=== PATIENT | female | born 1960 | race Caucasian/White ===

== ENCOUNTER 2021-05-27 12:08 | Inpatient (IN) | payer SELFPAY ==
[~2021-05-27] VITALS: Ht 165.1 cm; Wt 51.6 kg
[~2021-05-27 12:08] MED LIST: HYDR118S10 PO; IBUP800T26 PO
[2021-05-27] MEDS ORDERED: fentaNYL INJ 100 MCG/2 ML AMP IVP ONE (13:00)
[2021-05-27 13:19] LABS: BASOPHILS % (AUTO) 0 % (0-10); EOSINOPHILS % (AUTO) 0 % (0-10); HEMATOCRIT 40 % (35-52); HEMOGLOBIN 13.6 g/dL (11.5-16.0); LYMPHOCYTES # (AUTO) 1.8 10^3/uL (1.0-4.0); LYMPHOCYTES % (AUTO) 23 % (12-44); MEAN CORPUSCULAR HEMOGLOBIN 30 pg (25-34); MEAN CORPUSCULAR HGB CONC 34 g/dL (32-36); MEAN CORPUSCULAR VOLUME 89 fL (80-99); MEAN PLATELET VOLUME 9.6 fL (9.0-12.2); MONOCYTES # (AUTO) 0.4 10^3/uL (0.0-1.0); MONOCYTES % (AUTO) 5 % (0-12); NEUTROPHILS # (AUTO) 5.5 10^3/uL (1.8-7.8); NEUTROPHILS % (AUTO) 71 % (42-75); PLATELET COUNT 247 10^3/uL (130-400); WHITE BLOOD COUNT 7.8 10^3/uL (4.3-11.0)
[2021-05-27 13:27] LABS: ALBUMIN 3.7 GM/DL (3.2-4.5); POTASSIUM 2.9 MMOL/L (3.6-5.0)
[2021-05-27 13:29] LABS: CALCIUM 8.2 MG/DL (8.5-10.1)
[2021-05-27 13:30] LABS: TOTAL PROTEIN 6.5 GM/DL (6.4-8.2)
[2021-05-27 13:32] LABS: BILIRUBIN,TOTAL 0.3 MG/DL (0.1-1.0)
[2021-05-27 13:34] LABS: CREATININE SERUM 0.7 MG/DL (0.60-1.30)
--- NOTE | 2021-05-27 13:38 | ED Abdominal Pain ---
General Chief Complaint: Abdominal/GI Problems Stated Complaint: ABD PAIN Nursing Triage Note: AMB TO ED WITH C/O ABD CRAMPING HAS PAPERS THAT SHOW SHE WAS IP AT [facility] THE 1ST WEEK IN MAY WAS ADMITTED WITH SM BOWEL VS GASTRITIS. CON'T HAVE WAS TOLD BY [facility] TO [facility] TO COME TO ER. Source of Information: Patient Exam Limitations: No Limitations (BARRY HICKS APRN) History of Present Illness Date Seen by Provider: May 27, 2021 Time Seen by Provider: 12:45 Initial Comments To ER with abdominal cramping. She was inpatient at [facility] in [facility] for 3 days at the beginning of this month with a small bowel obstruction. She has recurrent symptoms and presented here today. No vomiting Timing/Duration: 1-2 Days Severity/Quality: Cramping Location: Generalized Abdomen Radiation: No Radiation Activities at Onset: None Associated Symptoms: Denies Symptoms (BARRY HICKS APRN) Allergies and Home Medications Allergies Coded Allergies: No Known Drug Allergies (Unverified , 09/08/14) Home Medications Ibuprofen 800 Mg Tablet, 800 MG PO q8h PRN for PAIN, (Reported) Patient Home Medication List Home Medication List Reviewed: Yes (BARRY HICKS APRN) Review of Systems Review of Systems Constitutional: see HPI EENTM: No Symptoms Reported Respiratory: No Symptoms Reported Cardiovascular: No Symptoms Reported Gastrointestinal: See HPI, Abdominal Pain; Denies Diarrhea, Denies Nausea Genitourinary: No Symptoms Reported Musculoskeletal: no symptoms reported Skin: no symptoms reported Psychiatric/Neurological: No Symptoms Reported Endocrine: No Symptoms Reported Hematologic/Lymphatic: No Symptoms Reported (BARRY HICKS APRN) Past Bvzjdoc-Uasabr-Ehlukt Hx Past Medical History [employer] History: Menopausal Chronic Back Pain (BARRY HICKS APRN) Physical Exam Vital Signs Vital Signs - First Documented 05/27/21 12:37 Temp 36.3 Pulse 80 Resp 18 B/P (MAP) 124/71 (88) Pulse Ox 96 O2 Delivery Room Air (MARLENY ANDREW MD) Vital Signs Capillary Refill : Greater Than 3 Seconds (BARRY HICKS APRN) Height/Weight/BMI Height: 5'6" Weight: 118lbs. oz. 53.000610yp; 17.00 BMI Method: General Appearance: WD/WN, no apparent distress, thin HEENT: PERRL/EOMI, normal ENT inspection Respiratory: no respiratory distress, no accessory muscle use Cardiovascular: regular rate, rhythm, no murmur Gastrointestinal: soft, abnormal bowel sounds (Hypoactive), distended, tenderness Extremities: normal range of motion, non-tender Neurologic/Psychiatric: alert, normal mood/affect, oriented x 3 Skin: normal color, warm/dry (BARRY HICKS APRN) Progress/Results/Core Measures Results/Orders Lab Results Laboratory Tests Test 05/27/21 13:08 05/27/21 13:20 Range/Units White Blood Count 7.8 4.3-11.0 10^3/uL Red Blood Count 4.51 3.80-5.11 10^6/uL Hemoglobin 13.6 11.5-16.0 g/dL Hematocrit 40 35-52 % Mean Corpuscular Volume 89 80-99 fL Mean Corpuscular Hemoglobin 30 25-34 pg Mean Corpuscular Hemoglobin Concent 34 32-36 g/dL Red Cell Distribution Width 14.3 10.0-14.5 % Platelet Count 247 130-400 10^3/uL Mean Platelet Volume 9.6 9.0-12.2 fL Immature Granulocyte % (Auto) 0 % Neutrophils (%) (Auto) 71 42-75 % Lymphocytes (%) (Auto) 23 12-44 % Monocytes (%) (Auto) 5 0-12 % Eosinophils (%) (Auto) 0 0-10 % Basophils (%) (Auto) 0 0-10 % Neutrophils # (Auto) 5.5 1.8-7.8 10^3/uL Lymphocytes # (Auto) 1.8 1.0-4.0 10^3/uL Monocytes # (Auto) 0.4 0.0-1.0 10^3/uL Eosinophils # (Auto) 0.0 0.0-0.3 10^3/uL Basophils # (Auto) 0.0 0.0-0.1 10^3/uL Immature Granulocyte # (Auto) 0.0 0.0-0.1 10^3/uL Sodium Level 145 135-145 MMOL/L Potassium Level 2.9 L 3.6-5.0 MMOL/L Chloride Level 105 98-107 MMOL/L Carbon Dioxide Level 27 21-32 MMOL/L Anion Gap 13 5-14 MMOL/L Blood Urea Nitrogen 10 7-18 MG/DL Creatinine 0.70 0.60-1.30 MG/DL Estimat Glomerular Filtration Rate 85 BUN/Creatinine Ratio 14 Glucose Level 87 70-105 MG/DL Calcium Level 8.2 L 8.5-10.1 MG/DL Corrected Calcium 8.4 L 8.5-10.1 MG/DL Total Bilirubin 0.3 0.1-1.0 MG/DL Aspartate Amino Transf (AST/SGOT) 21 5-34 U/L Alanine Aminotransferase (ALT/SGPT) 11 0-55 U/L Alkaline Phosphatase 83 40-136 U/L Total Protein 6.5 6.4-8.2 GM/DL Albumin 3.7 3.2-4.5 GM/DL Lipase 12 8-78 U/L Urine Color YELLOW Urine Clarity CLEAR Urine pH 6.0 5-9 Urine Specific [place]rop 1.025 H 1.016-1.022 Urine Protein TRACE H NEGATIVE Urine Glucose (UA) NEGATIVE NEGATIVE Urine Ketones NEGATIVE NEGATIVE Urine Nitrite NEGATIVE NEGATIVE Urine Bilirubin NEGATIVE NEGATIVE Urine Urobilinogen 1.0 < = 1.0 MG/DL Urine Leukocyte Esterase TRACE H NEGATIVE Urine RBC (Auto) NEGATIVE NEGATIVE Urine RBC NONE /HPF Urine WBC 5-10 H /HPF Urine Squamous Epithelial Cells 10-25 H /HPF Urine Crystals NONE /LPF Urine Bacteria MODERATE H /HPF Urine Casts NONE /LPF Urine Mucus LARGE H /LPF Urine Culture Indicated YES (MARLENY ANDREW MD) Medications Given in ED Current Medications Medications Dose Ordered Sig/Grady Route Start Time Stop Time Status Last Admin Dose Admin Fentanyl Citrate 50 mcg ONCE ONCE IVP 05/27/21 13:00 05/27/21 13:01 DC 05/27/21 13:15 50 MCG Potassium Chloride 40 meq ONCE ONCE PO 05/27/21 13:45 05/27/21 13:46 DC 05/27/21 14:06 40 MEQ (MARLENY ANDREW MD) Vital Signs/I&O 05/27/21 12:37 Temp 36.3 Pulse 80 Resp 18 B/P (MAP) 124/71 (88) Pulse Ox 96 O2 Delivery Room Air (MARLENY ANDREW MD) Blood Pressure Mean: 88 Departure Communication (Admissions) NAME: SHANTI MUELLER [facility] REC#: [id number] PT STATUS: REG ER : 1960 PHYSICIAN: BARRY HICKS APRN ADMIT DATE: 05/27/21/ER Draft Date of Exam:05/27/21 CT ABDOMEN/PELVIS W EXAMINATION: CT abdomen and pelvis with intravenous contrast. TECHNIQUE: Multiple contiguous axial images were obtained through the abdomen and pelvis after the uneventful administration of intravenous contrast. All CT scans use one or more of the following dose optimizing techniques: Automated exposure control, MA and/or KvP adjustment based on patient size and exam type or iterative reconstruction. HISTORY: Recent small bowel obstruction with abdominal pain and cramping. COMPARISON: None. FINDINGS: Lung bases: Bibasilar dependent atelectasis. Solid organs: The liver is normal without focal lesion. The gallbladder is normal. There is no biliary ductal dilation. Pancreas is normal. Spleen is normal. Adrenal glands are normal. The kidneys are normal without hydronephrosis. Bowel: There are multiple dilated loops of small bowel with transition point in the right lower quadrant. Bowel loops measure up to 4.5 cm. Colon is unremarkable. No findings of acute appendicitis. Peritoneum: There is mild free fluid in the lower abdomen and pelvis. No intra-abdominal free air. No suspicious lymphadenopathy. Vasculature: Normal without aneurysm. Musculoskeletal: Degenerative changes of the spine without suspicious osseous lesion or compression fracture. Pelvis: The uterus and adnexa are normal. The urinary bladder is normal. IMPRESSION: 1. Findings suggestive of small bowel obstruction with the transition point in the right lower quadrant. Dictated on workstation # [id number] Dict: 05/27/21 1423 Trans: 05/27/21 1431 [id number] Interpreted by: BLANCA BANG DO Electronically signed by: (BARRY HICKS APRN) Impression Primary Impression: Small bowel obstruction Disposition: ADMITTED INPATIENT Condition: Stable Admissions Decision to Admit Reason: Admit from ER (General) Decision to Admit/Date: May 27, 2021 Time/Decision to Admit Time: 14:33 (BARRY HICKS APRN) Departure-Patient Inst. Referrals: PIPO QUIGLEY (PCP) Primary Care Physician [facility] (Family) Primary Care Physician ATTENDING PHYSICIAN NOTE: I was physically present as attending physician in the emergency department during the care of this patient, but I was not directly involved in the decision making or delivery of care for this patient. (MARLENY ANDREW MD) BARRY HICKS APRN May 27, 2021 13:37 MARLENY ANDREW MD May 27, 2021 22:41
[2021-05-27 13:39] LABS: BILIRUBIN,URINE NEGATIVE (NEGATIVE); CLARITY,URINE CLEAR; COLOR,URINE YELLOW; GLUCOSE, URINE (UA) NEGATIVE (NEGATIVE); KETONES,URINE NEGATIVE (NEGATIVE); LEUKOCYTE ESTERASE ,URINE TRACE (NEGATIVE); NITRITE,URINE NEGATIVE (NEGATIVE); PROTEIN,URINE TRACE (NEGATIVE)
[2021-05-27] MEDS ORDERED: KCL 10 MEQ TAB (MICRO K) PO ONE ×2 (13:45→14:10)
[2021-05-27] MEDS ORDERED: DIATRIZOATE MEGLUM/SODIUM 37% 120 ML (GASTROGRAFIN) PO ONE (14:00)
[2021-05-27] MEDS ORDERED: IOHEXOL 350 MG/ML 100 ML (OMNIPAQUE 350) VIAL IV ONE (14:00)
[2021-05-27] MEDS ORDERED: NS 100 ML (IVPB) BAG IV ONE (14:00)
[2021-05-27] MEDS ORDERED: HOLD METFORMIN - RECEIVED CONTRAST 20 ML VIAL IV SCH (14:00)
[2021-05-27 14:31] LABS: BACTERIA,URINE MODERATE /HPF
--- NOTE | 2021-05-27 14:31 | Diagnostic Imaging Report ---
EXAMINATION: CT abdomen and pelvis with intravenous contrast. TECHNIQUE: Multiple contiguous axial images were obtained through the abdomen and pelvis after the uneventful administration of intravenous contrast. All CT scans use one or more of the following dose optimizing techniques: Automated exposure control, MA and/or KvP adjustment based on patient size and exam type or iterative reconstruction. HISTORY: Recent small bowel obstruction with abdominal pain and cramping. COMPARISON: None. FINDINGS: Lung bases: Bibasilar dependent atelectasis. Solid organs: The liver is normal without focal lesion. The gallbladder is normal. There is no biliary ductal dilation. Pancreas is normal. Spleen is normal. Adrenal glands are normal. The kidneys are normal without hydronephrosis. Bowel: There are multiple dilated loops of small bowel with transition point in the right lower quadrant. Bowel loops measure up to 4.5 cm. Colon is unremarkable. No findings of acute appendicitis. Peritoneum: There is mild free fluid in the lower abdomen and pelvis. No intra-abdominal free air. No suspicious lymphadenopathy. Vasculature: Normal without aneurysm. Musculoskeletal: Degenerative changes of the spine without suspicious osseous lesion or compression fracture. Pelvis: The uterus and adnexa are normal. The urinary bladder is normal. IMPRESSION: 1. Findings suggestive of small bowel obstruction with the transition point in the right lower quadrant. Dictated by: Dictated on workstation # [id number]
[2021-05-27] MEDS ORDERED: HURRICAINE EXT TUBE (BENZOCAINE) XX ONE (15:00)
--- NOTE | 2021-05-27 16:21 | CONSULTATION REPORT ---
DATE OF SERVICE: ATTENDING EDI MANAGER: Arianna Jackson APRN HISTORY OF PRESENT ILLNESS: The patient is a 60-year-old female, who presented to the Emergency Department with crampy abdominal pain and distention. She was an inpatient at [place], [place] for 3 days at the beginning of May for small-bowel obstruction. She has had recurrence of symptoms and presented to [facility] Emergency Department today. She reports abdominal distention, crampy pain; however, no vomiting. She states that she had also another episode before in the past as well. She is unsure when she had her last bowel movement. A CT scan of the abdomen and pelvis was performed, which did show transition point in the right lower abdominal quadrant with proximal small bowel dilatation. No lymphadenopathy. No suspicious masses. PAST MEDICAL HISTORY: None. PAST SURGICAL HISTORY: None. ALLERGIES: No known drug allergies. MEDICATIONS: Hydrocodone p.r.n., ibuprofen 800 mg q.8 hours p.r.n. SOCIAL HISTORY: Negative smoke, negative alcohol. FAMILY HISTORY: Noncontributory. VITAL SIGNS: Temperature 36.3, blood pressure 124/71, pulse 80, respirations 18, pulse ox 96% on room air. REVIEW OF SYSTEMS: Well-nourished female currently in no acute distress. She is not experiencing any shortness of breath or difficulty breathing. No chest pain, palpitations, diaphoresis. Abdominal distention as well as crampy abdominal pain with mild nausea, no vomiting. She is unsure when her last bowel movement was. She does not report any red blood per rectum nor any dark tarry stools. No fever, chills, no recent inadvertent weight loss. All other review of systems negative. PHYSICAL EXAMINATION: CHEST: Clear. Good breath sounds bilaterally. HEART: Regular, no murmurs. EXTREMITIES: No lower extremity edema, negative Homans sign. HEENT: No scleral icterus. NECK: No cervical lymphadenopathy. ABDOMEN: Soft with some mild to moderate distention. There was some mild diffuse tenderness. No peritoneal signs. No palpable masses, no hernias. SKIN: Warm, dry. LABORATORY DATA: WBC 7.8, hemoglobin is 13.6, hematocrit 40, platelets 247. Potassium 2.9. BUN 10, creatinine 0.70. Liver function enzymes normal. ASSESSMENT AND PLAN: A 60-year-old female with a partial small-bowel obstruction versus a small-bowel obstruction of unknown etiology. She does have a urinary tract infection as well. We will continue with conservative management for now with bowel rest and IV fluid hydration and see if this resolves on its own. This is her third episode of similar symptoms related to at least a partial small-bowel obstruction and this may warrant a diagnostic laparoscopy at some point. Job ID: [id number] DocumentID: [id number] Dictated Date: 05/27/2021 15:58:58 Parts Salesperson Date: 05/27/2021 16:19:52 Dictated By: SOFY OSWALD MD
--- NOTE | 2021-05-27 16:46 | Diagnostic Imaging Report ---
INDICATION: NG tube placement. EXAMINATION: KUB at 4:39 PM. 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 The heart size and pulmonary vascularity are normal. The lungs are clear. There are no effusions or pneumothoraces. IMPRESSION: COPD. No acute abnormality is seen. The NG tube appears to enter the stomach. Dictated by: Dictated on workstation # [id number]
[2021-05-27 17:00] VITALS: BP 129/73
[2021-05-27] MEDS ORDERED: CATHETER FLUSH 10 ML SYR IV PRN (17:00)
--- NOTE | 2021-05-27 17:21 | History & Physical-Hospitalist ---
KAMERON RAI MED STUDENT 05/27/21 1721: History of Present Illness HPI/Chief Complaint This is Elzbieta a 60 yo female that presented to the ER this afternoon with the chief complaint of abdominal pain secondary to small bowel obstruction as shown on CT. Upon entering the room she was laying in bed in obvious discomfort having nasal drainage after N/G tube placement. She had similar symptoms a little more than 2 weeks ago and had a 3 day hospital stay at [place] and one more time even before that, She has not had abdominal surgery of any kind and has been treated conservatively. The abdominal pain subsided for only 1 day after the [place] stay and then began again. She described the pain as constantly dull in nature but that it builds up and has an extremely sharp pain at no specific area on the abdomen, as it waxes and wanes. Today she put the pain at a 10/10 on the pain scale. Pt called her PCP, Dr. Tyler, who told her to go the ER this afternoon. Pt describes only having a couple bowel movements since these symptoms began and the rest has been very water diarrhea. The pain improves with sitting and resting and gets worst with movement of any kind. Pt denies any change in appetite. She was calm, cooperative, and engaged duirng questioning until the end when she got quite emotional stating that she has had a lot of in her family with the most recent being her that was killed a few months ago. Source: patient Date Seen 05/27/21 Time Seen by a Provider: 03:30 Attending Physician Sandee Naik DO PCP Arianna Jackson Referring Physician Date of Admission May 27, 2021 at 14:43 Home Medications & Allergies Home Medications Reviewed patient Home Medication Reconciliation performed by pharmacy medication reconciliations septic technician and/or nursing. Patients Allergies have been reviewed. Allergies Allergies Coded Allergies No Known Drug Allergies (Vssnyrokna61/23/14) Past Hlyafqt-Fuuxrp-Woyhxi Hx Patient Social History Marrital Status: Tobacco Use?: Yes Tobacco type used: Cigarettes Smoking Status: Current Everyday Smoker (1 pack a day for 42 years) Substance use?: Yes Substance type: Marijuana Substance frequency: Couple times a week (3-4) Alcohol Use?: No Pt feels they are or have been: No Current Status Advance Directives: No Sensory deficits: Vision impairment Past Medical History Surgeries: Orthopedic (screw in left arm) COPD [employer] History: Menopausal Chronic Back Pain Family Medical History Cancer (father had pacreatic and liver cancer), Diabetes (mother) Review of Systems Constitutional: No chills, No fever, No weakness; weight loss (lost 10 pounds in last 2 months) EENTM: No ear pain, No blurred vision, No throat pain Respiratory: cough; No hemoptysis; short of breath Cardiovascular: No chest pain, No edema, No palpitations Gastrointestinal: abdominal pain (describes as all over abdominal pain but she constanly grabbed at LLQ and RLQ), diarrhea; No hematemesis, No loss of appetite, No melena, No nausea, No vomiting Genitourinary: decreased output (stated that she was dehydrated); No dysuria, No frequency Musculoskeletal: back pain; No joint pain; muscle pain (sciatica); No muscle stiffness Skin: No change in color, No dryness, No lesions, No rash Psychiatric/Neurological: Denies Anxiety; Depressed, Emotional Problems; Denies Headache, Denies Numbness, Denies Tingling, Denies Weakness Physical Exam Physical Exam Vital Signs Vital Signs - First Documented 05/27/21 12:37 Temp 36.3 Pulse 80 Resp 18 B/P (MAP) 124/71 (88) Pulse Ox 96 O2 Delivery Room Air Capillary Refill : Greater Than 3 Seconds Height, Weight, BMI Height: 5'6" Weight: 118lbs. oz. 53.338966tb; 17.00 BMI Method: General Appearance: Chronically ill, Moderate Distress, Thin HEENT: PERRL/EOMI, Pharynx Normal Neck: Normal Inspection, Non Tender, Supple Respiratory: Chest Non Tender, Normal Breath Sounds, No Accessory Muscle Use, No Respiratory Distress, Crackles (in bilateral lower lobes) Cardiovascular: Regular Rate, Rhythm, No Edema, No Gallop, No Murmur, Normal Peripheral Pulses Gastrointestinal: Abnormal Bowel Sounds, Distended, Guarding, Hernia (umb ilical) Rectal: Deferred Extremity: Normal Inspection, Normal Range of Motion, Non Tender, No Calf Tenderness, No Pedal Edema Neurologic/Psychiatric: Alert, Oriented x3, No Motor/Sensory Deficits, Normal Mood/Affect Skin: Normal Color, Warm/Dry Results Results/Procedures Labs Laboratory Tests 05/27/21 13:08 Patient resulted labs reviewed. Assessment/Plan Assessment and Plan small bowel obstruction consult surgery continue pain medication monitor labs/vitals/pain level COPD continue home medications chronic back pain umbilical hernia hypokalemia of 2,9 40 IV potassium monitor labs and EKG SANDEE NAIK DO 05/28/21 1239: History of Present Illness HPI/Chief Complaint CC: Abdominal pain HPI: This is a [facility] patient who has a past medical history of a small bowel obstruction hospitalized in [place] just recently who presented to [facility] ER with the same complaints. She was found to have small bowel obstruction, NG tube will be placed and Dr. Garcia will be consulted. At this current time Pt denies any other new issues. Source: patient Past Tnusgur-Yvdxsk-Nivpcm Hx Patient Social History Marrital Status: Tobacco Use?: Yes Tobacco type used: Cigarettes Smoking Status: Current Everyday Smoker (1 pack a day for 42 years) Past Medical History Obstructive Bowel Review of Systems Constitutional: see HPI Physical Exam Physical Exam General Appearance: No Apparent Distress, Chronically ill, Thin Respiratory: Lungs Clear, Normal Breath Sounds Cardiovascular: Regular Rate, Rhythm Gastrointestinal: Abnormal Bowel Sounds, Distended, Guarding Assessment/Plan Admission Diagnosis Assessment: Small bowel obstruction Weight loss Plan: Supportive care Appreciate general surgery Admission Status: Inpatient Order (span 2 midnights) Reason for Inpatient Admission: SBO Diagnosis/Problems Diagnosis/Problems (1) Small bowel obstruction Status: Acute Supervisory-Addendum Brief Verification & Attestation Participated in pt care: history, MDM, physical Personally performed: exam, history, MDM, supervision of care Care discussed with: Medical Student Procedures: n/a Results interpretation: Verified all documentation Verification and Attestation of Medical Student E/M Service A medical student performed and documented this service in my presence. I reviewed and verified all information documented by the medical student and made modifications to such information, when appropriate. I personally performed the physical exam and medical decision making. Sandee Naik, May 29, 2021,04:49 KAMERON RAI MED STUDENT May 27, 2021 17:21 SANDEE NAIK DO May 28, 2021 12:39
[2021-05-27] MEDS: NS IV 1000 ML 1,000 ML IV SCH (17:25)
[2021-05-27] MEDS: fentaNYL INJ 100 MCG/2 ML AMP IV PRN (17:29)
[2021-05-27] MEDS: POTASSIUM CL 10 MEQ/50 ML IVPB (PRE-MIX) IV SCH ×4 (17:30→21:43)
[2021-05-27 20:36] VITALS: BP 130/75
[2021-05-27 23:25] VITALS: BP 121/63
[2021-05-28] MEDS: NS IV 1000 ML 1,000 ML IV SCH ×3 (00:43→16:54)
[2021-05-28 03:55] VITALS: BP 135/61
[2021-05-28] MEDS: fentaNYL INJ 100 MCG/2 ML AMP IV PRN ×2 (05:42→11:55)
[2021-05-28 06:45] LABS: BASOPHILS % (AUTO) 0 % (0-10); EOSINOPHILS # (AUTO) 0.1 10^3/uL (0.0-0.3); EOSINOPHILS % (AUTO) 1 % (0-10); HEMATOCRIT 40 % (35-52); HEMOGLOBIN 13.2 g/dL (11.5-16.0); LYMPHOCYTES # (AUTO) 1.8 10^3/uL (1.0-4.0); LYMPHOCYTES % (AUTO) 25 % (12-44); MEAN CORPUSCULAR HEMOGLOBIN 30 pg (25-34); MEAN CORPUSCULAR HGB CONC 33 g/dL (32-36); MEAN CORPUSCULAR VOLUME 91 fL (80-99); MONOCYTES # (AUTO) 0.4 10^3/uL (0.0-1.0); MONOCYTES % (AUTO) 6 % (0-12); NEUTROPHILS # (AUTO) 4.8 10^3/uL (1.8-7.8); NEUTROPHILS % (AUTO) 68 % (42-75); PLATELET COUNT 220 10^3/uL (130-400); WHITE BLOOD COUNT 7.1 10^3/uL (4.3-11.0)
[2021-05-28 06:54] LABS: POTASSIUM 3.4 MMOL/L (3.6-5.0)
[2021-05-28 06:55] LABS: CALCIUM 7.6 MG/DL (8.5-10.1)
[2021-05-28 07:00] LABS: CREATININE SERUM 0.64 MG/DL (0.60-1.30)
[2021-05-28 08:08] VITALS: BP 139/87
[2021-05-28] MEDS ORDERED: DIATRIZOATE MEGLUM/SODIUM 37% 120 ML (GASTROGRAFIN) PO ONE (08:45)
[2021-05-28] MEDS: ONDANSETRON 4 MG/2 ML (SDV) Z0FRAN IV PRN (12:00)
[2021-05-28 12:06] VITALS: BP 150/67
--- NOTE | 2021-05-28 12:49 | Diagnostic Imaging Report ---
INDICATION: Small bowel obstruction. Patient ingested 240 mL of Gastrografin contrast and water mixture and serial radiographs of the abdomen were obtained. Preliminary radiograph does show a moderate gaseous distention of small bowel loops in the central abdomen. There is a small amount of residual contrast within the colon from the patient's CT study one day earlier. Initial radiograph demonstrates contrast throughout the stomach. There appears to be fairly prompt emptying into the small bowel loops. There does appear to be normal progression of contrast through the small bowel loops to the colon. Contrast is seen within the colon at the 3 hour alexander. Mucosal fold pattern is unremarkable. No definite intrinsic or extrinsic mass is seen. IMPRESSION: Dilated small bowel however, contrast does progress through the small bowel to the colon in 3 hours. No complete obstruction is identified. Dictated by: Dictated on workstation # [id number]
--- NOTE | 2021-05-28 13:17 | Progress Note - Hospitalist ---
KAMERON RAI MED STUDENT 05/28/21 1317: Subjective HPI/CC On Admission Date Seen by Provider: May 28, 2021 Time Seen by Provider: 12:00 SBO. Subjective/Events-last exam This is Elzbieta a 60 yo female on day 2 of her hospital stay with the chief complaint of SBO. Upon entering the room she was laying in bed with obvious abdominal pain after returning from a small bowel x-ray with contrast. Pt stated that her stomach has hurt ever since drinking the contrast. Pt was calm, cooperative, and engaged during questioning. Currently NPO she complained of being very hungry and requested ice chips. She requested and received pain medication and zofran while I was in the room. She has had several BMs this AM. Small bowel x-ray with contrast was completed and showed dilated small bowel but no complete obstruction. Review of Systems General: Fatigue, Appetite (hungry) Gastrointestinal: Abdominal Pain Focused Exam Time of Focused Exam: 12:00 Respiratory: Chest Non Tender, Lungs Clear, Normal Breath Sounds, No Accessory Muscle Use, No Respiratory Distress Cardiovascular: Regular Rate, Rhythm, No Edema, No Gallop, No Murmur, Normal Peripheral Pulses Skin: normal color, warm/dry Objective Exam Vital Signs Vital Signs Date Time Temp Pulse Resp B/P (MAP) Pulse Ox O2 Delivery O2 Flow Rate FiO2 05/28/21 12:06 36.1 56 20 150/67 (94) 96 Room Air Capillary Refill : Greater Than 3 Seconds General Appearance: Chronically ill, Mild Distress, Thin HEENT: PERRL/EOMI, Pharynx Normal Neck: Normal Inspection, Non Tender, Supple Respiratory: Chest Non Tender, Lungs Clear, Normal Breath Sounds, No Accessory Muscle Use, No Respiratory Distress Cardiovascular: Regular Rate, Rhythm, No Edema, No Gallop, No Murmur, Normal Peripheral Pulses Gastrointestinal: Normal Bowel Sounds, Non Tender, Soft Rectal: Deferred Extremity: Normal Inspection, Normal Range of Motion, Non Tender, No Calf Tenderness, No Pedal Edema Neurologic/Psychiatric: Alert, Oriented x3, No Motor/Sensory Deficits, Normal Mood/Affect Skin: Normal Color, Warm/Dry Results/Procedures Lab Laboratory Tests 05/28/21 06:22 Patient resulted labs reviewed. Assessment/Plan Assessment and Plan Assess & Plan/Chief Complaint small bowel obstruction surgery consulted continue pain medication and zofran monitor labs/vitals/pain level COPD continue home medications chronic back pain umbilical hernia hypokalemia- improved to 3.4 on 05/28 40 IV potassium monitor labs hypocalcemia 8.2 on 05/28 SANDEE NAIK DO 05/29/21 0536: Subjective Subjective/Events-last exam Pt doing okay today Still having pain Small bowel series was completed so will wait on those results Appreciate Dr. Garcia Review of Systems General: Fatigue Gastrointestinal: Abdominal Pain Objective Exam General Appearance: No Apparent Distress, WD/WN, Chronically ill Respiratory: No Accessory Muscle Use, No Respiratory Distress, Decreased Breath Sounds Cardiovascular: Regular Rate, Rhythm Assessment/Plan Assessment and Plan Assess & Plan/Chief Complaint Appreciate Dr. GARCIA Supportive care N.p.o. Supervisory-Addendum Brief Verification & Attestation Participated in pt care: history, MDM, physical Personally performed: exam, history, MDM, supervision of care Care discussed with: Medical Student Procedures: n/a Results interpretation: Verified all documentation Verification and Attestation of Medical Student E/M Service A medical student performed and documented this service in my presence. I reviewed and verified all information documented by the medical student and made modifications to such information, when appropriate. I personally performed the physical exam and medical decision making. Sandee Naik, May 29, 2021,05:36 KAMERON RAI MED STUDENT May 28, 2021 13:17 SANDEE NAIK DO May 29, 2021 05:36
[2021-05-28] MEDS ORDERED: FLUT1DIS26 IH (13:27)
[2021-05-28] MEDS ORDERED: OMEP40CA6 PO (13:27)
[2021-05-28] MEDS ORDERED: TIOT18CA2 IH (13:27)
[2021-05-28] MEDS ORDERED: SUCR1TAB PO (13:27)
[2021-05-28 16:36] VITALS: BP 121/72
--- NOTE | 2021-05-28 16:43 | Progress Note ---
Subjective Date Seen by a Provider: May 28, 2021 Time Seen by a Provider: 16:30 Subjective/Events-last exam Patient lying in bed resting. Reports started prep for EGD/Colonoscopy tomorrow. Reports having BMs that are liquid. Tolerating clear liquid diet. Does reports some left lower quadrant tenderness. Denies any blood in her stool. Focused Exam Time of Focused Exam: 12:00 Objective Exam Vital Signs Date Time Temp Pulse Resp B/P (MAP) Pulse Ox O2 Delivery O2 Flow Rate FiO2 05/28/21 16:36 36.5 57 18 121/72 (88) 95 Room Air 05/28/21 12:06 36.1 56 20 150/67 (94) 96 Room Air 05/28/21 08:32 Room Air 05/28/21 08:08 36.5 60 20 139/87 (104) 95 Room Air 05/28/21 03:55 37.0 65 22 135/61 (85) 97 Room Air 05/27/21 23:25 37.0 70 18 121/63 (82) 96 Room Air 05/27/21 20:36 36.8 76 20 130/75 (93) 95 Room Air 05/27/21 17:30 Room Air 05/27/21 17:00 36.7 73 20 129/73 (91) 96 Room Air I & O 05/28/21 07:00 Intake Total 1200 ml Output Total 100 ml Balance 1100 ml Capillary Refill : Greater Than 3 Seconds General Appearance: No Apparent Distress, WD/WN Respiratory: Normal Breath Sounds, No Accessory Muscle Use, No Respiratory Distress Cardiovascular: Regular Rate, Rhythm, No Edema Gastrointestinal: normal bowel sounds, soft, tenderness (LLQ) Extremity: Normal Inspection, Normal Range of Motion Neurologic/Psychiatric: Alert, Oriented x3 Skin: Normal Color, Warm/Dry Results Lab Laboratory Tests 05/28/21 06:22: White Blood Count 7.1, Red Blood Count 4.41, Hemoglobin 13.2, Hematocrit 40, Mean Corpuscular Volume 91, Mean Corpuscular Hemoglobin 30, Mean Corpuscular Hemoglobin Concent 33, Red Cell Distribution Width 14.3, Platelet Count 220, Mean Platelet Volume 10.0, Immature Granulocyte % (Auto) 0, Neutrophils (%) (Au to) 68, Lymphocytes (%) (Auto) 25, Monocytes (%) (Auto) 6, Eosinophils (%) (Auto) 1, Basophils (%) (Auto) 0, Neutrophils # (Auto) 4.8, Lymphocytes # (Auto) 1.8, Monocytes # (Auto) 0.4, Eosinophils # (Auto) 0.1, Basophils # (Auto) 0.0, Immature Granulocyte # (Auto) 0.0, Sodium Level 144, Potassium Level 3.4L, Chloride Level 110H, Carbon Dioxide Level 21, Anion Gap 13, Blood Urea Nitrogen 7, Creatinine 0.64, Estimat Glomerular Filtration Rate 94, BUN/Creatinine Ratio 11, Glucose Level 76, Calcium Level 7.6L 05/28/21 13:38: SARS-CoV-2 RNA (RT-PCR) Not Detected Microbiology 05/27/21 Urine Culture - Preliminary, Resulted Slight Growth Present Assessment/Plan Assessment/Plan Assess & Plan/Chief Complaint A 60 year old female with Partial small bowel obstruction, UTI VSS Small bowel follow through shows most likely partial small bowel obstruction with contrast going through Tolerating clear liquid diet Having liquid BMs Scheduled for EGD and Colonoscopy tomorrow. PEGGY UMANA MANAGER OPERATIONAL May 28, 2021 16:43
[2021-05-28 20:17] VITALS: BP 129/68
[2021-05-28 23:30] VITALS: BP 116/55
[2021-05-29] VITALS (8 sets, daily range): BP systolic 84–139; BP diastolic 46–77
[2021-05-29] MEDS: NS IV 1000 ML 1,000 ML IV SCH ×3 (00:53→20:55)
[2021-05-29 04:50] LABS: BASOPHILS % (AUTO) 1 % (0-10); EOSINOPHILS # (AUTO) 0.1 10^3/uL (0.0-0.3); EOSINOPHILS % (AUTO) 2 % (0-10); HEMATOCRIT 39 % (35-52); LYMPHOCYTES # (AUTO) 1.7 10^3/uL (1.0-4.0); LYMPHOCYTES % (AUTO) 26 % (12-44); MEAN CORPUSCULAR HEMOGLOBIN 30 pg (25-34); MEAN CORPUSCULAR HGB CONC 33 g/dL (32-36); MEAN CORPUSCULAR VOLUME 92 fL (80-99); MEAN PLATELET VOLUME 9.7 fL (9.0-12.2); MONOCYTES # (AUTO) 0.4 10^3/uL (0.0-1.0); MONOCYTES % (AUTO) 6 % (0-12); NEUTROPHILS # (AUTO) 4.2 10^3/uL (1.8-7.8); NEUTROPHILS % (AUTO) 66 % (42-75); PLATELET COUNT 218 10^3/uL (130-400); WHITE BLOOD COUNT 6.4 10^3/uL (4.3-11.0)
[2021-05-29 05:11] LABS: ALBUMIN 3.1 GM/DL (3.2-4.5)
[2021-05-29 05:13] LABS: CALCIUM 7.4 MG/DL (8.5-10.1)
[2021-05-29 05:14] LABS: TOTAL PROTEIN 5.6 GM/DL (6.4-8.2)
[2021-05-29 05:16] LABS: BILIRUBIN,TOTAL 0.5 MG/DL (0.1-1.0)
[2021-05-29 05:17] LABS: CREATININE SERUM 0.62 MG/DL (0.60-1.30)
[2021-05-29] MEDS: ENOXAPARIN 40 MG/0.4 ML (LOVENOX) SYR SC SCH (06:04)
--- NOTE | 2021-05-29 10:37 | Conscious Sedation/ASA ---
Conscious Sedation Pre-Proced Time 10:00 ASA Score 2 For ASA 3 and 4: Consider anesthesia and medical clearance. Also, for patients with a history of failed moderate sedation consider anesthesia. Airway Lungs Heart ASA score ASA 1: a normal healthy patient ASA 2: a patient with a mild systemic disease (mid diabetes, controlled hypertension, obesity ASA 3: a patient with a severe systemic disease that limits activity (angina, COPD, prior Myocardial infarction) ASA 4: a patient with an incapacitating disease that is a constant threat to life (CHF, renal failure) ASA 5: a moribund patient not expected to survive 24 hrs. (ruptured aneurysm) ASA 6: a declared brain- patient whose organs are being harvested. For emergent operations, add the letter E after the classification Mallampati Classification Grade 2 Sedation Plan Analgesia, Amnesia, Plan communicated to team members, Discussed options with patient/fam, Discussed risks with patient/fam The patient is an appropriate candidate to undergo the planned procedure, sedation, and anesthesia. The patient immediately re-assessed prior to indication. SOFY OSWALD MD May 29, 2021 10:37
--- NOTE | 2021-05-29 10:38 | Progress Note-Pre Operative ---
Pre-Operative Progress Note H&P Reviewed The H&P was reviewed, patient examined and no changes noted. Date Seen by Provider: May 29, 2021 Time Seen by Provider: 10:00 Date H&P Reviewed: May 29, 2021 Time H&P Reviewed: 10:00 Pre-Operative Diagnosis: GERD, abd pain, abd distention SOFY OSWALD MD May 29, 2021 10:38
[2021-05-29] MEDS ORDERED: PROPOFOL INJECTION 50 ML IV ONE ×2 (11:55→12:23)
[2021-05-29] MEDS ORDERED: MIDAZOLAM 2 MG/2 ML (VERSED) VIAL ONE (11:55)
[2021-05-29] MEDS ORDERED: LACTATED RINGERS 1,000 ML IV ONE (12:01)
[2021-05-29] MEDS ORDERED: HURRICAINE EXT TUBE (BENZOCAINE) ONE (12:06)
[2021-05-29] MEDS ORDERED: LIDOCAINE JELLY 2% 6 ML SYRINGE ONE (12:06)
--- NOTE | 2021-05-29 12:24 | Progress Note - Hospitalist ---
KAMERON RAI MED STUDENT 05/29/21 1224: Subjective HPI/CC On Admission Date Seen by Provider: May 29, 2021 Time Seen by Provider: 09:00 CC: Abdominal pain HPI: This is a [facility] patient who has a past medical history of a small bowel obstruction hospitalized in [place] just recently who presented to [facility] ER with the same complaints. She was found to have small bowel obstruction, NG tube will be placed and Dr. Garcia will be consulted. At this current time Pt denies any other new issues. Subjective/Events-last exam This is Elzbieta a 60 yo female on day 3 of her hospital stay with the chief com plaint of SBO. Upon entering the room she was laying in bed sleeping. Pt was calm, cooperative, and engaged during questioning. Currently on a clear liquid diet she complained of being very hungry and was hoping that she would be able to eat this afternoon. She is scheduled to get a colonoscopy and EGD in the early afternoon. Pt stated that she is in no pain, 0/10, and stated that she has felt much better after having multiple bowel movements yesterday and this morning in preparation for the diagnostic colonoscopy. Pt complained of frequent urination. Focused Exam Time of Focused Exam: 09:00 Respiratory: Chest Non Tender, Lungs Clear, Normal Breath Sounds, No Accessory Muscle Use, No Respiratory Distress Cardiovascular: Regular Rate, Rhythm, No Edema, No Gallop, No Murmur, Normal Peripheral Pulses Skin: normal color, warm/dry Objective Exam Vital Signs Vital Signs Date Time Temp Pulse Resp B/P (MAP) Pulse Ox O2 Delivery O2 Flow Rate FiO2 05/29/21 08:00 Room Air 05/29/21 08:00 36.0 72 20 132/73 (92) 97 Capillary Refill : Greater Than 3 Seconds General Appearance: No Apparent Distress, WD/WN, Thin HEENT: PERRL/EOMI Neck: Normal Inspection, Non Tender, Supple Respiratory: Chest Non Tender, Lungs Clear, Normal Breath Sounds, No Accessory Muscle Use, No Respiratory Distress Cardiovascular: Regular Rate, Rhythm, No Edema, No Gallop, No Murmur, Normal Peripheral Pulses Gastrointestinal: Normal Bowel Sounds, No Organomegaly, No Pulsatile Mass, Non Tender, Soft Rectal: Deferred Back: Vertebral Tenderness Extremity: Normal Inspection, Non Tender, No Calf Tenderness Neurologic/Psychiatric: Alert, Oriented x3, No Motor/Sensory Deficits, Normal Mood/Affect Skin: Normal Color, Warm/Dry Results/Procedures Lab Laboratory Tests 05/29/21 04:34 Patient resulted labs reviewed. Assessment/Plan Assessment and Plan Assess & Plan/Chief Complaint small bowel obstruction surgery consulted EGD/colonoscopy today continue pain medication and zofran monitor labs/vitals/pain level COPD continue home medications chronic back pain umbilical hernia hypokalemia- 3.0 on 05/29 40 IV potassium monitor labs hypocalcemia 7.4 on 05/29 SANDEE NAIK DO 05/30/21 0609: Subjective Subjective/Events-last exam Pt doing a lot better Less abdominal pain Colonoscopy and EGD today, never had a colonoscopy Potassium 3.0 will be supplemented Review of Systems General: Fatigue, Malaise Gastrointestinal: Abdominal Pain Objective Exam General Appearance: No Apparent Distress, WD/WN, Chronically ill, Thin Respiratory: Lungs Clear Cardiovascular: Regular Rate, Rhythm Neurologic/Psychiatric: Alert, Oriented x3 Assessment/Plan Assessment and Plan Assess & Plan/Chief Complaint Scopes today Supportive care Supervisory-Addendum Brief Verification & Attestation Participated in pt care: history, MDM, physical Personally performed: exam, history, MDM, supervision of care Care discussed with: Medical Student Procedures: n/a Results interpretation: Verified all documentation Verification and Attestation of Medical Student E/M Service A medical student performed and documented this service in my presence. I reviewed and verified all information documented by the medical student and made modifications to such information, when appropriate. I personally performed the physical exam and medical decision making. Sandee Naik, May 30, 2021,06:08 KAMERON RAI MED STUDENT May 29, 2021 12:24 SANDEE NAIK DO May 30, 2021 06:09
[2021-05-29] MEDS ORDERED: LACTATED RINGERS 1,000 ML IV STA (12:28)
[2021-05-29] MEDS ORDERED: LIDOCAINE JELLY 2% 6 ML SYRINGE MM PRN (12:30)
[2021-05-29] MEDS ORDERED: HURRICAINE EXT TUBE (BENZOCAINE) XX PRN (12:30)
--- NOTE | 2021-05-29 13:03 | Progress Note-Post Operative ---
Post-Operative Progess Note Surgeon (s)/Mens Locker Room Attendant (s) Surgeon SOFY OSWALD MD Mens Locker Room Attendant: none Pre-Operative Diagnosis GERD, abd pain, abd distention Post-Operative Diagnosis reflux esophagitis(stage 2-3), small HH(2cm), moderate-severe gastritis. mild chronic stage 2 ext and int hemorrhoids, small rectal HP polyp. Procedure & Operative Findings Date of Procedure 05/29/21 Procedure Performed/Findings EGD with bx. Colonoscopy with bx. Anesthesia Type get Estimated Blood Loss Estimated blood loss (mL): minimal Specimens/Packing Specimens Removed ge jxn, antrum, rectal polyp SOFY OSWALD MD May 29, 2021 13:03
[2021-05-29] MEDS ORDERED: PANT40TA2 PO (13:05)
--- NOTE | 2021-05-29 13:05 | Discharge Inst-Surgical ---
D/C Lap Instructions-KIDO New, Converted, or Re-Newed RX: RX on Chart Follow Up PRN Activity as tolerated High Fiber Diet 25g or more per day Avoid Alcohol, Caffeine, Spicy [place] and Acid foods. Drink 64 fluid oz or more of fluids per day. Symptoms to Report: Fever over 101 degree F, Nausea/Vomiting If any problems/questions: Contact your physician or go to Emergency Room SOFY OSWALD MD May 29, 2021 13:05
--- NOTE | 2021-05-29 13:06 | Anesthesia-General Post-Op ---
MAC Patient Condition Mental Status/LOC: Same as Preop Cardiovascular: Satisfactory Nausea/Vomiting: Absent Respiratory: Satisfactory Pain: Controlled Complications: Absent Post Op Complications Complications None Follow Up Care/Instructions Patient Instructions None needed. Anesthesiology Discharge Order Discharge Order Patient is doing well, no complaints, stable vital signs, no apparent adverse anesthesia problems. No complications reported per nursing. TIARA MUNOZ CRNA May 29, 2021 13:06
[2021-05-29] MEDS ORDERED: ATROPINE INJ 0.4 MG/ML SDV IV ONE (13:51)
[2021-05-29] MEDS ORDERED: GLYCOPYRROLATE 0.2 MG/ML (ROBINUL) 2 ML VIAL IJ ONE (13:51)
[2021-05-29] MEDS: POTASSIUM CL 10MEQ/50ML IVPB 50 ML IV SCH ×4 (14:44→16:04)
--- NOTE | 2021-05-29 23:08 | OPERATIVE REPORT ---
DATE OF SERVICE: 05/29/2021 ATTENDING PHYSICIAN: Dr. Chamberlain. PREOPERATIVE DIAGNOSES: Abdominal distention, abdominal pain, gastroesophageal reflux disease. POSTOPERATIVE DIAGNOSES: Reflux esophagitis between stage II and III, small hiatal hernia 2 cm in size, moderate to severe gastritis. No distal obstructions. Chronic stage II external and internal hemorrhoids, small hyperplastic polyp of the rectum. PROCEDURE: EGD with biopsy, colonoscopy with biopsy. SURGEON: Sofy Garcia MD. ANESTHESIA: Monitored anesthesia care. ESTIMATED BLOOD LOSS: Minimal. FINDINGS: Reflux esophagitis between stage II and III, small hiatal hernia 2 cm in size, moderate to severe gastritis. No distal obstructions. Chronic stage II external and internal hemorrhoids, small hyperplastic polyp of the rectum. DISPOSITION: The patient tolerated the procedure well. INDICATIONS: The patient is a 60-year-old female who has had three episodes of significant abdominal distention, crampy pain, which resolved on its own. Upon further questioning, she does report that she has had a history of gastroesophageal reflux disease. She does not report having a colonoscopy in the past. She does not report any red blood per rectum nor any dark tarry stools as well. She did have a contrast study, which did go through immediately and she has had liquid stool since that time. DESCRIPTION OF PROCEDURE: The patient was brought to the endoscopy suite, laid in the left lateral decubitus position. After adequate IV pain and sedative medications and monitored anesthesia care, the mouthpiece was applied. The endoscope was placed in the mouth, visualizing the pharynx and hypopharyngeal region. Vocal cords, epiglottis and vallecula identified and appeared to be normal. The endoscope was then gently intubated into the esophageal opening and the esophagus insufflated. The endoscope was then advanced to the first, second and third portion of esophagus at the level of the GE junction, reflux esophagitis between stage II and III identified. No ulcerations or strictures. A biopsy was taken with forceps with visualization of good hemostasis. The endoscope was then advanced into the stomach and endoscope retroflexed, visualizing a small hiatal hernia approximately 2 cm in size. There was a moderate to severe gastritis. No formal ulcerations, polyps, or any neoplasms. A biopsy was taken of the antrum to rule out H. pylori with visualization of good hemostasis. The endoscope was then advanced to the pylorus into the first and second portion of the duodenum, which appeared normal with no distal obstructions. The endoscope was then slowly withdrawn while taking a second look and suctioning of residual air with no additional findings. A digital rectal examination was performed, which revealed chronic stage II external and internal hemorrhoids, not actively edematous nor inflamed and no bleeding. Normal sphincter tone was felt and there were no palpable masses. The endoscope was then intubated to the anus and rectum gently insufflated. The endoscope was then advanced through the valves of [place] of the rectum with a small hyperplastic polyp identified, which was small, approximately 2 mm in size. This was biopsied with forceps with visualization of good hemostasis. The endoscope was then advanced through the sigmoid colon where no diverticulosis identified. The endoscope was then advanced to remainder of the descending, transverse and ascending colon to the cecum, which appeared normal with no obstructive neoplastic processes involved. The endoscope was then slowly withdrawn while taking a second look and suctioning of residual air with no additional findings. The patient tolerated the procedure well. We will continue to recommend conservative management for now. If she continues to have symptoms of bowel obstruction, this may warrant further investigation to delineate her gastrointestinal anatomy, which may encompass further imaging with an MRI; however, if this continues to happen and this does not yield any results, the next step would be a diagnostic laparoscopy. Job ID: [id number] DocumentID: [id number] Dictated Date: 05/29/2021 12:59:14 Legal Records Manager Date: 05/29/2021 23:07:28 Dictated By: SOFY GARCIA MD
[2021-05-30 03:27] VITALS: BP 148/74
[2021-05-30 06:23] LABS: BASOPHILS % (AUTO) 0 % (0-10); EOSINOPHILS # (AUTO) 0.1 10^3/uL (0.0-0.3); EOSINOPHILS % (AUTO) 1 % (0-10); HEMATOCRIT 44 % (35-52); HEMOGLOBIN 14.5 g/dL (11.5-16.0); LYMPHOCYTES # (AUTO) 1.3 10^3/uL (1.0-4.0); LYMPHOCYTES % (AUTO) 13 % (12-44); MEAN CORPUSCULAR HEMOGLOBIN 30 pg (25-34); MEAN CORPUSCULAR HGB CONC 33 g/dL (32-36); MEAN CORPUSCULAR VOLUME 89 fL (80-99); MEAN PLATELET VOLUME 9.9 fL (9.0-12.2); MONOCYTES # (AUTO) 0.5 10^3/uL (0.0-1.0); MONOCYTES % (AUTO) 5 % (0-12); NEUTROPHILS # (AUTO) 8.5 10^3/uL (1.8-7.8); NEUTROPHILS % (AUTO) 81 % (42-75); PLATELET COUNT 267 10^3/uL (130-400); WHITE BLOOD COUNT 10.4 10^3/uL (4.3-11.0)
[2021-05-30 06:38] LABS: ALBUMIN 3.4 GM/DL (3.2-4.5); BILIRUBIN,TOTAL 0.4 MG/DL (0.1-1.0); CALCIUM 8.7 MG/DL (8.5-10.1); CREATININE SERUM 0.62 MG/DL (0.60-1.30); MAGNESIUM 1.5 MG/DL (1.6-2.4); POTASSIUM 3.1 MMOL/L (3.6-5.0); TOTAL PROTEIN 6.3 GM/DL (6.4-8.2)
[2021-05-30] MEDS: ENOXAPARIN 40 MG/0.4 ML (LOVENOX) SYR SC SCH (06:51)
[2021-05-30 08:30] VITALS: BP 150/77
[2021-05-30 12:00] VITALS: BP 132/74
--- NOTE | 2021-05-30 14:41 | Progress Note - Hospitalist ---
Subjective HPI/CC On Admission Date Seen by Provider: May 30, 2021 Time Seen by Provider: 13:00 CC: Abdominal pain HPI: This is a [facility] patient who has a past medical history of a small bowel obstruction hospitalized in [place] just recently who presented to [facility] ER with the same complaints. She was found to have small bowel obstruction, NG tube will be placed and Dr. Oswald will be consulted. At this current time Pt denies any other new issues. Subjective/Events-last exam Patient was having more abdominal pain after she ate last night and it still continues Scopes were all negative I feel she needs an exploratory laparoscopy Updated Dr. OSWALD No nausea Review of Systems Gastrointestinal: Nausea, Abdominal Pain Focused Exam Time of Focused Exam: 09:00 Objective Exam Vital Signs Vital Signs Date Time Temp Pulse Resp B/P (MAP) Pulse Ox O2 Delivery O2 Flow Rate FiO2 05/30/21 12:00 37.0 70 20 132/74 (93) 94 Room Air 05/29/21 13:00 10 Capillary Refill : Greater Than 3 Seconds General Appearance: No Apparent Distress, WD/WN, Anxious, Chronically ill, Thin Respiratory: Lungs Clear, Normal Breath Sounds Cardiovascular: Regular Rate, Rhythm Gastrointestinal: Abnormal Bowel Sounds, Tenderness Neurologic/Psychiatric: Alert, Oriented x3 Results/Procedures Lab Laboratory Tests 05/30/21 05:55 Patient resulted labs reviewed. Assessment/Plan Assessment and Plan Assess & Plan/Chief Complaint Assessment: Small bowel obstruction recurrent in type Weight loss Plan: Needs exploratory laparoscopy in my opinion Updated Dr. OSWALD [place] normal Protonix Diagnosis/Problems Diagnosis/Problems (1) Small bowel obstruction Status: Acute ELIZABETH NAIK DO May 30, 2021 14:41
[2021-05-30] MEDS: NS IV 1000 ML 1,000 ML IV SCH (15:09)
[2021-05-30 15:36] VITALS: BP 151/77
--- NOTE | 2021-05-30 15:46 | Progress Note ---
Subjective Date Seen by a Provider: May 30, 2021 Time Seen by a Provider: 15:45 Subjective/Events-last exam continues to have crampy abd pain after starting regular diet. Focused Exam Time of Focused Exam: 09:00 Objective Exam Vital Signs Date Time Temp Pulse Resp B/P (MAP) Pulse Ox O2 Delivery O2 Flow Rate FiO2 05/30/21 15:36 36.2 71 18 151/77 (101) 94 Room Air 05/30/21 12:00 37.0 70 20 132/74 (93) 94 Room Air 05/30/21 09:18 Room Air 05/30/21 08:30 36.8 69 20 150/77 (101) 95 Room Air 05/30/21 07:00 Room Air 05/30/21 03:27 36.2 67 22 148/74 (98) 94 Room Air 05/29/21 23:30 36.5 64 20 137/71 (93) 97 Room Air 05/29/21 20:00 Room Air 05/29/21 19:35 36.5 76 18 139/77 (97) 94 Room Air I & O 05/30/21 07:00 Intake Total 1490 ml Output Total 1900 ml Balance -410 ml Capillary Refill : Greater Than 3 Seconds General Appearance: No Apparent Distress HEENT: PERRL/EOMI Neck: Full Range of Motion Respiratory: Chest Non Tender Cardiovascular: Regular Rate, Rhythm Gastrointestinal: normal bowel sounds, distended, tenderness Extremity: Normal Capillary Refill Neurologic/Psychiatric: Alert, Oriented x3 Skin: Normal Color Lymphatic: No Adenopathy Results Lab Laboratory Tests 05/30/21 05:55: White Blood Count 10.4, Red Blood Count 4.91, Hemoglobin 14.5, Hematocrit 44, Mean Corpuscular Volume 89, Mean Corpuscular Hemoglobin 30, Mean Corpuscular Hemoglobin Concent 33, Red Cell Distribution Width 13.8, Platelet Count 267, Mean Platelet Volume 9.9, Immature Granulocyte % (Auto) 1, Neutrophils (%) (Auto) 81H, Lymphocytes (%) (Auto) 13, Monocytes (%) (Auto) 5, Eosinophils (%) (Auto) 1, Basophils (%) (Auto) 0, Neutrophils # (Auto) 8.5H, Lymphocytes # (Auto) 1.3, Monocytes # (Auto) 0.5, Eosinophils # (Auto) 0.1, Basophils # (Auto) 0.0, Immature Granulocyte # (Auto) 0.1, Sodium Level 139, Potassium Level 3.1L, Chloride Level 107, Carbon Dioxide Level 23, Anion Gap 9, Blood Urea Nitrogen 8, Creatinine 0.62, Estimat Glomerular Filtration Rate 98, BUN/Creatinine Ratio 13, Glucose Level 95, Calcium Level 8.7, Corrected Calcium 9.2, Magnesium Level 1.5L , Total Bilirubin 0.4, Aspartate Amino Transf (AST/SGOT) 27, Alanine Aminotransferase (ALT/SGPT) 17, Alkaline Phosphatase 94, Total Protein 6.3L, Albumin 3.4 Microbiology 05/28/21 MRSA Screen - Final, Complete MRSA not isolated 05/27/21 Urine Culture - Final, Complete Gardnerella vaginalis Gram Pos Mixed Bacterial Estrella Assessment/Plan Assessment/Plan Assess & Plan/Chief Complaint intermittent recurrent SBO. upper and lower endo normal. will proceed with dx laparoscopy and possible SB resection. SOFY OSWALD MD May 30, 2021 15:46
--- NOTE | 2021-05-30 15:47 | Progress Note-Pre Operative ---
Pre-Operative Progress Note H&P Reviewed The H&P was reviewed, patient examined and no changes noted. Date Seen by Provider: May 30, 2021 Time Seen by Provider: 15:45 Date H&P Reviewed: May 30, 2021 Time H&P Reviewed: 15:45 Pre-Operative Diagnosis: intermittent persistent SBO SOFY OSWALD MD May 30, 2021 15:47
[2021-05-30 19:42] VITALS: BP 126/67
[2021-05-30 23:48] VITALS: BP 123/82
[2021-05-31] VITALS (13 sets, daily range): BP systolic 122–165; BP diastolic 65–79
[2021-05-31] MEDS: fentaNYL INJ 100 MCG/2 ML AMP IV PRN ×2 (03:52→18:07)
[2021-05-31 05:54] LABS: BASOPHILS % (AUTO) 0 % (0-10); EOSINOPHILS # (AUTO) 0.1 10^3/uL (0.0-0.3); EOSINOPHILS % (AUTO) 1 % (0-10); HEMATOCRIT 49 % (35-52); HEMOGLOBIN 16.5 g/dL (11.5-16.0); LYMPHOCYTES # (AUTO) 2.2 10^3/uL (1.0-4.0); LYMPHOCYTES % (AUTO) 21 % (12-44); MEAN CORPUSCULAR HEMOGLOBIN 30 pg (25-34); MEAN CORPUSCULAR HGB CONC 34 g/dL (32-36); MEAN CORPUSCULAR VOLUME 88 fL (80-99); MEAN PLATELET VOLUME 10.1 fL (9.0-12.2); MONOCYTES # (AUTO) 0.5 10^3/uL (0.0-1.0); MONOCYTES % (AUTO) 5 % (0-12); NEUTROPHILS # (AUTO) 7.9 10^3/uL (1.8-7.8); NEUTROPHILS % (AUTO) 74 % (42-75); PLATELET COUNT 305 10^3/uL (130-400); WHITE BLOOD COUNT 10.7 10^3/uL (4.3-11.0)
[2021-05-31 06:09] LABS: ALBUMIN 3.7 GM/DL (3.2-4.5); POTASSIUM 3.3 MMOL/L (3.6-5.0)
[2021-05-31 06:10] LABS: CALCIUM 8.7 MG/DL (8.5-10.1)
[2021-05-31 06:12] LABS: TOTAL PROTEIN 6.8 GM/DL (6.4-8.2)
[2021-05-31 06:14] LABS: BILIRUBIN,TOTAL 0.6 MG/DL (0.1-1.0)
[2021-05-31 06:15] LABS: CREATININE SERUM 0.68 MG/DL (0.60-1.30)
--- NOTE | 2021-05-31 06:31 | Progress Note - Hospitalist ---
Subjective HPI/CC On Admission Date Seen by Provider: May 31, 2021 Time Seen by Provider: 12:00 CC: Abdominal pain HPI: This is a [facility] patient who has a past medical history of a small bowel obstruction hospitalized in [place] just recently who presented to [facility] ER with the same complaints. She was found to have small bowel obstruction, NG tube will be placed and Dr. Oswald will be consulted. At this current time Pt denies any other new issues. Subjective/Events-last exam Patient about the same Pending to surgery when I saw her Reviewed labs Spoke with Dr. 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 Review of Systems General: Fatigue Gastrointestinal: Nausea, Vomiting, Abdominal Pain Focused Exam Time of Focused Exam: 09:00 Objective Exam Vital Signs Vital Signs Date Time Temp Pulse Resp B/P (MAP) Pulse Ox O2 Delivery O2 Flow Rate FiO2 05/31/21 19:27 Room Air 05/31/21 15:23 36.4 77 18 165/75 (105) 97 05/31/21 14:50 3 Capillary Refill : Greater Than 3 Seconds General Appearance: No Apparent Distress, WD/WN, Chronically ill, Thin Respiratory: Lungs Clear Cardiovascular: Regular Rate, Rhythm Neurologic/Psychiatric: Alert, Oriented x3 Results/Procedures Lab Laboratory Tests 05/31/21 05:20 Patient resulted labs reviewed. Assessment/Plan Assessment and Plan Assess & Plan/Chief Complaint Assessment: Small bowel obstruction recurrent in type-status post exploratory laparoscopy status post mass resection Weight loss Plan: Needs exploratory laparoscopy in my opinion Updated Dr. OSWALD Scopes normal Protonix 05/31/2021: Mass resection by Dr. OSWALD Diagnosis/Problems Diagnosis/Problems (1) Small bowel obstruction Status: Acute ELIZABETH NAIK DO May 31, 2021 06:31
[2021-05-31] MEDS ORDERED: NS W/KCL 20 MEQ/L 1,000 ML IV ONE (06:49)
[2021-05-31] MEDS: POTASSIUM CHLORIDE INJ 20 MEQ in NS IV 1000 ML 1,000 ML IV SCH ×3 (06:57→23:00)
[2021-05-31] MEDS: ENOXAPARIN 40 MG/0.4 ML (LOVENOX) SYR SC SCH (06:58)
[2021-05-31] MEDS ORDERED: LIDOCAINE/EPI 1%-1:200,000 (XYLOCAINE) 30 ML VIAL ONE (09:27)
--- NOTE | 2021-05-31 10:54 | Progress Note ---
Subjective Date Seen by a Provider: May 31, 2021 Time Seen by a Provider: 09:50 Subjective/Events-last exam Patient seen with Dr. Garcia. Patient reports intermittent episodes of abdominal pain that is diffuse. Passing flatus, but no BM for the past couple days. Reports that her pain returned after starting back on regular food, did fine with liquids. No fever/chills. Denied any N/V. Focused Exam Time of Focused Exam: 09:00 Objective Exam Vital Signs Date Time Temp Pulse Resp B/P (MAP) Pulse Ox O2 Delivery O2 Flow Rate FiO2 05/31/21 08:33 36.0 80 20 126/72 (90) 96 Room Air 05/31/21 08:00 Room Air 05/31/21 03:43 36.4 79 20 122/71 (88) 96 Room Air 05/30/21 23:48 35.9 80 20 123/82 (96) 96 Room Air 05/30/21 20:00 Room Air 05/30/21 19:42 36.4 70 20 126/67 (86) 96 Room Air 05/30/21 15:36 36.2 71 18 151/77 (101) 94 Room Air 05/30/21 12:00 37.0 70 20 132/74 (93) 94 Room Air I & O 05/31/21 07:00 Intake Total 1930 ml Output Total 1200 ml Balance 730 ml Capillary Refill : Greater Than 3 Seconds General Appearance: No Apparent Distress, WD/WN Neck: Normal Inspection, Supple Respiratory: Normal Breath Sounds, No Accessory Muscle Use, No Respiratory Distress Cardiovascular: Regular Rate, Rhythm, No Edema Gastrointestinal: normal bowel sounds, soft, tenderness (Lower abdomen) Extremity: Normal Inspection, Normal Range of Motion Neurologic/Psychiatric: Alert, Oriented x3 Skin: Normal Color, Warm/Dry Results Lab Laboratory Tests 05/31/21 05:20: White Blood Count 10.7, Red Blood Count 5.57H, Hemoglobin 16.5H, Hematocrit 49, Mean Corpuscular Volume 88, Mean Corpuscular Hemoglobin 30, Mean Corpuscular Hemoglobin Concent 34, Red Cell Distribution Width 14.1, Platelet Count 305, Mean Platelet Volume 10.1, Immature Granulocyte % (Auto) 0, Neutrophils (%) (Auto) 74, Lymphocytes (%) (Auto) 21, Monocytes (%) (Auto) 5, Eosinophils (%) (Auto) 1, Basophils (%) (Auto) 0, Neutrophils # (Auto) 7.9H, Lymphocytes # (Auto) 2.2, Monocytes # (Auto) 0.5, Eosinophils # (Auto) 0.1, Basophils # (Auto) 0.0, Immature Granulocyte # (Auto) 0.0, Sodium Level 142, Potassium Level 3.3L, Chloride Level 106, Carbon Dioxide Level 19L, Anion Gap 17H, Blood Urea Nitrogen 5L, Creatinine 0.68, Estimat Glomerular Filtration Rate 88, BUN/Creatinine Ratio 7, Glucose Level 96, Calcium Level 8.7, Corrected Calcium 8.9, Total Bilirubin 0.6, Aspartate Amino Transf (AST/SGOT) 27, Alanine Aminotransferase (ALT/SGPT) 16, Alkaline Phosphatase 98, Total Protein 6.8, Albumin 3.7 Microbiology 05/28/21 MRSA Screen - Final, Complete MRSA not isolated 05/27/21 Urine Culture - Final, Complete Gardnerella vaginalis Gram Pos Mixed Bacterial Estrella Assessment/Plan Assessment/Plan Assess & Plan/Chief Complaint A 60 year old female with Partial small bowel obstruction, UTI VSS Small bowel follow through shows most likely partial small bowel obstruction with contrast going through Tolerated clear liquid diet, but did not tolerate regular diet Passing flatus No significant findings on EGD/Colonoscopy. Will proceed with Diagnostic laparoscopy PEGGY UMANA REPAIR CLERK May 31, 2021 10:54
[2021-05-31] MEDS ORDERED: fentaNYL INJ 100 MCG/2 ML AMP ONE ×2 (11:06→12:35)
[2021-05-31] MEDS ORDERED: morphine INJ 10 MG/ML 1ML (SYR OR VIAL) ONE (11:06)
[2021-05-31] MEDS ORDERED: HYDROmorphone 2 MG/ML VIAL (DILAUDID) ONE (11:07)
[2021-05-31] MEDS ORDERED: ONDANSETRON 4 MG/2 ML (SDV) Z0FRAN ONE ×2 (11:07→12:35)
[2021-05-31] MEDS ORDERED: MIDAZOLAM 2 MG/2 ML (VERSED) VIAL ONE (12:35)
[2021-05-31] MEDS ORDERED: proPOfol 200 MG/20 ML (DIPRIVAN) VIAL IV ONE (12:35)
[2021-05-31] MEDS ORDERED: ROCURONIUM 10 MG/ML 5 ML SYRINGE IV ONE (12:35)
[2021-05-31] MEDS ORDERED: LIDOCAINE PF 2% 5 ML (XYLOCAINE) VIAL ONE (12:35)
[2021-05-31] MEDS: LACTATED RINGERS 1,000 ML IV PRN ×2 (12:44→13:31)
[2021-05-31] MEDS ORDERED: ceFAZolin INJECTION 1,000 MG ONE (12:58)
[2021-05-31] MEDS ORDERED: BUPIVACAINE 0.25% 30 ML (SENSORCAINE) VIAL ONE (13:40)
[2021-05-31] MEDS ORDERED: GLYCOPYRROLATE 0.2 MG/ML (ROBINUL) 2 ML VIAL ONE (13:44)
[2021-05-31] MEDS ORDERED: NEOSTIGMINE 3 MG/3 ML VIAL ONE (13:44)
--- NOTE | 2021-05-31 13:46 | Progress Note-Post Operative ---
Post-Operative Progess Note Surgeon (s)/Online Health And Fitness Coach (s) Surgeon SOFY OSWALD MD Online Health And Fitness Coach: none Pre-Operative Diagnosis intermittent persistent SBO Post-Operative Diagnosis near obstructing distal ileal mass Procedure & Operative Findings Date of Procedure 05/31/21 Procedure Performed/Findings diagnostic laparoscopy and small bowel resection. Anesthesia Type get Estimated Blood Loss Estimated blood loss (mL): minimal Specimens/Packing Specimens Removed distal ileum SOFY OSWALD MD May 31, 2021 13:46
[2021-05-31] MEDS ORDERED: SEVOFLURANE (ULTANE) 15 ML INHAL SOLN ONE (14:00)
[2021-05-31] MEDS ORDERED: ONDANSETRON 4 MG/2 ML (SDV) Z0FRAN IVP PRN (14:30)
[2021-05-31] MEDS ORDERED: morphine INJ 10 MG/ML 1ML (SYR OR VIAL) IVP ONE (14:30)
[2021-05-31] MEDS ORDERED: fentaNYL INJ 100 MCG/2 ML AMP IVP ONE (14:30)
[2021-05-31] MEDS ORDERED: HYDROmorphone 2 MG/ML VIAL (DILAUDID) IV ONE (14:30)
--- NOTE | 2021-05-31 17:49 | OPERATIVE REPORT ---
DATE OF SERVICE: 05/31/2021 ATTENDING PRIMARY CARE PHYSICIAN: Arianna Jackson APRN PREOPERATIVE DIAGNOSIS: Persistent recurrent small-bowel obstruction. POSTOPERATIVE DIAGNOSIS: Distal ileal obstructing mass. PROCEDURE: Diagnostic laparoscopy and resection of distal ileum with anastomosis. SURGEON: Sofy Oswald MD. BEAM BUILDER HELPER: Keith Trammell APRN. ANESTHESIA: General endotracheal. ESTIMATED BLOOD LOSS: Minimal. FINDINGS: Distal ileal obstructing mass. DISPOSITION: The patient tolerated the procedure well. INDICATIONS: The patient is a 60-year-old female who presented to the Emergency Department with crampy abdominal pain and distention. She was an inpatient at [facility] in [place], [place], for 3 days at the beginning of May for small-bowel obstruction type of symptoms. She had recurrence of symptoms, then presented to [facility]. She reports abdominal distention as well as crampy pain on an intermittent basis besides these last two times she has had previous episodes as well. A CT scan of the abdomen and pelvis was performed, which did show a transition point in the right lower abdominal quadrant as well as proximal small bowel dilatation. There was no lymphadenopathy as well as no suspicious masses. A small bowel follow through was also performed, which did show transit of the contrast within 3 hours. She also underwent an EGD and colonoscopy, which did not show any obstructing type of lesions. She was started on a regular diet and again developed abdominal distention and crampy pain. DESCRIPTION OF PROCEDURE: The patient was brought to the operating room, laid supine on the table. After adequate IV pain and sedative medications and general endotracheal intubation, the abdomen was prepped and draped in standard surgical fashion. A 0.5% Marcaine with epinephrine was used to anesthetize overlying skin in the left upper abdominal quadrant and transverse skin incision made using a 15 blade. An 0 silk suture was applied to the medial aspect incision for retraction and a Veress needle inserted with a low opening pressure of 0 mmHg. The abdomen was insufflated to 15 mmHg pressure. The Veress needle removed and a 5 mm XL trocar placed followed by a 5 mm 45-degree angle laparoscope visualizing the peritoneal cavity. A 4-quadrant abdominal exploration was performed. The patient was then placed in a Trendelenburg position. Upon further inspection, there was a mass identified at the terminal ileum with a dilated proximal bowel and distended distal small bowel, which was the likely offending lesion. Under direct visualization, we then proceeded to place a supraumbilical 10 mm port after the skin and peritoneal lining were anesthetized. In a similar manner, a right mid abdominal 5 mm port was placed. The lesion was then mobilized and brought out the 10 mm port site and the obstructive ileal mass was then resected using COLE 55 mm staplers with 3.5 mm thickness loads. The wedge of mesentery was then excised as if doing a cancer operation using a Sonicision. The mesentery was then reapproximated using 3-0 silk suture. We then proceeded with a [id number] anastomosis of the small bowel loops using the COLE 55 mm stapler and the open end was reapproximated using 3-0 silk sutures and stapled with the same stapler with visualization of good hemostasis. The small bowel was then reduced back into the abdomen and then the fascia was then closed using a #1 PDS suture. All skin incisions were closed using 4-0 Monocryl running subcuticular sutures. Wounds were then cleaned and covered with Dermabond. The patient tolerated the procedure well. We will start clear liquid diet as well as IV and oral pain medication. When she is tolerating a diet, has adequate pain control with oral pain medications, and ambulating well, we will discharge her home and we will await the biopsy results. Job ID: [id number] DocumentID: [id number] Dictated Date: 05/31/2021 13:55:38 Clinical Operations Specialist Date: 05/31/2021 17:48:39 Dictated By: SOFY OSWALD MD [facility]
[2021-06-01] MEDS: fentaNYL INJ 100 MCG/2 ML AMP IV PRN ×5 (00:10→16:08)
[2021-06-01] MEDS: POTASSIUM CHLORIDE INJ 20 MEQ in NS IV 1000 ML 1,000 ML IV SCH (00:10)
[2021-06-01 03:27] VITALS: BP 164/77
[2021-06-01] MEDS: ONDANSETRON 4 MG/2 ML (SDV) Z0FRAN IV PRN (03:44)
[2021-06-01] MEDS: HYDROcodone/APAP 7.5 MG/325 MG (LORTAB, LORCET PLUS) TABLET PO PRN ×3 (03:45→20:13)
[2021-06-01 05:45] LABS: BASOPHILS % (AUTO) 0 % (0-10); EOSINOPHILS % (AUTO) 0 % (0-10); HEMATOCRIT 40 % (35-52); HEMOGLOBIN 13.3 g/dL (11.5-16.0); LYMPHOCYTES # (AUTO) 0.7 10^3/uL (1.0-4.0); LYMPHOCYTES % (AUTO) 5 % (12-44); MEAN CORPUSCULAR HEMOGLOBIN 30 pg (25-34); MEAN CORPUSCULAR HGB CONC 33 g/dL (32-36); MEAN CORPUSCULAR VOLUME 90 fL (80-99); MEAN PLATELET VOLUME 9.5 fL (9.0-12.2); MONOCYTES # (AUTO) 0.9 10^3/uL (0.0-1.0); MONOCYTES % (AUTO) 6 % (0-12); NEUTROPHILS # (AUTO) 12.5 10^3/uL (1.8-7.8); NEUTROPHILS % (AUTO) 88 % (42-75); PLATELET COUNT 241 10^3/uL (130-400); WHITE BLOOD COUNT 14.1 10^3/uL (4.3-11.0)
[2021-06-01] MEDS: ENOXAPARIN 40 MG/0.4 ML (LOVENOX) SYR SC SCH (05:46)
[2021-06-01 05:59] LABS: ALBUMIN 3.2 GM/DL (3.2-4.5); POTASSIUM 3.9 MMOL/L (3.6-5.0)
[2021-06-01 06:01] LABS: CALCIUM 7.8 MG/DL (8.5-10.1)
[2021-06-01 06:02] LABS: TOTAL PROTEIN 5.8 GM/DL (6.4-8.2)
[2021-06-01 06:04] LABS: BILIRUBIN,TOTAL 0.4 MG/DL (0.1-1.0)
[2021-06-01 06:05] LABS: CREATININE SERUM 0.57 MG/DL (0.60-1.30)
[2021-06-01 06:42] LABS: BAND NEUTROPHILS 3 %; LYMPHOCYTES % (MANUAL) 8 %; MONOCYTES % (MANUAL) 3 %; NEUTROPHILS % (MANUAL) 86 %
[2021-06-01 08:10] VITALS: BP 158/75
[2021-06-01] MEDS: NS W/KCL 20 MEQ/L 1,000 ML IV SCH ×2 (09:10→17:17)
[2021-06-01 12:17] VITALS: BP 138/63
--- NOTE | 2021-06-01 12:21 | Progress Note ---
Focused Exam Time of Focused Exam: 09:00 Objective Exam Last Set of Vital Signs Vital Signs Date Time Temp Pulse Resp B/P (MAP) Pulse Ox O2 Delivery O2 Flow Rate FiO2 06/01/21 12:17 37.1 101 22 138/63 (88) 92 Room Air 05/31/21 14:50 3 Capillary Refill : Less Than 3 SecondsGreater Than 3 Seconds I&O Intake and Output 06/01/21 00:00 Intake Total 2600 ml Output Total 150 ml Balance 2450 ml Intake Oral 590 ml IV Total 2010 ml Output Urine Total 150 ml # Voids 5 Results/Procedures Lab Laboratory Tests 06/01/21 05:35: White Blood Count 14.1H, Red Blood Count 4.45, Hemoglobin 13.3, Hematocrit 40, Mean Corpuscular Volume 90, Mean Corpuscular Hemoglobin 30, Mean Corpuscular Hemoglobin Concent 33, Red Cell Distribution Width 14.1, Platelet Count 241, Mean Platelet Volume 9.5, Immature Granulocyte % (Auto) 0, Neutrophils (%) (Auto) 88H, Lymphocytes (%) (Auto) 5L, Monocytes (%) (Auto) 6, Eosinophils (%) (Auto) 0, Basophils (%) (Auto) 0, Neutrophils # (Auto) 12.5H, Lymphocytes # (Auto) 0.7L, Monocytes # (Auto) 0.9, Eosinophils # (Auto) 0.0, Basophils # (Auto) 0.0, Immature Granulocyte # (Auto) 0.1, Neutrophils % (Manual) 86, Lymphocytes % (Manual) 8, Monocytes % (Manual) 3, Band Neutrophils 3, Sodium Level 138, Potassium Level 3.9, Chloride Level 108H, Carbon Dioxide Level 18L, Anion Gap 12, Blood Urea Nitrogen 6L, Creatinine 0.57L, Estimat Glomerular Filtration Rate 107, BUN/Creatinine Ratio 11, Glucose Level 99, Calcium Level 7.8L, Corrected Calcium 8.4L, Total Bilirubin 0.4, Aspartate Amino Transf (AST/SGOT) 25, Alanine Aminotransferase (ALT/SGPT) 15, Alkaline Phosphatase 79, Total Protein 5.8L, Albumin 3.2 Microbiology 05/28/21 MRSA Screen - Final, Complete MRSA not isolated 05/27/21 Urine Culture - Final, Complete Gardnerella vaginalis Gram Pos Mixed Bacterial Estrella SUSAN DANIEL MD Jun 01, 2021 12:21
--- NOTE | 2021-06-01 14:34 | Anesthesia-General Post-Op ---
General Patient Condition Mental Status/LOC: Same as Preop Cardiovascular: Satisfactory Nausea/Vomiting: Absent Respiratory: Satisfactory Pain: Controlled Complications: Absent Post Op Complications Complications None Follow Up Care/Instructions Patient Instructions None needed. Anesthesia/Patient Condition Patient Condition Patient is doing well, C/O some pain but much better than last night, stable vital signs, no apparent adverse anesthesia problems. DEACON WORKMAN DO Jun 01, 2021 14:34
[2021-06-01 16:00] VITALS: BP 136/69
--- NOTE | 2021-06-01 19:11 | Progress Note ---
Subjective Date Seen by a Provider: Jun 01, 2021 Time Seen by a Provider: 19:00 Subjective/Events-last exam Patient seen with Dr. Garcia. Patient reports doing ok. Tolerating clear liquid diet and passing flatus. Does report abdominal pain mainly lower abdomen and tolerable with pain meds. Denies any N/V, fever/chills. Ambulating to bathroom without difficulty. Focused Exam Time of Focused Exam: 09:00 Objective Exam Vital Signs Date Time Temp Pulse Resp B/P (MAP) Pulse Ox O2 Delivery O2 Flow Rate FiO2 06/01/21 16:00 37.7 98 18 136/69 (91) 93 Room Air 06/01/21 12:17 37.1 101 22 138/63 (88) 92 Room Air 06/01/21 08:10 37.3 96 24 158/75 (102) 91 Room Air 06/01/21 08:00 92 Room Air 06/01/21 03:27 36.2 79 22 164/77 (106) 92 Room Air 05/31/21 23:30 36.4 67 20 163/73 (103) 94 Room Air 05/31/21 20:00 Room Air 05/31/21 20:00 36.4 78 18 138/65 (89) 95 Room Air 05/31/21 19:27 Room Air I & O 06/01/21 07:00 Intake Total 2400 ml Output Total 150 ml Balance 2250 ml Capillary Refill : Less Than 3 SecondsGreater Than 3 Seconds General Appearance: No Apparent Distress, WD/WN Neck: Normal Inspection, Supple Respiratory: Normal Breath Sounds, No Accessory Muscle Use, No Respiratory Distress Cardiovascular: Regular Rate, Rhythm, No Edema Gastrointestinal: normal bowel sounds, soft, tenderness Extremity: Normal Inspection, Normal Range of Motion (diffuse) Neurologic/Psychiatric: Alert, Oriented x3 Skin: Normal Color, Warm/Dry, Other (Abdominal incisions C/D/I) Results Lab Laboratory Tests 06/01/21 05:35: White Blood Count 14.1H, Red Blood Count 4.45, Hemoglobin 13.3, Hematocrit 40, Mean Corpuscular Volume 90, Mean Corpuscular Hemoglobin 30, Mean Corpuscular Hemoglobin Concent 33, Red Cell Distribution Width 14.1, Platelet Count 241, Mean Platelet Volume 9.5, Immature Granulocyte % (Auto) 0, Neutrophils (%) (Auto) 88H, Lymphocytes (%) (Auto) 5L, Monocytes (%) (Auto) 6, Eosinophils (%) (Auto) 0, Basophils (%) (Auto) 0, Neutrophils # (Auto) 12.5H, Lymphocytes # (Auto) 0.7L, Monocytes # (Auto) 0.9, Eosinophils # (Auto) 0.0, Basophils # (Auto) 0.0, Immature Granulocyte # (Auto) 0.1, Neutrophils % (Manual) 86, Lymp hocytes % (Manual) 8, Monocytes % (Manual) 3, Band Neutrophils 3, Sodium Level 138, Potassium Level 3.9, Chloride Level 108H, Carbon Dioxide Level 18L, Anion Gap 12, Blood Urea Nitrogen 6L, Creatinine 0.57L, Estimat Glomerular Filtration Rate 107, BUN/Creatinine Ratio 11, Glucose Level 99, Calcium Level 7.8L, Corrected Calcium 8.4L, Total Bilirubin 0.4, Aspartate Amino Transf (AST/SGOT) 25, Alanine Aminotransferase (ALT/SGPT) 15, Alkaline Phosphatase 79, Total Protein 5.8L, Albumin 3.2 Microbiology 05/28/21 MRSA Screen - Final, Complete MRSA not isolated 05/27/21 Urine Culture - Final, Complete Gardnerella vaginalis Gram Pos Mixed Bacterial Estrella Assessment/Plan Assessment/Plan Assess & Plan/Chief Complaint A 60 year old female with Partial small bowel obstruction, UTI, S/P diagnostic laparoscopy and small bowel resection with reanastomosis VSS WBC 14.1 Tolerated clear liquid diet Passing flatus Will advance to DYS3 IV fluids, pain and nausea meds Encourage IS and ambulation Will await more bowel function PEGGY UMANA ELECTRONIC SECURITY SPECIALIST Jun 01, 2021 19:10
[2021-06-01 20:00] VITALS: BP 132/65
--- NOTE | 2021-06-01 21:00 | Progress Note ---
Subjective Subjective/Events-last exam Having a lot of pain after surgery, denies other concerns. Focused Exam Time of Focused Exam: 09:00 Objective Exam Last Set of Vital Signs Vital Signs Date Time Temp Pulse Resp B/P (MAP) Pulse Ox O2 Delivery O2 Flow Rate FiO2 06/01/21 20:00 37.1 95 20 132/65 (87) 93 Room Air 05/31/21 14:50 3 Capillary Refill : Less Than 3 SecondsGreater Than 3 Seconds I&O Intake and Output 06/01/21 00:00 Intake Total 2600 ml Output Total 150 ml Balance 2450 ml Intake Oral 590 ml IV Total 2010 ml Output Urine Total 150 ml # Voids 5 General: Alert Lungs: Clear to Auscultation Heart: Regular Rate Abdomen: Other (incisions clean/dry/intact) Psych/Mental Status: Mood NL Results/Procedures Lab Laboratory Tests 06/01/21 05:35: White Blood Count 14.1H, Red Blood Count 4.45, Hemoglobin 13.3, Hematocrit 40, Mean Corpuscular Volume 90, Mean Corpuscular Hemoglobin 30, Mean Corpuscular Hemoglobin Concent 33, Red Cell Distribution Width 14.1, Platelet Count 241, Mean Platelet Volume 9.5, Immature Granulocyte % (Auto) 0, Neutrophils (%) (Auto) 88H, Lymphocytes (%) (Auto) 5L, Monocytes (%) (Auto) 6, Eosinophils (%) (Auto) 0, Basophils (%) (Auto) 0, Neutrophils # (Auto) 12.5H, Lymphocytes # (Auto) 0.7L, Monocytes # (Auto) 0.9, Eosinophils # (Auto) 0.0, Basophils # (Auto) 0.0, Immature Granulocyte # (Auto) 0.1, Neutrophils % (Manual) 86, Lymphocytes % (Manual) 8, Monocytes % (Manual) 3, Band Neutrophils 3, Sodium Level 138, Potassium Level 3.9, Chloride Level 108H, Carbon Dioxide Level 18L, Anion Gap 12, Blood Urea Nitrogen 6L, Creatinine 0.57L, Estimat Glomerular Filtration Rate 107, BUN/Creatinine Ratio 11, Glucose Level 99, Calcium Level 7.8L, Corrected Calcium 8.4L, Total Bilirubin 0.4, Aspartate Amino Transf (AST/SGOT) 25, Alanine Aminotransferase (ALT/SGPT) 15, Alkaline Phosphatase 79, Total Protein 5.8L, Albumin 3.2 Microbiology 05/28/21 MRSA Screen - Final, Complete MRSA not isolated 05/27/21 Urine Culture - Final, Complete Gardnerella vaginalis Gram Pos Mixed Bacterial Estrella Assessment/Plan Assessment/Plan (1) Small bowel obstruction Status: Acute Assessment & Plan: s/p small bowel resection 05/31 with ileal mass removed (2) COPD (chronic obstructive pulmonary disease) Status: Chronic (3) GERD (gastroesophageal reflux disease) Status: Chronic (4) DVT prophylaxis Status: Acute Assessment & Plan: Enoxaparin SUSAN ADNIEL MD Jun 01, 2021 21:00
[2021-06-02] MEDS: HYDROcodone/APAP 7.5 MG/325 MG (LORTAB, LORCET PLUS) TABLET PO PRN ×6 (00:30→21:54)
[2021-06-02] MEDS: NS W/KCL 20 MEQ/L 1,000 ML IV SCH ×3 (00:31→17:49)
[2021-06-02 00:42] VITALS: BP 146/82
[2021-06-02 03:57] VITALS: BP 123/71
[2021-06-02] MEDS: ENOXAPARIN 40 MG/0.4 ML (LOVENOX) SYR SC SCH (05:48)
[2021-06-02 06:39] LABS: BASOPHILS % (AUTO) 0 % (0-10); EOSINOPHILS % (AUTO) 0 % (0-10); HEMATOCRIT 39 % (35-52); HEMOGLOBIN 13.2 g/dL (11.5-16.0); LYMPHOCYTES # (AUTO) 1.4 10^3/uL (1.0-4.0); LYMPHOCYTES % (AUTO) 8 % (12-44); MEAN CORPUSCULAR HEMOGLOBIN 30 pg (25-34); MEAN CORPUSCULAR HGB CONC 34 g/dL (32-36); MEAN CORPUSCULAR VOLUME 89 fL (80-99); MEAN PLATELET VOLUME 10.5 fL (9.0-12.2); MONOCYTES % (AUTO) 5 % (0-12); NEUTROPHILS # (AUTO) 15.5 10^3/uL (1.8-7.8); NEUTROPHILS % (AUTO) 86 % (42-75); PLATELET COUNT 254 10^3/uL (130-400)
[2021-06-02 06:48] LABS: ALBUMIN 2.9 GM/DL (3.2-4.5)
[2021-06-02 06:49] LABS: CALCIUM 7.9 MG/DL (8.5-10.1)
[2021-06-02 06:51] LABS: TOTAL PROTEIN 5.4 GM/DL (6.4-8.2)
[2021-06-02 06:52] LABS: BILIRUBIN,TOTAL 0.6 MG/DL (0.1-1.0)
[2021-06-02 06:54] LABS: CREATININE SERUM 0.59 MG/DL (0.60-1.30)
[2021-06-02 08:00] VITALS: BP 129/73
[2021-06-02] MEDS ORDERED: RT--FLUTICASONE/SALMETEROL 113-14 (AIRDUO RespiCLICK) IH SCH (08:00)
--- NOTE | 2021-06-02 10:47 | Progress Note ---
Subjective Subjective/Events-last exam Pain slightly better today, no BM yet. Focused Exam Time of Focused Exam: 09:00 Objective Exam Last Set of Vital Signs Vital Signs Date Time Temp Pulse Resp B/P (MAP) Pulse Ox O2 Delivery O2 Flow Rate FiO2 06/02/21 08:00 37.1 98 20 129/73 (91) 90 Room Air 05/31/21 14:50 3 Capillary Refill : Less Than 3 SecondsGreater Than 3 Seconds I&O Intake and Output 06/02/21 00:00 Intake Total 3120 ml Output Total 1540 ml Balance 1580 ml Intake Oral 1910 ml IV Total 1210 ml Output Urine Total 1540 ml # Voids 2 # Bowel Movements 2 General: Alert, No Acute Distress Lungs: Clear to Auscultation, Normal Air Movement Heart: Regular Rate, No Murmurs Abdomen: Normal Bowel Sounds, Soft, Other (marked tenderness to light touch) Results/Procedures Lab Laboratory Tests 06/02/21 05:32: White Blood Count 18.0H, Red Blood Count 4.40, Hemoglobin 13.2, Hematocrit 39, Mean Corpuscular Volume 89, Mean Corpuscular Hemoglobin 30, Mean Corpuscular Hemoglobin Concent 34, Red Cell Distribution Width 14.5, Platelet Count 254, Mean Platelet Volume 10.5, Immature Granulocyte % (Auto) 1, Neutrophils (%) (Auto) 86H, Lymphocytes (%) (Auto) 8L, Monocytes (%) (Auto) 5, Eosinophils (%) (Auto) 0, Basophils (%) (Auto) 0, Neutrophils # (Auto) 15.5H, Lymphocytes # (Auto) 1.4, Monocytes # (Auto) 1.0, Eosinophils # (Auto) 0.0, Basophils # (Auto) 0.0, Immature Granulocyte # (Auto) 0.1, Sodium Level 135, Potassium Level 4.0, Chloride Level 106, Carbon Dioxide Level 17L, Anion Gap 12, Blood Urea Nitrogen 8, Creatinine 0.59L, Estimat Glomerular Filtration Rate 103, BUN/Creatinine Ratio 14, Glucose Level 83, Calcium Level 7.9L, Corrected Calcium 8.8, Total Bilirubin 0.6, Aspartate Amino Transf (AST/SGOT) 19, Alanine Aminotransferase (ALT/SGPT) 12, Alkaline Phosphatase 70, Total Protein 5.4L, Albumin 2.9L Microbiology 05/28/21 MRSA Screen - Final, Complete MRSA not isolated 05/27/21 Urine Culture - Final, Complete Gardnerella vaginalis Gram Pos Mixed Bacterial Estrella Assessment/Plan Assessment/Plan (1) Small bowel obstruction Status: Acute Assessment & Plan: s/p small bowel resection 05/31 with ileal mass removed (2) COPD (chronic obstructive pulmonary disease) Status: Chronic (3) GERD (gastroesophageal reflux disease) Status: Chronic (4) DVT prophylaxis Status: Acute Assessment & Plan: Enoxaparin SUSAN DANIEL MD Jun 02, 2021 10:47
[2021-06-02 11:52] VITALS: BP 133/60
--- NOTE | 2021-06-02 13:08 | Progress Note ---
Subjective Date Seen by a Provider: Jun 02, 2021 Time Seen by a Provider: 12:55 Subjective/Events-last exam Patient seen with Dr. Garcia. Patient reports abdominal pain. Has been ambulating to bathroom. Tolerating liquids. Reports not having much of an appetite. Denies any flatus or BM today, but does report belching. Denies any fever or chills, N/V. Focused Exam Time of Focused Exam: 09:00 Objective Exam Vital Signs Date Time Temp Pulse Resp B/P (MAP) Pulse Ox O2 Delivery O2 Flow Rate FiO2 06/02/21 11:52 36.6 102 22 133/60 (84) 90 Room Air 06/02/21 08:00 Room Air 06/02/21 08:00 37.1 98 20 129/73 (91) 90 Room Air 06/02/21 03:57 36.6 86 20 123/71 (88) 95 Room Air 06/02/21 00:42 36.4 102 20 146/82 (103) 90 Room Air 06/01/21 20:15 Room Air 06/01/21 20:00 37.1 95 20 132/65 (87) 93 Room Air 06/01/21 16:00 37.7 98 18 136/69 (91) 93 Room Air I & O 06/02/21 07:00 Intake Total 2420 ml Output Total 2840 ml Balance -420 ml Capillary Refill : Less Than 3 SecondsGreater Than 3 Seconds General Appearance: No Apparent Distress, WD/WN Neck: Normal Inspection, Supple Respiratory: Normal Breath Sounds, No Accessory Muscle Use, No Respiratory Distress Cardiovascular: Regular Rate, Rhythm, No Edema Gastrointestinal: soft, distended Extremity: Normal Inspection, Normal Range of Motion Neurologic/Psychiatric: Alert, Oriented x3 Skin: Normal Color, Warm/Dry, Other (Incisions C/D/I) Results Lab Laboratory Tests 06/02/21 05:32: White Blood Count 18.0H, Red Blood Count 4.40, Hemoglobin 13.2, Hematocrit 39, Mean Corpuscular Volume 89, Mean Corpuscular Hemoglobin 30, Mean Corpuscular Hemoglobin Concent 34, Red Cell Distribution Width 14.5, Platelet Count 254, Mean Platelet Volume 10.5, Immature Granulocyte % (Auto) 1, Neutrophils (%) (Auto) 86H, Lymphocytes (%) (Auto) 8L, Monocytes (%) (Auto) 5, Eosinophils (%) (Auto) 0, Basophils (%) (Auto) 0, Neutrophils # (Auto) 15.5H, Lymphocytes # (Au to) 1.4, Monocytes # (Auto) 1.0, Eosinophils # (Auto) 0.0, Basophils # (Auto) 0.0, Immature Granulocyte # (Auto) 0.1, Sodium Level 135, Potassium Level 4.0, Chloride Level 106, Carbon Dioxide Level 17L, Anion Gap 12, Blood Urea Nitrogen 8, Creatinine 0.59L, Estimat Glomerular Filtration Rate 103, BUN/Creatinine Ratio 14, Glucose Level 83, Calcium Level 7.9L, Corrected Calcium 8.8, Total Bilirubin 0.6, Aspartate Amino Transf (AST/SGOT) 19, Alanine Aminotransferase (ALT/SGPT) 12, Alkaline Phosphatase 70, Total Protein 5.4L, Albumin 2.9L Microbiology 05/28/21 MRSA Screen - Final, Complete MRSA not isolated 05/27/21 Urine Culture - Final, Complete Gardnerella vaginalis Gram Pos Mixed Bacterial Estrella Assessment/Plan Assessment/Plan Assess & Plan/Chief Complaint A 60 year old female with Partial small bowel obstruction, UTI, S/P diagnostic laparoscopy and small bowel resection with reanastomosis VSS WBC up to 18.0 - will start zosyn Tolerated clear liquid diet Abdominal distension - may have post-op ileus Patient instructed to proceed with clear liquids for the time being IV fluids, pain and nausea meds Encourage IS and ambulation Will await more bowel function PEGGY UMANA APRN Jun 02, 2021 13:08
[2021-06-02] MEDS: PIPERACILLIN/TAZOBACTAM (BULK) 4.5 GM in NS (IVPB) 100 ML IV SCH ×2 (13:36→21:54)
[2021-06-02] MEDS: UMECLIDINIUM BROMIDE (INCRUSE ELLIPTA) 7'S IH SCH (14:55)
[2021-06-02 16:00] VITALS: BP 136/65
[2021-06-02] MEDS: fentaNYL INJ 100 MCG/2 ML AMP IV PRN ×2 (19:05→20:11)
[2021-06-02 20:00] VITALS: BP 134/68
[2021-06-02] MEDS ORDERED: fentaNYL INJ 100 MCG/2 ML AMP ONE (20:09)
[2021-06-02] MEDS: RT--FLUTICASONE/SALMETEROL 113-14 (AIRDUO RespiCLICK) IH SCH (22:32)
[2021-06-03 00:13] VITALS: BP 112/71
[2021-06-03] MEDS: HYDROcodone/APAP 7.5 MG/325 MG (LORTAB, LORCET PLUS) TABLET PO PRN ×5 (02:37→21:41)
[2021-06-03 03:38] VITALS: BP 139/82
[2021-06-03] MEDS: NS W/KCL 20 MEQ/L 1,000 ML IV SCH ×4 (04:53→22:01)
[2021-06-03] MEDS: PIPERACILLIN/TAZOBACTAM (BULK) 4.5 GM in NS (IVPB) 100 ML IV SCH ×3 (04:53→20:39)
[2021-06-03 05:45] LABS: BASOPHILS % (AUTO) 0 % (0-10); EOSINOPHILS % (AUTO) 0 % (0-10); HEMATOCRIT 39 % (35-52); HEMOGLOBIN 12.7 g/dL (11.5-16.0); LYMPHOCYTES # (AUTO) 0.6 10^3/uL (1.0-4.0); LYMPHOCYTES % (AUTO) 6 % (12-44); MEAN CORPUSCULAR HEMOGLOBIN 30 pg (25-34); MEAN CORPUSCULAR HGB CONC 33 g/dL (32-36); MEAN CORPUSCULAR VOLUME 90 fL (80-99); MEAN PLATELET VOLUME 10.1 fL (9.0-12.2); MONOCYTES # (AUTO) 0.7 10^3/uL (0.0-1.0); MONOCYTES % (AUTO) 6 % (0-12); NEUTROPHILS # (AUTO) 9.2 10^3/uL (1.8-7.8); NEUTROPHILS % (AUTO) 87 % (42-75); PLATELET COUNT 246 10^3/uL (130-400); WHITE BLOOD COUNT 10.6 10^3/uL (4.3-11.0)
[2021-06-03 06:01] LABS: ALBUMIN 2.7 GM/DL (3.2-4.5)
[2021-06-03 06:02] LABS: POTASSIUM 3.7 MMOL/L (3.6-5.0)
[2021-06-03 06:04] LABS: TOTAL PROTEIN 5.2 GM/DL (6.4-8.2)
[2021-06-03 06:06] LABS: BILIRUBIN,TOTAL 0.6 MG/DL (0.1-1.0)
[2021-06-03 06:08] LABS: CREATININE SERUM 0.52 MG/DL (0.60-1.30)
[2021-06-03] MEDS: ENOXAPARIN 40 MG/0.4 ML (LOVENOX) SYR SC SCH (06:45)
[2021-06-03] MEDS: RT--FLUTICASONE/SALMETEROL 113-14 (AIRDUO RespiCLICK) IH SCH ×2 (07:29→21:16)
[2021-06-03] MEDS: UMECLIDINIUM BROMIDE (INCRUSE ELLIPTA) 7'S IH SCH (07:29)
[2021-06-03 07:58] VITALS: BP 129/67
[2021-06-03] MEDS: fentaNYL INJ 100 MCG/2 ML AMP IV PRN ×2 (10:49→19:58)
[2021-06-03 11:57] VITALS: BP 112/66
--- NOTE | 2021-06-03 14:57 | Progress Note ---
Subjective Date Seen by a Provider: Jun 03, 2021 Time Seen by a Provider: 14:30 Subjective/Events-last exam doing ok. was able to have a bowel movement. tolerating diet. pain better controlled and ambulating well. Focused Exam Time of Focused Exam: 09:00 Objective Exam Vital Signs Date Time Temp Pulse Resp B/P (MAP) Pulse Ox O2 Delivery O2 Flow Rate FiO2 06/03/21 11:57 36.8 92 20 112/66 (81) 96 Nasal Cannula 2.00 06/03/21 08:00 Room Air 06/03/21 07:58 36.8 89 22 129/67 (87) 94 Nasal Cannula 2.00 06/03/21 07:30 93 Nasal Cannula 2.00 06/03/21 03:38 36.6 94 18 139/82 (101) 96 Room Air 06/03/21 00:13 36.8 90 16 112/71 (85) 93 Room Air 06/02/21 20:00 36.8 96 20 134/68 (90) 96 Nasal Cannula 2.00 06/02/21 19:50 Room Air 06/02/21 16:00 36.4 92 18 136/65 (88) 94 Nasal Cannula 2.00 06/02/21 15:02 92 Nasal Cannula 2.00 06/02/21 14:56 86 Room Air I & O 06/03/21 07:00 Intake Total 2300 ml Output Total 1500 ml Balance 800 ml Capillary Refill : Less Than 3 SecondsGreater Than 3 Seconds General Appearance: No Apparent Distress HEENT: PERRL/EOMI Neck: Full Range of Motion Respiratory: Chest Non Tender, Lungs Clear, Normal Breath Sounds Cardiovascular: Regular Rate, Rhythm Gastrointestinal: normal bowel sounds, soft, tenderness Extremity: Normal Capillary Refill Neurologic/Psychiatric: Alert, Oriented x3 Skin: Normal Color Lymphatic: No Adenopathy Results Lab Laboratory Tests 06/03/21 05:20: White Blood Count 10.6, Red Blood Count 4.26, Hemoglobin 12.7, Hematocrit 39, Mean Corpuscular Volume 90, Mean Corpuscular Hemoglobin 30, Mean Corpuscular Hemoglobin Concent 33, Red Cell Distribution Width 14.8H, Platelet Count 246, Mean Platelet Volume 10.1, Immature Granulocyte % (Auto) 0, Neutrophils (%) (Auto) 87H, Lymphocytes (%) (Auto) 6L, Monocytes (%) (Auto) 6, Eosinophils (%) (Auto) 0, Basophils (%) (Auto) 0, Neutrophils # (Auto) 9.2H, Lymphocytes # (Auto) 0.6L, Monocytes # (Auto) 0.7, Eosinophils # (Auto) 0.0, Basophils # (Auto) 0.0, Immature Granulocyte # (Auto) 0.0, Sodium Level 135, Potassium Level 3.7, Chloride Level 105, Carbon Dioxide Level 19L, Anion Gap 11, Blood Urea Nitrogen 8, Creatinine 0.52L, Estimat Glomerular Filtration Rate 119, BUN/Creatinine Ratio 15, Glucose Level 83, Calcium Level 8.0L, Corrected Calcium 9.0, Total Bilirubin 0.6, Aspartate Amino Transf (AST/SGOT) 20, Alanine Aminotransferase (ALT/SGPT) 11, Alkaline Phosphatase 62, Total Protein 5.2L, Albumin 2.7L Microbiology 05/28/21 MRSA Screen - Final, Complete MRSA not isolated 05/27/21 Urine Culture - Final, Complete Gardnerella vaginalis Gram Pos Mixed Bacterial Estrella Assessment/Plan Assessment/Plan Assess & Plan/Chief Complaint intermittent recurrent SBO s/p dx laparoscopy and SBR for ileal mass. advance diet. increase ambulation. SOFY OSWALD MD Jun 03, 2021 14:57
[2021-06-03 15:55] VITALS: BP 135/69
--- NOTE | 2021-06-03 16:36 | Progress Note ---
Subjective Subjective/Events-last exam Seen at 11:35 am. Denies bowel movement yet. Still having a lot of pain. Focused Exam Time of Focused Exam: 09:00 Objective Exam Last Set of Vital Signs Vital Signs Date Time Temp Pulse Resp B/P (MAP) Pulse Ox O2 Delivery O2 Flow Rate FiO2 06/03/21 15:55 36.0 89 22 135/69 (91) 95 Nasal Cannula 2.00 Capillary Refill : Less Than 3 SecondsGreater Than 3 Seconds I&O Intake and Output 06/03/21 00:00 Intake Total 1020 ml Output Total 2400 ml Balance -1380 ml Intake Oral 900 ml IV Total 120 ml Output Urine Total 2400 ml General: Alert Lungs: Other (rales at bases) Heart: Regular Rate Abdomen: Normal Bowel Sounds, Other (mild distention, marked diffuse ttp) Extremities: No Edema Psych/Mental Status: Mood NL Results/Procedures Lab Laboratory Tests 06/03/21 05:20: White Blood Count 10.6, Red Blood Count 4.26, Hemoglobin 12.7, Hematocrit 39, Mean Corpuscular Volume 90, Mean Corpuscular Hemoglobin 30, Mean Corpuscular Hemoglobin Concent 33, Red Cell Distribution Width 14.8H, Platelet Count 246, Mean Platelet Volume 10.1, Immature Granulocyte % (Auto) 0, Neutrophils (%) (Auto) 87H, Lymphocytes (%) (Auto) 6L, Monocytes (%) (Auto) 6, Eosinophils (%) (Auto) 0, Basophils (%) (Auto) 0, Neutrophils # (Auto) 9.2H, Lymphocytes # (Auto) 0.6L, Monocytes # (Auto) 0.7, Eosinophils # (Auto) 0.0, Basophils # (Auto) 0.0, Immature Granulocyte # (Auto) 0.0, Sodium Level 135, Potassium Level 3.7, Chloride Level 105, Carbon Dioxide Level 19L, Anion Gap 11, Blood Urea Nitrogen 8, Creatinine 0.52L, Estimat Glomerular Filtration Rate 119, BUN/Creatinine Ratio 15, Glucose Level 83, Calcium Level 8.0L, Corrected Calcium 9.0, Total Bilirubin 0.6, Aspartate Amino Transf (AST/SGOT) 20, Alanine Aminotransferase (ALT/SGPT) 11, Alkaline Phosphatase 62, Total Protein 5.2L, Albumin 2.7L Microbiology 05/28/21 MRSA Screen - Final, Complete MRSA not isolated 05/27/21 Urine Culture - Final, Complete Gardnerella vaginalis Gram Pos Mixed Bacterial Estrella Assessment/Plan Assessment/Plan (1) Small bowel obstruction Status: Acute Assessment & Plan: s/p small bowel resection 05/31 with ileal mass removed (2) COPD (chronic obstructive pulmonary disease) Status: Chronic Assessment & Plan: 06/03 on 2 lpm supplemental oxygen, encouraged ambulation and IS (3) GERD (gastroesophageal reflux disease) Status: Chronic (4) DVT prophylaxis Status: Acute Assessment & Plan: Enoxaparin SUSAN DANIEL MD Jun 03, 2021 16:36
[2021-06-03] MEDS: METOCLOPRAMIDE INJ 10 MG/2 ML (REGLAN) IVP SCH (16:54)
[2021-06-03 19:49] VITALS: BP 130/73
[2021-06-04] VITALS: BP 125/71
[2021-06-04] MEDS: METOCLOPRAMIDE INJ 10 MG/2 ML (REGLAN) IVP SCH ×5 (00:44→23:39)
[2021-06-04] MEDS: HYDROcodone/APAP 7.5 MG/325 MG (LORTAB, LORCET PLUS) TABLET PO PRN ×2 (02:35→06:47)
[2021-06-04 04:16] VITALS: BP 125/74
[2021-06-04] MEDS: PIPERACILLIN/TAZOBACTAM (BULK) 4.5 GM in NS (IVPB) 100 ML IV SCH ×3 (06:04→21:21)
[2021-06-04] MEDS: ENOXAPARIN 40 MG/0.4 ML (LOVENOX) SYR SC SCH (06:05)
[2021-06-04 07:33] VITALS: BP 131/75
[2021-06-04] MEDS: NS W/KCL 20 MEQ/L 1,000 ML IV SCH ×2 (08:30→13:13)
[2021-06-04] MEDS: UMECLIDINIUM BROMIDE (INCRUSE ELLIPTA) 7'S IH SCH (08:44)
[2021-06-04] MEDS: RT--FLUTICASONE/SALMETEROL 113-14 (AIRDUO RespiCLICK) IH SCH ×2 (08:44→20:58)
--- NOTE | 2021-06-04 11:29 | Progress Note ---
Subjective Subjective/Events-last exam States she is feeling a little better today, but still having severe pain at times. Thought she was going to vomit after oatmeal and Ensure this am, but did not. Focused Exam Time of Focused Exam: 09:00 Objective Exam Last Set of Vital Signs Vital Signs Date Time Temp Pulse Resp B/P (MAP) Pulse Ox O2 Delivery O2 Flow Rate FiO2 06/04/21 09:00 Room Air 06/04/21 08:45 94 2.00 06/04/21 07:33 36.0 87 18 131/75 (93) Capillary Refill : Less Than 3 SecondsGreater Than 3 Seconds I&O Intake and Output 06/04/21 00:00 Intake Total 2095 ml Output Total 1400 ml Balance 695 ml Intake Oral 915 ml IV Total 1180 ml Output Urine Total 1400 ml General: Alert, Mild Distress Lungs: Clear to Auscultation Heart: Regular Rate, No Murmurs Abdomen: Other (high pitched bowel sounds, distended, marked ttp) Neuro: Normal Speech Psych/Mental Status: Mood NL Results/Procedures Lab Microbiology 05/28/21 MRSA Screen - Final, Complete MRSA not isolated 05/27/21 Urine Culture - Final, Complete Gardnerella vaginalis Gram Pos Mixed Bacterial Estrella Assessment/Plan Assessment/Plan (1) Small bowel obstruction Status: Acute Assessment & Plan: s/p small bowel resection 05/31 with ileal mass removed, management per surgery Started on zosyn 06/02 06/04 still having a lot of pain and minimal bowel function, is going to try to ambulate every couple of hours today (2) COPD (chronic obstructive pulmonary disease) Status: Chronic Assessment & Plan: 06/03 on 2 lpm supplemental oxygen, encouraged ambulation and IS 06/04 stable on 2 lpm, encouraged continue deep inspirations which is difficult due to pain (3) GERD (gastroesophageal reflux disease) Status: Chronic (4) DVT prophylaxis Status: Acute Assessment & Plan: Enoxaparin SUSAN DANIEL MD Jun 04, 2021 11:29
[2021-06-04] MEDS ORDERED: ACETAMINOPHEN 325 MG TABLET PO PRN (11:30)
[2021-06-04 11:57] VITALS: BP 112/65
--- NOTE | 2021-06-04 16:11 | Progress Note ---
Subjective Date Seen by a Provider: Jun 04, 2021 Time Seen by a Provider: 16:00 Subjective/Events-last exam Patient seen with Dr. Garcia. Patient reports having abdominal pain and more distention. No flatus or BM. No fever/chills. Does report episodes of nausea but no vomiting. Focused Exam Time of Focused Exam: 09:00 Objective Exam Vital Signs Date Time Temp Pulse Resp B/P (MAP) Pulse Ox O2 Delivery O2 Flow Rate FiO2 06/04/21 11:57 36.9 77 20 112/65 (81) 92 Nasal Cannula 1.00 06/04/21 09:00 Room Air 06/04/21 08:45 94 Nasal Cannula 2.00 06/04/21 07:33 36.0 87 18 131/75 (93) 96 Nasal Cannula 2.00 06/04/21 04:16 36.4 92 18 125/74 (91) 94 Room Air 06/04/21 00:00 36.6 92 18 125/71 (89) 94 Room Air 06/03/21 21:17 90 Nasal Cannula 2.00 06/03/21 20:05 Room Air 06/03/21 19:49 36.8 101 22 130/73 (92) 91 Room Air I & O 06/04/21 07:00 Intake Total 815 ml Output Total 1400 ml Balance -585 ml Capillary Refill : Less Than 3 SecondsGreater Than 3 Seconds General Appearance: No Apparent Distress, WD/WN Neck: Normal Inspection, Supple Respiratory: Normal Breath Sounds, No Accessory Muscle Use, No Respiratory Distress Gastrointestinal: abnormal bowel sounds, distended, tenderness Extremity: Normal Inspection, Normal Range of Motion Neurologic/Psychiatric: Alert, Oriented x3 Skin: Normal Color, Warm/Dry, Other (Abdominal incisions C/D/I) Results Lab Microbiology 05/28/21 MRSA Screen - Final, Complete MRSA not isolated 05/27/21 Urine Culture - Final, Complete Gardnerella vaginalis Gram Pos Mixed Bacterial Estrella Assessment/Plan Assessment/Plan Assess & Plan/Chief Complaint A 60 year old female with Partial small bowel obstruction, UTI, S/P diagnostic laparoscopy and small bowel resection with reanastomosis VSS WBC WNL Abdominal distension - may have post-op ileus - will check abdominal x-ray Patient instructed to proceed with ice chips sparingly IV fluids, pain and nausea meds Encourage IS and ambulation Will have NGT placed for decompression - Will await more bowel function Labs in AM PEGGY UMANA [employer] Jun 04, 2021 16:11
[2021-06-04] MEDS: ONDANSETRON 4 MG/2 ML (SDV) Z0FRAN IV PRN (16:55)
[2021-06-04] MEDS: fentaNYL INJ 100 MCG/2 ML AMP IV PRN (16:56)
--- NOTE | 2021-06-04 17:16 | Diagnostic Imaging Report ---
INDICATION: Abdominal pain. COMPARISON: 05/28/2021 FINDINGS: There is moderate small bowel distention. There are no abnormal abdominal calcifications. Osseous structures are unremarkable. IMPRESSION: Multiple moderately distended loops of small bowel suspect for at least an ileus if not partial small bowel obstruction. Recommend clinical correlation and, if warranted, follow up with small bowel series. Dictated by: Dictated on workstation # [id number]
[2021-06-04 17:30] VITALS: BP 129/70
--- NOTE | 2021-06-04 17:41 | Diagnostic Imaging Report ---
INDICATION: NG tube placement. COMPARISON: Imaging from the same date. TECHNIQUE: Single radiograph of the abdomen dated 06/04/2021 at 1722 hours. FINDINGS: Enteric catheter is present with the distal tip and sidehole overlying the left upper abdomen, felt to be within the body of the stomach. The visualized lung bases are clear. Diffusely gas dilated loops of large and small bowel are again noted, appearing relatively similar to the prior examination. No free air. No acute osseous abnormality. IMPRESSION: Placement of an enteric catheter with the distal tip and sidehole extending into the stomach. Persistent gaseous distention of the bowel concerning for ileus versus bowel obstruction. Dictated by: Dictated on workstation # [id number]
[2021-06-04 20:00] VITALS: BP 146/75
[2021-06-05] VITALS (7 sets, daily range): BP systolic 138–156; BP diastolic 68–76
[2021-06-05] MEDS: fentaNYL INJ 100 MCG/2 ML AMP IV PRN ×4 (03:58→15:49)
[2021-06-05] MEDS: NS W/KCL 20 MEQ/L 1,000 ML IV SCH ×2 (05:38→09:11)
[2021-06-05] MEDS: ENOXAPARIN 40 MG/0.4 ML (LOVENOX) SYR SC SCH (05:39)
[2021-06-05] MEDS: PIPERACILLIN/TAZOBACTAM (BULK) 4.5 GM in NS (IVPB) 100 ML IV SCH ×3 (05:39→20:43)
[2021-06-05] MEDS: METOCLOPRAMIDE INJ 10 MG/2 ML (REGLAN) IVP SCH ×4 (05:41→23:14)
[2021-06-05 05:45] LABS: HEMATOCRIT 37 % (35-52); HEMOGLOBIN 12.3 g/dL (11.5-16.0); MEAN CORPUSCULAR HEMOGLOBIN 30 pg (25-34); MEAN CORPUSCULAR HGB CONC 33 g/dL (32-36); MEAN CORPUSCULAR VOLUME 88 fL (80-99); MEAN PLATELET VOLUME 9.6 fL (9.0-12.2); PLATELET COUNT 353 10^3/uL (130-400)
[2021-06-05 05:58] LABS: POTASSIUM 3.3 MMOL/L (3.6-5.0)
[2021-06-05 05:59] LABS: CALCIUM 8.5 MG/DL (8.5-10.1)
[2021-06-05 06:03] LABS: CREATININE SERUM 0.54 MG/DL (0.60-1.30)
[2021-06-05] MEDS: UMECLIDINIUM BROMIDE (INCRUSE ELLIPTA) 7'S IH SCH (07:06)
[2021-06-05] MEDS: RT--FLUTICASONE/SALMETEROL 113-14 (AIRDUO RespiCLICK) IH SCH ×2 (07:06→19:58)
[2021-06-05] MEDS: POTASSIUM CL 10MEQ/50ML IVPB 50 ML IV SCH ×3 (09:00→09:49)
--- NOTE | 2021-06-05 10:27 | Progress Note ---
Subjective Subjective/Events-last exam Feeling a little better with the NG in, but was in terrible pain prior and is feeling frustrated about the steps back. She is having pain with potassium infusion and can't tolerate it. Focused Exam Time of Focused Exam: 09:00 Objective Exam Last Set of Vital Signs Vital Signs Date Time Temp Pulse Resp B/P (MAP) Pulse Ox O2 Delivery O2 Flow Rate FiO2 06/05/21 08:00 Room Air 06/05/21 07:36 36.4 96 18 148/76 (100) 95 2.00 Capillary Refill : Less Than 3 SecondsGreater Than 3 Seconds I&O Intake and Output 06/05/21 00:00 Intake Total 350 ml Output Total 2950 ml Balance -2600 ml Intake Oral 350 ml Output Urine Total 800 ml Gastric Drainage Total 2150 ml # Voids 2 General: Alert Lungs: Clear to Auscultation, Normal Air Movement Heart: Regular Rate, No Murmurs Abdomen: Normal Bowel Sounds, Other (distended, markedly ttp) Extremities: No Edema Neuro: Normal Speech Results/Procedures Lab Laboratory Tests 06/05/21 05:35: White Blood Count 11.0, Red Blood Count 4.17, Hemoglobin 12.3, Hematocrit 37, Mean Corpuscular Volume 88, Mean Corpuscular Hemoglobin 30, Mean Corpuscular Hemoglobin Concent 33, Red Cell Distribution Width 14.9H, Platelet Count 353, Mean Platelet Volume 9.6, Sodium Level 141, Potassium Level 3.3L, Chloride Level 101, Carbon Dioxide Level 25, Anion Gap 15H, Blood Urea Nitrogen 7, Creatinine 0.54L, Estimat Glomerular Filtration Rate 114, BUN/Creatinine Ratio 13, Glucose Level 86, Calcium Level 8.5 Microbiology 05/28/21 MRSA Screen - Final, Complete MRSA not isolated 05/27/21 Urine Culture - Final, Complete Gardnerella vaginalis Gram Pos Mixed Bacterial Estrella Assessment/Plan Assessment/Plan (1) Small bowel obstruction Status: Acute Assessment & Plan: s/p small bowel resection 05/31 with ileal mass removed, management per surgery Started on zosyn 06/02 06/04 still having a lot of pain and minimal bowel function, is going to try to ambulate every couple of hours today 06/05 NG placed due to persistent distension and dilated small bowel, management per Surgery (2) COPD (chronic obstructive pulmonary disease) Status: Chronic Assessment & Plan: 06/03 on 2 lpm supplemental oxygen, encouraged ambulation and IS 06/04 stable on 2 lpm, encouraged continue deep inspirations which is difficult due to pain (3) GERD (gastroesophageal reflux disease) Status: Chronic (4) Hypokalemia Status: Acute Assessment & Plan: Not tolerating IV replacement, cannot take oral, discussed importance of adequate potassium level. (5) DVT prophylaxis Status: Acute Assessment & Plan: Enoxaparin SUSAN DANIEL MD Jun 05, 2021 10:27
--- NOTE | 2021-06-05 10:58 | Progress Note ---
Subjective Date Seen by a Provider: Jun 05, 2021 Time Seen by a Provider: 10:30 Subjective/Events-last exam doing better today. had significant flatus since NGT placed. axr likely ileus. Focused Exam Time of Focused Exam: 09:00 Objective Exam Vital Signs Date Time Temp Pulse Resp B/P (MAP) Pulse Ox O2 Delivery O2 Flow Rate FiO2 06/05/21 08:00 Room Air 06/05/21 07:36 36.4 96 18 148/76 (100) 95 Nasal Cannula 2.00 06/05/21 07:07 96 Nasal Cannula 2.00 06/05/21 04:12 37.4 86 16 152/70 (97) 93 Nasal Cannula 2.00 06/05/21 00:10 36.6 91 18 138/70 (92) 94 Nasal Cannula 2.00 06/04/21 21:15 Room Air 06/04/21 20:58 95 2.00 06/04/21 20:00 36.2 76 16 146/75 (98) 97 Nasal Cannula 1.00 06/04/21 17:30 36.3 95 16 129/70 (89) 92 Nasal Cannula 1.00 06/04/21 11:57 36.9 77 20 112/65 (81) 92 Nasal Cannula 1.00 I & O 06/05/21 06:59 Intake Total 250 ml Output Total 4250 ml Balance -4000 ml Capillary Refill : Less Than 3 SecondsGreater Than 3 Seconds General Appearance: No Apparent Distress HEENT: PERRL/EOMI Neck: Full Range of Motion Respiratory: Chest Non Tender, Decreased Breath Sounds Cardiovascular: Regular Rate, Rhythm Gastrointestinal: soft, distended, tenderness Extremity: Normal Capillary Refill Neurologic/Psychiatric: Alert, Oriented x3 Skin: Normal Color Lymphatic: No Adenopathy Results Lab Laboratory Tests 06/05/21 05:35: White Blood Count 11.0, Red Blood Count 4.17, Hemoglobin 12.3, Hematocrit 37, Mean Corpuscular Volume 88, Mean Corpuscular Hemoglobin 30, Mean Corpuscular Hemoglobin Concent 33, Red Cell Distribution Width 14.9H, Platelet Count 353, Mean Platelet Volume 9.6, Sodium Level 141, Potassium Level 3.3L, Chloride Level 101, Carbon Dioxide Level 25, Anion Gap 15H, Blood Urea Nitrogen 7, Creatinine 0.54L, Estimat Glomerular Filtration Rate 114, BUN/Creatinine Ratio 13, Glucose Level 86, Calcium Level 8.5 Microbiology 05/28/21 MRSA Screen - Final, Complete MRSA not isolated 05/27/21 Urine Culture - Final, Complete Gardnerella vaginalis Gram Pos Mixed Bacterial Estrella Assessment/Plan Assessment/Plan Assess & Plan/Chief Complaint intermittent recurrent SBO s/p dx laparoscopy and SBR for ileal mass. ileus s/p NGT placement. increase ambulation. having flatus and will await more bowel fxn and abd decompression then remove NGT. SOFY OSWALD MD Jun 05, 2021 10:58
[2021-06-05] MEDS: NS W/KCL 40 MEQ/L 1,000 ML IV SCH ×2 (12:24→23:05)
[2021-06-05] MEDS: HYDROcodone/APAP 7.5 MG/325 MG (LORTAB, LORCET PLUS) TABLET PO PRN (23:14)
[2021-06-06] MEDS: NS W/KCL 40 MEQ/L 1,000 ML IV SCH ×4 (02:37→19:25)
[2021-06-06] MEDS: PIPERACILLIN/TAZOBACTAM (BULK) 4.5 GM in NS (IVPB) 100 ML IV SCH ×3 (04:49→20:22)
[2021-06-06 04:50] VITALS: BP 156/77
[2021-06-06 05:33] LABS: HEMATOCRIT 34 % (35-52); HEMOGLOBIN 11.3 g/dL (11.5-16.0); MEAN CORPUSCULAR HEMOGLOBIN 30 pg (25-34); MEAN CORPUSCULAR HGB CONC 33 g/dL (32-36); MEAN CORPUSCULAR VOLUME 92 fL (80-99); MEAN PLATELET VOLUME 9.1 fL (9.0-12.2); PLATELET COUNT 339 10^3/uL (130-400); WHITE BLOOD COUNT 8.8 10^3/uL (4.3-11.0)
[2021-06-06 05:46] LABS: POTASSIUM 3.5 MMOL/L (3.6-5.0)
[2021-06-06 05:48] LABS: CALCIUM 7.9 MG/DL (8.5-10.1)
[2021-06-06 05:52] LABS: CREATININE SERUM 0.48 MG/DL (0.60-1.30)
[2021-06-06] MEDS: METOCLOPRAMIDE INJ 10 MG/2 ML (REGLAN) IVP SCH ×4 (06:04→23:19)
[2021-06-06] MEDS: ENOXAPARIN 40 MG/0.4 ML (LOVENOX) SYR SC SCH (06:04)
[2021-06-06 07:15] VITALS: BP 135/70
[2021-06-06] MEDS: RT--FLUTICASONE/SALMETEROL 113-14 (AIRDUO RespiCLICK) IH SCH ×2 (08:02→21:09)
[2021-06-06] MEDS: UMECLIDINIUM BROMIDE (INCRUSE ELLIPTA) 7'S IH SCH (08:03)
--- NOTE | 2021-06-06 10:31 | Progress Note - Hospitalist ---
Subjective HPI/CC On Admission Date Seen by Provider: Jun 06, 2021 Time Seen by Provider: 09:30 CC: Abdominal pain HPI: This is a PSYCHIATRIC patient who has a past medical history of a small bowel obstruction hospitalized in [place] just recently who presented to [facility] ER with the same complaints. She was found to have small bowel obstruction, NG tube will be placed and Dr. Garcia will be consulted. At this current time Pt denies any other new issues. Subjective/Events-last exam Patient reports she is feeling a little better each day NG tube was removed yesterday bowel sounds were noted by staff has not had a bowel movement or passed gas denying nausea or vomiting. Focused Exam Time of Focused Exam: 09:00 Objective Exam Vital Signs Vital Signs Date Time Temp Pulse Resp B/P (MAP) Pulse Ox O2 Delivery O2 Flow Rate FiO2 06/06/21 08:05 96 Nasal Cannula 2.00 06/06/21 07:15 36.0 87 18 135/70 (91) Capillary Refill : Less Than 3 SecondsGreater Than 3 Seconds General Appearance: No Apparent Distress, Chronically ill Respiratory: Chest Non Tender, Lungs Clear, No Accessory Muscle Use, No Respiratory Distress Cardiovascular: Regular Rate, Rhythm, No Edema, No Gallop, No JVD, No Murmur, Normal Peripheral Pulses Gastrointestinal: Other (Soft but somewhat distended bowel sounds present but hypoactive mild generalized discomfort without rebound or guarding.) Results/Procedures Lab Laboratory Tests 06/06/21 05:25 Patient resulted labs reviewed. Assessment/Plan Assessment and Plan Assess & Plan/Chief Complaint (1) Small bowel obstruction Status: Acute Assessment & Plan: s/p small bowel resection 05/31 with ileal mass removed, management per surgery Started on zosyn 06/02 06/04 still having a lot of pain and minimal bowel function, is going to try to ambulate every couple of hours today 06/05 NG placed due to persistent distension and dilated small bowel, management per Surgery 06/06 NG out patient tolerating this with some return of bowel sounds no stool as of yet. (2) COPD (chronic obstructive pulmonary disease) Status: Chronic Assessment & Plan: 06/03 on 2 lpm supplemental oxygen, encouraged ambulation and IS 06/04 stable on 2 lpm, encouraged continue deep inspirations which is difficult due to pain (3) GERD (gastroesophageal reflux disease) Status: Chronic (4) Hypokalemia Status: Acute Assessment & Plan: Not tolerating IV replacement, cannot take oral, discussed importance of adequate potassium level. (5) DVT prophylaxis Status: Acute Assessment & Plan: Enoxaparin BRITTNEY MATSON MD Jun 06, 2021 10:31
[2021-06-06] MEDS ORDERED: HYDR-3817 PO (10:36)
--- NOTE | 2021-06-06 10:37 | Discharge Inst-Surgical ---
D/C Lap Instructions-MARGRET New, Converted, or Re-Newed RX: RX on Chart Follow Up Appt in 2 weeks Activity as tolerated No driving for 24 hours No driving while on pain medications Incentive Spirometry use every 2 hours while awake Regular Diet Symptoms to Report: Fever over 101 degree F, Nausea/Vomiting Infection Signs and Symptoms to report: Increased redness, Foul odor of wound, Increased drainage Bathing instructions: May shower Operative Area Clean/Dry; Keep incision clean/dry If any problems/questions: Contact your physician or go to Emergency Room SOFY OSWALD MD Jun 06, 2021 10:37
--- NOTE | 2021-06-06 10:39 | Progress Note ---
Subjective Date Seen by a Provider: Jun 06, 2021 Time Seen by a Provider: 10:40 Subjective/Events-last exam doing ok. passing flatus but no BM. abd distention improved. no fever/chills. Focused Exam Time of Focused Exam: 09:00 Objective Exam Vital Signs Date Time Temp Pulse Resp B/P (MAP) Pulse Ox O2 Delivery O2 Flow Rate FiO2 06/06/21 08:05 96 Nasal Cannula 2.00 06/06/21 08:00 Room Air 06/06/21 07:15 36.0 87 18 135/70 (91) 95 Nasal Cannula 2.00 06/06/21 04:50 36.4 89 16 156/77 (103) 92 Nasal Cannula 2.00 06/05/21 23:49 36.4 86 16 148/70 (96) 96 Nasal Cannula 2.00 06/05/21 20:45 Nasal Cannula 2.00 06/05/21 20:06 92 Nasal Cannula 2.00 06/05/21 20:00 37.5 98 18 147/72 (97) 98 Nasal Cannula 2.00 06/05/21 15:40 37.2 84 16 153/68 (96) 99 Nasal Cannula 2.00 06/05/21 12:01 36.2 92 20 156/72 (100) 97 Nasal Cannula 2.00 I & O 06/06/21 07:00 Intake Total 2110 ml Output Total 2450 ml Balance -340 ml Capillary Refill : Less Than 3 SecondsGreater Than 3 Seconds General Appearance: No Apparent Distress HEENT: PERRL/EOMI Neck: Full Range of Motion Respiratory: Chest Non Tender, Lungs Clear Cardiovascular: Regular Rate, Rhythm Gastrointestinal: soft, tenderness Extremity: Normal Capillary Refill Neurologic/Psychiatric: Alert, Oriented x3 Skin: Normal Color Lymphatic: No Adenopathy Results Lab Laboratory Tests 06/06/21 05:25: White Blood Count 8.8, Red Blood Count 3.74L, Hemoglobin 11.3L, Hematocrit 34L, Mean Corpuscular Volume 92, Mean Corpuscular Hemoglobin 30, Mean Corpuscular Hemoglobin Concent 33, Red Cell Distribution Width 15.3H, Platelet Count 339, Mean Platelet Volume 9.1, Sodium Level 140, Potassium Level 3.5L, Chloride Level 103, Carbon Dioxide Level 26, Anion Gap 11, Blood Urea Nitrogen 6L, Creatinine 0.48L, Estimat Glomerular Filtration Rate 131, BUN/Creatinine Ratio 13, Glucose Level 90, Calcium Level 7.9L Microbiology 05/28/21 MRSA Screen - Final, Complete MRSA not isolated 05/27/21 Urine Culture - Final, Complete Gardnerella vaginalis Gram Pos Mixed Bacterial Estrella Assessment/Plan Assessment/Plan Assess & Plan/Chief Complaint intermittent recurrent SBO s/p dx laparoscopy and SBR for ileal mass. ileus. increase ambulation. having flatus and will await more bowel fxn then advance diet. SOFY OSWALD MD Jun 06, 2021 10:39
[2021-06-06 12:09] VITALS: BP 149/70
[2021-06-06] MEDS: ONDANSETRON 4 MG/2 ML (SDV) Z0FRAN IV PRN (14:53)
[2021-06-06] MEDS: fentaNYL INJ 100 MCG/2 ML AMP IV PRN ×2 (14:54→19:39)
[2021-06-06 15:15] VITALS: BP 156/75
[2021-06-06 19:12] VITALS: BP 163/79
[2021-06-06] MEDS: HYDROcodone/APAP 7.5 MG/325 MG (LORTAB, LORCET PLUS) TABLET PO PRN (23:20)
[2021-06-07] VITALS (7 sets, daily range): BP systolic 142–156; BP diastolic 69–79
[2021-06-07] MEDS: NS W/KCL 40 MEQ/L 1,000 ML IV SCH ×2 (04:17→11:07)
[2021-06-07] MEDS: PIPERACILLIN/TAZOBACTAM (BULK) 4.5 GM in NS (IVPB) 100 ML IV SCH (04:58)
[2021-06-07] MEDS: ENOXAPARIN 40 MG/0.4 ML (LOVENOX) SYR SC SCH (06:13)
[2021-06-07] MEDS: METOCLOPRAMIDE INJ 10 MG/2 ML (REGLAN) IVP SCH ×3 (06:14→17:23)
[2021-06-07] MEDS: HYDROcodone/APAP 7.5 MG/325 MG (LORTAB, LORCET PLUS) TABLET PO PRN ×2 (06:21→17:24)
[2021-06-07] MEDS: UMECLIDINIUM BROMIDE (INCRUSE ELLIPTA) 7'S IH SCH (07:30)
[2021-06-07] MEDS: RT--FLUTICASONE/SALMETEROL 113-14 (AIRDUO RespiCLICK) IH SCH ×2 (07:30→21:48)
--- NOTE | 2021-06-07 10:15 | Progress Note - Hospitalist ---
Subjective HPI/CC On Admission Date Seen by Provider: Jun 07, 2021 Time Seen by Provider: 08:45 CC: Abdominal pain HPI: This is a [facility] patient who has a past medical history of a small bowel obstruction hospitalized in [place] just recently who presented to [facility] ER with the same complaints. She was found to have small bowel obstruction, NG tube will be placed and Dr. Garcia will be consulted. At this current time Pt denies any other new issues. Subjective/Events-last exam Patient had a large bowel movement yesterday without evidence for blood reports crampy abdominal pain is decreasing in frequency and severity still reports early satiety denies chills fever reports she does not feel the need to sleep as much with improvement in energy level. Focused Exam Time of Focused Exam: 09:00 Objective Exam Vital Signs Vital Signs Date Time Temp Pulse Resp B/P (MAP) Pulse Ox O2 Delivery O2 Flow Rate FiO2 06/07/21 08:00 Room Air 06/07/21 07:43 36.4 89 20 151/74 (99) 93 2.00 Capillary Refill : Less Than 3 SecondsGreater Than 3 Seconds General Appearance: No Apparent Distress Respiratory: Chest Non Tender, Lungs Clear, Normal Breath Sounds, No Accessory Muscle Use, No Respiratory Distress Cardiovascular: Regular Rate, Rhythm, No Edema, No Gallop, No JVD, No Murmur, Normal Peripheral Pulses Gastrointestinal: Other (Abdomen still distended but soft bowel sounds present today decreased tenderness no rebound or guarding.) Results/Procedures Lab Patient resulted labs reviewed. Assessment/Plan Assessment and Plan Assess & Plan/Chief Complaint (1) Small bowel obstruction Status: Acute Assessment & Plan: s/p small bowel resection 05/31 with ileal mass removed, mary gement per surgery Started on zosyn 06/02 06/04 still having a lot of pain and minimal bowel function, is going to try to ambulate every couple of hours today 06/05 NG placed due to persistent distension and dilated small bowel, management per Surgery 06/06 NG out patient tolerating this with some return of bowel sounds no stool as of yet. 06/07 ileus resolving postop small bowel obstruction patient tolerating soft solids. (2) COPD (chronic obstructive pulmonary disease) Status: Chronic Assessment & Plan: 06/03 on 2 lpm supplemental oxygen, encouraged ambulation and IS 06/04 stable on 2 lpm, encouraged continue deep inspirations which is difficult due to pain (3) GERD (gastroesophageal reflux disease) Status: Chronic (4) Hypokalemia Status: Acute Assessment & Plan: Not tolerating IV replacement, cannot take oral, discussed importance of adequate potassium level. (5) DVT prophylaxis Status: Acute Assessment & Plan: Enoxaparin BRITTNEY MATSON MD Jun 07, 2021 10:15
--- NOTE | 2021-06-07 10:19 | Progress Note ---
Subjective Date Seen by a Provider: Jun 07, 2021 Time Seen by a Provider: 10:00 Subjective/Events-last exam doing well. tolerating dys3 diet. had large BM yesterday. pain controlled. Focused Exam Time of Focused Exam: 09:00 Objective Exam Vital Signs Date Time Temp Pulse Resp B/P (MAP) Pulse Ox O2 Delivery O2 Flow Rate FiO2 06/07/21 08:00 Room Air 06/07/21 07:43 36.4 89 20 151/74 (99) 93 Nasal Cannula 2.00 06/07/21 07:30 95 Nasal Cannula 2.00 06/07/21 07:30 95 Nasal Cannula 2.00 06/07/21 04:19 36.3 85 18 142/71 (94) 95 Nasal Cannula 2.00 06/07/21 00:00 36.2 84 18 156/72 (100) 95 Nasal Cannula 2.00 06/06/21 21:09 95 Nasal Cannula 2.00 06/06/21 19:45 Nasal Cannula 2.00 06/06/21 19:12 37.5 91 24 163/79 (107) 94 Nasal Cannula 2.00 06/06/21 15:15 37.5 81 20 156/75 (102) 90 Nasal Cannula 2.00 06/06/21 12:09 36.6 89 20 149/70 (96) 90 Nasal Cannula 2.00 I & O 06/07/21 07:00 Intake Total 2090 ml Output Total 2300 ml Balance -210 ml Capillary Refill : Less Than 3 SecondsGreater Than 3 Seconds General Appearance: No Apparent Distress HEENT: PERRL/EOMI Neck: Full Range of Motion Respiratory: Chest Non Tender Cardiovascular: Regular Rate, Rhythm Gastrointestinal: normal bowel sounds, soft, tenderness Extremity: Normal Capillary Refill Neurologic/Psychiatric: Alert, Oriented x3 Skin: Normal Color Lymphatic: No Adenopathy Results Lab Microbiology 05/28/21 MRSA Screen - Final, Complete MRSA not isolated 05/27/21 Urine Culture - Final, Complete Gardnerella vaginalis Gram Pos Mixed Bacterial Estrella Assessment/Plan Assessment/Plan Assess & Plan/Chief Complaint intermittent recurrent SBO s/p dx laparoscopy and SBR for ileal mass. ileus. resolving. regular diet. continue ambulation. SOFY OSWALD MD Jun 07, 2021 10:19
[2021-06-08] MEDS: METOCLOPRAMIDE INJ 10 MG/2 ML (REGLAN) IVP SCH ×3 (00:20→13:41)
[2021-06-08] MEDS: HYDROcodone/APAP 7.5 MG/325 MG (LORTAB, LORCET PLUS) TABLET PO PRN ×2 (00:31→13:21)
[2021-06-08] MEDS: ONDANSETRON 4 MG/2 ML (SDV) Z0FRAN IV PRN (00:31)
[2021-06-08] MEDS: ENOXAPARIN 40 MG/0.4 ML (LOVENOX) SYR SC SCH (06:11)
[2021-06-08] MEDS: UMECLIDINIUM BROMIDE (INCRUSE ELLIPTA) 7'S IH SCH (07:58)
[2021-06-08] MEDS: RT--FLUTICASONE/SALMETEROL 113-14 (AIRDUO RespiCLICK) IH SCH (07:58)
[2021-06-08 08:47] VITALS: BP 143/74
--- NOTE | 2021-06-08 11:54 | Discharge Summary ---
Discharge Summary Hospital Course Was the Problem List Reviewed?: Yes Problems/Dx: (1) Small bowel obstruction Status: Acute Hospital Course Date of Admission: May 27, 2021 at 14:43 Admission Diagnosis : Family Physician/Provider: [facility] Date of Discharge: 06/08/21 Discharge Diagnosis: Small bowel obstruction due to intestinal mass status post resection, postop ileus, home O2 dependent new, COPD, smoker Hospital Course: Hospital Course: Pt had a lengthy hospital course for 13 days after small bowl obstruction found to have intestinal mass s/p resection by Dr. Oswald. Home O2 evaluation showed need for O2 at [facility]. She ultimately was able to tolerate diet and was discharged home in improved condition. Labs and Pending Lab Test: Microbiology 05/28/21 MRSA Screen - Final, Complete MRSA not isolated 05/27/21 Urine Culture - Final, Complete Gardnerella vaginalis Gram Pos Mixed Bacterial Estrella Home Meds Active Hydrocodone-Acetamin 7.5-325 (Hydrocodone/Acetaminophen) 1 Each Tablet 1 Each PO Q4H Protonix (Pantoprazole Sodium) 40 Mg Tablet.dr 40 Mg PO DAILY Reported Advair 250-50 Diskus (Fluticasone/Salmeterol) 1 Each Blst.w.dev 1 Each IH BID Spiriva (Tiotropium [place]) 1 Inh Aerp 1 Inh IH DAILY Omeprazole 40 Mg Capsule.dr 40 Mg PO DAILY Sucralfate 1 Gm Tablet 1 Gm PO ACHS Assessment/Pt Instructions PCP in [address] OSWALD is scheduled Discharge Planning: <30 minutes discharge planning Discharge Instructions Discharge Diet: No Restrictions Activity as Tolerated: Yes Discharge Physical Examination Vital Signs Vital Signs Date Time Temp Pulse Resp B/P (MAP) Pulse Ox O2 Delivery O2 Flow Rate FiO2 06/08/21 08:47 36.1 99 18 143/74 (97) 93 Nasal Cannula 2.00 General Appearance: No Apparent Distress, WD/WN, Thin Respiratory: Lungs Clear Cardiovascular: Regular Rate, Rhythm Allergies: Coded Allergies: No Known Drug Allergies (Unverified , 09/08/14) Discharge Summary Date of Admission May 27, 2021 at 14:43 Date of Discharge Discharge Date: Jun 08, 2021 Admission Diagnosis Assessment: Small bowel obstruction Weight loss Plan: Supportive care Appreciate general surgery Discharge Diagnosis Assessment: Small bowel obstruction recurrent in type-status post exploratory laparoscopy status post mass resection Weight loss Plan: Needs exploratory laparoscopy in my opinion Updated Dr. OSWALD Scopes normal Protonix 05/31/2021: Mass resection by Dr. OSWALD (1) Small bowel obstruction Status: Acute ELIZABETH NAIK DO Jun 08, 2021 11:53
--- NOTE | 2021-06-08 14:15 | Progress Note ---
KAMERON RAI MED STUDENT 06/08/21 1415: Progress Note This is Elzbieta a 60 yo female on day 13 of her hospital stay being discharged home. She presented to the ER on 05/27 with the chief complaint of abdominal pain secondary to small bowel obstruction as indicated on CT on 05/27 in the transition point in the RLQ and was admitted by Dr. Chamberlain for inpatient care. N/G tube was placed and pt was NPO for multiple days. She had similar symptoms about a month ago with a 3 day hospital stay at [place] and one more time even before that. Surgery was consulted. A small bowel X-ray series was completed on 05/28 and showed dilated small bowel however, contrast does progress through the small bowel to the colon in 3 hours. No complete obstruction was identified. Dr. Kingston performed an EDG/ colonoscopy on 05/29 which revealed reflux esophagitis between stage II and III, small hiatal hernia 2 cm in size, moderate to severe gastritis, no distal obstructions, chronic stage II external and internal he morrhoids, and small hyperplastic polyp of the rectum. She continued to have symptoms throughout her stay and required fentynl for pain management and zofran for nausea. On 05/31 Dr. Kingston performed a diagnostic laparoscopy and small bowel resection where she had an obstructing distal illeus mass. Abdominal x-ray on 06/04 continued to show distended loops. Dr. Kingston released pt on 06/07. Upon entering the room this morning Elzbieta was laying in bed watching TV. She was calm, cooperative, and engaged during questioning. Pt stated that she is feeling much better and ready to go home. She admits to having back and stomach pain at the surgical site. She is using the restroom without difficulties and had a BM yesterday. She continues to have nausea when eating. Upon discharge she was prescribed zofran and hydrocodone for management at home. Pt was given forms that highlight limitations on activity and lifting. SANDEE CHAMBERLAIN DO 06/09/21 0518: Supervisory-Addendum Brief Verification & Attestation Participated in pt care: history, MDM, physical Personally performed: exam, history, MDM, supervision of care Care discussed with: Medical Student Procedures: n/a Results interpretation: Verified all documentation Verification and Attestation of Medical Student E/M Service A medical student performed and documented this service in my presence. I reviewed and verified all information documented by the medical student and made modifications to such information, when appropriate. I personally performed the physical exam and medical decision making. Sandee Chamberlain, Jun 09, 2021,05:18 KAMERON RAI MED STUDENT Jun 08, 2021 14:15 SANDEE CHAMBERLAIN DO Jun 09, 2021 05:18
[2021-06-08 16:00] VITALS: BP 126/68
--- NOTE | 2021-06-11 07:24 | Physician Query Clarification ---
PQ-Link Path Diagnosis Admission/Discharge Admission Date: May 27, 2021 at 14:43 Discharge Date: Jun 08, 2021 at 16:48 Dr. 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 Please document a response in Progress Notes or Discharge Summary. 1. Agree with pathological diagnosis of distal ileal CA with lymph node mets . 2. No - Do not agree with pathology findings of distal ileal CA with lymph node mets. 3. Other, with explanation of the clinical findings. 4. Clinically undetermined, no explanation for the clinical findings. Is is appropriate for a provider to add additional documentation (addenda) to the record to explain the evaluation & care up to 30 days post-discharge. See [facility] and Patient Record Guidelines below. The [facility] Chapter Record of Care, Standard; [id number].01.03.01EP 1: "The hospital has a written policy that required timely entry of information into the medical record." According to [facility] Patient Record Guidelines, ARTICLE XXI. CORRECTIONS AND ADDENDA, Modifications (addenda amendments, corrections and retractions) should be made timely and no later than regulatory requirements for record completion (i.e. 30 days post discharge). Official coding guidelines require coders to query the physician for agreement with pathology findings that occur during the encounter. Coders are not allowed to pull information directly from the path reports. PHYSICIAN RESPONSE Pathology Report Findings: Yes,agree w/path dx as documented Please remember a lack of response to the above will prompt a phone page by CDI/Coding staff. In responding to this query, please exercise your independent professional judgment. The purpose of this communication is to more accurately reflect the complexity of your patients condition. The fact that a question is asked does not imply that any particular answer is desired or expected. Thank you for your timely response to this clarification. Requestors name: Julissa THIS PHYSICIAN QUERY FORM IS A PERMANENT PART OF THE MEDICAL RECORD JULISSA DOVER Jun 11, 2021 07:24 SOFY OSWALD MD Jun 11, 2021 14:20
== END 2021-06-08 16:48 | disposition home or self-care (01) | DRG 348 ==
LOC: EDUNIT# 12:08 → ER 12:09 → 4TH 14:43 → UNDOADMIN 14:47 → ICU 14:47
PROVIDERS: ADMIT Internal Medicine; ATTEND Internal Medicine
PROC: 0DB48ZX Excision of Esophagogastric Junction, Via Natural or Artificial Opening Endoscopic, Diagnostic (ICD-10-PCS; 2021-05-29)
PROC: 0DB78ZX Excision of Stomach, Pylorus, Via Natural or Artificial Opening Endoscopic, Diagnostic (ICD-10-PCS; 2021-05-29)
PROC: 0DBP8ZX Excision of Rectum, Via Natural or Artificial Opening Endoscopic, Diagnostic (ICD-10-PCS; 2021-05-29)
PROC: 0DBV4ZZ Excision of Mesentery, Percutaneous Endoscopic Approach (ICD-10-PCS; 2021-05-31)
PROC: 0DBB4ZZ Excision of Ileum, Percutaneous Endoscopic Approach (ICD-10-PCS; principal; 2021-05-31 12:44)
DX: C17.2 Malignant neoplasm of ileum (principal); K56.690 Other partial intestinal obstruction; C77.2 Secondary and unspecified malignant neoplasm of intra-abdominal lymph nodes; N39.0 Urinary tract infection, site not specified; F17.210 Nicotine dependence, cigarettes, uncomplicated; F12.90 Cannabis use, unspecified, uncomplicated; H54.7 Unspecified visual loss; J44.9 Chronic obstructive pulmonary disease, unspecified; Z20.822 Contact with and (suspected) exposure to COVID-19; K42.9 Umbilical hernia without obstruction or gangrene; E87.6 Hypokalemia; E83.51 Hypocalcemia; K21.00 Gastro-esophageal reflux disease with esophagitis, without bleeding; K44.9 Diaphragmatic hernia without obstruction or gangrene; K29.70 Gastritis, unspecified, without bleeding; K64.1 Second degree hemorrhoids; D12.8 Benign neoplasm of rectum
CPT/HCPCS: 36415; 71045; 74018; 74177; 74250; 80048; 80053; 81000; 83690; 83735; 85007; 85025; 85027; 87077; 87081; 87088; 87636; 88305; 94640; 94664; 94760; 94761; 96374

== ENCOUNTER 2021-06-17 17:10 | Inpatient (IN) | payer OTHER ==
[~2021-06-17] VITALS: Ht 165 cm; Wt 51.4 kg
[~2021-06-17 17:10] MED LIST changes: +FLUT1DIS26 IH; +HYDR-3817 PO; +OMEP40CA6 PO; +PANT40TA2 PO; +SUCR1TAB PO; +TIOT18CA2 IH
[2021-06-17] MEDS ORDERED: fentaNYL INJ 100 MCG/2 ML AMP IVP ONE (18:00)
[2021-06-17 18:05] LABS: BASOPHILS # (AUTO) 0.1 10^3/uL (0.0-0.1); BASOPHILS % (AUTO) 0 % (0-10); EOSINOPHILS % (AUTO) 0 % (0-10); HEMATOCRIT 37 % (35-52); HEMOGLOBIN 11.9 g/dL (11.5-16.0); LYMPHOCYTES # (AUTO) 1.8 10^3/uL (1.0-4.0); LYMPHOCYTES % (AUTO) 16 % (12-44); MEAN CORPUSCULAR HEMOGLOBIN 29 pg (25-34); MEAN CORPUSCULAR HGB CONC 33 g/dL (32-36); MEAN CORPUSCULAR VOLUME 90 fL (80-99); MEAN PLATELET VOLUME 8.9 fL (9.0-12.2); MONOCYTES % (AUTO) 9 % (0-12); NEUTROPHILS # (AUTO) 8.5 10^3/uL (1.8-7.8); NEUTROPHILS % (AUTO) 74 % (42-75); PLATELET COUNT 750 10^3/uL (130-400); WHITE BLOOD COUNT 11.5 10^3/uL (4.3-11.0)
[2021-06-17 18:08] LABS: ALBUMIN 3.2 GM/DL (3.2-4.5)
[2021-06-17 18:09] LABS: POTASSIUM 2.6 MMOL/L (3.6-5.0)
[2021-06-17 18:10] LABS: CALCIUM 7.6 MG/DL (8.5-10.1)
[2021-06-17 18:11] LABS: TOTAL PROTEIN 6.8 GM/DL (6.4-8.2)
[2021-06-17 18:13] LABS: BILIRUBIN,TOTAL 0.5 MG/DL (0.1-1.0)
[2021-06-17 18:15] LABS: CREATININE SERUM 0.56 MG/DL (0.60-1.30)
[2021-06-17] MEDS ORDERED: NS IV 1000 ML 1,000 ML IV ONE (18:15)
--- NOTE | 2021-06-17 18:16 | ED Abdominal Pain ---
General Chief Complaint: Abdominal/GI Problems Stated Complaint: ABD PAIN/POST-OP X 1 WEEK BOWEL OBSTRUCTION Nursing Triage Note: AMB TO ROOM REPORTS HAD SURG [address] GARCIA BOWEL OBSTRUCTION Source of Information: Patient Exam Limitations: No Limitations History of Present Illness Date Seen by Provider: Jun 17, 2021 Time Seen by Provider: 17:48 Initial Comments This is a 60-year-old female who presents to the ER with complaints of abdominal fullness, pain, intermittent nausea that started around 0830 this morning. States that she was recently diagnosed with small bowel obstruction and had laparotomy with partial small bowel resection by Dr. Garcia on May 27. States that she was informed her results indicated cancer and has been referred to the cancer center here at [facility]. States she has been taking her hydrocodone as needed for pain per instructions, last dose a couple hours ago. Denies fever, cough, shortness of breath, chest pain, dysuria, hematuria. Was able to eat a little bit of solid food this morning. However unable to eat since. Reports soft bowel movement today. Denies flatulence. Allergies and Home Medications Allergies Coded Allergies: No Known Drug Allergies (Unverified , 09/08/14) Home Medications Fluticasone/Salmeterol 1 Each Blst.w.dev, 1 EACH IH BID, (Reported) Hydrocodone/Acetaminophen 1 Each Tablet, 1 EACH PO Q4H Prescribed by: SOFY GARCIA on 06/06/21 1036 Omeprazole 40 Mg Capsule., 40 MG PO DAILY, (Reported) Pantoprazole Sodium 40 Mg Tablet., 40 MG PO DAILY Prescribed by: SOFY GARCIA on 05/29/21 1305 Sucralfate 1 Gm Tablet, 1 GM PO ACHS, (Reported) Tiotropium [place] 1 Inh Aerp, 1 INH IH DAILY, (Reported) Patient Home Medication List Home Medication List Reviewed: Yes Review of Systems Review of Systems Constitutional: see HPI EENTM: No Symptoms Reported Respiratory: No Symptoms Reported Cardiovascular: No Symptoms Reported Gastrointestinal: See HPI Genitourinary: No Symptoms Reported Musculoskeletal: no symptoms reported Skin: other (3 laparascopic sites. ) Psychiatric/Neurological: No Symptoms Reported Endocrine: No Symptoms Reported Hematologic/Lymphatic: No Symptoms Reported Past Qykalqm-Mpvlgc-Ebhxye Hx Patient Social History Tobacco Use?: No Substance use?: No Pt feels they are or have been: No Past Medical History Orthopedic COPD Currently Using CPAP: No Currently Using BIPAP: No [employer] History: Menopausal Obstructive Bowel Chronic Back Pain Family Medical History Cancer, Diabetes Physical Exam Vital Signs Vital Signs - First Documented 06/17/21 17:18 Temp 36.0 Pulse 100 Resp 18 B/P (MAP) 120/75 (90) Pulse Ox 96 O2 Delivery Room Air Capillary Refill : Less Than 3 Seconds Height/Weight/BMI Height: 5'6" Weight: 118lbs. oz. 53.128430oi; 28.00 BMI Method: General Appearance: WD/WN, no apparent distress HEENT: PERRL/EOMI, normal ENT inspection, pharynx normal Neck: full range of motion, normal inspection Respiratory: lungs clear, normal breath sounds, no respiratory distress Cardiovascular: regular rate, rhythm, no edema, no gallop Peripheral Pulses: 2+ Radial Pulses (R), 2+ Radial Pulses (L) Gastrointestinal: abnormal bowel sounds (hypoactive ), distended Extremities: normal range of motion, non-tender, normal inspection, no pedal edema Back: normal inspection, no vertebral tenderness Neurologic/Psychiatric: no motor/sensory deficits, alert, normal mood/affect, oriented x 3 Skin: normal color, warm/dry, other (3 laparascopic sites, glue intact. No erythema, swelling, or drainage. ) Progress/Results/Core Measures Results/Orders Lab Results Laboratory Tests Test 06/17/21 17:32 Range/Units White Blood Count 11.5 H 4.3-11.0 10^3/uL Red Blood Count 4.07 3.80-5.11 10^6/uL Hemoglobin 11.9 11.5-16.0 g/dL Hematocrit 37 35-52 % Mean Corpuscular Volume 90 80-99 fL Mean Corpuscular Hemoglobin 29 25-34 pg Mean Corpuscular Hemoglobin Concent 33 32-36 g/dL Red Cell Distribution Width 13.8 10.0-14.5 % Platelet Count 750 H 130-400 10^3/uL Mean Platelet Volume 8.9 L 9.0-12.2 fL Immature Granulocyte % (Auto) 0 % Neutrophils (%) (Auto) 74 42-75 % Lymphocytes (%) (Auto) 16 12-44 % Monocytes (%) (Auto) 9 0-12 % Eosinophils (%) (Auto) 0 0-10 % Basophils (%) (Auto) 0 0-10 % Neutrophils # (Auto) 8.5 H 1.8-7.8 10^3/uL Lymphocytes # (Auto) 1.8 1.0-4.0 10^3/uL Monocytes # (Auto) 1.0 0.0-1.0 10^3/uL Eosinophils # (Auto) 0.0 0.0-0.3 10^3/uL Basophils # (Auto) 0.1 0.0-0.1 10^3/uL Immature Granulocyte # (Auto) 0.1 0.0-0.1 10^3/uL Sodium Level 140 135-145 MMOL/L Potassium Level 2.6 L 3.6-5.0 MMOL/L Chloride Level 100 98-107 MMOL/L Carbon Dioxide Level 25 21-32 MMOL/L Anion Gap 15 H 5-14 MMOL/L Blood Urea Nitrogen 9 7-18 MG/DL Creatinine 0.56 L 0.60-1.30 MG/DL Estimat Glomerular Filtration Rate 110 BUN/Creatinine Ratio 16 Glucose Level 121 H 70-105 MG/DL Calcium Level 7.6 L 8.5-10.1 MG/DL Corrected Calcium 8.2 L 8.5-10.1 MG/DL Total Bilirubin 0.5 0.1-1.0 MG/DL Aspartate Amino Transf (AST/SGOT) 38 H 5-34 U/L Alanine Aminotransferase (ALT/SGPT) 28 0-55 U/L Alkaline Phosphatase 101 40-136 U/L Total Protein 6.8 6.4-8.2 GM/DL Albumin 3.2 3.2-4.5 GM/DL My Orders Orders - GONZALES WHITNEY APRN Cbc With Automated Diff (06/17/21 17:56) Comprehensive Metabolic Panel (06/17/21 17:56) Acute Abd Series (06/17/21 17:56) Fentanyl Inj (Sublimaze Injection) (06/17/21 18:00) Ns Iv 1000 Ml (Sodium Chloride 0.9%) (06/17/21 18:15) Potassium Cl 10meq/50ml Ivpb (Kcl 10 Meq (06/17/21 18:30) Hydromorphone Injection (Dilaudid Inject (06/17/21 19:00) Metoclopramide Injection (Reglan Injecti (06/17/21 19:00) Metoclopramide Injection (Reglan Injecti (06/17/21 19:06) Medications Given in ED Current Medications Medications Dose Ordered Sig/Grady Route Start Time Stop Time Status Last Admin Dose Admin Fentanyl Citrate 50 mcg ONCE ONCE IVP 06/17/21 18:00 06/17/21 18:01 DC 06/17/21 18:07 50 MCG Hydromorphone HCl 0.5 mg ONCE ONCE IV 06/17/21 19:00 06/17/21 19:01 DC 06/17/21 19:13 0.5 MG Metoclopramide HCl 10 mg ONCE ONCE IVP 06/17/21 19:00 06/17/21 19:20 DC 06/17/21 19:13 10 MG Potassium Chloride 50 ml @ 50 mls/hr ONCE ONCE IV 06/17/21 18:30 06/17/21 19:29 DC 06/17/21 18:46 50 MLS/HR Sodium Chloride 1,000 ml @ 999 mls/hr Q1H ONCE IV 06/17/21 18:15 06/17/21 19:15 DC 06/17/21 18:11 999 MLS/HR Vital Signs/I&O 06/17/21 17:18 Temp 36.0 Pulse 100 Resp 18 B/P (MAP) 120/75 (90) Pulse Ox 96 O2 Delivery Room Air Blood Pressure Mean: 90 Progress Progress Note : Progress Note Patient examined and in no acute distress.Given fentanyl 50 mcg IV push for pain, ordered basic labs, acute abdominal series. Exam is concerning for ileus or another obstruction. 1900: Labs reviewed, orders placed for potassium IV as her level is 2.6. Will give IV fluids. Called Dr. Anderson for consult, requested to try Dr. Garcia first as he just performed surgery. Discussed case with Dr. Garcia, requested patient be admitted to hospitalist for hypokalemia, thrombocytosis, and paralytic ileus. Will consult in AM. Discussed case with Dr. Manzanares, accepted admission to medical unit. Consulted Dr. Asher with Cancer Center. Will follow up with patient in AM. Plan of care reviewed with patient and she is agreeable with plan. Initial ECG Impression Date: Jun 17, 2021 Diagnostic Imaging Diagonstic Imaging: Xray Plain Films/CT/US/NM/MRI: abdomen Comments [facility] [place], [place] NAME: SHANTI MUELLER [facility] REC#: [id number] PT STATUS: REG ER : 1960 PHYSICIAN: GONZALES WHITNEY APRN ADMIT DATE: 06/17/21/ER Draft Date of Exam:06/17/21 ACUTE ABD SERIES INDICATION: Bloating, pain, post op day 11 small bowel resect. COMPARISON: 06/04/2021 FINDINGS: Supine and upright radiographic views of the abdomen were obtained and again show moderate amount of gas scattered throughout large and small bowel. Multiple air-fluid levels are noted. Overall, extent does appear slightly improved when compared to the previous exam. No large collection of free intraperitoneal air is seen. No unexpected radiopaque foreign bodies are identified.. Accompanying upright chest shows normal heart size and pulmonary vascularity. The lungs appear slightly hyperinflated consistent with background obstructive pulmonary disease, but are clear. There is no large effusion or pneumothorax. The mediastinum is normal in appearance. IMPRESSION: 1. Findings consistent with probable improving postop ileus. 2. Background obstructive changes to the lungs, but no acute cardiopulmonary process. Dictated on workstation # [id number] Dict: 06/17/21 1832 Trans: 06/17/21 1838 CV [id number] Interpreted by: DARA TO MD Electronically signed by: Reviewed: Reviewed by Me Departure Communication (Admissions) Time/Spoke to Admitting Phy: 19:08 Dr. Manzanares Time/Spoke to Consulting Phy: 19:00 Dr. Garcia 1932: Discussed case with Dr. Asher. Impression Primary Impression: Paralytic ileus Additional Impressions: Metastatic adenocarcinoma Hypokalemia Thrombocytosis Disposition: ADMITTED INPATIENT Condition: Stable Admissions Decision to Admit Reason: Admit from ER (General) Decision to Admit/Date: Jun 17, 2021 Time/Decision to Admit Time: 19:05 Departure-Patient Inst. Referrals: PIPO QUIGLEY (PCP) Primary Care Physician [facility] (Family) Primary Care Physician GONZALES WHITNEY NORMALIZER Jun 17, 2021 18:16
[2021-06-17] MEDS ORDERED: POTASSIUM CL 10MEQ/50ML IVPB 50 ML IV ONE ×2 (18:30→20:45)
--- NOTE | 2021-06-17 18:39 | Diagnostic Imaging Report ---
INDICATION: Bloating, pain, post op day 11 small bowel resect. COMPARISON: 06/04/2021 FINDINGS: Supine and upright radiographic views of the abdomen were obtained and again show moderate amount of gas scattered throughout large and small bowel. Multiple air-fluid levels are noted. Overall, extent does appear slightly improved when compared to the previous exam. No large collection of free intraperitoneal air is seen. No unexpected radiopaque foreign bodies are identified.. Accompanying upright chest shows normal heart size and pulmonary vascularity. The lungs appear slightly hyperinflated consistent with background obstructive pulmonary disease, but are clear. There is no large effusion or pneumothorax. The mediastinum is normal in appearance. IMPRESSION: 1. Findings consistent with probable improving postop ileus. 2. Background obstructive changes to the lungs, but no acute cardiopulmonary process. Dictated by: Dictated on workstation # [id number]
[2021-06-17] MEDS ORDERED: METOCLOPRAMIDE INJ 10 MG/2 ML (REGLAN) IVP ONE (19:00)
[2021-06-17] MEDS ORDERED: HYDROmorphone 2 MG/ML VIAL (DILAUDID) IV ONE (19:00)
[2021-06-17] MEDS ORDERED: METOCLOPRAMIDE INJ 10 MG/2 ML (REGLAN) ONE (19:06)
[2021-06-17] MEDS ORDERED: NS IV 1000 ML 1,000 ML IV SCH (20:45)
[2021-06-17 21:05] VITALS: BP 118/70
[2021-06-17 21:36] VITALS: BP 120/75
[2021-06-17] MEDS ORDERED: PROMETHAZINE INJ 25 MG/ML (PHENERGAN) AMP IV PRN (21:45)
[2021-06-17] MEDS ORDERED: METOCLOPRAMIDE INJ 10 MG/2 ML (REGLAN) IV PRN (21:45)
[2021-06-17] MEDS ORDERED: HYDROmorphone 2 MG/ML VIAL (DILAUDID) IV PRN (21:45)
[2021-06-17] MEDS ORDERED: ONDANSETRON 4 MG/2 ML (SDV) Z0FRAN IV PRN (21:45)
[2021-06-17] MEDS ORDERED: RT-ALBUTEROL SULF 2.5 MG/3 ML PRE-MIX VIAL INH PRN (21:45)
[2021-06-17] MEDS: NS W/KCL 20 MEQ/L 1,000 ML IV SCH (21:53)
[2021-06-18] VITALS (7 sets, daily range): BP systolic 124–154; BP diastolic 62–77
[2021-06-18] MEDS: fentaNYL INJ 100 MCG/2 ML AMP IV PRN ×5 (02:43→18:17)
[2021-06-18 06:31] LABS: BASOPHILS % (AUTO) 0 % (0-10); EOSINOPHILS % (AUTO) 0 % (0-10); HEMATOCRIT 32 % (35-52); HEMOGLOBIN 10.3 g/dL (11.5-16.0); LYMPHOCYTES # (AUTO) 1.4 10^3/uL (1.0-4.0); LYMPHOCYTES % (AUTO) 17 % (12-44); MEAN CORPUSCULAR HEMOGLOBIN 29 pg (25-34); MEAN CORPUSCULAR HGB CONC 32 g/dL (32-36); MEAN CORPUSCULAR VOLUME 90 fL (80-99); MEAN PLATELET VOLUME 8.8 fL (9.0-12.2); MONOCYTES # (AUTO) 0.7 10^3/uL (0.0-1.0); MONOCYTES % (AUTO) 9 % (0-12); NEUTROPHILS # (AUTO) 5.7 10^3/uL (1.8-7.8); NEUTROPHILS % (AUTO) 72 % (42-75); PLATELET COUNT 708 10^3/uL (130-400); WHITE BLOOD COUNT 7.8 10^3/uL (4.3-11.0)
[2021-06-18 06:41] LABS: CALCIUM 6.8 MG/DL (8.5-10.1); CREATININE SERUM 0.5 MG/DL (0.60-1.30); POTASSIUM 2.7 MMOL/L (3.6-5.0)
[2021-06-18] MEDS: NS W/KCL 20 MEQ/L 1,000 ML IV SCH ×3 (08:44→20:09)
[2021-06-18] MEDS: PANTOPRAZOLE 40 MG (PROTONIX) VIAL IV SCH (08:44)
--- NOTE | 2021-06-18 10:17 | History & Physical ---
TRISTEN FERNANDEZ 06/18/21 1017: HPI History of Present Illness: 60y/o F with Hx of COPD, metastatic adenocarcinoma with prior SBO, and GERD admitted due to severe abd pain/cramping. States that she recently had a partial bowel resection done on 05/[address] Garcia due to SBO. States that she was in the hospital for about 12d. She felt better after 4-5d s/p d/c, but then starting yesterday she developed increasing abd pain, feeling bloated, and had trouble passing gas. States that she couldn't eat yesterday because of how full/bloated she felt. However, she was able to have a BM yesterday. Pt has been on hydroxycodone since d/c, but states that she did not have any trouble with constipation while at home. The hydroxycodone only helped a little bit with this current pain. Pain unchanged after fentanyl, but improved with dilaudid. Reports diarrhea x3 since yesterday (pt had been having diarrhea since the surgery, but states that it worsened yesterday). The pain is worst at the RLQ and periumbilical regions where she said she had the bowel resection done. Denies N/V, hematochezia/melena, fever, SOB, CP, or other related Sx's. Source: patient Date seen by provider: Jun 18, 2021 Time Seen by Provider: 08:40 Attending Physician Tanner Null MD PCP Arianna Jackson Consult Date of Admission Jun 17, 2021 at 19:37 Home Medications Home Medications Reviewed patient Home Medication Reconciliation performed by pharmacy medication reconciliations electromyographic technician and/or nursing. Patients Allergies have been reviewed. 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: Menopausal Obstructive Bowel Chronic Back Pain Metastatic adenocarcinoma of distal small bowel Family Medical History Significant Family History: Cancer (father and paternal grandma, pancreatic CA), Diabetes (mom) Review of Systems ([facility]) Constitutional: No chills, No fever EENTM: No blurred vision, No double vision Respiratory: No cough, No short of breath Cardiovascular: No chest pain, No palpitations Gastrointestinal: see HPI Genitourinary: No discharge; dysuria, other (vaginal itching) Musculoskeletal: back pain (chronic), muscle pain (generalized aches) Skin: No change in color, No dryness Psychiatric/Neurological: Denies Headache, Denies Numbness Reviewed Test Results Reviewed Test Results Lab WBC 11.5 -> 7.8 K+ 2.7 Ca 6.8 Radiology X-ray abd: 1. Findings consistent with probable improving postop ileus. 2. Background obstructive changes to the lungs, but no acute cardiopulmonary process. Physical Exam-([facility]) Physical Exam Vital Signs VS - Last 72 Hours, by Label 06/17/21 06/17/21 06/17/21 06/17/21 17:18 20:35 21:00 21:05 Temp 36.0 36.3 37.1 Pulse 100 81 85 Resp 18 17 18 B/P (MAP) 120/75 (90) 139/76 118/70 (86) Pulse Ox 96 97 95 O2 Delivery Room Air Room Air Room Air Room Air 06/17/21 06/18/21 06/18/21 06/18/21 21:36 00:01 04:40 08:00 Temp 36.0 36.6 36.5 Pulse 100 85 86 Resp 18 18 B/P (MAP) 124/68 (86) 135/62 (86) Pulse Ox 96 93 94 93 O2 Delivery Room Air Room Air Room Air FiO2 21 06/18/21 06/18/21 06/18/21 08:00 11:45 15:31 Temp 36.9 37.6 37.0 Pulse 85 87 95 Resp 20 20 20 B/P (MAP) 151/73 (99) 142/77 (98) 140/71 (94) Pulse Ox 93 96 95 O2 Delivery Room Air Room Air Room Air Capillary Refill : Less Than 3 Seconds General Appearance: WD/WN, no apparent distress HEENT: PERRL/EOMI; No scleral icterus (R), No scleral icterus (L) Neck: full range of motion, supple Respiratory: chest non-tender, lungs clear, normal breath sounds, no respiratory distress Cardiovascular: regular rate, rhythm, no edema Gastrointestinal: normal bowel sounds, soft, no organomegaly; No distended; rebound, tenderness (periumbilical, RLQ) Extremities: non-tender, normal inspection, no pedal edema Neurologic/Psychiatric: no motor/sensory deficits, alert, normal mood/affect, oriented x 3 Skin: normal color, warm/dry Assessment/Plan Assessment/Plan (1) Paralytic ileus Status: Acute Assessment & Plan: DDx: ileus, SBO, appendicitis Abd x-ray concerning for ileus, consider followup CT Dr. Garcia consulted (2) Metastatic adenocarcinoma Status: Acute Permanent Comment: distal small bowel Last Edited By: Tristen Fernandez on Jun 18, 2021 16:35 Assessment & Plan: Dr. Asher consulted: recommended F/U outpatient at the cancer center to discuss the chemo treatment and possible octreotide (3) Hypokalemia Status: Acute Assessment & Plan: Will replace K+ (4) Thrombocytosis Status: Acute TANNER NULL MD 06/18/212048: HPI History of Present Illness: Source: patient Exam Limitations: no limitations Home Medications Allergies Coded Allergies: No Known Drug Allergies (Unverified , 09/08/14) IEJ-Xatywh-Lkurto Hx Past Medical History COPD GERD Adenocarcinoma of the Colon Review of Systems ([facility]) Constitutional: no symptoms reported; No chills, No fever EENTM: no symptoms reported; No mouth pain, No nose congestion Respiratory: no symptoms reported; No cough, No dyspnea on exertion, No short of breath Cardiovascular: no symptoms reported; No chest pain, No palpitations Gastrointestinal: abdominal pain, diarrhea, loss of appetite, nausea Genitourinary: dysuria, other (vaginal itching) Musculoskeletal: muscle pain (generalized aches) Skin: no symptoms reported Psychiatric/Neurological: No Symptoms Reported Reviewed Test Results Reviewed Test Results Lab Laboratory Tests Test 06/18/21 05:45 06/18/21 19:30 Range/Units White Blood Count 7.8 4.3-11.0 10^3/uL Red Blood Count 3.53 L 3.80-5.11 10^6/uL Hemoglobin 10.3 L 11.5-16.0 g/dL Hematocrit 32 L 35-52 % Mean Corpuscular Volume 90 80-99 fL Mean Corpuscular Hemoglobin 29 25-34 pg Mean Corpuscular Hemoglobin Concent 32 32-36 g/dL Red Cell Distribution Width 14.0 10.0-14.5 % Platelet Count 708 H 130-400 10^3/uL Mean Platelet Volume 8.8 L 9.0-12.2 fL Immature Granulocyte % (Auto) 0 % Neutrophils (%) (Auto) 72 42-75 % Lymphocytes (%) (Auto) 17 12-44 % Monocytes (%) (Auto) 9 0-12 % Eosinophils (%) (Auto) 0 0-10 % Basophils (%) (Auto) 0 0-10 % Neutrophils # (Auto) 5.7 1.8-7.8 10^3/uL Lymphocytes # (Auto) 1.4 1.0-4.0 10^3/uL Monocytes # (Auto) 0.7 0.0-1.0 10^3/uL Eosinophils # (Auto) 0.0 0.0-0.3 10^3/uL Basophils # (Auto) 0.0 0.0-0.1 10^3/uL Immature Granulocyte # (Auto) 0.0 0.0-0.1 10^3/uL Percent Immature Platelet Fraction 1.1 0.0-7.6 % Sodium Level 143 135-145 MMOL/L Potassium Level 2.7 L 3.0 L 3.6-5.0 MMOL/L Chloride Level 106 98-107 MMOL/L Carbon Dioxide Level 25 21-32 MMOL/L Anion Gap 12 5-14 MMOL/L Blood Urea Nitrogen 9 7-18 MG/DL Creatinine 0.50 L 0.60-1.30 MG/DL Estimat Glomerular Filtration Rate 125 BUN/Creatinine Ratio 18 Glucose Level 97 70-105 MG/DL Calcium Level 6.8 L 8.5-10.1 MG/DL Physical Exam-([facility]) Physical Exam General Appearance: WD/WN, mild distress (due to pain), thin HEENT: PERRL/EOMI Neck: full range of motion, supple Respiratory: chest non-tender, lungs clear, normal breath sounds, no respiratory distress, no accessory muscle use Cardiovascular: normal peripheral pulses, regular rate, rhythm, no edema, no murmur Gastrointestinal: soft, guarding, tenderness (periumbilical, RLQ) Back: no CVA tenderness, no vertebral tenderness Extremities: normal range of motion, non-tender, normal inspection, no pedal edema, no calf tenderness, normal capillary refill Neurologic/Psychiatric: bundle helper II-XII nml as tested, no motor/sensory deficits, alert, normal mood/affect, oriented x 3 Skin: normal color, warm/dry Lymphatic: no adenopathy Assessment/Plan Assessment/Plan Admission Status: Inpatient Order (span 2 midnights) Reason for Inpatient Admission: Will need close monitoring for severe abdominal pain post op (1) Paralytic ileus Status: Acute Assessment & Plan: DDx: ileus, SBO, appendicitis Abd x-ray concerning for ileus, consider followup CT Dr. Garcia consulted 06/18: Bowel Rest, General Surgery Managing (2) Metastatic adenocarcinoma Status: Acute Permanent Comment: distal small bowel Last Edited By: Tristen Fernandez on Jun 18, 2021 16:35 Assessment & Plan: Dr. Asher consulted: recommended F/U outpatient at the cancer center to discuss the chemo treatment and possible octreotide (3) Hypokalemia Status: Acute Assessment & Plan: Will replace K+ 06/18: 40 mEq replaced IV, Repeat BMP this after noon after IV K replaced (4) Thrombocytosis Status: Acute Supervisory-Addendum Brief Verification & Attestation Participated in pt care: history, physical Personally performed: exam, history Care discussed with: Medical Student Procedures: n/a Verification and Attestation of Medical Student E/M Service A medical student performed and documented this service in my presence. I review ed and verified all information documented by the medical student and made modifications to such information, when appropriate. I personally performed the physical exam and medical decision making. Tanner Null, Jun 18, 2021,20:55 See My plan in italics TRISTEN FERNANDEZ Jun 18, 2021 10:17 TANNER NULL MD Jun 18, 2021 20:49
[2021-06-18] MEDS ORDERED: HYDR-3817 PO (11:01)
[2021-06-18] MEDS ORDERED: PANT40TA52 PO (11:01)
[2021-06-18] MEDS ORDERED: POTASSIUM CL 10MEQ/50ML IVPB 200 ML IV ONE (13:08)
[2021-06-18] MEDS: POTASSIUM CL 10MEQ/50ML IVPB 50 ML IV SCH ×4 (13:10→16:17)
--- NOTE | 2021-06-18 13:32 | Oncology Consultation ---
Visit Information Visit Information Date of Admission Jun 17, 2021 at 19:37 Attending Physician Ines Manzanares MD Admitting Physician rAianna Jackson Chief Complaint Abdominal pain, recent small bowel obstruction, newly diagnosed adenocarcinoma of the small bowel. Interval History Ms. Doss is a 60 year old female, readmitted to the hospital from ER for abdominal pain, on and off diarrhea, severe hypokalemia, K+ 2.6, s/p recent surgery of distal small bowel resection and pathology report showed mod differentiated adenocarcinoma of the distal small bowel extending through the muscle wall to the serosal surface, 2/10 lymph nodes containing metastatic carcinoma and 10% of tumor cell showed neuroendocrine features. She was supposed to be seen at the cancer center this Tuesday but showed up to ER yesterday with uncontrollable abdominal pain. Xray showed no bowel obstruction, rather it showed improving postop ileus. CT scan before the surgery showed no liver mets. I consulted the patient on: 06/18/21 13:24 Time Seen by Provider: 13:24 Review of Systems Constitutional: see HPI Health Status Allergies Coded Allergies: No Known Drug Allergies (Unverified , 09/08/14) Home Medications Fluticasone/Salmeterol (Advair 250-50 Diskus) 1 Each Blst.w.dev, 1 EACH IH BID, (Reported) Hydrocodone/Acetaminophen (Hydrocodone-Acetamin 7.5-325) 1 Each Tablet, 1 EACH PO Q4H PRN for PAIN-MODERATE (5-7), (Reported) Pantoprazole Sodium (Pantoprazole Sodium) 40 Mg Tablet.dr, 40 MG PO DAILY, (Reported) Sucralfate (Sucralfate) 1 Gm Tablet, 1 GM PO ACHS PRN for GI UPSET, (Reported) Tiotropium [place] (Spiriva) 1 Inh Aerp, 1 INH IH DAILY, (Reported) OPK-Gdtnln-Cqaaxv Hx Patient Social History Smoking Status: Former Smoker Former smoker/When Quit: May 27, 2021 Alcohol Use?: No Substance type: Other (denies drug use) Have you traveled recently?: No Family Medical History Significant Family History: Cancer (father and paternal grandma, pancreatic CA), Diabetes (mom) Physical Exam Vital Signs Vital Signs - First Documented 06/17/21 06/17/21 17:18 21:36 Temp 36.0 Pulse 100 Resp 18 B/P (MAP) 120/75 (90) Pulse Ox 96 O2 Delivery Room Air FiO2 21 Capillary Refill : Less Than 3 Seconds Height, Weight, BMI Height: 5'6" Weight: 118lbs. oz. 53.782234cn; 18.87 BMI Method: General Appearance: Moderate Distress, Other (pain in the IV site and abdomen) HEENT: PERRL/EOMI Neck: Supple Respiratory: No Accessory Muscle Use, No Respiratory Distress Cardiovascular: Regular Rate, Rhythm Gastrointestinal: Soft, Tenderness Extremity: Non Tender, No Pedal Edema Neurologic/Psychiatric: Alert, Oriented x3 Data Review Labs Laboratory Tests 06/17/21 17:32 06/18/21 05:45 Laboratory Tests 06/17/21 17:32: White Blood Count 11.5H, Platelet Count 750H, Mean Platelet Volume 8.9L, Neutrophils # (Auto) 8.5H, Potassium Level 2.6L, Anion Gap 15H, Creatinine 0.56L , Glucose Level 121H, Calcium Level 7.6L, Corrected Calcium 8.2L, Aspartate Amino Transf (AST/SGOT) 38H 06/18/21 05:45: Platelet Count 708H, Mean Platelet Volume 8.8L, Potassium Level 2.7L, Creatinine 0.50L, Calcium Level 6.8L, Red Blood Count 3.53L, Hemoglobin 10.3L, Hematocrit 32L Impression & Plan Impression & Plan IMP: 1. 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 2. Hypokalemia, K+2.6 3. Abdominal pain, cramps and diarrhea. 4. Low Calcium 6.8 Plan: 1. Correct K+, and Calcium issue with IV K+ and oral calcium. 2. Bowel rest 3. IVF. 4. See me at the cancer center to discuss the chemo treatment and if the diarrhea and pain persistent after all the lytes are normal, I may consider to treat with Octreotide as out-pt. 5. Consult CORBY Roman MD Jun 18, 2021 13:32
[2021-06-18] MEDS ORDERED: CYCLOBENZAPRINE 10 MG (FLEXERIL) TAB PO PRN (13:45)
[2021-06-18] MEDS ORDERED: LORazepam INJ 2 MG/ML (ATIVAN) VIAL IVP PRN (14:15)
[2021-06-18] MEDS ORDERED: CALCIUM CARBONATE 600 MG (CALCARB) TAB PO ONE (15:45)
[2021-06-18] MEDS ORDERED: KCL 20 MEQ TAB (K-DUR) PO ONE (20:30)
--- NOTE | 2021-06-18 20:38 | CONSULTATION REPORT ---
DATE OF SERVICE: 06/18/2021 ATTENDING PHYSICIAN: Dr. Ines Manzanares. HISTORY OF PRESENT ILLNESS: The patient is a 60-year-old female known to us. She has a history of COPD and signs and symptoms of a small-bowel obstruction on an intermittent basis, which worsened. She eventually underwent a diagnostic laparoscopy and was found to have a near obstructing lesion in the terminal ilial region and underwent resection of the small bowel mass as well as a wedge of mesentery. This did come back as an adenocarcinoma. During her postoperative stay, she did continue to complain of crampy abdominal pain; however, was able to have significant bowel movements and was able to eventually eat and drink without any difficulty. She was eventually discharged home and states that she had done better and was eating well and having bowel movements; however, the day of admission she states abdominal distention, bloating as well as crampy abdominal pain. She presented to the Emergency Department where she was found to have a profound hypokalemia. Due to her electrolyte abnormalities she was also having contractures of her upper extremity skeletal muscle. All other previous incisions are clean, dry and intact with no signs of infection. An x-ray was performed, which was consistent with a resolving ileus. No signs of obstruction. PAST MEDICAL HISTORY: Distal small bowel adenocarcinoma with positive lymph nodes. PAST SURGICAL HISTORY: Diagnostic laparoscopy, segmental small bowel resection and adjacent mesenteric resection with [id number] anastomosis. ALLERGIES: No known drug allergies. MEDICATIONS: Hydrocodone p.r.n., ibuprofen p.r.n. SOCIAL HISTORY: Negative smoke, negative alcohol. FAMILY HISTORY: Noncontributory. VITAL SIGNS: Temperature 37.0, blood pressure 140/71, pulse 75, respirations 20, pulse ox 95% on room air. REVIEW OF SYSTEMS: Well-nourished female who currently states that she does have intermittent waves of crampy abdominal pain; however, has had multiple episodes of loose stools since being admitted. No red blood per rectum, no dark tarry stools. No nausea, vomiting. No fever, chills. There was some weight loss since this whole process began approximately 3 weeks ago. PHYSICAL EXAMINATION: CHEST: Clear. Good breath sounds bilaterally. HEART: Regular, no murmurs. EXTREMITIES: No lower extremity edema, negative Homans sign. HEENT: No scleral icterus. NECK: No cervical lymphadenopathy. ABDOMEN: Soft, slightly distended. There is mild discomfort upon palpation. No peritoneal signs. Previous incisions are clean, dry and intact and healing well. No hernias. SKIN: Warm, dry. LABORATORY DATA: WBC 7.8, hemoglobin 10.3, hematocrit 32, platelets 708. Potassium is 2.7. BUN 9, creatinine 0.50. Liver function enzymes are normal. ASSESSMENT AND PLAN: A 60-year-old female with profound hypokalemia of unknown etiology; however, this may be related to volume contraction and dehydration and the kidneys compensatory mechanism and loss of potassium in the urine. For now, we will recommend conservative management with IV hydration and potassium supplementation and adequate pain control. We have started her on a clear liquid diet, which she is tolerating and we will advance this as she tolerates more. The pathology report on the diagnosis of the small bowel adenocarcinoma with positive lymph nodes was relatively new and part of this was explained to the patient and oncology has also been consulted. We do not feel that she does have any small bowel or colonic obstructive process and we will follow oncology's recommendation in terms of potentially proceeding with chemotherapy. In regards to the crampy abdominal pain on an intermittent basis potentially trying a trial of antispasmodics including Levsin or hyoscyamine may be beneficial. Job ID: [id number] DocumentID: [id number] Dictated Date: 06/18/2021 19:37:13 Machine Operator Cane Cutter Date: 06/18/2021 20:37:23 Dictated By: SOFY OSWALD MD
[2021-06-18] MEDS ORDERED: DICYCLOMINE 10 MG/ML (BENTYL) 2 ML AMP IM SCH (21:00)
[2021-06-18] MEDS: DICYCLOMINE 10 MG (BENTYL) CAP PO SCH (21:30)
[2021-06-19] MEDS: fentaNYL INJ 100 MCG/2 ML AMP IV PRN ×3 (03:28→16:49)
[2021-06-19 04:23] VITALS: BP 147/71
[2021-06-19] MEDS: DICYCLOMINE 10 MG (BENTYL) CAP PO SCH ×4 (06:03→20:15)
[2021-06-19] MEDS: CALCIUM CARBONATE 600 MG (CALCARB) TAB PO SCH (06:03)
[2021-06-19 06:56] LABS: BASOPHILS % (AUTO) 0 % (0-10); EOSINOPHILS % (AUTO) 0 % (0-10); HEMATOCRIT 31 % (35-52); LYMPHOCYTES # (AUTO) 1.7 10^3/uL (1.0-4.0); LYMPHOCYTES % (AUTO) 21 % (12-44); MEAN CORPUSCULAR HEMOGLOBIN 29 pg (25-34); MEAN CORPUSCULAR HGB CONC 33 g/dL (32-36); MEAN CORPUSCULAR VOLUME 89 fL (80-99); MEAN PLATELET VOLUME 9.2 fL (9.0-12.2); MONOCYTES # (AUTO) 1.2 10^3/uL (0.0-1.0); MONOCYTES % (AUTO) 15 % (0-12); NEUTROPHILS % (AUTO) 63 % (42-75); PLATELET COUNT 572 10^3/uL (130-400); WHITE BLOOD COUNT 7.9 10^3/uL (4.3-11.0)
[2021-06-19 07:08] LABS: ALBUMIN 2.7 GM/DL (3.2-4.5); POTASSIUM 3.1 MMOL/L (3.6-5.0)
[2021-06-19 07:09] LABS: CALCIUM 6.6 MG/DL (8.5-10.1)
[2021-06-19 07:10] LABS: TOTAL PROTEIN 5.6 GM/DL (6.4-8.2)
[2021-06-19 07:12] LABS: BILIRUBIN,TOTAL 0.7 MG/DL (0.1-1.0)
[2021-06-19 07:14] LABS: CREATININE SERUM 0.48 MG/DL (0.60-1.30)
[2021-06-19 07:44] VITALS: BP 123/70
[2021-06-19] MEDS: PANTOPRAZOLE 40 MG (PROTONIX) VIAL IV SCH (08:17)
--- NOTE | 2021-06-19 09:00 | Progress Note ---
Subjective Subjective/Events-last exam NAEO. Pt states that she is feeling better compared to yesterday. Abd pain rated 2-3/10 when laying still. States she was able to get up and move to go to the bathroom this AM. Still reporting diarrhea when having a BM. No new SOB, N/V, or new complaints at this time. Review of Systems General: No Night Sweats HEENT: No Eye Pain, No Ear Pain Pulmonary: No Cough Cardiovascular: No: Chest Pain, Palpitations Gastrointestinal: Abdominal Pain, Diarrhea; No: Nausea, Vomiting, Constipation Genitourinary: No Dysuria, No Other (no vaginal itching today) Musculoskeletal: No: shoulder pain, arm pain Neurological: No: Numbness, Change in speech Objective Exam Last Set of Vital Signs Vital Signs Date Time Temp Pulse Resp B/P (MAP) Pulse Ox O2 Delivery O2 Flow Rate FiO2 06/19/21 07:44 36.6 95 18 123/70 (87) 93 Room Air 06/18/21 21:30 1.00 06/17/21 21:36 21 Capillary Refill : Less Than 3 Seconds I&O Intake and Output 06/19/21 00:00 Intake Total 1700 ml Output Total 500 ml Balance 1200 ml Intake Oral 500 ml IV Total 1200 ml Output Urine Total 300 ml Urine/Stool Mix 200 ml # Voids 6 # Bowel Movements 2 General: Alert, Oriented X3, Cooperative, Mild Distress (2/2 pain) HEENT: Atraumatic, PERRLA, EOMI Neck: Supple Lungs: Other (rhonchi) Heart: Regular Rate, Normal S1, Normal S2 Abdomen: Soft, Other (tenderness to periumbilical and lower abd) Extremities: No Clubbing, No Cyanosis Skin: No Rashes, No Breakdown Neuro: Normal Speech, Sensation Intact Psych/Mental Status: Mental Status NL, Mood NL Results/Procedures Lab Laboratory Tests 06/18/21 19:30: Potassium Level 3.0L 06/19/21 05:45: Potassium Level 3.1L, White Blood Count 7.9, Red Blood Count 3.42L, Hemoglobin 10.0L, Hematocrit 31L, Mean Corpuscular Volume 89, Mean Corpuscular Hemoglobin 29, Mean Corpuscular Hemoglobin Concent 33, Red Cell Distribution Width 13.7, Platelet Count 572H, Mean Platelet Volume 9.2, Immature Granulocyte % (Auto) 0, Neutrophils (%) (Auto) 63, Lymphocytes (%) (Auto) 21, Monocytes (%) (Auto) 15H, Eosinophils (%) (Auto) 0, Basophils (%) (Auto) 0, Neutrophils # (Auto) 5.0, Lymphocytes # (Auto) 1.7, Monocytes # (Auto) 1.2H, Eosinophils # (Auto) 0.0, Basophils # (Auto) 0.0, Immature Granulocyte # (Auto) 0.0, Sodium Level 140, Chloride Level 105, Carbon Dioxide Level 21, Anion Gap 14, Blood Urea Nitrogen 5L, Creatinine 0.48L, Estimat Glomerular Filtration Rate 131, BUN/Creatinine Ratio 10, Glucose Level 92, Calcium Level 6.6L, Corrected Calcium 7.6L, Total Bilirubin 0.7, Aspartate Amino Transf (AST/SGOT) 27, Alanine Aminotransferase (ALT/SGPT) 20, Alkaline Phosphatase 80, Total Protein 5.6L, Albumin 2.7L Radiology X-ray abd: 1. Findings consistent with probable improving postop ileus. 2. Background obstructive changes to the lungs, but no acute cardiopulmonary process. Assessment/Plan Assessment/Plan (1) Paralytic ileus Status: Acute Assessment & Plan: DDx: ileus, SBO, appendicitis Abd x-ray concerning for ileus, consider followup CT if worsening 06/18: Bowel Rest, General Surgery Managing Dr. Garcia consulted, recommended clear liquid diet and advancing as tolerated, pain control, F/U with oncology (2) Metastatic adenocarcinoma Status: Acute Permanent Comment: distal small bowel Last Edited By: Tristen Odom on Jun 18, 2021 16:35 Assessment & Plan: Dr. Asher consulted: recommended F/U outpatient at the cancer center to discuss the chemo treatment and possible octreotide (3) Hypokalemia Status: Acute Assessment & Plan: Will replace K+, consider checking Mg as well 06/18: 40 mEq replaced IV, Repeat BMP this after noon after IV K replaced (4) Hypocalcemia Assessment & Plan: Oral replacement ordered (5) Thrombocytosis Status: Acute (6) Physical deconditioning Assessment & Plan: Deconditioning since last admission due to increased time in bed, did not have PT during last admission, will consult PT this visit TRISTEN ODOM Jun 19, 2021 09:00
[2021-06-19] MEDS: HYDROcodone/APAP 5 MG/325 MG (LORTAB) TAB PO PRN ×2 (10:54→23:02)
--- NOTE | 2021-06-19 11:38 | Progress Note ---
Progress Note Assessment/Plan Date Seen by Provider: Jun 19, 2021 Time Seen by Provider: 11:33 Events since last exam K+ is up from 2.[address] Garcia determined that pt's symptoms is due to the diarrhea and lytes imbalance. No sign of obstruction. Pt is feeling better but still have diarrhea and abdominal cramp. Will arrange to have Octreotide injection with our pharmacy today to relieve the carcinoid related symptoms. I plan to see her next week at the [facility] to discuss the chemotherapy and long acting octreotide. Assessment/Plan IMP: 1. 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 2. Hypokalemia, K+2.6, improved. 3. Abdominal pain, cramps and diarrhea. Possible related to carcinoid symptoms. 4. Low Calcium 6.8 Plan: 1. Correct K+, and Calcium issue with IV K+ and oral calcium. 2. Bowel rest 3. IVF. 4. See me at the [facility] to discuss the chemo treatment and if the diarrhea and pain persistent after all the lytes are normal, I may consider to t reat with Octreotide as out-pt. 5. Start Octreotide (short acting) today after discussion with our pharmacy. 6. Pt looked and felt a lot better this afternoon. I anticipate the Octreotide would relieved her carcinoid symptoms (cramp and diarrhea) and have a good chance to go home soon. Dr Cordova and Dr Garcia to decide the hospital course and discharge plan and date. I have discussed with social work manager Ms. Madelaine Young to get the short acting Octreotide injection 50mcg once a day if she is going to go home over the weekend. I will see the patient on 06/23/2021, 12:45 Tuesday at the [facility]. I will try to get her approved for long acting Octreotide at that time. This way she will get an injection once a month. Vitals Last set of Vitals Signs Vital Signs Date Time Temp Pulse Resp B/P (MAP) Pulse Ox O2 Delivery O2 Flow Rate FiO2 06/19/21 08:00 Room Air 06/19/21 07:44 36.6 95 18 123/70 (87) 93 9/2/21 21:30 1.00 06/17/21 21:36 21 I&O I&O Intake and Output 06/19/21 00:00 Intake Total 1700 ml Output Total 500 ml Balance 1200 ml Intake Oral 500 ml IV Total 1200 ml Output Urine Total 300 ml Urine/Stool Mix 200 ml # Voids 6 # Bowel Movements 2 Labs Laboratory Tests 06/18/21 19:30: Potassium Level 3.0L 06/19/21 05:45: Potassium Level 3.1L, White Blood Count 7.9, Red Blood Count 3.42L, Hemoglobin 10.0L, Hematocrit 31L, Mean Corpuscular Volume 89, Mean Corpuscular Hemoglobin 29, Mean Corpuscular Hemoglobin Concent 33, Red Cell Distribution Width 13.7, Platelet Count 572H, Mean Platelet Volume 9.2, Immature Granulocyte % (Auto) 0, Neutrophils (%) (Auto) 63, Lymphocytes (%) (Auto) 21, Monocytes (%) (Auto) 15H, Eosinophils (%) (Auto) 0, Basophils (%) (Auto) 0, Neutrophils # (Auto) 5.0, Lymphocytes # (Auto) 1.7, Monocytes # (Auto) 1.2H, Eosinophils # (Auto) 0.0, Basophils # (Auto) 0.0, Immature Granulocyte # (Auto) 0.0, Sodium Level 140, Chloride Level 105, Carbon Dioxide Level 21, Anion Gap 14, Blood Urea Nitrogen 5L, Creatinine 0.48L, Estimat Glomerular Filtration Rate 131, BUN/Creatinine Ratio 10, Glucose Level 92, Calcium Level 6.6L, Corrected Calcium 7.6L, Total Bilirubin 0.7, Aspartate Amino Transf (AST/SGOT) 27, Alanine Aminotransferase (ALT/SGPT) 20, Alkaline Phosphatase 80, Total Protein 5.6L, Albumin 2.7L CORBY NASSAR MD Jun 19, 2021 11:38
[2021-06-19] MEDS ORDERED: KCL 20 MEQ TAB (K-DUR) PO ONE ×2 (11:45→19:00)
[2021-06-19] MEDS: NS W/KCL 20 MEQ/L 1,000 ML IV SCH ×2 (13:33→17:38)
[2021-06-19] MEDS: OCTREOTIDE (FOR BOLUS) 50 MCG/ML SYR (SandoSTATIN) SC SCH ×2 (13:34→23:03)
--- NOTE | 2021-06-19 14:46 | Progress Note ---
Subjective Date Seen by a Provider: Jun 19, 2021 Time Seen by a Provider: 11:00 Subjective/Events-last exam doing better. continues to have loose stools. tolerating clears. Objective Exam Vital Signs Date Time Temp Pulse Resp B/P (MAP) Pulse Ox O2 Delivery O2 Flow Rate FiO2 06/19/21 08:00 Room Air 06/19/21 07:44 36.6 95 18 123/70 (87) 93 Room Air 06/19/21 04:23 36.2 90 18 147/71 (96) 95 Room Air 06/18/21 23:28 36.8 89 16 134/70 (91) 96 Room Air 06/18/21 21:30 Nasal Cannula 1.00 06/18/21 19:48 92 22 154/74 (100) 93 Room Air 06/18/21 15:31 37.0 95 20 140/71 (94) 95 Room Air I & O 06/19/21 07:00 Intake Total 1900 ml Output Total 650 ml Balance 1250 ml Capillary Refill : Less Than 3 Seconds General Appearance: No Apparent Distress HEENT: PERRL/EOMI Neck: Full Range of Motion Respiratory: Chest Non Tender, Normal Breath Sounds Cardiovascular: Regular Rate, Rhythm Gastrointestinal: normal bowel sounds, soft Extremity: Normal Capillary Refill Neurologic/Psychiatric: Alert, Oriented x3 Skin: Normal Color Lymphatic: No Adenopathy Results Lab Laboratory Tests 06/18/21 19:30: Potassium Level 3.0L 06/19/21 05:45: Potassium Level 3.1L, White Blood Count 7.9, Red Blood Count 3.42L, Hemoglobin 10.0L, Hematocrit 31L, Mean Corpuscular Volume 89, Mean Corpuscular Hemoglobin 29, Mean Corpuscular Hemoglobin Concent 33, Red Cell Distribution Width 13.7, Platelet Count 572H, Mean Platelet Volume 9.2, Immature Granulocyte % (Auto) 0, Neutrophils (%) (Auto) 63, Lymphocytes (%) (Auto) 21, Monocytes (%) (Auto) 15H, Eosinophils (%) (Auto) 0, Basophils (%) (Auto) 0, Neutrophils # (Auto) 5.0, Lymphocytes # (Auto) 1.7, Monocytes # (Auto) 1.2H, Eosinophils # (Auto) 0.0, Basophils # (Auto) 0.0, Immature Granulocyte # (Auto) 0.0, Sodium Level 140, Chloride Level 105, Carbon Dioxide Level 21, Anion Gap 14, Blood Urea Nitrogen 5L, Creatinine 0.48L, Estimat Glomerular Filtration Rate 131, BUN/Creatinine Ratio 10, Glucose Level 92, Calcium Level 6.6L, Corrected Calcium 7.6L, Magnesium Level < 0.6*L, Total Bilirubin 0.7, Aspartate Amino Transf (AST/SGOT) 27, Alanine Aminotransferase (ALT/SGPT) 20, Alkaline Phosphatase 80, Total Protein 5.6L, Albumin 2.7L Assessment/Plan Assessment/Plan Assess & Plan/Chief Complaint ileus secondary to dehydration and hypokalemia. doing better. advance diet. oncology consult. SOFY OSWALD MD Jun 19, 2021 14:46
--- NOTE | 2021-06-19 14:56 | Physical Therapy Evaluation ---
PT Evaluation-General Medical Diagnosis Admission Date Jun 17, 2021 at 19:37 Medical Diagnosis: paralytic ileus Onset Date: Jun 17, 2021 Therapy Diagnosis Therapy Diagnosis: debility/weakness Height/Weight Height (Feet): 5 Height (Inches): 6 Weight (Pounds): 118 Precautions Precautions/Isolations: Standard Precautions Referral Physician: Glenna Reason for Referral: Evaluation/Treatment Medical History Additional Medical History cancer Current History ER secondary to abdominal pain/s/p post op x 1 wk bowel obstruction with resection Reviewed History: Yes Social History Home: Single Level Current Living Status: Alone Prior Prior Level of Function SCALE: Activities may be completed with or without assistive devices. 3-Xfhigfbjyq-lwueqoj completes the activity by him/herself with no assistance from a helper. 5-Set-up or Clean-up Assistance-helper sets up or cleans up; patient completes activity. [place] assists only prior to or following the activity. 4-Supervision or Touching Assistance-helper provides verbal cues and/or touching/steadying and/or contact guard assistance as patient completes activity. Assistance may be provided throughout the activity or intermittently. 3-Partial/Moderate Assistance-helper does LESS THAN HALF the effort. [place] lifts, holds or supports trunk or limbs, but provides less than half the effort. 2-Substantial/Maximal Assistance-helper does MORE THAN HALF the effort. [place] lifts or holds trunk or limbs and provides more than half the effort. 7-Aqcucpdsm-wbvfgq does ALL the effort. Patient does none of the effort to comp lete the activity. Or, the assistance of 2 or more helpers is required for the patient to complete the activity. If activity was not attempted, code reason: 7-Patient Refused. 9-Not Applicable-not attempted and the patient did not perform the activity before the current illness, exacerbation or injury. 10-Not Attempted due to Environmental Limitations-(lack of equipment, weather restraints, etc.). 88-Not Attempted due to Medical Conditions or Safety Concerns. Bed Mobility: 6 Transfers (B,C,W/C): 6 Gait: 6 Stairs: 6 Indoor Mobility (Ambulation): Independent Stairs: Independent Prior Devices Use: None PT Evaluation-Current Subjective Patient agrees to PT. Pain Numeric Pain Scale: 5-Moderate Pain Location: Lower Location Body Site: Abdomen Pain Description: Cramping Objective Patient Orientation: Normal For Age Attachments: IV ROM/Strength ROM Lower Extremities bilateral LE WFL Strength Lower Extremities 4-/5 grossly bilateral LE Integumentary/Posture Bowel Incontinence: No Bladder Incontinence: No Posture trunk flexed posture due to abdominal pain (colon cancer) Neuromuscular (Tone, Coordination, Reflexes) grossly intact Sensory Vision: Functional Hearing: Functional Sensation Right Lower Extremit: Intact Sensation Left Lower Extremity: Intact Transfers Roll Left to Right (QC): 6 Lying to Sitting/Side of Bed(Q: 6 Sit to Stand (QC): 6 Chair/Gyi-mz-Ittjh Xfer(QC): 6 Toilet Transfer (QC): 6 Gait Does the Patient Walk?: Yes Mode of Locomotion: Walk Anticipated Mode of Locomotion: Walk Walk 10 feet (QC): 6 Walk 50 ft with 2 Turns(QC): 6 Walk 150 ft (QC): 6 Distance: 500' Gait Assistive Device: None Comments/Gait Description safe and functional Balance Sitting Static: Normal Sitting Dynamic: Normal Standing Static: Normal Standing Dynamic: Normal Assessment/Needs Patient is up independently in room and hallway without difficulty. Patient instructed to continue as tolerated. Rehab Potential: Guarded PT Plan Treatment/Plan Treatment Plan: Discontinue PT Treatment Duration: Jun 19, 2021 Frequency: 1 time per week Estimated Hrs Per Day: .25 hour per day Patient and/or Family Agrees t: Yes Time/GCodes Time In: 1430 Time Out: 1442 Total Billed Treatment Time: 12 Total Billed Treatment 1 visit EVLowC 12 min CONOR SOLORZANO PT Jun 19, 2021 14:56
[2021-06-19 15:16] VITALS: BP 137/66
[2021-06-19] MEDS: MAGNESIUM 1 GM/100 ML IVPB 100 ML IV SCH ×4 (15:35→21:30)
[2021-06-19 19:46] VITALS: BP 130/69
[2021-06-20 00:16] VITALS: BP 122/64
[2021-06-20 04:16] VITALS: BP 131/68
[2021-06-20 05:41] LABS: BASOPHILS % (AUTO) 1 % (0-10); EOSINOPHILS # (AUTO) 0.1 10^3/uL (0.0-0.3); EOSINOPHILS % (AUTO) 1 % (0-10); HEMATOCRIT 31 % (35-52); HEMOGLOBIN 9.9 g/dL (11.5-16.0); LYMPHOCYTES # (AUTO) 1.6 10^3/uL (1.0-4.0); LYMPHOCYTES % (AUTO) 25 % (12-44); MEAN CORPUSCULAR HEMOGLOBIN 29 pg (25-34); MEAN CORPUSCULAR HGB CONC 32 g/dL (32-36); MEAN CORPUSCULAR VOLUME 91 fL (80-99); MONOCYTES # (AUTO) 0.9 10^3/uL (0.0-1.0); MONOCYTES % (AUTO) 14 % (0-12); NEUTROPHILS # (AUTO) 3.6 10^3/uL (1.8-7.8); NEUTROPHILS % (AUTO) 58 % (42-75); PLATELET COUNT 538 10^3/uL (130-400); WHITE BLOOD COUNT 6.1 10^3/uL (4.3-11.0)
[2021-06-20 05:57] LABS: ALBUMIN 2.7 GM/DL (3.2-4.5); POTASSIUM 4.3 MMOL/L (3.6-5.0)
[2021-06-20 05:58] LABS: CALCIUM 6.9 MG/DL (8.5-10.1)
[2021-06-20 05:59] LABS: TOTAL PROTEIN 5.5 GM/DL (6.4-8.2)
[2021-06-20 06:01] LABS: BILIRUBIN,TOTAL 0.5 MG/DL (0.1-1.0)
[2021-06-20 06:03] LABS: CREATININE SERUM 0.48 MG/DL (0.60-1.30); PHOSPHORUS 2.1 MG/DL (2.3-4.7)
[2021-06-20 06:06] LABS: MAGNESIUM 1.7 MG/DL (1.6-2.4)
[2021-06-20] MEDS: CALCIUM CARBONATE 600 MG (CALCARB) TAB PO SCH (06:09)
[2021-06-20] MEDS: DICYCLOMINE 10 MG (BENTYL) CAP PO SCH ×2 (06:09→11:40)
[2021-06-20] MEDS: NS W/KCL 20 MEQ/L 1,000 ML IV SCH (06:11)
[2021-06-20] MEDS: OCTREOTIDE (FOR BOLUS) 50 MCG/ML SYR (SandoSTATIN) SC SCH ×2 (06:11→13:29)
[2021-06-20 07:17] VITALS: BP 140/78
--- NOTE | 2021-06-20 07:40 | Progress Note - Hospitalist ---
Subjective HPI/CC On Admission Date Seen by Provider: Jun 20, 2021 Time Seen by Provider: 10:00 Subjective/Events-last exam Patient ready for discharge Conferred with general surgery Objective Exam Vital Signs Vital Signs Date Time Temp Pulse Resp B/P (MAP) Pulse Ox O2 Delivery O2 Flow Rate FiO2 06/20/21 14:39 36.0 83 18 127/71 96 Room Air 1.00 06/17/21 21:36 21 Capillary Refill : Less Than 3 Seconds General Appearance: No Apparent Distress, WD/WN, Chronically ill, Thin Results/Procedures Lab Laboratory Tests 06/20/21 05:12 Patient resulted labs reviewed. Assessment/Plan Assessment and Plan Assess & Plan/Chief Complaint Discharge planned ELIZABETH NAIK DO Jun 20, 2021 07:40
[2021-06-20] MEDS: HYDROcodone/APAP 5 MG/325 MG (LORTAB) TAB PO PRN (08:30)
[2021-06-20] MEDS: PANTOPRAZOLE 40 MG (PROTONIX) VIAL IV SCH (08:30)
[2021-06-20 11:10] VITALS: BP 127/71
--- NOTE | 2021-06-20 11:13 | Progress Note ---
Subjective Date Seen by a Provider: Jun 20, 2021 Time Seen by a Provider: 10:30 Subjective/Events-last exam Patient seen with Dr. Garcia. Patient reports doing well. Does report intermittent episodes of abdominal pain of the right. Ambulating and tolerating diet. Reports passing lots of flatus but no BM. Objective Exam Vital Signs Date Time Temp Pulse Resp B/P (MAP) Pulse Ox O2 Delivery O2 Flow Rate FiO2 06/20/21 08:00 Room Air 06/20/21 07:30 94 Room Air 06/20/21 07:17 36.5 86 16 140/78 (98) 94 Room Air 06/20/21 04:16 37.4 88 18 131/68 (89) 92 Room Air 06/20/21 00:16 38.2 96 17 122/64 (83) 92 Room Air 06/19/21 23:32 37.3 06/19/21 20:00 Room Air 06/19/21 19:46 37.3 96 18 130/69 (89) 94 Room Air 06/19/21 19:43 96 Room Air 06/19/21 15:16 35.8 88 18 137/66 (89) 96 Room Air I & O 06/20/21 07:00 Intake Total 2670 ml Balance 2670 ml Capillary Refill : Less Than 3 Seconds General Appearance: No Apparent Distress, WD/WN Neck: Normal Inspection, Non Tender Respiratory: No Accessory Muscle Use, No Respiratory Distress Cardiovascular: Regular Rate, Rhythm, No Edema Gastrointestinal: normal bowel sounds, soft, distended, tenderness (Mid to right side abdomen) Extremity: Normal Inspection, Normal Range of Motion Neurologic/Psychiatric: Alert, Oriented x3 Skin: Normal Color, Warm/Dry Results Lab Laboratory Tests 06/19/21 18:32: Magnesium Level 1.0*L 06/20/21 05:12: Magnesium Level 1.7, White Blood Count 6.1, Red Blood Count 3.38L, Hemoglobin 9.9L, Hematocrit 31L, Mean Corpuscular Volume 91, Mean Corpuscular Hemoglobin 29, Mean Corpuscular Hemoglobin Concent 32, Red Cell Distribution Width 13.7, Platelet Count 538H, Mean Platelet Volume 9.0, Immature Granulocyte % (Auto) 1, Neutrophils (%) (Auto) 58, Lymphocytes (%) (Auto) 25, Monocytes (%) (Auto) 14H, Eosinophils (%) (Auto) 1, Basophils (%) (Auto) 1, Neutrophils # (Auto) 3.6, Lymphocytes # (Auto) 1.6, Monocytes # (Auto) 0.9, Eosinophils # (Auto) 0.1, Basophils # (Auto) 0.0, Immature Granulocyte # (Auto) 0.0, Sodium Level 139, Potassium Level 4.3, Chloride Level 109H, Carbon Dioxide Level 20L, Anion Gap 10, Blood Urea Nitrogen 4L, Creatinine 0.48L, Estimat Glomerular Filtration Rate 131, BUN/Creatinine Ratio 8, Glucose Level 98, Calcium Level 6.9L, Corrected Calcium 7.9L, Phosphorus Level 2.1L, Total Bilirubin 0.5, Aspartate Amino Transf (AST/SGOT) 36H, Alanine Aminotransferase (ALT/SGPT) 21, Alkaline Phosphatase 77, Total Protein 5.5L, Albumin 2.7L Assessment/Plan Assessment/Plan Assess & Plan/Chief Complaint A 60 year old female with an ileus secondary to dehydration and hypokalemia. VSS WBC 6.1 Tolerating diet - will advance to DYS3 Ok to go home from surgical standpoint Patient to follow up with oncology next week PEGGY UMANA APRN Jun 20, 2021 11:13
[2021-06-20] MEDS ORDERED: HYDR-3817 PO (11:40)
[2021-06-20] MEDS ORDERED: CYCL10TA9 PO (11:40)
[2021-06-20] MEDS ORDERED: DICY10CA12 PO (11:40)
--- NOTE | 2021-06-20 11:41 | Discharge Summary ---
Discharge Summary Hospital Course Was the Problem List Reviewed?: Yes Problems/Dx: (1) Paralytic ileus Status: Acute (2) Hypokalemia Status: Acute (3) Metastatic adenocarcinoma Status: Acute Hospital Course Date of Admission: Jun 17, 2021 at 19:37 Admission Diagnosis : Family Physician/Provider: [place] Date of Discharge: 06/20/21 Discharge Diagnosis: Ileus, metastatic adenocarcinoma Hospital Course: Short course after admitted for abdominal pain following hospital course s/p resection of SBO revealing metastatic adenocarcinoma. Ileus diagnosed and electrolytes were replaced. Patient felt well and had resumption of normal bowel function and was DC in improved condition Labs and Pending Lab Test: Laboratory Tests 06/19/21 18:32: Magnesium Level 1.0*L 06/20/21 05:12: Magnesium Level 1.7, White Blood Count 6.1, Red Blood Count 3.38L, Hemoglobin 9.9L, Hematocrit 31L, Mean Corpuscular Volume 91, Mean Corpuscular Hemoglobin 29, Mean Corpuscular Hemoglobin Concent 32, Red Cell Distribution Width 13.7, Platelet Count 538H, Mean Platelet Volume 9.0, Immature Granulocyte % (Auto) 1, Neutrophils (%) (Auto) 58, Lymphocytes (%) (Auto) 25, Monocytes (%) (Auto) 14H, Eosinophils (%) (Auto) 1, Basophils (%) (Auto) 1, Neutrophils # (Auto) 3.6, Lymphocytes # (Auto) 1.6, Monocytes # (Auto) 0.9, Eosinophils # (Auto) 0.1, Basophils # (Auto) 0.0, Immature Granulocyte # (Auto) 0.0, Sodium Level 139, Potassium Level 4.3, Chloride Level 109H, Carbon Dioxide Level 20L, Anion Gap 10, Blood Urea Nitrogen 4L, Creatinine 0.48L, Estimat Glomerular Filtration Rate 131, BUN/Creatinine Ratio 8, Glucose Level 98, Calcium Level 6.9L, Corrected Calcium 7.9L, Phosphorus Level 2.1L, Total Bilirubin 0.5, Aspartate Amino Transf (AST/SGOT) 36H, Alanine Aminotransferase (ALT/SGPT) 21, Alkaline Phosphatase 77, Total Protein 5.5L, Albumin 2.7L Home Meds Active Cyclobenzaprine HCl 10 Mg Tablet 10 Mg PO TID PRN Dicyclomine HCl 10 Mg Capsule 10 Mg PO ACHS Reported Pantoprazole Sodium 40 Mg Tablet.dr 40 Mg PO DAILY Advair 250-50 Diskus (Fluticasone/Salmeterol) 1 Each Blst.w.dev 1 Each IH BID Spiriva (Tiotropium [place]) 1 Inh Aerp 1 Inh IH DAILY Sucralfate 1 Gm Tablet 1 Gm PO ACHS PRN Assessment/Pt Instructions [facility] 1 week Discharge Planning: <30 minutes discharge planning Discharge Physical Examination Vital Signs Vital Signs Date Time Temp Pulse Resp B/P (MAP) Pulse Ox O2 Delivery O2 Flow Rate FiO2 06/20/21 11:10 36.0 83 18 127/71 (89) 96 Room Air 06/18/21 21:30 1.00 06/17/21 21:36 21 General Appearance: No Apparent Distress, WD/WN Allergies: Coded Allergies: No Known Drug Allergies (Unverified , 09/08/14) Discharge Summary Date of Admission Jun 17, 2021 at 19:37 Date of Discharge Discharge Date: Jun 20, 2021 ELIZABETH NAIK DO Jun 20, 2021 11:41
[2021-06-20 14:39] VITALS: BP 127/71
== END 2021-06-20 15:00 | disposition home or self-care (01) | DRG 389 ==
LOC: EDUNIT# 17:10 → ER 17:13 → 4TH 19:37
PROVIDERS: ADMIT Family Medicine; ATTEND Internal Medicine
DX: K56.0 Paralytic ileus (principal); C77.2 Secondary and unspecified malignant neoplasm of intra-abdominal lymph nodes; C7B.8 Other secondary neuroendocrine tumors; J44.9 Chronic obstructive pulmonary disease, unspecified; E87.6 Hypokalemia; Z85.068 Personal history of other malignant neoplasm of small intestine; D47.3 Essential (hemorrhagic) thrombocythemia; Z79.899 Other long term (current) drug therapy; G89.29 Other chronic pain; M54.9 Dorsalgia, unspecified; K21.9 Gastro-esophageal reflux disease without esophagitis; Z87.891 Personal history of nicotine dependence; Z90.49 Acquired absence of other specified parts of digestive tract; E86.0 Dehydration; E83.51 Hypocalcemia
CPT/HCPCS: 36415; 74022; 80048; 80053; 83735; 84100; 84132; 85025; 94760

== ENCOUNTER 2021-06-21 17:00 | Outpatient (RCR) | payer OTHER ==
[~2021-06-21] VITALS: Ht 155 cm; Wt 51.4 kg
[~2021-06-21 17:00] MED LIST changes: +CYCL10TA25 PO; +DICY10CA12 PO; +PANT40TA52 PO
[2021-06-21 17:18] VITALS: BP 147/74
[2021-06-21 17:28] VITALS: BP 147/74
[2021-06-21] MEDS ORDERED: OCTREOTIDE (FOR SQ USE) 100 MCG/ML VIAL (SandoSTATIN) SC ONE ×2 (18:00)
[2021-06-21] MEDS: OCTREOTIDE (FOR SQ USE) 100 MCG/ML VIAL (SandoSTATIN) SC SCH (19:36)
[2021-06-21 19:43] VITALS: BP 147/74
[2021-06-22] MEDS: OCTREOTIDE (FOR SQ USE) 100 MCG/ML VIAL (SandoSTATIN) SC SCH ×2 (17:39→17:44)
[2021-06-22 17:40] VITALS: BP 109/69
[2021-07-02] MEDS ORDERED: HYDR-3817 PO (11:34)
[2021-08-24] MEDS ORDERED: HYDR-3817 PO (15:22)
[2021-08-24] MEDS ORDERED: MULT-1021 PO (15:22)
[2021-08-24] MEDS ORDERED: PROM25TA14 PO (15:22)
[2021-08-24] MEDS ORDERED: DICY10CA12 PO (15:22)
[2021-08-31] MEDS ORDERED: OMEP20CA18 PO (08:51)
[2021-09-09] MEDS ORDERED: ACHD5005 PO (08:51)
[2021-09-09] MEDS ORDERED: DOCU-143 PO (08:51)
[2021-09-09] MEDS ORDERED: AMOX-358 PO (08:51)
== END 2021-09-19 | disposition home or self-care (01) ==
LOC: 4THo 17:00 → EDSTATUS 17:56
PROVIDERS: ATTEND Internal Medicine Hematology & Oncology
DX: C80.1 Malignant (primary) neoplasm, unspecified (principal)
CPT/HCPCS: 96372

== ENCOUNTER → 2021-06-29 | Outpatient (CLI) | payer OTHER ==
[~2021-06-29] MED LIST changes: -CYCL10TA25 PO; +CYCL10TA9 PO; +HOLD METFORMIN - RECEIVED CONTRAST 20 ML VIAL IV SCH; +IOHEXOL 350 MG/ML 100 ML (OMNIPAQUE 350) VIAL IV ONE; +NS 100 ML (IVPB) BAG IV ONE
[2021-06-29] MEDS: CATHETER FLUSH 10 ML SYR IV PRN ×2 (09:39→09:42)
--- NOTE | 2021-06-29 10:12 | Diagnostic Imaging Report ---
CT CHEST W TECHNIQUE: Multiple contiguous axial images were obtained through the chest with the use of intravenous contrast. All CT scans use one or more of the following dose optimizing techniques: automated exposure control, MA and/or KvP adjustment based on a patient size and exam type, or iterative reconstruction. INDICATION: Neoplasm of the small bowel COMPARISON: CT abdomen and pelvis of 05/27/2021. FINDINGS: Lungs and airway: There is small amount of retained secretions in the trachea. Severe centrilobular emphysema is present. No pneumonia or edema. No suspicious pulmonary nodules. Pleura: No pleural effusion or pneumothorax. Heart and mediastinum: Thyroid is normal. No supraclavicular or axillary lymphadenopathy. No mediastinal, hilar or juxtaphrenic lymphadenopathy. Heart is normal in size without pericardial effusion. Normal caliber thoracic aorta. Upper abdomen: No concerning abnormality upper abdomen. Musculoskeletal: No concerning focal osseous lesion. IMPRESSION: 1. No features of intrathoracic metastases. 2. Severe emphysema. Dictated by: Dictated on workstation # [id number]
== END ==
LOC: RAD 08:45
PROVIDERS: ATTEND Internal Medicine Hematology & Oncology
DX: D37.2 Neoplasm of uncertain behavior of small intestine (principal); J43.2 Centrilobular emphysema
CPT/HCPCS: 71260

== ENCOUNTER 2021-06-30 05:41 | Outpatient (CLI) | payer OTHER ==
[~2021-06-30] VITALS: Ht 165.1 cm; Wt 46.7 kg
[~2021-06-30 05:41] MED LIST changes: -HOLD METFORMIN - RECEIVED CONTRAST 20 ML VIAL IV SCH; -IOHEXOL 350 MG/ML 100 ML (OMNIPAQUE 350) VIAL IV ONE; -NS 100 ML (IVPB) BAG IV ONE
== END 2021-06-30 10:24 | disposition home or self-care (01) ==
LOC: PREOP 05:41
PROVIDERS: ATTEND Surgery
DX: Z01.818 Encounter for other preprocedural examination (principal)

== ENCOUNTER 2021-07-02 11:20 | Day surgery (SDC) | payer SELFPAY ==
[2021-07-02] VITALS (7 sets, daily range): BP systolic 117–159; BP diastolic 79–93
[~2021-07-02] VITALS: Ht 165.1 cm; Wt 47.3 kg
--- NOTE | 2021-07-02 11:33 | Progress Note-Pre Operative ---
Pre-Operative Progress Note H&P Reviewed The H&P was reviewed, patient examined and no changes noted. Date Seen by Provider: Jul 02, 2021 Time Seen by Provider: 11:30 Date H&P Reviewed: Jul 02, 2021 Time H&P Reviewed: 11:30 Pre-Operative Diagnosis: small bowel adenocarcinoma SOFY OSWALD MD Jul 02, 2021 11:33
[2021-07-02] MEDS ORDERED: HYDR-3817 PO (11:34)
--- NOTE | 2021-07-02 11:36 | Discharge Inst-Surgical ---
D/C Lap Instructions-MARGRET New, Converted, or Re-Newed RX: RX on Chart Follow Up Activity as tolerated Regular Diet Symptoms to Report: Fever over 101 degree F, Nausea/Vomiting Infection Signs and Symptoms to report: Increased redness, Foul odor of wound, Increased drainage Bathing instructions: May shower Operative Area Clean/Dry; Keep incision clean/dry If any problems/questions: Contact your physician or go to Emergency Room SOFY OSWALD MD Jul 02, 2021 11:36
[2021-07-02] MEDS ORDERED: ceFAZolin INJECTION 1,000 MG in WATER (STERILE) FOR INJECTION 10 ML IV ONE (11:45)
[2021-07-02] MEDS ORDERED: LACTATED RINGERS 1,000 ML IV PRN (11:45)
[2021-07-02] MEDS ORDERED: ACETAMINOPHEN 325 MG TABLET PO PRN (11:45)
[2021-07-02] MEDS ORDERED: morphine INJ 10 MG/ML 1ML (SYR OR VIAL) IVP PRN ×2 (11:45)
[2021-07-02] MEDS ORDERED: ONDANSETRON 4 MG/2 ML (SDV) Z0FRAN IVP PRN (11:45)
[2021-07-02] MEDS ORDERED: HYDROcodone/APAP 5 MG/325 MG (LORTAB) TAB PO ONE (11:45)
[2021-07-02] MEDS ORDERED: 0.9% SODIUM CHLORIDE PF INJ 20 ML VIAL ONE (12:08)
[2021-07-02] MEDS ORDERED: HEParin (CENTRAL IV FLUSH) 500 UNIT/5 ML SYR ONE (12:08)
[2021-07-02] MEDS ORDERED: LIDOCAINE/EPI 1%-1:100,000 (XYLOCAINE) 20ML ONE (12:08)
[2021-07-02] MEDS ORDERED: proPOfol 200 MG/20 ML (DIPRIVAN) VIAL IV ONE (13:09)
[2021-07-02] MEDS ORDERED: MIDAZOLAM 2 MG/2 ML (VERSED) VIAL ONE (13:09)
--- NOTE | 2021-07-02 13:47 | Progress Note-Post Operative ---
Post-Operative Progess Note Surgeon (s)/Pressure Testing Technician (s) Surgeon SOFY OSWALD MD Pressure Testing Technician: nadia mckoy MOLD LAMINATOR Pre-Operative Diagnosis small bowel adenocarcinoma Post-Operative Diagnosis same Procedure & Operative Findings Date of Procedure 07/02/21 Procedure Performed/Findings placement left subclavian groshong catheter under flouroscopy. Anesthesia Type mac with local Estimated Blood Loss Estimated blood loss (mL): minimal Specimens/Packing Specimens Removed none SOFY OSWALD MD Jul 02, 2021 13:47
[2021-07-02] MEDS ORDERED: fentaNYL INJ 100 MCG/2 ML AMP ONE (13:50)
--- NOTE | 2021-07-02 14:24 | OPERATIVE REPORT ---
DATE OF SERVICE: 07/02/2021 ATTENDING MILLER KILN DRIED SALT: [facility]. PREOPERATIVE DIAGNOSIS: Small bowel adenocarcinoma. POSTOPERATIVE DIAGNOSES: Small bowel adenocarcinoma. PROCEDURE: Placement of left subclavian Groshong implantable catheter under fluoroscopy. SURGEON: Sofy Oswald MD. EAP CONSULTANT: Keith Trammell APRN. ANESTHESIA: Monitored anesthesia care with local. ESTIMATED BLOOD LOSS: Minimal. FINDINGS: Catheter tip at superior vena cava/right atrial junction. DISPOSITION: The patient tolerated the procedure well. INDICATIONS: The patient is a 60-year-old female, who presented with several-week history of crampy abdominal pain as well as a 6-month history of weight loss. She underwent workup, which did show signs and symptoms of a partial small-bowel obstruction. She then underwent a diagnostic laparoscopy on 05/31/2021 and was found to have a near obstructing mass of the terminal ileum and underwent a resection and primary repair. She was able to eventually tolerate diet and ambulate well; however, has had issue with electrolyte abnormalities. She has been seen by oncology and will be scheduled for chemotherapy and will require Groshong implantable catheter. DESCRIPTION OF PROCEDURE: The patient was brought to the operating room, laid supine on the table. After adequate IV pain and sedative medications and monitored anesthesia care, the chest and neck were prepped and draped in standard surgical fashion. A 1% lidocaine with epinephrine was used to anesthetize the left subclavian region. The left subclavian vein was then cannulated withdrawing of venous blood and the guidewire was then inserted under fluoroscopy. A cannulating needle removed and a skin incision was made using 15 blade. The dilator and sheath were then placed over the guidewire and the dilator and guidewire were then removed and the Groshong implantable catheter was placed through the sheath until the tip of the catheter was at the superior vena caval -- right atrial junction and the sheath removed. The inner wire within the catheter was then removed and catheter cut down to size and the port placed onto the catheter. The chest reservoir was then created by extending the skin incision laterally and a plane created between the subcutaneous fat and anterior pectoralis fascia using blunt dissection as well as electrocautery. The port was then placed into the reservoir and sutured to the anterior pectoralis fascia using 3-0 Vicryl interrupted sutures. The subcutaneous tissue was then reapproximated with the same suture in an interrupted manner and the skin was closed using 4-0 Monocryl running subcuticular suture. Wound was cleaned and then covered with Dermabond. The patient tolerated the procedure well. We will get a post-procedure chest x-ray once confirmation of placement, the port may be accessed and used any time. CC: Dr. Oumar Asher - requested, unable to deliver. Job ID: [id number] DocumentID: [id number] Dictated Date: 07/02/2021 14:07:14 Cider Press Operator Date: 07/02/2021 14:24:26 Dictated By: SOFY OSWALD MD
--- NOTE | 2021-07-02 14:34 | Diagnostic Imaging Report ---
INDICATION: Fluoroscopy during Groshong catheter placement. Fluoroscopy was provided in the OR during Groshong catheter placement. 2 seconds of fluoroscopic time was utilized. A single image was obtained demonstrating diversion catheter with tip overlying SVC. IMPRESSION: Fluoroscopy during Groshong catheter placement. Dictated by: Dictated on workstation # [id number]
--- NOTE | 2021-07-02 15:33 | Diagnostic Imaging Report ---
INDICATION: Port placement. TIME OF EXAM: 3:07 PM. COMPARISON: Correlation is made with prior chest from 05/27/2021. Left side port has tip overlying the SVC. Emphysematous changes are noted throughout both lungs. There does appear to be a tiny left apical pneumothorax, approximately 5%. There is no effusion identified. Heart size is normal. IMPRESSION: Left-sided port placement with tip overlying the SVC. There is a very small left apical pneumothorax. Dictated by: Dictated on workstation # [id number]
--- NOTE | 2021-07-02 15:53 | Anesthesia-General Post-Op ---
MAC Patient Condition Mental Status/LOC: Same as Preop Cardiovascular: Satisfactory Nausea/Vomiting: Absent Respiratory: Satisfactory Pain: Controlled Complications: Absent Post Op Complications Complications None Follow Up Care/Instructions Patient Instructions None needed. Anesthesiology Discharge Order Discharge Order Patient is doing well, no complaints, stable vital signs, no apparent adverse anesthesia problems. No complications reported per nursing. SELENE HERNÁNDEZ CRNA Jul 02, 2021 15:53
[2021-07-02] MEDS ORDERED: fentaNYL INJ 100 MCG/2 ML AMP IVP ONE (16:00)
== END 2021-07-02 15:25 ==
LOC: SDC 11:20
PROVIDERS: ATTEND Surgery
DX: C17.9 Malignant neoplasm of small intestine, unspecified (principal); K21.9 Gastro-esophageal reflux disease without esophagitis; J44.9 Chronic obstructive pulmonary disease, unspecified; Z87.891 Personal history of nicotine dependence; Z79.899 Other long term (current) drug therapy; Z79.891 Long term (current) use of opiate analgesic; Z90.49 Acquired absence of other specified parts of digestive tract; Z80.0 Family history of malignant neoplasm of digestive organs; Z83.3 Family history of diabetes mellitus
CPT/HCPCS: 36561; 71045; 76000; 87081; C1788

== ENCOUNTER 2021-07-02 11:21 | Outpatient (RCR) | payer OTHER ==
[2021-06-24 10:45] VITALS: BP 118/85
[2021-06-24] MEDS: OCTREOTIDE (FOR BOLUS) 50 MCG/ML SYR (SandoSTATIN) SC SCH (10:54)
[2021-06-25 10:55] VITALS: BP 126/77
[2021-06-25] MEDS: OCTREOTIDE (FOR BOLUS) 50 MCG/ML SYR (SandoSTATIN) SC SCH (11:04)
[2021-06-26 11:55] VITALS: BP 123/87
[2021-06-26] MEDS: OCTREOTIDE (FOR BOLUS) 50 MCG/ML SYR (SandoSTATIN) SC SCH (12:07)
[2021-06-27] MEDS: OCTREOTIDE (FOR BOLUS) 50 MCG/ML SYR (SandoSTATIN) SC SCH (09:08)
[2021-06-27 09:13] VITALS: BP 125/76
[2021-06-28] MEDS: OCTREOTIDE (FOR BOLUS) 50 MCG/ML SYR (SandoSTATIN) SC SCH (09:05)
[2021-06-28 09:12] VITALS: BP 126/74
[2021-06-29 10:04] VITALS: BP 136/77
[2021-06-29] MEDS: OCTREOTIDE (FOR BOLUS) 50 MCG/ML SYR (SandoSTATIN) SC SCH (10:06)
[2021-06-30 14:10] VITALS: BP 128/84
[2021-06-30] MEDS: OCTREOTIDE (FOR BOLUS) 50 MCG/ML SYR (SandoSTATIN) SC SCH (14:11)
[2021-07-01 09:30] VITALS: BP 138/84
[2021-07-01] MEDS: OCTREOTIDE (FOR BOLUS) 50 MCG/ML SYR (SandoSTATIN) SC SCH (09:45)
[~2021-07-02] VITALS: Ht 165.1 cm; Wt 47.3 kg
[~2021-07-02 11:21] MED LIST changes: +OCTREOTIDE (FOR BOLUS) 50 MCG/ML SYR (SandoSTATIN) IM SCH; +[UNRECOGNIZED DRUG - REMARK] IM SCH
[2021-07-02] MEDS ORDERED: HYDR-3817 PO (11:34)
[2021-07-02] MEDS ORDERED: OCTREOTIDE (FOR BOLUS) 50 MCG/ML SYR (SandoSTATIN) SC SCH (12:00)
[2021-07-02 14:07] VITALS: BP 1/1
[2021-07-03] MEDS ORDERED: [UNRECOGNIZED DRUG - REMARK] IM SCH (10:00)
== END 2021-07-02 14:11 | disposition home or self-care (01) ==
LOC: SDC 11:21
PROVIDERS: ATTEND Internal Medicine Hematology & Oncology
DX: D37.2 Neoplasm of uncertain behavior of small intestine (principal)
CPT/HCPCS: 96372

== ENCOUNTER → 2021-07-22 | Outpatient (CLI) | payer OTHER ==
[~2021-07-22] MED LIST changes: +GADOBUTROL 7.5 MMOL/7.5 ML (GADAVIST) VIAL IV ONE; -OCTREOTIDE (FOR BOLUS) 50 MCG/ML SYR (SandoSTATIN) IM SCH; -[UNRECOGNIZED DRUG - REMARK] IM SCH
--- NOTE | 2021-07-22 12:54 | Diagnostic Imaging Report ---
PROCEDURE: MR imaging of the brain with and without contrast. TECHNIQUE: Multiplanar, multisequence MR imaging of the brain was performed with and without contrast. INDICATION: Colon carcinoma and dizziness. No prior studies are available for comparison. The ventricles and sulci are within normal limits. There is no diffusion restriction identified. Mild periventricular white matter changes are noted consistent with chronic microvascular ischemia. There is no midline shift. The normal expected flow-voids within the carotid siphons are seen. No acute intra-axial or extra-axial hemorrhage is detected. No abnormal enhancement is identified following contrast administration. The corpus callosum is unremarkable. The sella and parasellar structures are unremarkable. Thin slice imaging through the IACs demonstrates the 7th and 8th nerve complexes be unremarkable. No cerebellopontine angle mass is identified. IMPRESSION: Essentially unremarkable pre and postcontrast MRI of the brain apart from mild white matter changes. There is no evidence of intracranial metastatic disease. Dictated by: Dictated on workstation # [id number]
== END ==
LOC: RAD 08:35
PROVIDERS: ATTEND Nurse Practitioner Adult Health
DX: C17.9 Malignant neoplasm of small intestine, unspecified (principal); R42 Dizziness and giddiness; R29.6 Repeated falls; R90.82 White matter disease, unspecified
CPT/HCPCS: 70553

== ENCOUNTER 2021-08-22 12:47 | Inpatient (IN) | payer OTHER ==
[~2021-08-22] VITALS: Ht 165.1 cm; Wt 48.0 kg
[~2021-08-22 12:47] MED LIST changes: -GADOBUTROL 7.5 MMOL/7.5 ML (GADAVIST) VIAL IV ONE
[2021-08-22] MEDS ORDERED: morphine INJ 10 MG/ML 1ML (SYR OR VIAL) IVP STA (13:04)
[2021-08-22] MEDS ORDERED: HYOSCYAMINE 0.125 MG (LEVSIN) TAB PO ONE (13:15)
[2021-08-22 14:02] LABS: BASOPHILS % (AUTO) 1 % (0-10); EOSINOPHILS % (AUTO) 1 % (0-10); HEMATOCRIT 37 % (35-52); HEMOGLOBIN 12.2 g/dL (11.5-16.0); LYMPHOCYTES # (AUTO) 0.9 10^3/uL (1.0-4.0); LYMPHOCYTES % (AUTO) 42 % (12-44); MEAN CORPUSCULAR HEMOGLOBIN 27 pg (25-34); MEAN CORPUSCULAR HGB CONC 33 g/dL (32-36); MEAN CORPUSCULAR VOLUME 84 fL (80-99); MEAN PLATELET VOLUME 8.7 fL (9.0-12.2); MONOCYTES # (AUTO) 0.2 10^3/uL (0.0-1.0); MONOCYTES % (AUTO) 8 % (0-12); NEUTROPHILS % (AUTO) 48 % (42-75); PLATELET COUNT 211 10^3/uL (130-400); WHITE BLOOD COUNT 2.1 10^3/uL (4.3-11.0)
[2021-08-22 14:21] LABS: ALBUMIN 3.8 GM/DL (3.2-4.5); BILIRUBIN,TOTAL 0.5 MG/DL (0.1-1.0); CALCIUM 8.7 MG/DL (8.5-10.1); CREATININE SERUM 0.65 MG/DL (0.60-1.30); POTASSIUM 3.4 MMOL/L (3.6-5.0); TOTAL PROTEIN 7.4 GM/DL (6.4-8.2)
[2021-08-22 14:35] LABS: BILIRUBIN,URINE NEGATIVE (NEGATIVE); CLARITY,URINE SL CLOUDY; COLOR,URINE YELLOW; GLUCOSE, URINE (UA) NEGATIVE (NEGATIVE); KETONES,URINE TRACE (NEGATIVE); LEUKOCYTE ESTERASE ,URINE TRACE (NEGATIVE); NITRITE,URINE NEGATIVE (NEGATIVE); PROTEIN,URINE 1+ (NEGATIVE)
[2021-08-22 14:44] LABS: BACTERIA,URINE MODERATE /HPF; RBC,URINE 0-2 /HPF
[2021-08-22] MEDS ORDERED: LACTATED RINGERS 1,000 ML IV ONE (15:00)
[2021-08-22] MEDS ORDERED: HOLD METFORMIN - RECEIVED CONTRAST 20 ML VIAL IV SCH (15:30)
[2021-08-22] MEDS ORDERED: NS 100 ML (IVPB) BAG IV ONE (15:30)
[2021-08-22] MEDS ORDERED: IOHEXOL 350 MG/ML 100 ML (OMNIPAQUE 350) VIAL IV ONE (15:30)
--- NOTE | 2021-08-22 15:52 | Diagnostic Imaging Report ---
EXAMINATION: CT abdomen and pelvis with intravenous contrast. TECHNIQUE: Multiple contiguous axial images were obtained through the abdomen and pelvis after the uneventful administration of intravenous contrast. All CT scans use one or more of the following dose optimizing techniques: automated exposure control, MA and/or KvP adjustment based on patient size and exam type or iterative reconstruction. HISTORY: Abdominal pain. History of colon cancer. COMPARISON: 05/27/2021. FINDINGS: The heart is unremarkable. Dependent atelectasis is seen in the right lung base. There is hepatic steatosis. No focal hepatic lesion is seen. The portal vein is patent. The gallbladder is mildly distended. The spleen, pancreas, adrenal glands and kidneys have a normal appearance. There is no pathologically enlarged mesenteric or retroperitoneal adenopathy. Fluid-filled distended loops of small bowel are seen throughout the abdomen and pelvis. A transition point is seen in the lower abdomen just right of midline. A small amount of free fluid is seen in the abdomen and pelvis. No evidence of free air. There is wall thickening of the hepatic flexure of the colon which may be due to inadequate distention. No acute osseous abnormality. There is calcified aortic and iliac atherosclerotic plaque without aneurysm. Ureters and bladder are grossly normal. There is no free air, loculated collection, or adenopathy in the pelvis. IMPRESSION: 1. Findings concerning for early small bowel obstruction with a transition point in the lower abdomen right of midline. A small amount of free fluid is seen in the abdomen and pelvis without evidence of free air. 2. Hepatic steatosis. Dictated by: Dictated on workstation # [id number]
--- NOTE | 2021-08-22 16:37 | ED Abdominal Pain ---
General Chief Complaint: Abdominal/GI Problems Stated Complaint: ABD PAIN Nursing Triage Note: PT AMB TO FT1 WITH COMPLAINT OF ABD PAIN. PT HAS COLON CANCER AND IS CURRENTLY RECIEVING CHEMO. Source of Information: Patient, Old Records Exam Limitations: No Limitations History of Present Illness Date Seen by Provider: Aug 22, 2021 Time Seen by Provider: 12:54 Initial Comments This 60-year-old woman presents to the emergency room with rather severe lower abdominal pain that started this morning. 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 She had 2 out of 10 lymph nodes returned positive. She is now receiving chemotherapy and received her last infusion 2 days ago. She does not typically have symptoms like this associated with her chemotherapy. She denies any fever or vomiting. She has had diarrhea for the past 2 days. She does comment she is out of her dicyclomine. Abdomen is fairly firm and rather tender. She has not yet been Covid vaccinated due to her chemotherapy. Allergies and Home Medications Allergies Coded Allergies: No Known Drug Allergies (Unverified , 09/08/14) Patient Home Medication List Home Medication List Reviewed: Yes Cyclobenzaprine HCl (Cyclobenzaprine HCl) 10 Mg Tablet, 10 MG PO TID PRN for MUSCLE SPASMS Prescribed by: ELIZABETH NAIK on 06/20/21 1140 Dicyclomine HCl (Dicyclomine HCl) 10 Mg Capsule, 10 MG PO ACHS Prescribed by: ELIZABETH NAIK on 06/20/21 1140 Fluticasone/Salmeterol (Advair 250-50 Diskus) 1 Each Blst.w.dev, 1 EACH IH BID, (Reported) Entered as Reported by: JUANPABLO DÍAZ on 05/28/21 1327 Hydrocodone/Acetaminophen (Hydrocodone-Acetamin 7.5-325) 1 Each Tablet, 1 EACH PO Q4H PRN for PAIN-MODERATE (5-7) Prescribed by: ELIZABETH NAIK on 06/20/21 1141 Hydrocodone/Acetaminophen (Hydrocodone-Acetamin 7.5-325) 1 Each Tablet, 1 EACH PO Q4H Prescribed by: SOFY GARCIA on 07/02/21 1134 Pantoprazole Sodium (Pantoprazole Sodium) 40 Mg Tablet.dr, 40 MG PO DAILY, (Reported) Entered as Reported by: JUANPABLO DÍAZ on 06/18/21 1101 Sucralfate (Sucralfate) 1 Gm Tablet, 1 GM PO ACHS PRN for GI UPSET, (Reported) Entered as Reported by: JUANPABLO DÍAZ on 05/28/21 1327 Tiotropium [place] (Spiriva) 1 Inh Aerp, 1 INH IH DAILY, (Reported) Entered as Reported by: JUANPABLO DÍAZ on 05/28/21 1327 Review of Systems Review of Systems Constitutional: no symptoms reported EENTM: No Symptoms Reported Respiratory: No Symptoms Reported Cardiovascular: No Symptoms Reported Gastrointestinal: See HPI Genitourinary: No Symptoms Reported Musculoskeletal: no symptoms reported Skin: no symptoms reported Psychiatric/Neurological: No Symptoms Reported Endocrine: No Symptoms Reported Hematologic/Lymphatic: See HPI Past Tjekvuy-Ruiedy-Aqrllk Hx Patient Social History Tobacco Use?: No Use of E-Cig and/or Vaping dev: No Substance use?: No Alcohol Use?: No Pt feels they are or have been: No Seasonal Allergies Seasonal Allergies: No Past Medical History Surgeries: Yes (SMALL BOWEL RESECTION, LEFT ARM SCREW PLACED) Adenoidectomy, Bowel Surgery, Orthopedic, Tonsillectomy Respiratory: Yes COPD Currently Using CPAP: No Currently Using BIPAP: No Cardiac: No Neurological: 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 Genitourinary: No Gastrointestinal: Yes Gastroesophageal Reflux, Obstructive Bowel Musculoskeletal: Yes Osteoporosis, Arthritis, Chronic Back Pain Endocrine: No HEENT: Yes (WEARS GLASSES, HAS UPPER DENTURES) Loss of Vision: Denies Hearing Impairment: Denies Cancer: Yes (Adenocarcinoma of the small bowel) Did You Recieve Any Treatments: Yes What Type of Treatment Did You: Chemotherapy, Surgical Intervention Psychosocial: No Integumentary: No Blood Disorders: No Adverse Reaction/Blood Tranf: No (N/A) Family Medical History Cancer, Diabetes Physical Exam Vital Signs Vital Signs - First Documented 08/22/21 12:57 Pulse 93 Resp 16 B/P (MAP) 159/88 (111) Pulse Ox 95 O2 Delivery Room Air Capillary Refill : Less Than 3 Seconds Height/Weight/BMI Height: 5'6" Weight: 118lbs. oz. 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 nml as tested, no motor/sensory deficits, alert, normal mood/affect, oriented x 3 Skin: normal color, warm/dry Progress/Results/Core Measures Results/Orders Lab Results Laboratory Tests Test 08/22/21 13:33 08/22/21 14:16 08/22/21 14:31 Range/Units White Blood Count 2.1 L 4.3-11.0 10^3/uL Red Blood Count 4.45 3.80-5.11 10^6/uL Hemoglobin 12.2 11.5-16.0 g/dL Hematocrit 37 35-52 % Mean Corpuscular Volume 84 80-99 fL Mean Corpuscular Hemoglobin 27 25-34 pg Mean Corpuscular Hemoglobin Concent 33 32-36 g/dL Red Cell Distribution Width 15.5 H 10.0-14.5 % Platelet Count 211 130-400 10^3/uL Mean Platelet Volume 8.7 L 9.0-12.2 fL Immature Granulocyte % (Auto) 0 % Neutrophils (%) (Auto) 48 42-75 % Lymphocytes (%) (Auto) 42 12-44 % Monocytes (%) (Auto) 8 0-12 % Eosinophils (%) (Auto) 1 0-10 % Basophils (%) (Auto) 1 0-10 % Neutrophils # (Auto) 1.0 L 1.8-7.8 10^3/uL Lymphocytes # (Auto) 0.9 L 1.0-4.0 10^3/uL Monocytes # (Auto) 0.2 0.0-1.0 10^3/uL Eosinophils # (Auto) 0.0 0.0-0.3 10^3/uL Basophils # (Auto) 0.0 0.0-0.1 10^3/uL Immature Granulocyte # (Auto) 0.0 0.0-0.1 10^3/uL Sodium Level 136 135-145 MMOL/L Potassium Level 3.4 L 3.6-5.0 MMOL/L Chloride Level 99 98-107 MMOL/L Carbon Dioxide Level 22 21-32 MMOL/L Anion Gap 15 H 5-14 MMOL/L Blood Urea Nitrogen 13 7-18 MG/DL Creatinine 0.65 0.60-1.30 MG/DL Estimat Glomerular Filtration Rate 92 BUN/Creatinine Ratio 20 Glucose Level 145 H 70-105 MG/DL Calcium Level 8.7 8.5-10.1 MG/DL Corrected Calcium 8.9 8.5-10.1 MG/DL Total Bilirubin 0.5 0.1-1.0 MG/DL Aspartate Amino Transf (AST/SGOT) 53 H 5-34 U/L Alanine Aminotransferase (ALT/SGPT) 41 0-55 U/L Alkaline Phosphatase 126 40-136 U/L C-Reactive Protein High Sensitivity 1.25 H 0.00-0.50 MG/DL Total Protein 7.4 6.4-8.2 GM/DL Albumin 3.8 3.2-4.5 GM/DL Lipase 13 8-78 U/L Urine Color YELLOW Urine Clarity SL CLOUDY Urine pH 6.0 5-9 Urine Specific [place] >=1.030 1.016-1.022 Urine Protein 1+ H NEGATIVE Urine Glucose (UA) NEGATIVE NEGATIVE Urine Ketones TRACE H NEGATIVE Urine Nitrite NEGATIVE NEGATIVE Urine Bilirubin NEGATIVE NEGATIVE Urine Urobilinogen 0.2 < = 1.0 MG/DL Urine Leukocyte Esterase TRACE H NEGATIVE Urine RBC (Auto) NEGATIVE NEGATIVE Urine RBC 0-2 /HPF Urine WBC 10-25 H /HPF Urine Squamous Epithelial Cells 10-25 H /HPF Urine Crystals NONE /LPF Urine Bacteria MODERATE H /HPF Urine Casts NONE /LPF Urine Mucus NEGATIVE /LPF Urine Culture Indicated YES Influenza Type A (RT-PCR) Not Detected Not Detecte Influenza Type B (RT-PCR) Not Detected Not Detecte SARS-CoV-2 RNA (RT-PCR) Not Detected Not Detecte My Orders Orders - MARLENY ANDREW MD Ua Culture If Indicated (08/22/21 12:54) Cbc With Automated Diff (08/22/21 12:55) Comprehensive Metabolic Panel (08/22/21 12:55) Hs C Reactive Protein (08/22/21 12:55) Lipase (08/22/21 12:55) Ed Iv/Invasive Line Start (08/22/21 12:55) Morphine Injection (Morphine Injection (08/22/21 13:04) Hyoscyamine Sl Tablet (Levsin Sl Tablet) (08/22/21 13:15) Ct Abdomen/Pelvis W (08/22/21 14:25) Influenza A And B By Pcr (08/22/21 14:28) Covid 19 Inhouse Test (08/22/21 14:28) Urine Culture (08/22/21 14:16) Lactated Ringers (Lr 1000 Ml Iv Solution (08/22/21 15:00) Iohexol Injection (Omnipaque 350 Mg/Ml 1 (08/22/21 15:30) Received Contrast (Hold Metformin- Contr (08/22/21 15:30) Ns (Ivpb) (Sodium Chloride 0.9% Ivpb Bag (08/22/21 15:30) Ceftriaxone (Rocephin) (08/22/21 16:45) Code/Resuscitation (08/22/21 16:40) Medications Given in ED Current Medications Medications Dose Ordered Sig/Grady Route Start Time Stop Time Status Last Admin Dose Admin Hyoscyamine Sulfate 0.25 mg ONCE ONCE PO 08/22/21 13:15 08/22/21 13:16 DC 08/22/21 13:36 0.25 MG Iohexol 100 ml ONCE ONCE IV 08/22/21 15:30 08/22/21 15:31 DC 08/22/21 15:34 66 ML Lactated Ringer's 1,000 ml @ 0 mls/hr Q0M ONCE IV 08/22/21 15:00 08/22/21 15:01 DC 08/22/21 15:06 0 MLS/HR Sodium Chloride 100 ml ONCE ONCE IV 08/22/21 15:30 08/22/21 15:31 DC 08/22/21 15:35 80 ML Vital Signs/I&O 08/22/21 12:57 Pulse 93 Resp 16 B/P (MAP) 159/88 (111) Pulse Ox 95 O2 Delivery Room Air Blood Pressure Mean: 111 Progress Progress Note : Progress Note Patient was treated with morphine and Levsin for her abdominal pain and cramping. This pretty well alleviated the discomfort. She was not experiencing any nausea or vomiting. There were no major concerning lab results. However, given her history of small bowel tumor resection, CT of the abdomen and pelvis was deemed necessary. CT showed a probable small bowel obstruction with a transition point in the lower abdomen. Dr. Garcia was consulted. He would like to have a conservative approach with a clear liquid diet and KUB and upright abdominal x-ray in the morning. Patient is relatively comfortable at the time of admission. There was suggestion of urinary tract infection on her urinalysis. Rocephin is being administered in the ER for treatment. I did discuss CODE STATUS with the patient. After discussing risks and benefits of a CODE BLUE scenario, patient elects to have a DO NOT RESUSCITATE status. Order was placed on her chart in the ER. Diagnostic Imaging Diagonstic Imaging: CT Plain Films/CT/US/NM/MRI: abdomen, pelvis Comments CT abdomen and pelvis viewed by me and report reviewed. See report below: NAME: SHANTI [facility] REC#: [id number] PT STATUS: REG ER : 1960 PHYSICIAN: MARLENY ANDREW MD ADMIT DATE: 08/22/21/ER Signed Date of Exam:08/22/21 CT ABDOMEN/PELVIS W EXAMINATION: CT abdomen and pelvis with intravenous contrast. TECHNIQUE: Multiple contiguous axial images were obtained through the abdomen and pelvis after the uneventful administration of intravenous contrast. All CT scans use one or more of the following dose optimizing techniques: automated exposure control, MA and/or KvP adjustment based on patient size and exam type or iterative reconstruction. HISTORY: Abdominal pain. History of colon cancer. COMPARISON: 05/27/2021. FINDINGS: The heart is unremarkable. Dependent atelectasis is seen in the right lung base. There is hepatic steatosis. No focal hepatic lesion is seen. The portal vein is patent. The gallbladder is mildly distended. The spleen, pancreas, adrenal glands and kidneys have a normal appearance. There is no pathologically enlarged mesenteric or retroperitoneal adenopathy. Fluid-filled distended loops of small bowel are seen throughout the abdomen and pelvis. A transition point is seen in the lower abdomen just right of midline. A small amount of free fluid is seen in the abdomen and pelvis. No evidence of free air. There is wall thickening of the hepatic flexure of the colon which may be due to inadequate distention. No acute osseous abnormality. There is calcified aortic and iliac atherosclerotic plaque without aneurysm. Ureters and bladder are grossly normal. There is no free air, loculated collection, or adenopathy in the pelvis. IMPRESSION: 1. Findings concerning for early small bowel obstruction with a transition point in the lower abdomen right of midline. A small amount of free fluid is seen in the abdomen and pelvis without evidence of free air. 2. Hepatic steatosis. Dictated by: Dictated on workstation # [id number] Dict: 08/22/21 1541 Trans: 08/22/21 1553 [facility] [id number] Interpreted by: RUTHIE HOWELL DO Electronically signed by: RUTHIE HOWELL DO 08/22/21 1553 Departure Communication (Admissions) Time/Spoke to Admitting Phy: 16:30 Dr. Naik Time/Spoke to Consulting Phy: 16:00 Dr. Garcia Impression Primary Impression: Small bowel obstruction Additional Impressions: Abdominal pain Qualified Codes: R10.30 - Lower abdominal pain, unspecified Urinary tract infection Qualified Codes: N39.0 - Urinary tract infection, site not specified History of cancer of small intestine Disposition: ADMITTED INPATIENT Condition: Improved Admissions Decision to Admit Reason: Admit from ER (General) Decision to Admit/Date: Aug 22, 2021 Time/Decision to Admit Time: 15:45 Departure-Patient Inst. Referrals: [facility]/JOSE DANIEL (PCP) Primary Care Physician PIPO QUIGLEY (Family) Primary Care Physician MARLENY ANDREW MD Aug 22, 2021 16:37
[2021-08-22] MEDS ORDERED: cefTRIAXone 1,000 MG in WATER (STERILE) FOR INJECTION 10 ML IV ONE (16:45)
[2021-08-22] MEDS ORDERED: ONDANSETRON 4 MG/2 ML (SDV) Z0FRAN IVP PRN ×2 (16:45→18:45)
--- NOTE | 2021-08-22 17:21 | CONSULTATION REPORT ---
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 HISTORY OF PRESENT ILLNESS: The patient presented to the Emergency Department today with crampy abdominal pain as well as mild distention. She also reports some nausea; however, no vomiting. She was treated conservatively initially with bowel rest and IV hydration; however, she continued to have abdominal pain and distention. She was an inpatient at [facility] in [place], [place] for 3 days in the beginning of May and also did have small-bowel obstruction type of symptoms. She had recurrence of symptoms and presented to [facility] [place]. A CT scan of the abdomen was performed, which did show a transition point in the right lower abdominal quadrant as well as proximal small bowel dilatation. There is no lymphadenopathy identified. She also underwent an EGD and colonoscopy on that admission, which did not show any major abnormalities. On 05/31/2021, she underwent a diagnostic laparoscopy and was found to have a mass in the distal ileum and underwent resection of the lesion and anastomosis. Eventually, the pathology came back as adenocarcinoma. Due to her symptoms as well as the CT scan done today, she may have an ileus versus early partial small-bowel obstruction and we will admit her and proceed with conservative management again with IV hydration and bowel rest. PAST MEDICAL HISTORY: Small bowel adenocarcinoma. PAST SURGICAL HISTORY: Diagnostic laparoscopy, terminal ileal resection and anastomosis. ALLERGIES: No known drug allergies. MEDICATIONS: Hydrocodone p.r.n., cyclobenzaprine 10 mg daily, dicyclomine 10 mg q.i.d., fluticasone/salmeterol disk b.i.d., Protonix 40 mg daily, Carafate 1 gram q.i.d., tiotropium bromide daily. SOCIAL HISTORY: Previous smoker, negative alcohol. FAMILY HISTORY: Noncontributory. VITAL SIGNS: Blood pressure 159/88, pulse 93, respirations 16, pulse ox 95% on room air. REVIEW OF SYSTEMS: Slightly thin-appearing female, currently guarded secondary to the crampy abdominal pain. She states mild nausea; however, no vomiting. She states that she is having loose stools. No red blood per rectum, no dark tarry stools. No fever, chills, no recent inadvertent weight loss. All other review of systems negative. PHYSICAL EXAMINATION: CHEST: Clear, few expiratory wheezes bilaterally. HEART: Regular, no murmurs. EXTREMITIES: No lower extremity edema, negative Homans sign. HEENT: No scleral icterus. NECK: No cervical lymphadenopathy. ABDOMEN: Soft, slightly distended. There is mild discomfort globally upon palpation of the abdomen. No peritoneal signs. No hernias. SKIN: Warm, dry. LABORATORY DATA: WBC 2.1, hemoglobin 12.2, hematocrit 37, platelets 211. BUN 13, creatinine 0.65. Urine is positive for leukocyte esterase, moderate amount of bacteria. ASSESSMENT AND PLAN: A 60-year-old female with a partial early small-bowel obstruction. We will treat her conservatively with bowel rest, IV hydration and frequent ambulation. If she does not resolve in the next 48 hours, we will then proceed with a Gastrografin small bowel follow through. Job ID: [id number] DocumentID: [id number] Dictated Date: 08/22/2021 16:32:25 Spray Painter Date: 08/22/2021 17:21:09 Dictated By: SOFY OSWALD MD
[2021-08-22] MEDS ORDERED: ACETAMINOPHEN 500 MG TAB (TYLENOL) PO PRN (18:45)
[2021-08-22] MEDS ORDERED: diphenhydrAMINE 25 MG TAB (BENADRYL) PO PRN (18:45)
[2021-08-22] MEDS ORDERED: DOCUSATE SODIUM 100 MG (COLACE) CAP PO PRN (18:45)
[2021-08-22] MEDS ORDERED: cefTRIAXone 1,000 MG in WATER (STERILE) FOR INJECTION 10 ML IV SCH (18:45)
[2021-08-22] MEDS ORDERED: ALPRAZolam 0.25 MG (XANAX) TAB PO PRN (18:45)
[2021-08-22] MEDS ORDERED: CALCIUM CARBONATE 500 MG (TUMS) TAB.CHEW PO PRN (18:45)
[2021-08-22] MEDS ORDERED: MELATONIN 3 MG TABLET PO PRN (18:45)
[2021-08-22 19:13] VITALS: BP 133/78
[2021-08-22 19:45] VITALS: BP 159/88
[2021-08-22] MEDS ORDERED: NS IV 1000 ML 1,000 ML ONE (19:47)
[2021-08-22] MEDS: NS IV 1000 ML 1,000 ML IV SCH (19:50)
[2021-08-22] MEDS ORDERED: metroNIDAZOLE 500MG/100ML IVPB 100 ML IV SCH (21:00)
[2021-08-22] MEDS: CIPROFLOXACIN IV 400MG/200ML 200 ML IV SCH (21:44)
[2021-08-22] MEDS: metroNIDAZOLE 500 MG (FLAGYL) TAB PO SCH (21:44)
[2021-08-23] MEDS: HYOSCYAMINE 0.125 MG (LEVSIN) TAB PO PRN ×3 (00:10→14:29)
[2021-08-23 00:20] VITALS: BP 109/66
[2021-08-23 03:51] VITALS: BP 112/64
[2021-08-23] MEDS: HYDROcodone/APAP 5 MG/325 MG (LORTAB) TAB PO PRN ×2 (03:51→14:30)
[2021-08-23 05:46] LABS: BASOPHILS % (AUTO) 1 % (0-10); EOSINOPHILS % (AUTO) 2 % (0-10); HEMATOCRIT 31 % (35-52); HEMOGLOBIN 10.3 g/dL (11.5-16.0); LYMPHOCYTES # (AUTO) 1.3 10^3/uL (1.0-4.0); LYMPHOCYTES % (AUTO) 68 % (12-44); MEAN CORPUSCULAR HEMOGLOBIN 28 pg (25-34); MEAN CORPUSCULAR HGB CONC 33 g/dL (32-36); MEAN CORPUSCULAR VOLUME 85 fL (80-99); MEAN PLATELET VOLUME 8.9 fL (9.0-12.2); MONOCYTES # (AUTO) 0.3 10^3/uL (0.0-1.0); MONOCYTES % (AUTO) 13 % (0-12); NEUTROPHILS # (AUTO) 0.3 10^3/uL (1.8-7.8); NEUTROPHILS % (AUTO) 17 % (42-75); PLATELET COUNT 172 10^3/uL (130-400); WHITE BLOOD COUNT 1.9 10^3/uL (4.3-11.0)
[2021-08-23 06:22] LABS: ALBUMIN 3.1 GM/DL (3.2-4.5); BILIRUBIN,TOTAL 0.5 MG/DL (0.1-1.0); CALCIUM 7.9 MG/DL (8.5-10.1); CREATININE SERUM 0.66 MG/DL (0.60-1.30); POTASSIUM 3.1 MMOL/L (3.6-5.0)
[2021-08-23] MEDS: NS IV 1000 ML 1,000 ML IV SCH ×3 (07:36→22:08)
[2021-08-23 08:00] VITALS: BP 107/65
[2021-08-23] MEDS: ENOXAPARIN 30 MG/0.3 ML (LOVENOX) SYR SC SCH (08:11)
[2021-08-23] MEDS: CIPROFLOXACIN IV 400MG/200ML 200 ML IV SCH ×2 (08:11→19:59)
[2021-08-23] MEDS: PANTOPRAZOLE 40 MG (PROTONIX) VIAL IV SCH (08:11)
[2021-08-23] MEDS: metroNIDAZOLE 500 MG (FLAGYL) TAB PO SCH ×2 (08:11→19:59)
[2021-08-23] MEDS ORDERED: PANTOPRAZOLE 40 MG (PROTONIX) VIAL IV SCH (09:00)
--- NOTE | 2021-08-23 10:03 | Progress Note ---
Subjective Date Seen by a Provider: Aug 23, 2021 Time Seen by a Provider: 10:00 Subjective/Events-last exam doing much better. abd pain improved. having loose stools. tolerating clears. Objective Exam Vital Signs Date Time Temp Pulse Resp B/P (MAP) Pulse Ox O2 Delivery O2 Flow Rate FiO2 08/23/21 08:31 Room Air 08/23/21 08:00 35.8 74 20 107/65 (79) 95 Room Air 08/23/21 03:51 37.3 93 17 112/64 (80) 93 Room Air 08/23/21 00:20 36.4 77 18 109/66 (80) 95 Room Air 08/22/21 19:50 Room Air 08/22/21 19:45 93 95 08/22/21 19:13 37.0 90 20 133/78 (96) 98 Room Air 08/22/21 18:20 Room Air 08/22/21 18:00 91 18 128/77 94 Room Air 08/22/21 12:57 93 16 159/88 (111) 95 Room Air I & O 08/23/21 07:00 Intake Total 1850 ml Output Total 600 ml Balance 1250 ml Capillary Refill : Less Than 3 Seconds General Appearance: No Apparent Distress HEENT: PERRL/EOMI Neck: Full Range of Motion Respiratory: Chest Non Tender, Lungs Clear Cardiovascular: Regular Rate, Rhythm Gastrointestinal: soft, tenderness Extremity: Normal Capillary Refill Neurologic/Psychiatric: Alert, Oriented x3 Skin: Normal Color Lymphatic: No Adenopathy Results Lab Laboratory Tests 08/22/21 13:33: White Blood Count 2.1L, Red Blood Count 4.45, Hemoglobin 12.2, Hematocrit 37, Mean Corpuscular Volume 84, Mean Corpuscular Hemoglobin 27, Mean Corpuscular Hemoglobin Concent 33, Red Cell Distribution Width 15.5H, Platelet Count 211, Mean Platelet Volume 8.7L, Immature Granulocyte % (Auto) 0, Neutrophils (%) (Auto) 48, Lymphocytes (%) (Auto) 42, Monocytes (%) (Auto) 8, Eosinophils (%) (Auto) 1, Basophils (%) (Auto) 1, Neutrophils # (Auto) 1.0L, Lymphocytes # (Auto) 0.9L, Monocytes # (Auto) 0.2, Eosinophils # (Auto) 0.0, Basophils # (Auto) 0.0, Immature Granulocyte # (Auto) 0.0, Sodium Level 136, Potassium Level 3.4L, Chloride Level 99, Carbon Dioxide Level 22, Anion Gap 15H, Blood Urea Nitrogen 13, Creatinine 0.65, Estimat Glomerular Filtration Rate 92, BUN/Creatinine Ratio 20, Glucose Level 145H, Calcium Level 8.7, Corrected Calcium 8.9, Total Bilirubin 0.5, Aspartate Amino Transf (AST/SGOT) 53H, Alanine Aminotransferase (ALT/SGPT) 41, Alkaline Phosphatase 126, C-Reactive Protein High Sensitivity 1.25H, Total Protein 7.4, Albumin 3.8, Lipase 13 08/22/21 14:16: Urine Color YELLOW, Urine Clarity SL CLOUDY, Urine pH 6.0, Urine Specific [place] >=1.030, Urine Protein 1+H, Urine Glucose (UA) NEGATIVE, Urine Ketones TRACEH, Urine Nitrite NEGATIVE, Urine Bilirubin NEGATIVE, Urine Urobilinogen 0.2, Urine Leukocyte Esterase TRACEH, Urine RBC (Auto) NEGATIVE, Urine RBC 0-2, Urine WBC 10-25H, Urine Squamous Epithelial Cells 10-25H, Urine Crystals NONE, Urine Bacteria MODERATEH, Urine Casts NONE, Urine Mucus NEGATIVE, Urine Culture Indicated YES 08/22/21 14:31: Influenza Type A (RT-PCR) Not Detected, Influenza Type B (RT-PCR) Not Detected, SARS-CoV-2 RNA (RT-PCR) Not Detected 08/23/21 05:35: White Blood Count 1.9L, Red Blood Count 3.68L, Hemoglobin 10.3L, Hematocrit 31L, Mean Corpuscular Volume 85, Mean Corpuscular Hemoglobin 28, Mean Corpuscular Hemoglobin Concent 33, Red Cell Distribution Width 15.9H, Platelet Count 172, Mean Platelet Volume 8.9L, Immature Granulocyte % (Auto) 0, Neutrophils (%) (Auto) 17L, Lymphocytes (%) (Auto) 68H, Monocytes (%) (Auto) 13H, Eosinophils (%) (Auto) 2, Basophils (%) (Auto) 1, Neutrophils # (Auto) 0.3L, Lymphocytes # (Auto) 1.3, Monocytes # (Auto) 0.3, Eosinophils # (Auto) 0.0, Basophils # (Auto) 0.0, Immature Granulocyte # (Auto) 0.0, Sodium Level 136, Potassium Level 3.1L, Chloride Level 102, Carbon Dioxide Level 22, Anion Gap 12, Blood Urea Nitrogen 7, Creatinine 0.66, Estimat Glomerular Filtration Rate 91, BUN/Creatinine Ratio 11, Glucose Level 106H, Calcium Level 7.9L, Corrected Calcium 8.6, Total Bilirubin 0.5, Aspartate Amino Transf (AST/SGOT) 33, Alanine Aminotransferase (ALT/SGPT) 28, Alkaline Phosphatase 98, Total Protein 6.0L, Albumin 3.1L Assessment/Plan Assessment/Plan Assess & Plan/Chief Complaint ileus with hx small bowel adenoca and on chemotherapy. advance to dys3 diet. SOFY OSWALD MD Aug 23, 2021 10:03
[2021-08-23] MEDS: RT--FLUTICASONE/SALMETEROL 232-14 (AIRDUO RespiCLICK) IH SCH (10:42)
[2021-08-23 11:57] VITALS: BP 127/64
--- NOTE | 2021-08-23 12:06 | History & Physical-Hospitalist ---
History of Present Illness HPI/Chief Complaint Chief complaint: Partial bowel obstruction History present illness: This is 60-year-old white female known to me from prior admission due to bowel obstruction who has been diagnosed with colon cancer undergoing chemotherapy who presented to the ER with abdominal pain. She was found to have a partial bowel obstruction and Dr. OSWALD has been consulted. Patient currently is doing much better but does have a lot of pain at times. She will ambulate. Pain has been well controlled with morphine. Source: patient Exam Limitations: no limitations Date Seen 08/23/21 Time Seen by a Provider: 12:00 Attending Physician Sandee Chamberlain DO [facility] Center/[facility] Referring Physician Date of Admission Aug 22, 2021 at 16:41 Home Medications & Allergies Home Medications Reviewed patient Home Medication Reconciliation performed by pharmacy medication reconciliations water technician and/or nursing. Patients Allergies have been reviewed. Allergies Allergies Coded Allergies No Known Drug Allergies ([id number]/14) Past Esvajpu-Lcfzcg-Kpqyex Hx Patient Social History Marrital Status: single Employed/Student: unemployed Tobacco Use?: No Smoking Status: Former Smoker Smokeless Tobacco Frequency: Never a User Use of E-Cig and/or Vaping dev: No Substance use?: Yes Substance type: Marijuana Alcohol Use?: No Pt feels they are or have been: No Immunizations Up To Date Tetanus Booster (TDap): More Than 5 Years Hepatitis A: No Hepatitis B: No Seasonal Allergies Seasonal Allergies: No Current Status status: No status: No Advance Directives: No Communicates: Verbally Primary Language: Namibian Preferred Spoken Language: Namibian Is interpretation needed?: No Implanted or Applied Medical D: None Past Medical History Surgeries: Adenoidectomy, Bowel Surgery, Orthopedic, Tonsillectomy COPD Currently Using CPAP: No Currently Using 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: Menopausal Gastroesophageal Reflux, Obstructive Bowel Osteoporosis, Arthritis, Chronic Back Pain Loss of Vision: Denies Hearing Impairment: Denies Did You Recieve Any Treatments: Yes What Type of Treatment Did You: Chemotherapy, Surgical Intervention Blood Disorders: No Adverse Reaction/Blood Tranf: No (N/A) COPD GERD Adenocarcinoma of the Colon Family Medical History Cancer, Diabetes Review of Systems Constitutional: see HPI EENTM: no symptoms reported Respiratory: no symptoms reported Cardiovascular: no symptoms reported Gastrointestinal: abdominal pain, nausea, vomiting Genitourinary: no symptoms reported Musculoskeletal: no symptoms reported Skin: no symptoms reported Psychiatric/Neurological: No Symptoms Reported All Other Systems Reviewed Negative Unless Noted: Yes Physical Exam Physical Exam Vital Signs Vital Signs - First Documented 08/22/21 08/22/21 12:57 19:13 Temp 37.0 Pulse 93 Resp 16 B/P (MAP) 159/88 (111) Pulse Ox 95 O2 Delivery Room Air Capillary Refill : Less Than 3 Seconds Height, Weight, BMI Height: 5'6" Weight: 118lbs. oz. [id number]; 17.79 BMI Method: General Appearance: No Apparent Distress, Chronically ill, Thin Eyes: Right Eye Normal Inspection, Right Eye PERRL HEENT: PERRL/EOMI, Normal ENT Inspection, Pharynx Normal, Moist Mucous Membranes Neck: Full Range of Motion, Normal Inspection, Non Tender Respiratory: Chest Non Tender, Lungs Clear, Normal Breath Sounds, No Accessory Muscle Use, No Respiratory Distress Cardiovascular: Regular Rate, Rhythm, No Edema, No Gallop, No JVD, No Murmur, Normal Peripheral Pulses Gastrointestinal: Normal Bowel Sounds, No Organomegaly, No Pulsatile Mass, Soft, Tenderness Back: Normal Inspection, No CVA Tenderness, No Vertebral Tenderness Extremity: Normal Capillary Refill, Normal Inspection, Normal Range of Motion, Non Tender, No Calf Tenderness, No Pedal Edema Neurologic/Psychiatric: Alert, Oriented x3, No Motor/Sensory Deficits, Normal Mood/Affect Skin: Normal Color, Warm/Dry Lymphatic: No Adenopathy Results Results/Procedures Labs Laboratory Tests 08/22/21 13:33 08/23/21 05:35 Patient resulted labs reviewed. Assessment/Plan Admission Diagnosis Assessment: Partial bowel obstruction Colon cancer Chemotherapy Plan: Bowel rest IV hydration IV pain medication Levsin Admission Status: Observation CHAMBERLAIN,SANDEE CARVAJAL Aug 23, 2021 12:06
[2021-08-23] MEDS: POTASSIUM CL 10MEQ/50ML IVPB 50 ML IV SCH ×4 (13:11→16:56)
--- NOTE | 2021-08-23 14:58 | Diagnostic Imaging Report ---
REASON FOR EXAM: Lower abdominal pain. COMPARISON: 08/22/2021. TECHNIQUE: 3 views of the abdomen. FINDINGS: Distended loops of small bowel are again seen throughout the abdomen and pelvis, similar to the prior exam. No large collection of free intraperitoneal air. Stool is seen in the colon. No acute osseous abnormality. IMPRESSION: Persistent distended loops of small bowel in the central abdomen concerning for small bowel obstruction or ileus. Recommend continued follow-up as indicated. Dictated by: Dictated on workstation # [id number]
[2021-08-23 16:00] VITALS: BP 108/70
[2021-08-23 20:00] VITALS: BP 122/72
[2021-08-23] MEDS: morphine INJ 10 MG/ML 1ML (SYR OR VIAL) IVP PRN (20:01)
[2021-08-24] VITALS: BP 115/68
[2021-08-24 04:15] VITALS: BP 127/70
[2021-08-24 05:48] LABS: BASOPHILS % (AUTO) 1 % (0-10); EOSINOPHILS % (AUTO) 2 % (0-10); HEMATOCRIT 32 % (35-52); HEMOGLOBIN 10.4 g/dL (11.5-16.0); LYMPHOCYTES # (AUTO) 1.3 10^3/uL (1.0-4.0); LYMPHOCYTES % (AUTO) 71 % (12-44); MEAN CORPUSCULAR HEMOGLOBIN 28 pg (25-34); MEAN CORPUSCULAR HGB CONC 33 g/dL (32-36); MEAN CORPUSCULAR VOLUME 84 fL (80-99); MEAN PLATELET VOLUME 8.6 fL (9.0-12.2); MONOCYTES # (AUTO) 0.3 10^3/uL (0.0-1.0); MONOCYTES % (AUTO) 16 % (0-12); NEUTROPHILS # (AUTO) 0.2 10^3/uL (1.8-7.8); NEUTROPHILS % (AUTO) 11 % (42-75); PLATELET COUNT 175 10^3/uL (130-400); WHITE BLOOD COUNT 1.8 10^3/uL (4.3-11.0)
[2021-08-24 06:10] LABS: ALBUMIN 3.1 GM/DL (3.2-4.5); POTASSIUM 3.2 MMOL/L (3.6-5.0)
[2021-08-24 06:11] LABS: CALCIUM 7.8 MG/DL (8.5-10.1)
[2021-08-24 06:12] LABS: TOTAL PROTEIN 6.1 GM/DL (6.4-8.2)
[2021-08-24 06:14] LABS: BILIRUBIN,TOTAL 0.5 MG/DL (0.1-1.0)
[2021-08-24 06:16] LABS: CREATININE SERUM 0.64 MG/DL (0.60-1.30)
[2021-08-24 06:32] LABS: BAND NEUTROPHILS 1 %; EOSINOPHILS % (MANUAL) 1 %; LYMPHOCYTES % (MANUAL) 83 %; MICROCYTOSIS SLIGHT; MONOCYTES % (MANUAL) 7 %; NEUTROPHILS % (MANUAL) 8 %
[2021-08-24] MEDS: RT--FLUTICASONE/SALMETEROL 232-14 (AIRDUO RespiCLICK) IH SCH (06:40)
[2021-08-24 08:00] VITALS: BP 128/77
[2021-08-24] MEDS: PANTOPRAZOLE 40 MG (PROTONIX) VIAL IV SCH (09:00)
[2021-08-24] MEDS: ENOXAPARIN 30 MG/0.3 ML (LOVENOX) SYR SC SCH (09:00)
[2021-08-24] MEDS: metroNIDAZOLE 500 MG (FLAGYL) TAB PO SCH ×2 (09:00→20:55)
[2021-08-24] MEDS: NS IV 1000 ML 1,000 ML IV SCH ×2 (09:06→21:02)
[2021-08-24] MEDS: CIPROFLOXACIN IV 400MG/200ML 200 ML IV SCH ×2 (09:12→20:56)
[2021-08-24 11:50] VITALS: BP 116/81
[2021-08-24] MEDS ORDERED: PROM25TA14 PO (15:22)
[2021-08-24] MEDS ORDERED: DICY10CA12 PO (15:22)
[2021-08-24] MEDS ORDERED: HYDR-3817 PO (15:22)
[2021-08-24] MEDS ORDERED: MULT-1021 PO (15:22)
[2021-08-24 16:00] VITALS: BP 155/67
[2021-08-24] MEDS: morphine INJ 10 MG/ML 1ML (SYR OR VIAL) IVP PRN (19:01)
--- NOTE | 2021-08-24 19:09 | Progress Note ---
Subjective Subjective/Events-last exam Patient feeling much better this AM. Diet advanced this AM. Review of Systems General: Malaise Pulmonary: No Dyspnea, No Cough Cardiovascular: No: Chest Pain, Palpitations, Edema Gastrointestinal: Abdominal Pain, Diarrhea; No: Nausea, Vomiting Genitourinary: No Dysuria, No Frequency, No Incontinence Neurological: Weakness Objective Exam Last Set of Vital Signs Vital Signs Date Time Temp Pulse Resp B/P (MAP) Pulse Ox O2 Delivery O2 Flow Rate FiO2 08/24/21 16:00 36.3 81 20 155/67 (96) 96 Room Air Capillary Refill : Less Than 3 Seconds I&O Intake and Output 08/23/21 23:59 Intake Total 1020 ml Output Total 1250 ml Balance -230 ml Intake Oral 1020 ml Output Urine Total 1250 ml # Voids 6 # Bowel Movements 1 General: Alert, Oriented X3, Cooperative, No Acute Distress Lungs: Clear to Auscultation, Normal Air Movement Heart: Regular Rate, No Murmurs Abdomen: Normal Bowel Sounds, Soft, Other (mild LLQ ttp, no rebound, mild guarding with moderate palpation) Extremities: No Edema, No Tenderness/Swelling Skin: No Rashes Neuro: Normal Speech, Strength at 5/5 X4 Ext, Sensation Intact, Cranial Nerves 3-12 NL Results/Procedures Lab Laboratory Tests 08/24/21 05:35: White Blood Count 1.8L, Red Blood Count 3.76L, Hemoglobin 10.4L, Hematocrit 32L, Mean Corpuscular Volume 84, Mean Corpuscular Hemoglobin 28, Mean Corpuscular Hemoglobin Concent 33, Red Cell Distribution Width 15.8H, Platelet Count 175, Mean Platelet Volume 8.6L, Immature Granulocyte % (Auto) 0, Neutrophils (%) (Auto) 11L, Lymphocytes (%) (Auto) 71H, Monocytes (%) (Auto) 16H, Eosinophils (%) (Auto) 2, Basophils (%) (Auto) 1, Neutrophils # (Auto) 0.2L, Lymphocytes # (Auto) 1.3, Monocytes # (Auto) 0.3, Eosinophils # (Auto) 0.0, Basophils # (Auto) 0.0, Immature Granulocyte # (Auto) 0.0, Neutrophils % (Manual) 8, Lymphocytes % (Manual) 83, Monocytes % (Manual) 7, Eosinophils % (Manual) 1, Band Neutrophils 1, Microcytosis SLIGHT, Sodium Level 135, Potassium Level 3.2L, Chloride Level 101, Carbon Dioxide Level 22, Anion Gap 12, Blood Urea Nitrogen 4L, Creatinine 0.64, Estimat Glomerular Filtration Rate 94, BUN/Creatinine Ratio 6, Glucose Level 101, Calcium Level 7.8L, Corrected Calcium 8.5, Total Bilirubin 0.5, Aspartate Amino Transf (AST/SGOT) 31, Alanine Aminotransferase (ALT/SGPT) 21, Alkaline Phosphatase 89, Total Protein 6.1L, Albumin 3.1L Microbiology 08/22/21 Urine Culture - Final, Complete Mixed Bacterial Estrella Gardnerella vaginalis See Comments Assessment/Plan Assessment/Plan (1) Ileus Status: Acute Assessment & Plan: 08/24: diet advanced per Dr Garcia, Dr Garcia consulted and appreciate recommendations (2) History of cancer of small intestine Status: Acute TANNER NULL MD Aug 24, 2021 19:09
[2021-08-24 20:00] VITALS: BP 146/78
[2021-08-25 00:14] VITALS: BP 125/71
[2021-08-25 03:59] LABS: BASOPHILS % (AUTO) 0 % (0-10); EOSINOPHILS # (AUTO) 0.1 10^3/uL (0.0-0.3); EOSINOPHILS % (AUTO) 2 % (0-10); HEMATOCRIT 32 % (35-52); HEMOGLOBIN 10.5 g/dL (11.5-16.0); LYMPHOCYTES # (AUTO) 1.5 10^3/uL (1.0-4.0); LYMPHOCYTES % (AUTO) 62 % (12-44); MEAN CORPUSCULAR HEMOGLOBIN 28 pg (25-34); MEAN CORPUSCULAR HGB CONC 33 g/dL (32-36); MEAN CORPUSCULAR VOLUME 84 fL (80-99); MEAN PLATELET VOLUME 8.9 fL (9.0-12.2); MONOCYTES # (AUTO) 0.5 10^3/uL (0.0-1.0); MONOCYTES % (AUTO) 21 % (0-12); NEUTROPHILS # (AUTO) 0.3 10^3/uL (1.8-7.8); NEUTROPHILS % (AUTO) 14 % (42-75); PLATELET COUNT 183 10^3/uL (130-400); WHITE BLOOD COUNT 2.4 10^3/uL (4.3-11.0)
[2021-08-25 04:16] LABS: POTASSIUM 3.1 MMOL/L (3.6-5.0)
[2021-08-25 04:17] LABS: CALCIUM 7.8 MG/DL (8.5-10.1)
[2021-08-25 04:20] LABS: BILIRUBIN,TOTAL 0.4 MG/DL (0.1-1.0)
[2021-08-25 04:22] LABS: CREATININE SERUM 0.61 MG/DL (0.60-1.30)
[2021-08-25 04:32] VITALS: BP_SYST 105; BP_SYST 64; BP_DIAS 64; BP_DIAS 71
[2021-08-25 08:41] VITALS: BP 115/75
[2021-08-25] MEDS ORDERED: KCL 20 MEQ TAB (K-DUR) PO ONE (09:15)
[2021-08-25] MEDS: NS IV 1000 ML 1,000 ML IV SCH (09:24)
[2021-08-25] MEDS: CIPROFLOXACIN IV 400MG/200ML 200 ML IV SCH (09:24)
[2021-08-25] MEDS: ENOXAPARIN 30 MG/0.3 ML (LOVENOX) SYR SC SCH (09:24)
[2021-08-25] MEDS: PANTOPRAZOLE 40 MG (PROTONIX) VIAL IV SCH (09:24)
[2021-08-25] MEDS: metroNIDAZOLE 500 MG (FLAGYL) TAB PO SCH (09:25)
[2021-08-25] MEDS: HYDROcodone/APAP 5 MG/325 MG (LORTAB) TAB PO PRN (09:25)
[2021-08-25 11:54] VITALS: BP 149/80
--- NOTE | 2021-08-25 12:45 | Discharge Summary ---
Diagnosis/Chief Complaint Date of Admission Aug 22, 2021 at 16:41 Date of Discharge Discharge Diagnosis Problems/Diagnosis: (1) Ileus Assessment & Plan: 08/24: diet advanced per Dr Garcia, Dr Garcia consulted and appreciate recommendations Status: Acute (2) History of cancer of small intestine Status: Acute Discharge Summary-Simple/Stand Consultations Discharge Physical Examination Allergies: Coded Allergies: No Known Drug Allergies (Unverified , 09/08/14) Vitals & I&Os Vital Sign - Last 12Hours Date Time Temp Pulse Resp B/P (MAP) Pulse Ox O2 Delivery O2 Flow Rate FiO2 08/25/21 11:54 36.3 85 18 149/80 (103) 99 Room Air Intake and Output 08/25/21 00:00 Intake Total 2360 ml Balance 2360 ml Hospital Course See final discharge diagnosis. Discharge Instructions to patient/family Please see electronic discharge instructions given to patient. Discharge Medications Reviewed and agree with Discharge Medication list on patient's Discharge Instruction sheet TANNER NULL MD Aug 25, 2021 12:45
--- NOTE | 2021-08-25 12:47 | Discharge Summary ---
Discharge [facility] Reconcile Patient Problems Problems Reviewed?: Yes Discharge Medications New, Converted or Re-Newed RX: Transmitted to Pharmacy Continued Medications: Dicyclomine HCl (Dicyclomine HCl) 10 Mg Capsule 10 MG PO BID, CAP Hydrocodone/Acetaminophen (Hydrocodone-Acetamin 7.5-325) 1 Each Tablet 1 EACH PO Q4H PRN for PAIN-MODERATE (5-7), TAB Multivits-Min/Iron/FA/Lutein (Centrum Silver Women Tablet) 1 Each Tablet 1 EACH PO DAILY, TAB Pantoprazole Sodium (Pantoprazole Sodium) 40 Mg Tablet.dr 40 MG PO DAILY, TAB Promethazine HCl (Promethazine Tablet) 25 Mg Tablet 25 MG PO Q6H PRN for NAUSEA/VOMITING, TAB Patient Instructions Goal/Follow Up Appt: F.u with PCP 1-2 weeks Will need to call and reschedule chemotherapy Activity & Diet Discharge Diet: Eat Small Frequent Meals TANNER NULL MD Aug 25, 2021 12:47
[2021-08-25 14:14] VITALS: BP 149/80
--- NOTE | 2021-08-27 13:11 | Physician Query Clarification ---
PQ-Uncertain Diagnosis Admission/Discharge Admission Date: Aug 22, 2021 at 16:41 Discharge Date: Aug 25, 2021 at 14:14 Dr. 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 UTI was documented in the ER with no further documentation in the medical record. Please document a response in Progress Note or Discharge Summary. 1. Yes, clinically valid, condition resolved. 2. No, condition ruled out. 3. Other, with explanation of clinical findings. 4. Undetermined, no explanation for clinical findings. PHYSICIAN RESPONSE Diagnosis clinically valid: Other, explanation/clinical finding Please remember a lack of response to the above will prompt a phone page by CDI/Coding staff. In responding to this query, please exercise your independent professional judgment. The purpose of this communication is to more accurately reflect the complexity of your patients condition. The fact that a question is asked does not imply that any particular answer is desired or expected. Thank you for your timely response to this clarification. Requestors name: Julissa THIS PHYSICIAN QUERY FORM IS A PERMANENT PART OF THE MEDICAL RECORD JULISSA DOVER Aug 27, 2021 13:11 TANNER MANZANARES MD Sep 09, 2021 20:34
== END 2021-08-25 14:14 | disposition home or self-care (01) | DRG 389 ==
LOC: EDUNIT# 12:47 → ER 12:48 → 4TH 16:41 → UNDOADMOB 16:41 → 4TH 17:43 → UNDODISOB 08-25 14:14
PROVIDERS: ADMIT Internal Medicine; ATTEND Family Medicine
DX: K56.7 Ileus, unspecified (principal); C77.2 Secondary and unspecified malignant neoplasm of intra-abdominal lymph nodes; Z85.068 Personal history of other malignant neoplasm of small intestine; J44.9 Chronic obstructive pulmonary disease, unspecified; K21.9 Gastro-esophageal reflux disease without esophagitis; M81.0 Age-related osteoporosis without current pathological fracture; M19.91 Primary osteoarthritis, unspecified site; M54.9 Dorsalgia, unspecified; Z66 Do not resuscitate; Z87.891 Personal history of nicotine dependence; Z20.822 Contact with and (suspected) exposure to COVID-19
CPT/HCPCS: 36415; 74019; 74177; 80053; 81000; 83690; 85007; 85025; 85027; 86141; 87088; 87636; 94760; 96361; 96374; 96375

== ENCOUNTER 2021-08-28 16:48 | Inpatient (IN) | payer OTHER ==
[~2021-08-28] VITALS: Ht 165 cm; Wt 49.0 kg
[~2021-08-28 16:48] MED LIST changes: +CYCL10TA25 PO; -CYCL10TA9 PO; +MULT-1021 PO; +PROM25TA14 PO
[2021-08-28 17:26] LABS: BASOPHILS % (AUTO) 1 % (0-10); EOSINOPHILS % (AUTO) 0 % (0-10); HEMATOCRIT 39 % (35-52); HEMOGLOBIN 12.9 g/dL (11.5-16.0); LYMPHOCYTES # (AUTO) 2.7 10^3/uL (1.0-4.0); LYMPHOCYTES % (AUTO) 32 % (12-44); MEAN CORPUSCULAR HEMOGLOBIN 28 pg (25-34); MEAN CORPUSCULAR HGB CONC 33 g/dL (32-36); MEAN CORPUSCULAR VOLUME 84 fL (80-99); MEAN PLATELET VOLUME 8.3 fL (9.0-12.2); MONOCYTES # (AUTO) 0.9 10^3/uL (0.0-1.0); MONOCYTES % (AUTO) 11 % (0-12); NEUTROPHILS # (AUTO) 4.2 10^3/uL (1.8-7.8); NEUTROPHILS % (AUTO) 49 % (42-75); PLATELET COUNT 355 10^3/uL (130-400); WHITE BLOOD COUNT 8.5 10^3/uL (4.3-11.0)
[2021-08-28] MEDS ORDERED: fentaNYL INJ 100 MCG/2 ML AMP IVP ONE (17:30)
[2021-08-28] MEDS ORDERED: FAMOTIDINE 20MG/2ML IV (PEPCID) IVP ONE (17:30)
[2021-08-28 17:40] LABS: ALBUMIN 3.6 GM/DL (3.2-4.5)
[2021-08-28 17:43] LABS: TOTAL PROTEIN 7.4 GM/DL (6.4-8.2)
[2021-08-28 17:44] LABS: BILIRUBIN,TOTAL 0.3 MG/DL (0.1-1.0)
[2021-08-28 17:46] LABS: CREATININE SERUM 0.65 MG/DL (0.60-1.30)
--- NOTE | 2021-08-28 17:49 | ED Abdominal Pain ---
General Chief Complaint: Abdominal/GI Problems Stated Complaint: COLON CA/ABD PAIN Nursing Triage Note: PT TO ROOM 8 PT CO OF SHARP ABD PAIN SINCE APPROX 0300 THIS AM. PT WAS RELEASED FROM HOSP APPROX 3 DAYS AGO FOR SAME THING, PT HAS CA COLON. PT WAS ADVISED TO GO TO ED FOR WORSENING PAIN. Source of Information: Patient, Old Records Exam Limitations: No Limitations (MARLENY ANDREW MD) History of Present Illness Date Seen by Provider: Aug 28, 2021 Time Seen by Provider: 16:56 Initial Comments This 60-year-old woman presents to the emergency room with rather severe lower abdominal pain that started this morning. 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 She had 2 out of 10 lymph nodes returned positive. She is now receiving chemotherapy and received her last infusion 8 days ago. She does not typically have symptoms like this associated with her chemotherapy. She was admitted to the hospital from August 22- for suspected early small bowel obstruction. She was managed conservatively and improved. She was tolerating food and fluids after discharge until this morning. She again developed severe abdominal pain with a more intense focus on the right side. She has been nauseated but denies vomiting. Last bowel movement was this morning and was normal. She denies fever or other symptoms of infectious illness. She has had some cramping of her hands which she believes may be due to hypokalemia. She has had problems with hypokalemia in the past. Dr. Garcia is her surgeon. (MARLENY ANDREW MD) Allergies and Home Medications Allergies Coded Allergies: No Known Drug Allergies (Unverified , 09/08/14) Patient Home Medication List Home Medication List Reviewed: Yes (MARLENY ANDREW MD) Dicyclomine HCl (Dicyclomine HCl) 10 Mg Capsule, 10 MG PO TID, (Reported) Entered as Reported by: JUANPABLO DÍAZ on 08/24/211521 Last Action: Reviewed Hydrocodone/Acetaminophen (Hydrocodone-Acetamin 7.5-325) 1 Each Tablet, 1 EACH PO Q4H PRN for PAIN-MODERATE (5-7), (Reported) Entered as Reported by: JUANPABLO DÍAZ on 08/24/211521 Last Action: Reviewed Multivits-Min/Iron/FA/Lutein (Centrum Silver Women Tablet) 1 Each Tablet, 1 EACH PO DAILY, (Reported) Entered as Reported by: JUANPABLO DÍAZ on 08/24/21 152 Last Action: Reviewed Omeprazole (Omeprazole) 20 Mg Capsule., 20 MG PO DAILY, (Reported) Entered as Reported by: RONNIE FOURNIER on 08/31/21 0851 Last Action: Reviewed Promethazine HCl (Promethazine Tablet) 25 Mg Tablet, 25 MG PO Q6H PRN for NAUSEA/VOMITING, (Reported) Entered as Reported by: JUANPABLO DÍAZ on 08/24/21 152 Last Action: Reviewed Discontinued Medications Pantoprazole Sodium (Pantoprazole Sodium) 40 Mg Tablet., 40 MG PO DAILY, (Reported) Discontinued Reason: No Longer Taking Entered as Reported by: JUANPABLO DÍAZ on 06/18/21 1101 Last Action: Discontinued Review of Systems Review of Systems Constitutional: no symptoms reported EENTM: No Symptoms Reported Respiratory: No Symptoms Reported Cardiovascular: No Symptoms Reported Gastrointestinal: See HPI Genitourinary: No Symptoms Reported Musculoskeletal: see HPI Skin: no symptoms reported Psychiatric/Neurological: See HPI Endocrine: No Symptoms Reported Hematologic/Lymphatic: No Symptoms Reported (MARLENY ANDREW MD) Past Rpvbkxj-Wfpssm-Tlprte Hx Patient Social History Tobacco Use?: No Substance use?: No Alcohol Use?: No (MARLENY ANDREW MD) Seasonal Allergies Seasonal Allergies: No (MARLENY ANDREW MD) Past Medical History Surgeries: Yes (SMALL BOWEL RESECTION, LEFT ARM SCREW PLACED) Adenoidectomy, Bowel Surgery, Orthopedic, Tonsillectomy Respiratory: Yes COPD Currently Using CPAP: No Currently Using BIPAP: No Cardiac: No Neurological: No : No [employer] History: Menopausal Genitourinary: No Gastrointestinal: Yes Gastroesophageal Reflux, Obstructive Bowel Musculoskeletal: Yes Osteoporosis, Arthritis, Chronic Back Pain Endocrine: No HEENT: Yes (WEARS GLASSES, HAS UPPER DENTURES) Loss of Vision: Denies Hearing Impairment: Denies Cancer: Yes (Adenocarcinoma of the small bowel) Did You Recieve Any Treatments: Yes What Type of Treatment Did You: Chemotherapy, Surgical Intervention Psychosocial: No Integumentary: No Blood Disorders: No Adverse Reaction/Blood Tranf: No (N/A) (MARLENY ANDREW MD) Family Medical History Cancer, Diabetes (MARLENY ANDREW MD) Physical Exam Vital Signs Vital Signs - First Documented 08/28/21 17:04 Temp 36.0 Pulse 98 Resp 24 B/P (MAP) 176/109 (131) Pulse Ox 99 (JACQUES MERAZ) Vital Signs Capillary Refill : Less Than 3 Seconds (MARLENY ANDREW MD) Height/Weight/BMI Height: 5'6" Weight: 118lbs. oz. 53.200157xs; 16.00 BMI Method: General Appearance: WD/WN, moderate distress HEENT: PERRL/EOMI, normal ENT inspection, other Neck: normal inspection Respiratory: lungs clear, normal breath sounds, no respiratory distress Cardiovascular: regular rate, rhythm, no edema, no murmur Gastrointestinal: soft, distended, tenderness (Generalized tenderness, more intense in the right lower quadrant) Extremities: normal inspection, no pedal edema Neurologic/Psychiatric: access spec II-XII nml as tested, no motor/sensory deficits, alert, normal mood/affect, oriented x 3 Skin: normal color, warm/dry (MARLENY ANDREW MD) Progress/Results/Core Measures Results/Orders Lab Results Laboratory Tests Test 08/28/21 17:15 Range/Units White Blood Count 8.5 4.3-11.0 10^3/uL Red Blood Count 4.69 3.80-5.11 10^6/uL Hemoglobin 12.9 # 11.5-16.0 g/dL Hematocrit 39 35-52 % Mean Corpuscular Volume 84 80-99 fL Mean Corpuscular Hemoglobin 28 25-34 pg Mean Corpuscular Hemoglobin Concent 33 32-36 g/dL Red Cell Distribution Width 16.5 H 10.0-14.5 % Platelet Count 355 130-400 10^3/uL Mean Platelet Volume 8.3 L 9.0-12.2 fL Immature Granulocyte % (Auto) 8 % Neutrophils (%) (Auto) 49 42-75 % Lymphocytes (%) (Auto) 32 12-44 % Monocytes (%) (Auto) 11 0-12 % Eosinophils (%) (Auto) 0 0-10 % Basophils (%) (Auto) 1 0-10 % Neutrophils # (Auto) 4.2 1.8-7.8 10^3/uL Lymphocytes # (Auto) 2.7 1.0-4.0 10^3/uL Monocytes # (Auto) 0.9 0.0-1.0 10^3/uL Eosinophils # (Auto) 0.0 0.0-0.3 10^3/uL Basophils # (Auto) 0.0 0.0-0.1 10^3/uL Immature Granulocyte # (Auto) 0.6 H 0.0-0.1 10^3/uL Neutrophils % (Manual) 48 % Lymphocytes % (Manual) 37 % Monocytes % (Manual) 10 % Metamyelocytes % 3 % Band Neutrophils 2 % Blood Morphology Comment NORMAL Sodium Level 139 135-145 MMOL/L Potassium Level 3.0 L 3.6-5.0 MMOL/L Chloride Level 99 98-107 MMOL/L Carbon Dioxide Level 24 21-32 MMOL/L Anion Gap 16 H 5-14 MMOL/L Blood Urea Nitrogen 6 L 7-18 MG/DL Creatinine 0.65 0.60-1.30 MG/DL Estimat Glomerular Filtration Rate 92 BUN/Creatinine Ratio 9 Glucose Level 125 H 70-105 MG/DL Calcium Level 9.0 8.5-10.1 MG/DL Corrected Calcium 9.3 8.5-10.1 MG/DL Magnesium Level 1.2 L 1.6-2.4 MG/DL Total Bilirubin 0.3 0.1-1.0 MG/DL Aspartate Amino Transf (AST/SGOT) 36 H 5-34 U/L Alanine Aminotransferase (ALT/SGPT) 18 0-55 U/L Alkaline Phosphatase 101 40-136 U/L C-Reactive Protein High Sensitivity 1.67 H 0.00-0.50 MG/DL Total Protein 7.4 6.4-8.2 GM/DL Albumin 3.6 3.2-4.5 GM/DL Lipase 23 8-78 U/L (JACQUES MERAZ) Medications Given in ED Current Medications Medications Dose Ordered Sig/Grady Route Start Time Stop Time Status Last Admin Dose Admin Diatrizoate Meglum/ Diatrizoate Sod 120 ml ONCE ONCE PO 08/28/21 20:00 08/28/21 20:01 DC 08/28/21 20:25 120 ML Famotidine 20 mg ONCE ONCE IVP 08/28/21 17:30 08/28/21 17:31 DC 08/28/21 17:26 20 MG Fentanyl Citrate 25 mcg ONCE ONCE IVP 08/28/21 17:30 08/28/21 17:31 DC 08/28/21 17:26 25 MCG Iohexol 100 ml ONCE ONCE IV 08/28/21 20:00 08/28/21 20:01 DC 08/28/21 20:23 66 ML Magnesium Sulfate/ Dextrose 100 ml @ 100 mls/hr ONCE ONCE IV 08/28/21 18:30 08/28/21 19:29 DC 08/28/21 18:32 100 MLS/HR Ondansetron HCl 8 mg ONCE ONCE IVP 08/28/21 18:30 08/28/21 18:31 DC 08/28/21 18:32 8 MG Potassium Chloride 50 ml @ 50 mls/hr ONCE ONCE IV 08/28/21 18:30 08/28/21 19:29 DC 08/28/21 19:09 50 MLS/HR Sodium Chloride 100 ml ONCE ONCE IV 08/28/21 20:00 08/28/21 20:01 DC 08/28/21 20:23 80 ML Sodium Chloride 1,000 ml @ 150 mls/hr Q6H40M ONCE IV 08/28/21 18:30 08/28/21 23:33 DC 08/28/21 18:32 150 MLS/HR (JACQUES MERAZ) Vital Signs/I&O 08/28/21 17:04 Temp 36.0 Pulse 98 Resp 24 B/P (MAP) 176/109 (131) Pulse Ox 99 (JACQUES MERAZ) Blood Pressure Mean: 131 Progress Progress Note #1: Time: 17:54 Progress Note Patient was seen and examined shortly after arrival. Fentanyl is being given for pain and Zofran for nausea and vomiting. Labs are pending. Progress Note #2: Time: 18:52 Progress Note Patient has notable hypomagnesemia and hypokalemia. Electrolyte replacement has been ordered. X-ray was concerning for bowel obstruction and possibly soft tissue air in the abdomen. This was discussed with Dr. Vicente. We will proceed with CT scan with IV and oral contrast. Pain has been treated with fentanyl followed by morphine. Zofran was given in preparation for the oral contrast. Care of this patient is being transitioned to Dr. Meraz at this time. I did discuss CODE STATUS with the patient again. She would like to remain in a DO NOT RESUSCITATE status. (MARLENY ANDREW MD) Diagnostic Imaging Diagonstic Imaging: Xray Plain Films/CT/US/NM/MRI: abdomen, pelvis Comments KUB and upright x-ray viewed by me and report reviewed. See report below: NAME: SHANTI [facility] REC#: [id number] PT STATUS: REG ER : 1960 PHYSICIAN: MARLENY ANDREW MD ADMIT DATE: 08/28/21/ER Signed Date of Exam:08/28/21 ABDOMEN, FLAT UPRIGHT/DECUB EXAMINATION: Abdomen 2 view. HISTORY: Abdominal pain. COMPARISON: 08/23/2021. FINDINGS: There are significantly dilated loops of small bowel with air-fluid levels on the upright film. Findings most consistent with an obstruction. No free air is seen. There appears to be soft tissue gas in the right aspect of the pelvis. It could represent mottled gas and stool as well. No free air. IMPRESSION: 1. Significantly dilated small bowel with air-fluid levels on the frontal view most consistent with an obstruction. 2. Mottled gas in the right pelvis may be soft tissue gas or gas intermixed with stool. Dictated by: Dictated on workstation # [id number] Dict: 08/28/211808 Trans: 08/28/211814 [facility] [id number] Interpreted by: CARLOS MCCORMICK MD Electronically signed by: CARLOS MCCORMICK MD 08/28/211814 Diagonstic Imaging: CT Plain Films/CT/US/NM/MRI: abdomen, pelvis Comments NAME: SHNATI [facility]UELL[facility] REC#: [id number] PT STATUS: REG ER : 1960 PHYSICIAN: MARLENY ANDREW MD ADMIT DATE: 08/28/21/ER Signed Date of Exam:08/28/21 CT ABDOMEN/PELVIS W CT ABDOMEN/PELVIS W TECHNIQUE: Multiple contiguous axial images were obtained through the abdomen and pelvis after administration of intravenous contrast. All CT scans use one or more of the following dose optimizing techniques: automated exposure control, MA and/or KvP adjustment based on patient size and exam type or iterative reconstruction. INDICATION: Abdominal pain. COMPARISON: CT abdomen and pelvis from 08/22/2021. FINDINGS: Lower chest: The lung bases are clear. No pericardial or pleural effusion. Peritoneum: No free intraperitoneal air or fluid. Liver and biliary system: The liver is normal. The gallbladder is normal. No biliary duct dilation. Spleen and Pancreas: Spleen is normal. The pancreas enhances normally without mass lesion or peripancreatic inflammatory changes. Adrenals: Normal. tract: The kidneys enhance normally without suspicious mass or obstruction. Bilateral extrarenal pelves are again noted. Urinary bladder is distended without wall thickening. Probable hysterectomy. GI tract: Stomach is moderately distended with contrast material. Marked dilated loops of small bowel measuring up to 4 cm. Similar to prior examination, there is a transition from dilated loops of bowel to decompressed bowel in the right lower quadrant adjacent to metallic foci which may be due to prior anastomotic staple line. No pericolonic inflammatory changes. The appendix is not seen. Vasculature and Lymph nodes: Normal caliber aorta with severe atherosclerotic plaquing. No abdominal or pelvic lymphadenopathy. Musculoskeletal: No concerning osseous lesion. IMPRESSION: 1. Residual or recurrent small bowel obstruction with transition point in the right lower quadrant which is at the site of potential prior anastomosis. 2. No perforation or abscess. Dictated by: Dictated on workstation # [id number] Dict: 08/28/212040 Trans: 08/28/212050 [facility] [id number] Interpreted by: BENI GARCIA MD Electronically signed by: BENI GARCIA MD 08/28/212050 (MARLENY ANDREW MD) Departure Communication (Admissions) Time/Spoke to Consulting Phy: 18:20 Dr. Vicente (MARLENY ANDREW MD) Time/Spoke to Admitting Phy: 19:30 Discussed the case with Dr. Mccollum and she agrees to admit the patient to the floor with general surgery. Time/Spoke to Consulting Phy: 00:00 Dr. Vicente agrees to consult for surgery. (JACQUES MERAZ) Impression Primary Impression: Small bowel obstruction Additional Impressions: History of cancer of small intestine Hypokalemia Hypomagnesemia Disposition: ADMITTED INPATIENT Condition: Stable Admissions Decision to Admit Reason: Admit from ER (General) Decision to Admit/Date: Aug 28, 2021 Time/Decision to Admit Time: 18:20 (MARLENY ANDREW MD) Decision to Admit Reason: Admit from ER (General) Decision to Admit/Date: Aug 29, 2021 Time/Decision to Admit Time: 18:20 (JACQUES MERAZ) Departure-Patient Inst. Referrals: [facility] [place]) Primary Care Physician PIPO QUIGLEY (Family) Primary Care Physician MARLENY ANDREW MD Aug 28, 2021 17:49 JACQUES MERAZ Aug 28, 2021 21:33
[2021-08-28 17:50] LABS: BAND NEUTROPHILS 2 %; LYMPHOCYTES % (MANUAL) 37 %; MAGNESIUM 1.2 MG/DL (1.6-2.4); METAMYELOCYTES % 3 %; MONOCYTES % (MANUAL) 10 %; NEUTROPHILS % (MANUAL) 48 %; RBC MORPH NORMAL
[2021-08-28] MEDS ORDERED: morphine INJ 10 MG/ML 1ML (SYR OR VIAL) IVP STA ×2 (17:56→22:00)
--- NOTE | 2021-08-28 18:12 | Diagnostic Imaging Report ---
EXAMINATION: Abdomen 2 view. HISTORY: Abdominal pain. COMPARISON: 08/23/2021. FINDINGS: There are significantly dilated loops of small bowel with air-fluid levels on the upright film. Findings most consistent with an obstruction. No free air is seen. There appears to be soft tissue gas in the right aspect of the pelvis. It could represent mottled gas and stool as well. No free air. IMPRESSION: 1. Significantly dilated small bowel with air-fluid levels on the frontal view most consistent with an obstruction. 2. Mottled gas in the right pelvis may be soft tissue gas or gas intermixed with stool. Dictated by: Dictated on workstation # [id number]
[2021-08-28] MEDS ORDERED: ONDANSETRON 4 MG/2 ML (SDV) Z0FRAN IVP ONE (18:30)
[2021-08-28] MEDS ORDERED: NS IV 1000 ML 1,000 ML IV ONE (18:30)
[2021-08-28] MEDS ORDERED: POTASSIUM CL 10MEQ/50ML IVPB 50 ML IV ONE (18:30)
[2021-08-28] MEDS ORDERED: MAGNESIUM 1 GM/100 ML IVPB 100 ML IV ONE (18:30)
[2021-08-28] MEDS ORDERED: DIATRIZOATE MEGLUM/SODIUM 37% 120 ML (GASTROGRAFIN) PO ONE (20:00)
[2021-08-28] MEDS ORDERED: HOLD METFORMIN - RECEIVED CONTRAST 20 ML VIAL IV SCH (20:00)
[2021-08-28] MEDS ORDERED: IOHEXOL 350 MG/ML 100 ML (OMNIPAQUE 350) VIAL IV ONE (20:00)
[2021-08-28] MEDS ORDERED: NS 100 ML (IVPB) BAG IV ONE (20:00)
--- NOTE | 2021-08-28 20:50 | Diagnostic Imaging Report ---
CT ABDOMEN/PELVIS W TECHNIQUE: Multiple contiguous axial images were obtained through the abdomen and pelvis after administration of intravenous contrast. All CT scans use one or more of the following dose optimizing techniques: automated exposure control, MA and/or KvP adjustment based on patient size and exam type or iterative reconstruction. INDICATION: Abdominal pain. COMPARISON: CT abdomen and pelvis from 08/22/2021. FINDINGS: Lower chest: The lung bases are clear. No pericardial or pleural effusion. Peritoneum: No free intraperitoneal air or fluid. Liver and biliary system: The liver is normal. The gallbladder is normal. No biliary duct dilation. Spleen and Pancreas: Spleen is normal. The pancreas enhances normally without mass lesion or peripancreatic inflammatory changes. Adrenals: Normal. tract: The kidneys enhance normally without suspicious mass or obstruction. Bilateral extrarenal pelves are again noted. Urinary bladder is distended without wall thickening. Probable hysterectomy. GI tract: Stomach is moderately distended with contrast material. Marked dilated loops of small bowel measuring up to 4 cm. Similar to prior examination, there is a transition from dilated loops of bowel to decompressed bowel in the right lower quadrant adjacent to metallic foci which may be due to prior anastomotic staple line. No pericolonic inflammatory changes. The appendix is not seen. Vasculature and Lymph nodes: Normal caliber aorta with severe atherosclerotic plaquing. No abdominal or pelvic lymphadenopathy. Musculoskeletal: No concerning osseous lesion. IMPRESSION: 1. Residual or recurrent small bowel obstruction with transition point in the right lower quadrant which is at the site of potential prior anastomosis. 2. No perforation or abscess. Dictated by: Dictated on workstation # [id number]
[2021-08-28 22:30] VITALS: BP 168/80
[2021-08-28] MEDS ORDERED: NS W/KCL 40 MEQ/L 1,000 ML IV ONE (22:48)
[2021-08-28] MEDS ORDERED: POTASSIUM CHLORIDE INJ 40 MEQ in NS IV 1000 ML 1,000 ML IV SCH (23:30)
[2021-08-28] MEDS ORDERED: ONDANSETRON 4 MG/2 ML (SDV) Z0FRAN IV PRN (23:30)
[2021-08-28] MEDS: NS W/KCL 40 MEQ/L 1,000 ML IV SCH (23:34)
[2021-08-28] MEDS: ENOXAPARIN 40 MG/0.4 ML (LOVENOX) SYR SC SCH (23:34)
[2021-08-29] MEDS: morphine INJ 4 MG/ML 1 ML (VIAL/SYRINGE) IV PRN ×6 (02:36→23:15)
[2021-08-29 03:50] VITALS: BP 123/66
[2021-08-29 06:23] LABS: BASOPHILS % (AUTO) 1 % (0-10); EOSINOPHILS # (AUTO) 0.1 10^3/uL (0.0-0.3); EOSINOPHILS % (AUTO) 1 % (0-10); HEMATOCRIT 35 % (35-52); HEMOGLOBIN 11.2 g/dL (11.5-16.0); LYMPHOCYTES # (AUTO) 3.1 10^3/uL (1.0-4.0); LYMPHOCYTES % (AUTO) 39 % (12-44); MEAN CORPUSCULAR HEMOGLOBIN 28 pg (25-34); MEAN CORPUSCULAR HGB CONC 32 g/dL (32-36); MEAN CORPUSCULAR VOLUME 86 fL (80-99); MEAN PLATELET VOLUME 8.7 fL (9.0-12.2); MONOCYTES # (AUTO) 0.9 10^3/uL (0.0-1.0); MONOCYTES % (AUTO) 12 % (0-12); NEUTROPHILS # (AUTO) 3.3 10^3/uL (1.8-7.8); NEUTROPHILS % (AUTO) 42 % (42-75); PLATELET COUNT 317 10^3/uL (130-400); WHITE BLOOD COUNT 7.9 10^3/uL (4.3-11.0)
[2021-08-29 06:37] LABS: POTASSIUM 3.5 MMOL/L (3.6-5.0)
[2021-08-29 06:43] LABS: CREATININE SERUM 0.61 MG/DL (0.60-1.30)
[2021-08-29 06:46] LABS: MAGNESIUM 1.7 MG/DL (1.6-2.4)
[2021-08-29 07:15] VITALS: BP 103/64
[2021-08-29] MEDS: ENOXAPARIN 40 MG/0.4 ML (LOVENOX) SYR SC SCH ×2 (08:33→20:13)
[2021-08-29] MEDS: PANTOPRAZOLE 40 MG (PROTONIX) VIAL IV SCH (08:33)
--- NOTE | 2021-08-29 08:44 | Diagnostic Imaging Report ---
Indication: Small bowel obstruction. Compared with radiographs of one-day prior. Findings: Maximal small bowel caliber with an air-containing loop in the left lower quadrant is 5 cm today, previously about 5.5 cm. Differential air-fluid levels in the upright views are much less pronounced than they were on the previous. There is some advancement of contrast media from earlier CT, now within the rectal vault. No adverse development. Impression: Oral contrast has reached the rectum, small bowel dilatation and air-fluid levels have improved. No adverse development. Dictated by: Dictated on workstation # [id number]
--- NOTE | 2021-08-29 11:12 | Consultation - Surgery ---
KALANINANCY 08/29/21 1112: History of Present Illness History of Present Illness Patient Consulted On(héctor/time) 08/29/21 11:07 Date Seen by Provider: Aug 29, 2021 Time Seen by Provider: 11:07 Reason for Visit: SBO History of Present Illness Elzbieta Mueller is a 60 yo female with a history of distal small bowel adenocarcinoma s/p resection, colon cancer, SBO, paralytic ileus, GERD, and COPD who presents for evaluation and management of severe abdominal pain concerning for SBO after recent hospital discharge. Elzbieta states that she has had this sharp abdominal pain in the RLQ before with previous occurrences of SBO, though this is the worst the pain has been. She reports that the pain is constant and unbearable at its worst; presently, her pain is minimal with analgesic medication and supportive care. Elzbieta states that she had a soft bowel movement last night (08/28), but she has not passed flatus. Her last chemo infusion was 8 days ago, and states that she has never had these symptoms associated with her treatment before. CT abdomen and pelvis on 08/28 demonstrates residual or recurrent SBO at the site of anastomosis; no perforation or abscess was noted; abdominal x-ray (08/28) demonstrated significantly dilated bowel with air-fluid levels consistent with obstruction. Repeat abdominal x-ray today (08/29) demonstrates improvement of small bowel dilation and air-fluid levels; as well, oral contrast was able to reach the rectum. On Lovenox for DVT prophylaxis. Elzbieta currently lives with her sister, who takes care of her, and is interested in consulting palliative care to achieve at home comfort with pain medication. Elzbieta's code status is DNR. Allergies and Home Medications Allergies Coded Allergies: No Known Drug Allergies (Unverified , 09/08/14) Patient Home Medication List Dicyclomine HCl (Dicyclomine HCl) 10 Mg Capsule, 10 MG PO BID, (Reported) Entered as Reported by: JUANPABLO DÍAZ on 08/24/211521 Last Action: Reviewed Hydrocodone/Acetaminophen (Hydrocodone-Acetamin 7.5-325) 1 Each Tablet, 1 EACH PO Q4H PRN for PAIN-MODERATE (5-7), (Reported) Entered as Reported by: JUANPABLO DÍAZ on 08/24/211521 Last Action: Reviewed Multivits-Min/Iron/FA/Lutein (Centrum Silver Women Tablet) 1 Each Tablet, 1 EACH PO DAILY, (Reported) Entered as Reported by: JUANPABLO DÍAZ on 08/24/211521 Last Action: Reviewed Pantoprazole Sodium (Pantoprazole Sodium) 40 Mg Tablet.dr, 40 MG PO DAILY, (Reported) Entered as Reported by: JUANPABLO DÍAZ on 06/18/21 1101 Last Action: Reviewed Promethazine HCl (Promethazine Tablet) 25 Mg Tablet, 25 MG PO Q6H PRN for NAUSEA/VOMITING, (Reported) Entered as Reported by: JUANPABLO DÍAZ on 08/24/211521 Last Action: Reviewed Discontinued Medications Cyclobenzaprine HCl (Cyclobenzaprine HCl) 10 Mg Tablet, 10 MG PO TID PRN for MUSCLE SPASMS Discontinued Reason: No Longer Taking Prescribed by: ELIZABETH NAIK on 06/20/21 1140 Dicyclomine HCl (Dicyclomine HCl) 10 Mg Capsule, 10 MG PO ACHS Discontinued Reason: Duplicate Order Prescribed by: ELIZABETH NAIK on 06/20/21 1140 Fluticasone/Salmeterol (Advair 250-50 Diskus) 1 Each Blst.w.dev, 1 EACH IH BID, (Reported) Discontinued Reason: No Longer Taking Entered as Reported by: JUANPABLO DÍAZ on 05/28/21 1327 Hydrocodone/Acetaminophen (Hydrocodone-Acetamin 7.5-325) 1 Each Tablet, 1 EACH PO Q4H PRN for PAIN-MODERATE (5-7) Discontinued Reason: No Longer Taking Prescribed by: ELIZABETH NAIK on 06/20/21 1141 Hydrocodone/Acetaminophen (Hydrocodone-Acetamin 7.5-325) 1 Each Tablet, 1 EACH PO Q4H Discontinued Reason: No Longer Taking Prescribed by: SOFY OSWALD on 07/02/21 1134 Sucralfate (Sucralfate) 1 Gm Tablet, 1 GM PO ACHS PRN for GI UPSET, (Reported) Discontinued Reason: No Longer Taking Entered as Reported by: JUANPABLO DÍAZ on 05/28/21 1327 Tiotropium Cerro (Spiriva) 1 Inh Aerp, 1 INH IH DAILY, (Reported) Discontinued Reason: Duplicate Order Entered as Reported by: JUANPABLO DÍAZ on 05/28/21 1545 Past Ihccdjm-Wywrog-Npekdp Hx Patient Social History Smoking Status: Former Smoker Former Smoker, Quit: May 30, 2021 Type Used: Cigarettes 2nd Hand Smoke Exposure: No Recent Hopitalizations: Yes (AUGUST/SMALL BOWEL OBSTRUCTION) Alcohol Use?: No Have you traveled recently?: No Seasonal Allergies Seasonal Allergies: No Surgeries History of Surgeries: Yes (SMALL BOWEL RESECTION, LEFT ARM SCREW PLACED) Surgeries: Adenoidectomy, Bowel Surgery, Orthopedic, Tonsillectomy Respiratory History of Respiratory Disorde: Yes Respiratory Disorders: COPD Cardiovascular History of Cardiac Disorders: No Neurological History of Neurological Disord: No Reproductive System : No 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: 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 Genitourinary History of Genitourinary Disor: No Gastrointestinal History of Gastrointestinal Di: Yes Gastrointestinal Disorders: Gastroesophageal Reflux, Obstructive Bowel Musculoskeletal History of Musculoskeletal Dis: Yes Musculoskeletal Disorders: Osteoporosis, Arthritis, Chronic Back Pain Endocrine History of Endocrine Disorders: No HEENT History of HEENT Disorders: Yes (WEARS GLASSES, HAS UPPER DENTURES) Loss of Vision: Denies Hearing Impairment: Denies Cancer History of Cancer: Yes (Adenocarcinoma of the small bowel) Cancer: Small Bowel, Colon Psychosocial History of Psychiatric Problem: No Integumentary History of Skin or Integumenta: No Blood Transfusions History of Blood Disorders: No Adverse Reaction to a Blood Tr: No (N/A) Family Medical History Significant Family History: Cancer, Diabetes Review of Systems-General Constitutional: No chills, No diaphoresis EENTM: No blurred vision, No double vision Respiratory: No cough, No short of breath Cardiovascular: No chest pain, No edema Gastrointestinal: abdominal pain (RLQ), heartburn, nausea, vomiting Genitourinary: No decreased output, No dysuria Musculoskeletal: No back pain, No joint pain; muscle cramps (In hands) Skin: change in color (pallor), dryness (on abdomen) Psychiatric/Neurological: Denies Headache, Denies Numbness Physical Exam-General Problems Physical Exam Vital Signs Vital Signs 08/29/21 08/29/21 07:15 08:00 Temp 36.1 Pulse 67 Resp 18 B/P (MAP) 103/64 (77) Pulse Ox 93 O2 Delivery Room Air Vital Signs - First Documented 08/28/21 08/28/21 17:04 22:07 Temp 36.0 Pulse 98 Resp 24 B/P (MAP) 176/109 (131) Pulse Ox 99 O2 Delivery Room Air Capillary Refill : Less Than 3 Seconds General Appearance: WD/WN, no apparent distress Eyes: Bilateral Eye Normal Inspection, Bilateral Eye PERRL, Bilateral Eye EOMI HEENT: PERRL/EOMI, normal ENT inspection Neck: full range of motion, supple, normal inspection Respiratory: chest non-tender, lungs clear, normal breath sounds, no respiratory distress, no accessory muscle use Cardiovascular: regular rate, rhythm, no edema, no gallop, no murmur Peripheral Pulses: 2+ Radial Pulses (R), 2+ Radial Pulses (L) Gastrointestinal: distended, tenderness Rectal: deferred Extremities: normal inspection, no pedal edema, normal capillary refill Neurologic/Psychiatric: personnel research psychologist II-XII nml as tested, no motor/sensory deficits, alert, normal mood/affect, oriented x 3 Skin: warm/dry, pallor Data Review Labs Laboratory Tests 08/28/21 17:15: White Blood Count 8.5, Red Blood Count 4.69, Hemoglobin 12.9#, Hematocrit 39, Mean Corpuscular Volume 84, Mean Corpuscular Hemoglobin 28, Mean Corpuscular Hemoglobin Concent 33, Red Cell Distribution Width 16.5H, Platelet Count 355, Mean Platelet Volume 8.3L, Immature Granulocyte % (Auto) 8, Neutrophils (%) (Auto) 49, Lymphocytes (%) (Auto) 32, Monocytes (%) (Auto) 11, Eosinophils (%) (Auto) 0, Basophils (%) (Auto) 1, Neutrophils # (Auto) 4.2, Lymphocytes # (Auto) 2.7, Monocytes # (Auto) 0.9, Eosinophils # (Auto) 0.0, Basophils # (Auto) 0.0, Immature Granulocyte # (Auto) 0.6H, Neutrophils % (Manual) 48, Lymphocytes % (Manual) 37, Monocytes % (Manual) 10, Metamyelocytes % 3, Band Neutrophils 2, Blood Morphology Comment NORMAL, Sodium Level 139, Potassium Level 3.0L, Chloride Level 99, Carbon Dioxide Level 24, Anion Gap 16H, Blood Urea Nitrogen 6L, Creatinine 0.65, Estimat Glomerular Filtration Rate 92, BUN/Creatinine Ratio 9, Glucose Level 125H, Calcium Level 9.0, Corrected Calcium 9.3, Magnesium Level 1.2L, Total Bilirubin 0.3, Aspartate Amino Transf (AST/SGOT) 36H, Alanine Aminotransferase (ALT/SGPT) 18, Alkaline Phosphatase 101, C-Reactive Protein High Sensitivity 1.67H, Total Protein 7.4, Albumin 3.6, Lipase 23 08/29/21 06:10: White Blood Count 7.9, Red Blood Count 4.08, Hemoglobin 11.2L, Hematocrit 35, Mean Corpuscular Volume 86, Mean Corpuscular Hemoglobin 28, Mean Corpuscular Hemoglobin Concent 32, Red Cell Distribution Width 16.8H, Platelet Count 317, Mean Platelet Volume 8.7L, Immature Granulocyte % (Auto) 6, Neutrophils (%) (Auto) 42, Lymphocytes (%) (Auto) 39, Monocytes (%) (Auto) 12, Eosinophils (%) (Auto) 1, Basophils (%) (Auto) 1, Neutrophils # (Auto) 3.3, Lymphocytes # (Auto) 3.1, Monocytes # (Auto) 0.9, Eosinophils # (Auto) 0.1, Basophils # (Auto) 0.0, Immature Granulocyte # (Auto) 0.5H, Sodium Level 139, Potassium Level 3.5L, Chloride Level 104, Carbon Dioxide Level 24, Anion Gap 11, Blood Urea Nitrogen 4L, Creatinine 0.61, Estimat Glomerular Filtration Rate 99, BUN/Creatinine Ratio 7, Glucose Level 100, Calcium Level 8.0L, Magnesium Level 1.7 Radiology NAME: ELZBIETA MUELLER [facility] REC#: [id number] PT STATUS: ADM IN : 1960 PHYSICIAN: MO PENA MD ADMIT DATE: 08/28/21 Signed Date of Exam:08/29/21 ABDOMEN, FLAT & UPRIGHT/DECUB Indication: Small bowel obstruction. Compared with radiographs of one-day prior. Findings: Maximal small bowel caliber with an air-containing loop in the left lower quadrant is 5 cm today, previously about 5.5 cm. Differential air-fluid levels in the upright views are much less pronounced than they were on the previous. There is some advancement of contrast media from earlier CT, now within the rectal vault. No adverse development. Impression: Oral contrast has reached the rectum, small bowel dilatation and air-fluid levels have improved. No adverse development. Dictated by: Dictated on workstation # [id number] Dict: 08/29/21 0839 Trans: 08/29/2158 [facility] [id number] Interpreted by: ALTAF RODRIGUEZ Electronically signed by: ALTAF RODRIGUEZ 08/29/2158 CT ABDOMEN/PELVIS W TECHNIQUE: Multiple contiguous axial images were obtained through the abdomen and pelvis after administration of intravenous contrast. All CT scans use one or more of the following dose optimizing techniques: automated exposure control, MA and/or KvP adjustment based on patient size and exam type or iterative reconstruction. INDICATION: Abdominal pain. COMPARISON: CT abdomen and pelvis from 08/22/2021. FINDINGS: Lower chest: The lung bases are clear. No pericardial or pleural effusion. Peritoneum: No free intraperitoneal air or fluid. Liver and biliary system: The liver is normal. The gallbladder is normal. No biliary duct dilation. Spleen and Pancreas: Spleen is normal. The pancreas enhances normally without mass lesion or peripancreatic inflammatory changes. Adrenals: Normal. tract: The kidneys enhance normally without suspicious mass or obstruction. Bilateral extrarenal pelves are again noted. Urinary bladder is distended without wall thickening. Probable hysterectomy. GI tract: Stomach is moderately distended with contrast material. Marked dilated loops of small bowel measuring up to 4 cm. Similar to prior examination, there is a transition from dilated loops of bowel to decompressed bowel in the right lower quadrant adjacent to metallic foci which may be due to prior anastomotic staple line. No pericolonic inflammatory changes. The appendix is not seen. Vasculature and Lymph nodes: Normal caliber aorta with severe atherosclerotic plaquing. No abdominal or pelvic lymphadenopathy. Musculoskeletal: No concerning osseous lesion. IMPRESSION: 1. Residual or recurrent small bowel obstruction with transition point in the right lower quadrant which is at the site of potential prior anastomosis. 2. No perforation or abscess. Dictated by: Dictated on workstation # [id number] NAME: ELZBIETA MUELLER [facility] REC#: [id number] PT STATUS: REG ER : 1960 PHYSICIAN: MARLENY ANDREW MD ADMIT DATE: 08/28/21/ER Signed Date of Exam:08/28/21 ABDOMEN, FLAT & UPRIGHT/DECUB EXAMINATION: Abdomen 2 view. HISTORY: Abdominal pain. COMPARISON: 08/23/2021. FINDINGS: There are significantly dilated loops of small bowel with air-fluid levels on the upright film. Findings most consistent with an obstruction. No free air is seen. There appears to be soft tissue gas in the right aspect of the pelvis. It could represent mottled gas and stool as well. No free air. IMPRESSION: 1. Significantly dilated small bowel with air-fluid levels on the frontal view most consistent with an obstruction. 2. Mottled gas in the right pelvis may be soft tissue gas or gas intermixed with stool. Dictated by: Dictated on workstation # [id number] Dict: 08/28/219 Trans: 08/28/211814 [facility] [id number] Interpreted by: CARLOS MCCORMICK MD Electronically signed by: CARLOS MCCORMICK MD 08/28/211814 Assessment/Plan Assessment/Plan Admission Diagonsis SBO Assessment/Plan 1. SBO with severe abdominal pain, localized to RLQ 2. Moderately diff Adenocarcinoma of the distal small bowel, extended through muscle wall to serosal surface, S/P distal small bowel resection 3. Colon Cancer 4. Hypokalemia 5. Hypocalcemia 6. hypomagnesmia 7. GERD 8. COPD Supportive measures NPO Small bowel follow through in consideration for tomorrow Supplement electrolytes Pain management Lovenox for DVT prophylaxis AMELIA WINTERS DO 08/29/21 1508: History of Present Illness History of Present Illness History of Present Illness Patient is a 60-year-old female admitted for small bowel obstruction. Patient abdomen is continued to increase in size. Patient has not had any flatus or bowel movement. She has constant pain that is sharp and moderate currently but can become very unbearable. Patient with the last chemo infusion she states was 8 days ago. She had a CT scan that demonstrated a small bowel obstruction with the transition point at the anastomosis. Proximal dilated loops of small bowel. Abdominal x-ray this morning demonstrating contrast in the rectum. Patient currently on clear liquids but does not feel like it is moving. Her abdomen is gotten significantly more distended she states. She has no other complaints at this time she denies any fever sweats chills shortness of breath or chest pain. Allergies and Home Medications Allergies Coded Allergies: No Known Drug Allergies (Unverified , 09/08/14) Patient Home Medication List Home Medication List Reviewed: Yes Dicyclomine HCl (Dicyclomine HCl) 10 Mg Capsule, 10 MG PO BID, (Reported) Entered as Reported by: JUANPABLO DÍAZ on 08/24/211521 Last Action: Reviewed Hydrocodone/Acetaminophen (Hydrocodone-Acetamin 7.5-325) 1 Each Tablet, 1 EACH PO Q4H PRN for PAIN-MODERATE (5-7), (Reported) Entered as Reported by: JUANPABLO DÍAZ on 08/24/211521 Last Action: Reviewed Multivits-Min/Iron/FA/Lutein (Centrum Silver Women Tablet) 1 Each Tablet, 1 EACH PO DAILY, (Reported) Entered as Reported by: JUANPABLO DÍAZ on 08/24/211521 Last Action: Reviewed Pantoprazole Sodium (Pantoprazole Sodium) 40 Mg Tablet.dr, 40 MG PO DAILY, (Reported) Entered as Reported by: JUANPABLO DÍAZ on 06/18/21 1101 Last Action: Reviewed Promethazine HCl (Promethazine Tablet) 25 Mg Tablet, 25 MG PO Q6H PRN for NAUSEA/VOMITING, (Reported) Entered as Reported by: JUANPABLO DÍAZ on 08/24/211521 Last Action: Reviewed Discontinued Medications Cyclobenzaprine HCl (Cyclobenzaprine HCl) 10 Mg Tablet, 10 MG PO TID PRN for MUSCLE SPASMS Discontinued Reason: No Longer Taking Prescribed by: ELIZABETH NAIK on 06/20/21 1140 Dicyclomine HCl (Dicyclomine HCl) 10 Mg Capsule, 10 MG PO ACHS Discontinued Reason: Duplicate Order Prescribed by: ELIZABETH NAIK on 06/20/21 1140 Fluticasone/Salmeterol (Advair 250-50 Diskus) 1 Each Blst.w.dev, 1 EACH IH BID, (Reported) Discontinued Reason: No Longer Taking Entered as Reported by: JUANPABLO DÍAZ on 05/28/21 1327 Hydrocodone/Acetaminophen (Hydrocodone-Acetamin 7.5-325) 1 Each Tablet, 1 EACH PO Q4H PRN for PAIN-MODERATE (5-7) Discontinued Reason: No Longer Taking Prescribed by: ELIZABETH NAIK on 06/20/21 1141 Hydrocodone/Acetaminophen (Hydrocodone-Acetamin 7.5-325) 1 Each Tablet, 1 EACH PO Q4H Discontinued Reason: No Longer Taking Prescribed by: SOFY OSWALD on 07/02/21 1134 Sucralfate (Sucralfate) 1 Gm Tablet, 1 GM PO ACHS PRN for GI UPSET, (Reported) Discontinued Reason: No Longer Taking Entered as Reported by: JUANPABLO DÍAZ on 05/28/21 1327 Tiotropium Cerro (Spiriva) 1 Inh Aerp, 1 INH IH DAILY, (Reported) Discontinued Reason: Duplicate Order Entered as Reported by: JUANPABLO DÍAZ on 05/28/21 1327 Past Jcuuqtn-Rvinsl-Ahibbh Hx Reviewed Nursing Assessment Reviewed/Agree w Nursing PMH: Yes Family Medical History Significant Family History: No Pertinent Family Hx Review of Systems-General Constitutional: No chills, No diaphoresis EENTM: No blurred vision, No double vision Respiratory: No cough, No short of breath Cardiovascular: No chest pain, No edema Gastrointestinal: abdominal pain (RLQ), heartburn, nausea, vomiting Genitourinary: No decreased output, No dysuria Musculoskeletal: No back pain, No joint pain; muscle cramps (In hands) Skin: change in color (pallor), dryness Psychiatric/Neurological: Denies Headache, Denies Numbness All Other Systems Reviewed Negative Unless Noted: Yes (Negative excepted noted.) Physical Exam-General Problems Physical Exam General Appearance: WD/WN, no apparent distress HEENT: PERRL/EOMI, normal ENT inspection Neck: full range of motion, supple, normal inspection Respiratory: chest non-tender, no respiratory distress, no accessory muscle use Cardiovascular: regular rate, rhythm, no JVD Gastrointestinal: distended, tenderness (Mild diffusely) Rectal: deferred Back: normal inspection, no CVA tenderness Extremities: normal inspection, no pedal edema Neurologic/Psychiatric: personnel research psychologist II-XII nml as tested, alert, normal mood/affect, oriented x 3 Skin: warm/dry, pallor Lymphatic: no adenopathy Assessment/Plan Assessment/Plan Assessment/Plan Patient is 60-year-old female with small bowel obstruction. Small bowel adenocarcinoma status post resection Nausea and vomiting Electrolyte abnormalities By CT scan looks like it is questionably at the anastomosis. On follow-up abdominal x-ray contrast pain is way through however she has been on clear liquids and her abdomen is more distended. We will keep patient n.p.o. IV hydration Await bowel function If no improvement may need surgical intervention. Supervisory-Addendum Brief Verification & Attestation Participated in pt care: history, MDM, physical Personally performed: exam, history, MDM, supervision of care Care discussed with: Medical Student Procedures: n/a Results interpretation: Verified all documentation Verification and Attestation of Medical Student E/M Service A medical student performed and documented this service in my presence. I reviewed and verified all information documented by the medical student and made modifications to such information, when appropriate. I personally performed the physical exam and medical decision making. Amelia Winters, Aug 29, 2021,15:12 NANCY URIARTE Aug 29, 2021 11:12 AMELIA WINTERS DO Aug 29, 2021 15:08
--- NOTE | 2021-08-29 11:19 | History & Physical-Hospitalist ---
History of Present Illness HPI/Chief Complaint This is a 60-year-old white female presents with complaints of increased abdominal pain and distention. X-rays confirm dilation of the small bowel at the junction of the previous resection of a small bowel . She had had a previous hospitalization for similar complaints with a small bowel obstruction that resolved on its own a week ago. This is her second presentation with similar symptoms. She thinks her pain is worse this morning than it had been however the x-ray does show that the small bowel has gone from 5.5 cm down to 5 cm and contrast is present in the rectal vault. She did have an episode of vomiting last night but is otherwise tolerating clear liquids well. Source: patient Exam Limitations: no limitations Date Seen 08/29/21 Time Seen by a Provider: 10:00 Attending Physician Mae Mccollum MD [facility] Referring Physician Date of Admission Aug 28, 2021 at 21:39 Home Medications & Allergies Home Medications Reviewed patient Home Medication Reconciliation performed by pharmacy medication reconciliations general service technician and/or nursing. Patients Allergies have been reviewed. Allergies Allergies Coded Allergies No Known Drug Allergies ([id number]/14) Past Trvyzef-Tkcbkt-Zzwnxe Hx Patient Social History Marrital Status: Employed/Student: retired Tobacco Use?: No Smoking Status: Former Smoker Substance use?: No Alcohol Use?: No Pt feels they are or have been: No Immunizations Up To Date Tetanus Booster (TDap): More Than 5 Years Hepatitis A: No Hepatitis B: No Seasonal Allergies Seasonal Allergies: No Current Status status: No Advance Directives: No Communicates: Verbally Primary Language: Jamaican Preferred Spoken Language: Jamaican Is interpretation needed?: No Sensory deficits: Vision impairment Implanted or Applied Medical D: Port-a-cath Past Medical History Surgeries: Adenoidectomy, Bowel Surgery, Orthopedic, Tonsillectomy COPD Currently Using CPAP: No Currently Using BIPAP: No [employer] History: Menopausal Gastroesophageal Reflux, Obstructive Bowel Osteoporosis, Arthritis, Chronic Back Pain Loss of Vision: Denies Hearing Impairment: Denies Did You Recieve Any Treatments: Yes What Type of Treatment Did You: Chemotherapy, Surgical Intervention Blood Disorders: No Adverse Reaction/Blood Tranf: No (N/A) COPD GERD Adenocarcinoma of the Colon Family Medical History Cancer, Diabetes Review of Systems Constitutional: see HPI EENTM: no symptoms reported Respiratory: no symptoms reported Cardiovascular: no symptoms reported Gastrointestinal: abdominal pain (RLQ), loss of appetite, nausea, vomiting Genitourinary: dysuria, incontinence Skin: no symptoms reported Psychiatric/Neurological: No Symptoms Reported Physical Exam Physical Exam Vital Signs Vital Signs - First Documented 08/28/21 08/28/21 17:04 22:07 Temp 36.0 Pulse 98 Resp 24 B/P (MAP) 176/109 (131) Pulse Ox 99 O2 Delivery Room Air Capillary Refill : Less Than 3 Seconds Height, Weight, BMI Height: 5'6" Weight: 118lbs. oz. 53.581949li; 16.89 BMI Method: General Appearance: WD/WN, Mild Distress HEENT: Normal ENT Inspection, Pharynx Normal Neck: Full Range of Motion, Normal Inspection, Non Tender, Supple Respiratory: Chest Non Tender, Lungs Clear, Normal Breath Sounds, No Accessory Muscle Use, No Respiratory Distress Cardiovascular: Regular Rate, Rhythm, No Edema, No Gallop, No Murmur, Normal Peripheral Pulses Gastrointestinal: Abnormal Bowel Sounds, Distended, Guarding Rectal: Deferred Extremity: Normal Capillary Refill, Normal Range of Motion, Non Tender, No Calf Tenderness Neurologic/Psychiatric: Alert, Oriented x3, No Motor/Sensory Deficits, Normal Mood/Affect Skin: Normal Color Results Results/Procedures Labs Laboratory Tests 08/28/21 17:15 08/29/21 06:10 Patient resulted labs reviewed. Assessment/Plan Admission Diagnosis Small bowel obstruction Metastatic small bowel cancer -undergoing chemo Urinary incontinence UAs have been unremarkable suspect secondary to vaginal atrophy Abdominal pain secondary to #1 Hypokalemia At this juncture does not appear she needs an NG tube and in fact the x-rays would indicate that its improving. Surgical consult pending. Admission Status: Observation Diagnosis/Problems Diagnosis/Problems (1) SBO (small bowel obstruction) Status: Acute (2) Abdominal pain Status: Acute (3) Hypokalemia Status: Acute (4) Ileus Status: Acute (5) Metastatic adenocarcinoma Status: Acute Permanent Comment: distal small bowel Last Edited By: Tristen Odom on Jun 18, 2021 16:35 Copy Copies To 1: [facility]/MAE BARNETT MD Aug 29, 2021 11:19
[2021-08-29 11:38] VITALS: BP 145/77
[2021-08-29] MEDS ORDERED: fluCOnazole (DIFLUCAN) 100 MG TAB PO ONE (12:30)
[2021-08-29] MEDS: NS W/KCL 40 MEQ/L 1,000 ML IV SCH (13:46)
[2021-08-29 15:51] VITALS: BP 178/86
[2021-08-29 19:26] VITALS: BP 135/72
[2021-08-30] VITALS (7 sets, daily range): BP systolic 124–167; BP diastolic 69–78
[2021-08-30] MEDS: NS W/KCL 40 MEQ/L 1,000 ML IV SCH ×2 (02:37→14:10)
[2021-08-30 05:00] LABS: BASOPHILS % (AUTO) 0 % (0-10); EOSINOPHILS # (AUTO) 0.1 10^3/uL (0.0-0.3); EOSINOPHILS % (AUTO) 1 % (0-10); HEMATOCRIT 33 % (35-52); HEMOGLOBIN 10.5 g/dL (11.5-16.0); LYMPHOCYTES # (AUTO) 2.7 10^3/uL (1.0-4.0); LYMPHOCYTES % (AUTO) 25 % (12-44); MEAN CORPUSCULAR HEMOGLOBIN 28 pg (25-34); MEAN CORPUSCULAR HGB CONC 32 g/dL (32-36); MEAN CORPUSCULAR VOLUME 86 fL (80-99); MEAN PLATELET VOLUME 8.5 fL (9.0-12.2); MONOCYTES # (AUTO) 1.2 10^3/uL (0.0-1.0); MONOCYTES % (AUTO) 11 % (0-12); NEUTROPHILS # (AUTO) 6.7 10^3/uL (1.8-7.8); NEUTROPHILS % (AUTO) 61 % (42-75); PLATELET COUNT 298 10^3/uL (130-400); WHITE BLOOD COUNT 10.9 10^3/uL (4.3-11.0)
[2021-08-30 05:17] LABS: ALBUMIN 2.9 GM/DL (3.2-4.5); POTASSIUM 4.4 MMOL/L (3.6-5.0)
[2021-08-30 05:18] LABS: CALCIUM 8.2 MG/DL (8.5-10.1)
[2021-08-30 05:19] LABS: TOTAL PROTEIN 5.9 GM/DL (6.4-8.2)
[2021-08-30 05:21] LABS: BILIRUBIN,TOTAL 0.3 MG/DL (0.1-1.0)
[2021-08-30 05:23] LABS: CREATININE SERUM 0.62 MG/DL (0.60-1.30)
--- NOTE | 2021-08-30 09:28 | Progress Note - Surgery ---
KALANINANCY 08/30/21 0928: Subjective Date Seen by a Provider: Aug 30, 2021 Time Seen by a Provider: 09:21 Subjective/Events-last exam Elzbieta is resting in bed, and reports that she has not passed flatus or had a bowel movement. States pain is under control with analgesic medication. Dis cussed placing an NG tube and increasing fluid rate to 100. Review of Systems General: No Chills, No Night Sweats HEENT: No Head Aches, No Visual Changes Pulmonary: No Dyspnea, No Cough Cardiovascular: No: Chest Pain, Palpitations Gastrointestinal: Nausea, Abdominal Pain Genitourinary: No Dysuria, No Frequency Musculoskeletal: No: arm pain, leg pain Neurological: No: Weakness, Numbness Focused Exam Respiratory: Chest Non Tender, Lungs Clear Cardiovascular: Regular Rate, Rhythm, No Edema Peripheral Pulses: 2+ Radial Pulses (R), 2+ Radial Pulses (L) Skin: normal color, warm/dry Objective Exam Vital Signs Date Time Temp Pulse Resp B/P (MAP) Pulse Ox O2 Delivery O2 Flow Rate FiO2 08/30/21 08:01 37.0 83 20 132/70 (90) 94 Room Air 08/30/21 04:36 36.9 81 124/73 (90) 90 Room Air 08/30/21 00:43 36.8 84 20 125/69 (87) 91 Room Air 08/29/21 20:15 95 Room Air 08/29/21 19:26 36.8 88 20 135/72 (93) 95 Room Air 08/29/21 15:51 36.8 90 20 178/86 (116) 97 Room Air 08/29/21 11:38 36.1 87 18 145/77 (99) 95 Room Air I & O 08/30/21 07:00 Intake Total 2200 ml Output Total 2300 ml Balance -100 ml Capillary Refill : Less Than 3 Seconds General Appearance: WD/WN, Mild Distress HEENT: Normal ENT Inspection, Pharynx Normal Neck: Full Range of Motion, Normal Inspection, Non Tender, Supple Respiratory: Chest Non Tender, Lungs Clear, Normal Breath Sounds, No Accessory Muscle Use, No Respiratory Distress Cardiovascular: Regular Rate, Rhythm, No Edema, No Gallop, No Murmur, Normal Peripheral Pulses Peripheral Pulses: 2+ Radial Pulses (R), 2+ Radial Pulses (L) Gastrointestinal: distended, tenderness (Mild diffusely) Extremity: Normal Capillary Refill, Normal Range of Motion, Non Tender, No Calf Tenderness Neurologic/Psychiatric: Alert, Oriented x3, No Motor/Sensory Deficits, Normal Mood/Affect Skin: Normal Color Results Lab Laboratory Tests 08/30/21 04:43: White Blood Count 10.9, Red Blood Count 3.77L, Hemoglobin 10.5L, Hematocrit 33L, Mean Corpuscular Volume 86, Mean Corpuscular Hemoglobin 28, Mean Corpuscular Hemoglobin Concent 32, Red Cell Distribution Width 16.9H, Platelet Count 298, Mean Platelet Volume 8.5L, Immature Granulocyte % (Auto) 2, Neutrophils (%) (Auto) 61, Lymphocytes (%) (Auto) 25, Monocytes (%) (Auto) 11, Eosinophils (%) (Auto) 1, Basophils (%) (Auto) 0, Neutrophils # (Auto) 6.7, Lymphocytes # (Auto) 2.7, Monocytes # (Auto) 1.2H, Eosinophils # (Auto) 0.1, Basophils # (Auto) 0.0, Immature Granulocyte # (Auto) 0.2H, Sodium Level 136, Potassium Level 4.4, Chloride Level 102, Carbon Dioxide Level 24, Anion Gap 10, Blood Urea Nitrogen 3L, Creatinine 0.62, Estimat Glomerular Filtration Rate 98, BUN/Creatinine Ratio 5, Glucose Level 88, Calcium Level 8.2L, Corrected Calcium 9.1, Total Bilirubin 0.3, Aspartate Amino Transf (AST/SGOT) 30, Alanine Aminotransferase (ALT/SGPT) 12, Alkaline Phosphatase 89, Total Protein 5.9L, Albumin 2.9L Assessment/Plan Assessment/Plan Assessment/Plan Patient is 60-year-old female with small bowel obstruction. Small bowel adenocarcinoma status post resection Nausea and vomiting Electrolyte abnormalities By CT scan looks like it is questionably at the anastomosis. On follow-up abdominal x-ray contrast pain is way through however she has been on clear liquids and her abdomen is more distended. We will keep patient n.p.o. IV hydration, increase fluid rate to [address] NG tube, patient understands and is in agreement Await bowel function If no improvement may need surgical intervention. AMELIA VICENTE DO 08/30/21 1436: Subjective Subjective/Events-last exam Patient has been n.p.o. Patient abdomen feeling about the same. She did start passing more flatus today. We discussed placing an NG tube. Overall feeling a little bit better. Denies any nausea vomiting fever sweats chills shortness of breath or chest pain. Objective Exam General Appearance: No Apparent Distress, WD/WN; No Mild Distress HEENT: PERRL/EOMI, Normal ENT Inspection Neck: Normal Inspection, Non Tender Respiratory: Chest Non Tender, No Accessory Muscle Use, No Respiratory Distress Cardiovascular: Regular Rate, Rhythm, No JVD Gastrointestinal: soft, distended, tenderness (Right lower quadrant) Extremity: Non Tender, No Calf Tenderness Neurologic/Psychiatric: Alert, Oriented x3, No Motor/Sensory Deficits Skin: Normal Color, Warm/Dry Lymphatic: No Adenopathy Assessment/Plan Assessment/Plan Assessment/Plan Patient is 60-year-old female with small bowel obstruction. Small bowel adenocarcinoma status post resection Nausea and vomiting Electrolyte abnormalities By CT scan looks like it is questionably at the anastomosis. On follow-up abdominal x-ray contrast pain is way through We will keep patient n.p.o. IV hydration, increase fluid rate to [address] NG tube if has nausea or emesis, patient understands and is in agreement Await bowel function-started passing flatus see how progresses. If no improvement may need surgical intervention. Supervisory-Addendum Brief Verification & Attestation Participated in pt care: history, MDM, physical Personally performed: exam, history, MDM, supervision of care Care discussed with: Medical Student Procedures: n/a Results interpretation: Verified all documentation Verification and Attestation of Medical Student E/M Service A medical student performed and documented this service in my presence. I reviewed and verified all information documented by the medical student and made modifications to such information, when appropriate. I personally performed the physical exam and medical decision making. Amelia Vicente, Aug 30, 2021,14:36 NANCY URIARTE Aug 30, 2021 09:28 AMELIA VICENTE DO Aug 30, 2021 14:36
[2021-08-30] MEDS: PANTOPRAZOLE 40 MG (PROTONIX) VIAL IV SCH (10:09)
[2021-08-30] MEDS: morphine INJ 4 MG/ML 1 ML (VIAL/SYRINGE) IV PRN ×3 (10:25→21:02)
--- NOTE | 2021-08-30 11:36 | Progress Note - Hospitalist ---
Subjective HPI/CC On Admission Date Seen by Provider: Aug 30, 2021 Time Seen by Provider: 11:00 This is a 60-year-old white female presents with complaints of increased abdominal pain and distention. X-rays confirm dilation of the small bowel at the junction of the previous resection of a small bowel . She had had a previous hospitalization for similar complaints with a small bowel obstruction that resolved on its own a week ago. This is her second presentation with similar symptoms. She thinks her pain is worse this morning than it had been however the x-ray does show that the small bowel has gone from 5.5 cm down to 5 cm and contrast is present in the rectal vault. She did have an episode of vomiting last night but is otherwise tolerating clear liquids well. Subjective/Events-last exam Patient was up walking and started passing flatus. An NG tube had been placed and she complains primarily of some throat soreness and discomfort related to the NG tube but otherwise feels a little bit better. Abdomen is much less distended. He remains somewhat dependent on narcotics for pain relief. She did have a vaginal yeast infection yesterday and some itching and was given Diflucan and she says that is better. Continues to have some urinary incontinence from when she had a bladder catheter in May but at this time would rather not pursue visualization secondary to her fatigue Objective Exam Vital Signs Vital Signs Date Time Temp Pulse Resp B/P (MAP) Pulse Ox O2 Delivery O2 Flow Rate FiO2 08/30/21 11:59 36.6 80 20 137/76 (96) 93 Room Air Capillary Refill : Less Than 3 Seconds General Appearance: Mild Distress HEENT: Normal ENT Inspection Neck: Limited Range of Motion Respiratory: Chest Non Tender, Lungs Clear, Normal Breath Sounds, No Accessory Muscle Use, No Respiratory Distress Cardiovascular: Regular Rate, Rhythm, No Edema, No Gallop, No JVD, No Murmur Gastrointestinal: Normal Bowel Sounds, Soft Extremity: No Calf Tenderness, No Pedal Edema Neurologic/Psychiatric: Alert, Oriented x3, No Motor/Sensory Deficits, Depressed Affect Results/Procedures Lab Laboratory Tests 08/30/21 04:43 Patient resulted labs reviewed. Assessment/Plan Assessment and Plan Assess & Plan/Chief Complaint Small bowel obstruction-improving metastatic adenocarcinoma small bowel-undergoing chemo Urinary incontinence UAs have been unremarkable suspect secondary to vaginal atrophy Abdominal pain secondary to #1 Hypokalemia Vaginal yeast infection-improved Diagnosis/Problems Diagnosis/Problems (1) SBO (small bowel obstruction) Status: Acute (2) Abdominal pain Status: Acute (3) Hypokalemia Status: Acute (4) Ileus Status: Acute (5) Metastatic adenocarcinoma Status: Acute Permanent Comment: distal small bowel Last Edited By: Tristen Odom on Jun 18, 2021 16:35 MO PENA MD Aug 30, 2021 11:36
[2021-08-30] MEDS: ENOXAPARIN 40 MG/0.4 ML (LOVENOX) SYR SC SCH (21:03)
[2021-08-31] MEDS: NS W/KCL 40 MEQ/L 1,000 ML IV SCH ×3 (00:08→19:49)
[2021-08-31 00:43] VITALS: BP 162/78
[2021-08-31 04:31] VITALS: BP 144/82
--- NOTE | 2021-08-31 07:13 | Progress Note - Surgery ---
WOJCIECHNANCY PENALOZA 08/31/21 0713: Subjective Date Seen by a Provider: Aug 31, 2021 Time Seen by a Provider: 07:09 Subjective/Events-last exam Elzbieta is laying in bed today with NG tube in place, which is causing some throat irritation. Abdomen is less distended, but tender upon palpation, and p atient reports passing flatus. Denies any nausea and vomiting. Had yeast infection, and was treated with diflucan. NPO. Focused Exam Respiratory: Chest Non Tender, Lungs Clear, Normal Breath Sounds Cardiovascular: Regular Rate, Rhythm, No Murmur Peripheral Pulses: 2+ Radial Pulses (R), 2+ Radial Pulses (L) Skin: normal color, warm/dry Objective Exam Vital Signs Date Time Temp Pulse Resp B/P (MAP) Pulse Ox O2 Delivery O2 Flow Rate FiO2 08/31/21 04:31 36.7 84 20 144/82 (102) 90 Room Air 08/31/21 00:43 36.7 82 20 162/78 (106) 90 Room Air 08/30/21 22:38 37.0 82 20 167/78 (107) 90 Room Air 08/30/21 20:05 92 Room Air 08/30/21 19:36 37.4 86 20 152/71 (98) 92 Room Air 08/30/21 16:00 36.7 83 22 155/78 (103) 94 Room Air 08/30/21 11:59 36.6 80 20 137/76 (96) 93 Room Air 08/30/21 08:01 37.0 83 20 132/70 (90) 94 Room Air 08/30/21 08:00 Room Air I & O 08/31/21 07:00 Intake Total 2000 ml Output Total 4500 ml Balance -2500 ml Capillary Refill : Less Than 3 Seconds General Appearance: Mild Distress HEENT: Normal ENT Inspection Neck: Limited Range of Motion Respiratory: Chest Non Tender, Lungs Clear, Normal Breath Sounds, No Accessory Muscle Use, No Respiratory Distress Cardiovascular: Regular Rate, Rhythm, No Edema, No Gallop, No JVD, No Murmur Peripheral Pulses: 2+ Radial Pulses (R), 2+ Radial Pulses (L) Gastrointestinal: soft, distended, tenderness (Right lower quadrant) Extremity: No Calf Tenderness, No Pedal Edema Neurologic/Psychiatric: Alert, Oriented x3, No Motor/Sensory Deficits, Depressed Affect Skin: Normal Color, Warm/Dry Lymphatic: No Adenopathy Results Lab Laboratory Tests Test 08/30/21 04:43 Range/Units White Blood Count 10.9 4.3-11.0 10^3/uL Red Blood Count 3.77 L 3.80-5.11 10^6/uL Hemoglobin 10.5 L 11.5-16.0 g/dL Hematocrit 33 L 35-52 % Mean Corpuscular Volume 86 80-99 fL Mean Corpuscular Hemoglobin 28 25-34 pg Mean Corpuscular Hemoglobin Concent 32 32-36 g/dL Red Cell Distribution Width 16.9 H 10.0-14.5 % Platelet Count 298 130-400 10^3/uL Mean Platelet Volume 8.5 L 9.0-12.2 fL Immature Granulocyte % (Auto) 2 % Neutrophils (%) (Auto) 61 42-75 % Lymphocytes (%) (Auto) 25 12-44 % Monocytes (%) (Auto) 11 0-12 % Eosinophils (%) (Auto) 1 0-10 % Basophils (%) (Auto) 0 0-10 % Neutrophils # (Auto) 6.7 1.8-7.8 10^3/uL Lymphocytes # (Auto) 2.7 1.0-4.0 10^3/uL Monocytes # (Auto) 1.2 H 0.0-1.0 10^3/uL Eosinophils # (Auto) 0.1 0.0-0.3 10^3/uL Basophils # (Auto) 0.0 0.0-0.1 10^3/uL Immature Granulocyte # (Auto) 0.2 H 0.0-0.1 10^3/uL Sodium Level 136 135-145 MMOL/L Potassium Level 4.4 3.6-5.0 MMOL/L Chloride Level 102 98-107 MMOL/L Carbon Dioxide Level 24 21-32 MMOL/L Anion Gap 10 5-14 MMOL/L Blood Urea Nitrogen 3 L 7-18 MG/DL Creatinine 0.62 0.60-1.30 MG/DL Estimat Glomerular Filtration Rate 98 BUN/Creatinine Ratio 5 Glucose Level 88 70-105 MG/DL Calcium Level 8.2 L 8.5-10.1 MG/DL Corrected Calcium 9.1 8.5-10.1 MG/DL Total Bilirubin 0.3 0.1-1.0 MG/DL Aspartate Amino Transf (AST/SGOT) 30 5-34 U/L Alanine Aminotransferase (ALT/SGPT) 12 0-55 U/L Alkaline Phosphatase 89 40-136 U/L Total Protein 5.9 L 6.4-8.2 GM/DL Albumin 2.9 L 3.2-4.5 GM/DL Assessment/Plan Assessment/Plan Assessment/Plan Patient is 60-year-old female with small bowel obstruction. Small bowel adenocarcinoma status post resection Nausea and vomiting Electrolyte abnormalities By CT scan looks like it is questionably at the anastomosis. On follow-up abdominal x-ray contrast pain is way through We will keep patient n.p.o. IV hydration, increase fluid rate to [address] NG tube if has nausea or emesis, patient understands and is in agreement Await bowel function-started passing flatus see how progresses. If no improvement may need surgical intervention. AMELIA VICENTE DO 08/31/21 1706: Subjective Subjective/Events-last exam Passing flatus. Abdomen less distended. Mild pain rlq but has had since initial surgery. NG tube in place. Denies n/v fever sweats chills shortness of breath or chest pain at this time. Objective Exam General Appearance: No Apparent Distress; No Mild Distress; Thin HEENT: PERRL/EOMI, Normal ENT Inspection Neck: Non Tender, Supple Respiratory: Chest Non Tender, No Accessory Muscle Use, No Respiratory Distress Cardiovascular: Regular Rate, Rhythm, No JVD Gastrointestinal: distended (minimal), tenderness (Right lower quadrant) Neurologic/Psychiatric: Alert, Oriented x3, No Motor/Sensory Deficits Skin: Normal Color, Warm/Dry Lymphatic: No Adenopathy Assessment/Plan Assessment/Plan Assessment/Plan small bowel obstruction. Small bowel adenocarcinoma status post resection Nausea and vomiting Electrolyte abnormalities By CT scan looks like it is questionably at the anastomosis. On follow-up abdominal x-ray contrast pain is way through We will keep patient n.p.o. IV hydration Ng tube liws Will get small bowel follow through to further evaluate If no improvement may need surgical intervention. Supervisory-Addendum Brief Verification & Attestation Participated in pt care: history, MDM, physical Personally performed: exam, history, MDM, supervision of care Care discussed with: Medical Student Procedures: n/a Results interpretation: Verified all documentation Verification and Attestation of Medical Student E/M Service A medical student performed and documented this service in my presence. I reviewed and verified all information documented by the medical student and made modifications to such information, when appropriate. I personally performed the physical exam and medical decision making. Amelia Vicente, Aug 31, 2021,17:06 NANCY URIARTE Aug 31, 2021 07:13 AMELIA VICENTE DO Aug 31, 2021 17:06
[2021-08-31 08:00] VITALS: BP 113/68
[2021-08-31] MEDS ORDERED: OMEP20CA18 PO (08:51)
[2021-08-31] MEDS: PANTOPRAZOLE 40 MG (PROTONIX) VIAL IV SCH (09:07)
[2021-08-31] MEDS: morphine INJ 4 MG/ML 1 ML (VIAL/SYRINGE) IV PRN ×3 (09:56→22:38)
--- NOTE | 2021-08-31 10:05 | Diagnostic Imaging Report ---
INDICATION: Small bowel obstruction, followup. TIME OF EXAM: 9:47 AM. COMPARISON: Correlation is made with the prior abdominal radiograph from 08/29/2021. FINDINGS: An NG tube passes below the diaphragm. There continues to be some gaseous distention of the small bowel loops in the central abdomen. There is contrast identified in the distal small bowel loops as well as a portion of the right colon. The degree of small bowel distention does appear to be improved somewhat since yesterday. No significant bowel wall thickening is identified. There is no free air. IMPRESSION: The small bowel distention does appear to be slightly improved when compared to the examination of one day earlier. Dictated by: Dictated on workstation # [id number]
[2021-08-31 12:00] VITALS: BP 146/79
--- NOTE | 2021-08-31 12:18 | Progress Note - Hospitalist ---
CHARLASARAH 08/31/21 1218: Subjective HPI/CC On Admission Date Seen by Provider: Aug 31, 2021 Time Seen by Provider: 08:13 This is a 60-year-old white female presents with complaints of increased abdominal pain and distention. X-rays confirm dilation of the small bowel at the junction of the previous resection of a small bowel . She had had a previous hospitalization for similar complaints with a small bowel obstruction that resolved on its own a week ago. This is her second presentation with similar symptoms. She thinks her pain is worse this morning than it had been however the x-ray does show that the small bowel has gone from 5.5 cm down to 5 cm and contrast is present in the rectal vault. She did have an episode of vomiting last night but is otherwise tolerating clear liquids well. Subjective/Events-last exam Today the pt was resting in bed when I arrived. She is in a pleasant mood and reports some flatus last night but no BM yet. She does confirm that the NG tube has helped reduce the abdominal distention and discomfort. She does complain of pain from her lower mid abdomen when touching the area, which she attributes to healing from the removal of her tumor in May. Her abdominal x-ray does show some improvement with a reduction of air filled bowel. Dr. Vicente is also following this patient and thus far no surgical intervention is planned. Pt does confirm that she has been up and walking the halls this morning to aid in bowel function. Review of Systems General: No Chills, No Fatigue HEENT: No Head Aches, No Visual Changes, No Sore Throat Pulmonary: No Dyspnea, No Cough, No Pleuritic Chest Pain Cardiovascular: No: Chest Pain, Palpitations, Edema, Lt Headedness Gastrointestinal: Abdominal Pain, Constipation; No: Nausea, Vomiting, Diarrhea, Melena, Hematochezia Genitourinary: No Dysuria, No Frequency, No Incontinence, No Hematuria, No Retention Musculoskeletal: No: neck pain, shoulder pain, arm pain, back pain, leg pain Neurological: No: Weakness, Numbness, Change in speech Objective Exam Vital Signs Vital Signs Date Time Temp Pulse Resp B/P (MAP) Pulse Ox O2 Delivery O2 Flow Rate FiO2 08/31/21 09:08 Room Air 08/31/21 08:00 36.4 85 16 113/68 (83) 94 Capillary Refill : Less Than 3 Seconds General Appearance: No Apparent Distress, Chronically ill, Thin HEENT: PERRL/EOMI, Pharynx Normal Neck: Full Range of Motion, Non Tender, Supple Respiratory: Chest Non Tender, Lungs Clear, Normal Breath Sounds, No Accessory Muscle Use, No Respiratory Distress Cardiovascular: Regular Rate, Rhythm, No Edema, No Gallop, No Murmur, Normal Peripheral Pulses Gastrointestinal: No Organomegaly, No Pulsatile Mass, Abnormal Bowel Sounds (present, but low in frequency), Tenderness (RLQ - near midline) Rectal: Deferred Back: No CVA Tenderness, No Vertebral Tenderness Extremity: Normal Capillary Refill, Normal Range of Motion, Non Tender, No Calf Tenderness, No Pedal Edema Neurologic/Psychiatric: Alert, Oriented x3, No Motor/Sensory Deficits, Normal Mood/Affect, manager product design II-XII Norm as Tested Reflexes: 2+ Bicep (R), 2+ Bicep (L) Skin: Normal Color, Warm/Dry Lymphatic: No Adenopathy (cervical or axillary) Results/Procedures Lab Patient resulted labs reviewed. Assessment/Plan Assessment and Plan Assess & Plan/Chief Complaint SBO with abdominal pain and Ileus Hypokalemia - resolved Metastatic adenocarcinoma - originating from small bowel Plan - NPO and bowel rest with conservative and supportive therapy. SANDEE NAIK DO 09/01/21 0545: Subjective Subjective/Events-last exam Pt doing okay Nasal-gastric tube helping with the pain Updated Dr. Garcia and he will monitor only Poor prognosis emt intermediate Review of Systems Gastrointestinal: Abdominal Pain Objective Exam General Appearance: No Apparent Distress, WD/WN, Chronically ill, Thin Respiratory: Lungs Clear, Normal Breath Sounds Cardiovascular: Regular Rate, Rhythm Neurologic/Psychiatric: Alert, Oriented x3 Assessment/Plan Assessment and Plan Assess & Plan/Chief Complaint Assessment: Small bowel obstruction Metastatic adenocarcinoma small bowel Plan: NG tube Supervisory-Addendum Brief Verification & Attestation Participated in pt care: history, MDM, physical Personally performed: exam, history, MDM, supervision of care Care discussed with: Medical Student Procedures: n/a Results interpretation: Verified all documentation Verification and Attestation of Medical Student E/M Service A medical student performed and documented this service in my presence. I reviewed and verified all information documented by the medical student and made modifications to such information, when appropriate. I personally performed the physical exam and medical decision making. Sandee Naik, Sep 01, 2021,05:43 SARAH DUNHAM Aug 31, 2021 12:18 SANDEE NAIK DO Sep 01, 2021 05:45
[2021-08-31] MEDS ORDERED: DIATRIZOATE MEGLUM/SODIUM 37% 120 ML (GASTROGRAFIN) NG ONE (15:15)
[2021-08-31 20:00] VITALS: BP 135/67
[2021-08-31] MEDS: ENOXAPARIN 40 MG/0.4 ML (LOVENOX) SYR SC SCH (20:26)
[2021-08-31 23:30] VITALS: BP 154/70
[2021-09-01] VITALS (13 sets, daily range): BP systolic 92–187; BP diastolic 54–86
--- NOTE | 2021-09-01 00:48 | Diagnostic Imaging Report ---
EXAM: SMALL BOWEL STUDY ONLY INDICATION: Small bowel obstruction. COMPARISON: Abdominal radiographs 04/28/2021, 08/31/2021. FINDINGS: 120 mL of Gastrografin and 120 mL of water was administered through an NG tube. Contrast within the colon at the beginning of the study, complicating interpretation. NG tube tip and side-port in stomach. There are several dilated loops of small bowel throughout the entire abdomen. Contrast appears to reach the colon sometime between the 4 hour film and 7 hour 25 minutes film. No films were acquired in between these two. It is unclear if there is an increase of contrast in the colon at the 3 and 4 hour films given the contrast present at the beginning of the exam. IMPRESSION: Small bowel follow-through is complicated by presence of enteric contrast in the colon at the beginning of the study. There are several dilated loops of small bowel throughout the abdomen. Contrast does not confidently reach the colon until the 7 hour, 25 minute film. Dictated by: Dictated on workstation # [id number]
[2021-09-01 05:29] LABS: BASOPHILS % (AUTO) 0 % (0-10); EOSINOPHILS # (AUTO) 0.1 10^3/uL (0.0-0.3); EOSINOPHILS % (AUTO) 1 % (0-10); HEMATOCRIT 36 % (35-52); HEMOGLOBIN 11.5 g/dL (11.5-16.0); LYMPHOCYTES % (AUTO) 19 % (12-44); MEAN CORPUSCULAR HEMOGLOBIN 28 pg (25-34); MEAN CORPUSCULAR HGB CONC 32 g/dL (32-36); MEAN CORPUSCULAR VOLUME 86 fL (80-99); MEAN PLATELET VOLUME 8.4 fL (9.0-12.2); MONOCYTES # (AUTO) 0.8 10^3/uL (0.0-1.0); MONOCYTES % (AUTO) 8 % (0-12); NEUTROPHILS # (AUTO) 7.1 10^3/uL (1.8-7.8); NEUTROPHILS % (AUTO) 70 % (42-75); PLATELET COUNT 340 10^3/uL (130-400); WHITE BLOOD COUNT 10.2 10^3/uL (4.3-11.0)
[2021-09-01 05:41] LABS: ALBUMIN 3.3 GM/DL (3.2-4.5); POTASSIUM 4.7 MMOL/L (3.6-5.0)
[2021-09-01 05:42] LABS: CALCIUM 8.7 MG/DL (8.5-10.1)
[2021-09-01 05:44] LABS: TOTAL PROTEIN 6.9 GM/DL (6.4-8.2)
[2021-09-01 05:45] LABS: BILIRUBIN,TOTAL 0.5 MG/DL (0.1-1.0)
[2021-09-01 05:47] LABS: CREATININE SERUM 0.68 MG/DL (0.60-1.30)
[2021-09-01] MEDS: NS W/KCL 40 MEQ/L 1,000 ML IV SCH (05:53)
[2021-09-01] MEDS ORDERED: DEXTROSE 50% 50 ML (IMS) SYR IV ONE (06:00)
[2021-09-01] MEDS ORDERED: DEXTROSE 50% 50 ML (IMS) SYR IV PRN (06:00)
[2021-09-01] MEDS: POTASSIUM CHLORIDE INJ 20 MEQ in D5 LR IV SOLUTION 1,000 ML IV SCH ×3 (07:39→22:55)
[2021-09-01] MEDS: PANTOPRAZOLE 40 MG (PROTONIX) VIAL IV SCH (08:10)
--- NOTE | 2021-09-01 08:24 | Progress Note - Surgery ---
MARTIN-NANCY PENALOZA 09/01/21 0824: Subjective Date Seen by a Provider: Sep 01, 2021 Time Seen by a Provider: 08:19 Subjective/Events-last exam Elzbieta is laying in bed and resting. She states minimal pain upon palpation of abdomen. Denies any vomiting, some nausea. Denies having bowel movement. NG tube remains in place, and is NPO status. Small bowel follow through demonstrates multiple dilated small bowel loops, with contrast not confidently reaching colon until 7 hour, 25 min alexander. Discussed with the patient that this is likely an on- going process that may necessitate exploratory lap procedure. Patient is in understanding. Review of Systems General: Fatigue, Malaise HEENT: No Head Aches, No Visual Changes Pulmonary: No Dyspnea, No Cough Cardiovascular: No: Chest Pain, Palpitations Gastrointestinal: Nausea, Abdominal Pain (on palpation); No: Vomiting Genitourinary: No Dysuria, No Frequency Musculoskeletal: No: arm pain, leg pain Neurological: No: Numbness Focused Exam Respiratory: Chest Non Tender, Lungs Clear, Normal Breath Sounds Cardiovascular: Regular Rate, Rhythm, No Edema, No Murmur Capillary Refill: Less Than 3 Seconds Peripheral Pulses: 2+ Radial Pulses (R), 2+ Radial Pulses (L) Skin: normal color, warm/dry Objective Exam Vital Signs Date Time Temp Pulse Resp B/P (MAP) Pulse Ox O2 Delivery O2 Flow Rate FiO2 09/01/21 04:00 36.3 118 24 128/63 (84) 92 Room Air 08/31/21 23:30 35.8 91 20 154/70 (98) 95 Room Air 08/31/21 20:26 Room Air 08/31/21 20:00 36.4 89 20 135/67 (89) 93 Room Air 08/31/21 16:00 Room Air 08/31/21 12:00 36.6 88 16 146/79 (101) 94 Room Air 08/31/21 09:08 Room Air I & O 09/01/21 07:00 Intake Total 0 ml Output Total 2050 ml Balance -2050 ml Capillary Refill : Less Than 3 Seconds General Appearance: No Apparent Distress, WD/WN, Chronically ill, Thin HEENT: PERRL/EOMI, Normal ENT Inspection Neck: Non Tender, Supple Respiratory: Lungs Clear, Normal Breath Sounds Cardiovascular: Regular Rate, Rhythm, No Murmur Peripheral Pulses: 2+ Radial Pulses (R), 2+ Radial Pulses (L) Gastrointestinal: soft, distended, tenderness (Generalized tenderness, more intense in the right lower quadrant) Extremity: Normal Capillary Refill, Normal Range of Motion, Non Tender, No Ped al Edema Neurologic/Psychiatric: Alert, Oriented x3 Skin: Normal Color, Warm/Dry Lymphatic: No Adenopathy Results Lab Laboratory Tests 09/01/21 05:17: White Blood Count 10.2, Red Blood Count 4.14, Hemoglobin 11.5, Hematocrit 36, Mean Corpuscular Volume 86, Mean Corpuscular Hemoglobin 28, Mean Corpuscular Hemoglobin Concent 32, Red Cell Distribution Width 17.2H, Platelet Count 340, Mean Platelet Volume 8.4L, Immature Granulocyte % (Auto) 2, Neutrophils (%) (Auto) 70, Lymphocytes (%) (Auto) 19, Monocytes (%) (Auto) 8, Eosinophils (%) (Auto) 1, Basophils (%) (Auto) 0, Neutrophils # (Auto) 7.1, Lymphocytes # (Auto) 2.0, Monocytes # (Auto) 0.8, Eosinophils # (Auto) 0.1, Basophils # (Auto) 0.0, Immature Granulocyte # (Auto) 0.2H, Sodium Level 140, Potassium Level 4.7, Chloride Level 101, Carbon Dioxide Level 21, Anion Gap 18H, Blood Urea Nitrogen 7, Creatinine 0.68, Estimat Glomerular Filtration Rate 88, BUN/Creatinine Ratio 10, Glucose Level 60*L, Calcium Level 8.7, Corrected Calcium 9.3, Total Bilirubin 0.5, Aspartate Amino Transf (AST/SGOT) 34, Alanine Aminotransferase (ALT/SGPT) 13, Alkaline Phosphatase 110, Total Protein 6.9, Albumin 3.3 Meds Item Value Date Time Dextrose 50 ml 09/01/21 0600 (Dextrose 50% 50 PRN PRN/IV ml Emergency Syringe) Potassium 1,010 ml @ 100 mls/hr 09/01/21 0600 Chloride 20 meq/ Q10H6M/IV 09/01/21 0739 Dextrose/Lactated Ringer's Enoxaparin Sodium 40 mg 08/29/21 2100 (Lovenox DAILY@2100/SC 08/31/212025 Injection) Pantoprazole 40 mg 08/29/21 0900 (Protonix DAILY/IV 09/01/21 0810 Injection) Morphine Sulfate 6 mg 08/28/212329 (morphine Q4H PRN/IV 08/30/21 1025 INJECTION) Morphine Sulfate 4 mg 08/28/212329 (morphine Q4H PRN/IV 08/31/21 2238 INJECTION) Promethazine HCl 25 mg 08/28/212329 (Phenergan Q6H PRN/IVP Injection) Ondansetron HCl 8 mg 08/28/212329 (Zofran Q6H PRN/IV Injection (Sdv)) Radiology NAME: ELZBIETA MUELLER [facility] REC#: [id number] PT STATUS: ADM IN : 1960 PHYSICIAN: AMELIA WINTERS DO ADMIT DATE: 08/28/21 Signed Date of Exam:08/31/21 SMALL BOWEL STUDY ONLY EXAM: SMALL BOWEL STUDY ONLY INDICATION: Small bowel obstruction. COMPARISON: Abdominal radiographs 04/28/2021, 08/31/2021. FINDINGS: 120 mL of Gastrografin and 120 mL of water was administered through an NG tube. Contrast within the colon at the beginning of the study, complicating interpretation. NG tube tip and side-port in stomach. There are several dilated loops of small bowel throughout the entire abdomen. Contrast appears to reach the colon sometime between the 4 hour film and 7 hour 25 minutes film. No films were acquired in between these two. It is unclear if there is an increase of contrast in the colon at the 3 and 4 hour films given the contrast present at the beginning of the exam. IMPRESSION: Small bowel follow-through is complicated by presence of enteric contrast in the colon at the beginning of the study. There are several dilated loops of small bowel throughout the abdomen. Contrast does not confidently reach the colon until the 7 hour, 25 minute film. Dictated by: Dictated on workstation # [id number] Dict: 09/01/2140 Trans: 09/01/2146 [facility] [id number] Interpreted by: JOSE SANCHEZ MD Electronically signed by: JOSE SANCHEZ MD 09/01/2146 Assessment/Plan Assessment/Plan Assessment/Plan small bowel obstruction. Small bowel adenocarcinoma status post resection Nausea and vomiting Electrolyte abnormalities By CT scan looks like it is questionably at the anastomosis. On follow-up abdominal x-ray contrast pain is way through We will keep patient n.p.o. IV hydration Ng tube liws Small bowel follow through indicated significant dilated loops of bowel, discussed exploratory diagnostic lap procedure to determine cause of obstruction Discussed risks and benefits with the patient, and they are in agreement AMELIA WINTERS DO 09/01/21 0920: Subjective Subjective/Events-last exam Patient without flatus or bm. Still with pain primarily in rlq. Constrast slow transit and dilated loops of small bowel on sbft. NG tube in place. NPO. Denies fever sweats chills shortness of breath or chest pain. Objective Exam General Appearance: No Apparent Distress, WD/WN, Chronically ill HEENT: PERRL/EOMI, Normal ENT Inspection Neck: Non Tender, Supple Respiratory: Chest Non Tender, No Accessory Muscle Use, No Respiratory Distress Cardiovascular: Regular Rate, Rhythm, No JVD Gastrointestinal: soft, distended, tenderness (Generalized tenderness, more intense in the right lower quadrant) Extremity: Normal Capillary Refill, Normal Range of Motion, Non Tender Neurologic/Psychiatric: Alert, Oriented x3 Skin: Normal Color, Warm/Dry Lymphatic: No Adenopathy Assessment/Plan Assessment/Plan Assessment/Plan small bowel obstruction. Small bowel adenocarcinoma status post resection Nausea and vomiting Electrolyte abnormalities By CT scan looks like it is questionably at the anastomosis. On follow-up abdominal x-ray contrast pain is way through to colon but still despite conservative measures at least partial without overall improvement. We discussed that depsite conservative measures, this does not appear to going to improve overall. We discussed exploratory laparotomy all other indicated procedures and wishes to proceed. To OR today. We will keep patient n.p.o. IV hydration Ng tube liws Supervisory-Addendum Brief Verification & Attestation Participated in pt care: history, MDM, physical Personally performed: exam, history, MDM, supervision of care Care discussed with: Medical Student Procedures: n/a Results interpretation: Verified all documentation Verification and Attestation of Medical Student E/M Service A medical student performed and documented this service in my presence. I reviewed and verified all information documented by the medical student and made modifications to such information, when appropriate. I personally performed the physical exam and medical decision making. Amelia Winters, Sep 01, 2021,09:20 NANCY URIARTE Sep 01, 2021 08:24 AMELIA WINTERS DO Sep 01, 2021 09:20
[2021-09-01] MEDS ORDERED: ceFAZolin INJECTION 1,000 MG VIAL IV ONE (09:30)
--- NOTE | 2021-09-01 11:54 | Progress Note - Hospitalist ---
YAHAIRAHUSEYINSARAH 09/01/21 1154: Subjective HPI/CC On Admission Date Seen by Provider: Sep 01, 2021 Time Seen by Provider: 08:21 This is a 60-year-old white female presents with complaints of increased abdominal pain and distention. X-rays confirm dilation of the small bowel at the junction of the previous resection of a small bowel . She had had a previous hospitalization for similar complaints with a small bowel obstruction that resolved on its own a week ago. This is her second presentation with similar symptoms. She thinks her pain is worse this morning than it had been however the x-ray does show that the small bowel has gone from 5.5 cm down to 5 cm and contrast is present in the rectal vault. She did have an episode of vomiting last night but is otherwise tolerating clear liquids well. Subjective/Events-last exam Today when I visited the PT she was resting on her side and complained of back pain- stating that she thinks she slept wrong. She has not yet had a BM and a follow-up follow through study completed yesterday was inconclusive. Surgery has concern for restriction near the previous anastimosis and exploratory laproscopy is planned for today at noon to further investigate. The pt is NPO and anticipating her surgery. Review of Systems General: No Chills, No Night Sweats; Appetite HEENT: No Head Aches, No Dysphasia, No Sore Throat Pulmonary: No Dyspnea, No Cough Cardiovascular: No: Chest Pain, Edema, Lt Headedness Gastrointestinal: Abdominal Pain, Constipation; No: Nausea, Vomiting, Melena, Hematochezia Genitourinary: No Dysuria, No Frequency, No Incontinence Musculoskeletal: back pain (msk); No: neck pain, shoulder pain, arm pain, hand pain Neurological: No: Weakness, Numbness, Change in speech, Confusion Objective Exam Vital Signs Vital Signs Date Time Temp Pulse Resp B/P (MAP) Pulse Ox O2 Delivery O2 Flow Rate FiO2 09/01/21 11:29 36.8 85 16 152/77 (102) 92 Room Air Capillary Refill : Less Than 3 Seconds General Appearance: No Apparent Distress, Thin HEENT: PERRL/EOMI, Pharynx Normal Neck: Full Range of Motion, Non Tender, Supple Respiratory: Chest Non Tender, Lungs Clear, Normal Breath Sounds, No Accessory Muscle Use, No Respiratory Distress Cardiovascular: Regular Rate, Rhythm, No Edema, No Gallop, No Murmur, Normal Peripheral Pulses Gastrointestinal: No Organomegaly, No Pulsatile Mass, Tenderness, Other (NG tube in place) Rectal: Deferred Back: No CVA Tenderness, Muscle Spasm (QL and errector spinae) Extremity: Normal Capillary Refill, Normal Range of Motion, Non Tender, No Calf Tenderness, No Pedal Edema Neurologic/Psychiatric: Alert, Oriented x3, No Motor/Sensory Deficits, Normal Mood/Affect, orchid transplanter II-XII Norm as Tested Skin: Normal Color, Warm/Dry Lymphatic: No Adenopathy (axillary and cervical) Results/Procedures Lab Laboratory Tests 09/01/21 05:17 Patient resulted labs reviewed. 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 Vicente Review of Systems General: Fatigue Gastrointestinal: Vomiting, Abdominal Pain Objective Exam General Appearance: No Apparent Distress, WD/WN, Chronically ill Respiratory: Lungs Clear, Normal Breath Sounds Cardiovascular: Regular Rate, Rhythm Neurologic/Psychiatric: Alert, Oriented x3 Assessment/Plan Assessment and Plan Assess & Plan/Chief Complaint Exploratory laparoscopy Supervisory-Addendum Brief Verification & Attestation Participated in pt care: history, MDM, physical Personally performed: exam, history, MDM, supervision of care Care discussed with: Medical Student Procedures: n/a Results interpretation: Verified all documentation Verification and Attestation of Medical Student E/M Service A medical student performed and documented this service in my presence. I reviewed and verified all information documented by the medical student and made modifications to such information, when appropriate. I personally performed the physical exam and medical decision making. Sandee aNik Sep 02, 2021,06:04 SARAH DUNHAM Sep 01, 2021 11:54 SANDEE NAIK DO Sep 02, 2021 06:06
[2021-09-01] MEDS: LACTATED RINGERS 1,000 ML IV PRN ×2 (12:25→13:56)
[2021-09-01] MEDS ORDERED: ceFAZolin INJECTION 1,000 MG ONE (12:30)
[2021-09-01] MEDS ORDERED: ONDANSETRON 4 MG/2 ML (SDV) Z0FRAN ONE ×2 (12:47→14:58)
[2021-09-01] MEDS ORDERED: fentaNYL INJ 100 MCG/2 ML AMP ONE (12:47)
[2021-09-01] MEDS ORDERED: LIDOCAINE PF 2% 5 ML (XYLOCAINE) VIAL ONE (12:47)
[2021-09-01] MEDS ORDERED: MIDAZOLAM 2 MG/2 ML (VERSED) VIAL ONE (12:47)
[2021-09-01] MEDS ORDERED: proPOfol 200 MG/20 ML (DIPRIVAN) VIAL IV ONE (12:47)
[2021-09-01] MEDS ORDERED: SEVOFLURANE (ULTANE) 15 ML INHAL SOLN ONE ×2 (12:47→13:11)
[2021-09-01] MEDS ORDERED: ROCURONIUM 10 MG/ML 5 ML SYRINGE IV ONE (12:47)
[2021-09-01] MEDS ORDERED: SUCCINYLCHOLINE INJ 100 MG/5 ML SYR/VIAL ONE (13:10)
[2021-09-01] MEDS ORDERED: BUPIVACAINE 0.25% 30 ML (SENSORCAINE) VIAL ONE (13:26)
[2021-09-01] MEDS ORDERED: GLYCOPYRROLATE 0.2 MG/ML (ROBINUL) 2 ML VIAL ONE (14:05)
[2021-09-01] MEDS ORDERED: NEOSTIGMINE 3 MG/3 ML VIAL ONE (14:05)
--- NOTE | 2021-09-01 14:27 | Progress Note-Post Operative ---
Post-Operative Progess Note Surgeon (s)/Tapper Bit (s) Surgeon AMELIA WINTERS DO Tapper Bit: Dr. Anderson Pre-Operative Diagnosis small bowel obstruction Post-Operative Diagnosis small bowel obstruction, peritoneal mass along right fallopian tube Procedure & Operative Findings Date of Procedure 09/01/21 Procedure Performed/Findings exploratory laparotomy, small bowel resection, peritoneal mass biopsies, appendectomy Anesthesia Type general Estimated Blood Loss Estimated blood loss (mL): minimal Specimens/Packing Specimens Removed small bowel, peritoneal masses, appendectomy AMELIA WINTERS DO Sep 01, 2021 14:27
--- NOTE | 2021-09-01 14:39 | Anesthesia-General Post-Op ---
General Patient Condition Mental Status/LOC: Same as Preop Cardiovascular: Satisfactory Nausea/Vomiting: Absent Respiratory: Satisfactory Pain: Controlled Complications: Absent Post Op Complications Complications None Follow Up Care/Instructions Patient Instructions None needed. Anesthesia/Patient Condition Patient Condition Patient is doing well, no complaints, stable vital signs, no apparent adverse anesthesia problems. No complications reported per nursing. JESSE DELEON CRNA Sep 01, 2021 14:39
[2021-09-01] MEDS ORDERED: ONDANSETRON 4 MG/2 ML (SDV) Z0FRAN IVP PRN (14:45)
[2021-09-01] MEDS ORDERED: fentaNYL INJ 100 MCG/2 ML AMP IVP ONE (14:45)
[2021-09-01] MEDS ORDERED: HYDROmorphone 2 MG/ML VIAL (DILAUDID) IV ONE (14:45)
[2021-09-01] MEDS ORDERED: morphine INJ 10 MG/ML 1ML (SYR OR VIAL) IVP ONE (14:45)
[2021-09-01] MEDS ORDERED: PROMETHAZINE INJ 25 MG/ML (PHENERGAN) AMP IVP ONE (14:45)
[2021-09-01] MEDS ORDERED: MEPERIDINE (DEMEROL) INJ 50 MG/ML IVP ONE (14:45)
[2021-09-01] MEDS ORDERED: morphine INJ 10 MG/ML 1ML (SYR OR VIAL) ONE (15:02)
[2021-09-01] MEDS: ceFAZolin 2 GM IV Premixed 50 ML IV SCH ×2 (16:02→22:55)
[2021-09-01] MEDS: morphine INJ 4 MG/ML 1 ML (VIAL/SYRINGE) IV PRN ×4 (16:12→23:12)
[2021-09-01] MEDS: metroNIDAZOLE 500MG/100ML IVPB 100 ML IV SCH (21:57)
[2021-09-01] MEDS ORDERED: NS IV 500 ML 500 ML ONE (23:04)
[2021-09-02 02:16] LABS: HEMATOCRIT 41 % (35-52); MEAN CORPUSCULAR HEMOGLOBIN 28 pg (25-34); MEAN CORPUSCULAR HGB CONC 32 g/dL (32-36); MEAN CORPUSCULAR VOLUME 87 fL (80-99); MEAN PLATELET VOLUME 8.8 fL (9.0-12.2); PLATELET COUNT 454 10^3/uL (130-400)
[2021-09-02 02:27] LABS: POTASSIUM 5.1 MMOL/L (3.6-5.0)
[2021-09-02 02:28] LABS: CALCIUM 7.9 MG/DL (8.5-10.1)
[2021-09-02 02:33] LABS: CREATININE SERUM 1.12 MG/DL (0.60-1.30); PHOSPHORUS 5.5 MG/DL (2.3-4.7)
[2021-09-02 02:36] LABS: MAGNESIUM 1.3 MG/DL (1.6-2.4)
[2021-09-02 02:40] LABS: WHITE BLOOD COUNT 32.6 10^3/uL (4.3-11.0)
[2021-09-02 02:56] VITALS: BP 125/62
--- NOTE | 2021-09-02 02:59 | OPERATIVE REPORT ---
DATE OF SERVICE: 09/01/2021 PREOPERATIVE DIAGNOSIS: Small bowel obstruction. POSTOPERATIVE DIAGNOSES: Small bowel obstruction, peritoneal mass, this is along the right fallopian tube. PROCEDURES: Exploratory laparotomy, small bowel resection, peritoneal mass biopsy, appendectomy. SURGEON: Amelia Vicente DO INSIGHTS STRATEGIST: Dr. Anderson, assisted in retraction, dissection and closure. ANESTHESIA: General. ESTIMATED BLOOD LOSS: Minimal. COMPLICATIONS: None. INDICATIONS: The patient is a 60-year-old female with small bowel adenocarcinoma. She had a previous resection. The patient had ongoing symptoms and findings of small bowel obstruction. She has continued to have right lower quadrant abdominal pain. Without further improvement, the patient was discussed risks and benefits of performed exploratory laparotomy, which she understands risks and benefits and wishes to proceed. Consent was signed in the chart. DESCRIPTION OF PROCEDURE: The patient was taken to the operating suite. She was prepped and draped in sterile fashion. Surgical pause was performed. Midline incision was made down through the skin with 15-blade scalpel. Cautery was used to dissect down through the subcutaneous tissue to the fascia, which was then opened. Dilated small bowel was apparent. This was then slowly ran. Significant adhesions to the right lower quadrant with that being attached to the anterior abdominal wall. Significant adherence present that had to be used to start taking down this area. Where previous anastomosis was present this was significantly adhered to the abdominal wall and had to be further dissected off and taken to the peritoneum, but the small bowel was entered leaking some succus into the abdomen. With couple enterotomies made, it is decided to resect this bowel and also to make a larger lumen for the [id number] anastomosis. Proximal to where the anastomosis was dilated distal to the anastomosis was collapsed. It was apparent that due to the fixation of the anastomosis to the abdominal wall and also with some adhesions down the pelvis this caused the bowel to rotate causing obstruction. Once all adhesions were taken off, the small bowel was then ran from the cecum all the way to the ligament of Treitz without any further need for further lysis of adhesions. The small bowel was then dissected around proximal and distal to the anastomosis removing the section of enterotomies. The small bowel was brought together in a [id number] fashion using a 75 linear stapler. [place] two-step was performed. A crotch stitch was placed with 3-0 Vicryl. A LigaSure was used to divide the mesentery to the small bowel being resected. The mesenteric defect was then closed in a running fashion using 3-0 Vicryl suture. The abdomen was irrigated with copious amounts of irrigation and suction. Along the right peritoneum near the right fallopian tube, multiple approximately 1 mm little masses were present, three of these were dissected off and sent for pathology. Due to all the adhesions, the appendix was dissected around and mesoappendix was divided using the LigaSure and COLE stapler was then fired across the base of the appendix removing the appendix. The abdomen again was irrigated with copious amounts of irrigation. NG tube was confirmed in the stomach in good location. No other pathology noted within the abdomen. The fascia was then closed using 1-0 looped PDS. The wound was then irrigated and suctioned and the skin was then closed with terry. The area was then washed and dried and sterile bandage was applied. The patient tolerated procedure well without any complications. She was taken to recovery room in stable condition. Job ID: [id number] DocumentID: [id number] Dictated Date: 09/01/2021 22:57:24 Finish Specialist Date: 09/02/2021 02:58:29 Dictated By: AMELIA VICENTE DO
[2021-09-02 04:00] VITALS: BP 113/72
[2021-09-02] MEDS: metroNIDAZOLE 500MG/100ML IVPB 100 ML IV SCH ×3 (05:58→21:45)
--- NOTE | 2021-09-02 07:12 | Progress Note - Surgery ---
WOJCIECHNANCY PENALOZA 09/02/21 0712: Subjective Date Seen by a Provider: Sep 02, 2021 Time Seen by a Provider: 07:07 Subjective/Events-last exam Elzbieta is laying supine in bed today, and states her abdomen is exquisitely painful, and is unable to roll over to her right side. WBC count is 32k, and has been tachycardic. Patient denies any fevers, chills, chest pain, or SOB. She states it is difficult to take a full breath because of the abdominal pain, and has also declined to use the incentive spirometer for this reason. She denies any bowel movements or flatus. NG tube and clemens are in place. Urine output appeared okay. States that she does have an appetite, but remains NPO at this time. Denies any nausea or vomiting. Abdomen is soft to palpation, no erythema, pus, or fluid leakage evident at the incision site. Review of Systems General: Fatigue HEENT: No Head Aches, No Visual Changes Pulmonary: No Dyspnea, No Cough Cardiovascular: No: Chest Pain, Palpitations Gastrointestinal: Abdominal Pain; No: Nausea, Vomiting Genitourinary: No Dysuria, No Frequency Musculoskeletal: No: arm pain, back pain Neurological: Weakness; No: Numbness Focused Exam Respiratory: Chest Non Tender, Lungs Clear Cardiovascular: Regular Rate, Rhythm, No Edema, Tachycardia Capillary Refill: Less Than 3 Seconds Peripheral Pulses: 2+ Radial Pulses (R), 2+ Radial Pulses (L) Skin: warm/dry, pallor Objective Exam Vital Signs Date Time Temp Pulse Resp B/P (MAP) Pulse Ox O2 Delivery O2 Flow Rate FiO2 09/02/21 04:00 36.8 108 18 113/72 (86) 92 Room Air 09/02/21 02:56 37.1 115 18 125/62 (83) 92 Room Air 3.00 3.00 09/01/21 23:30 37.1 115 18 125/62 (83) 92 Room Air 09/01/21 20:00 Room Air 09/01/21 20:00 38.1 102 16 139/54 (82) 94 Room Air 09/01/21 16:07 36.4 87 16 140/65 (90) 91 Room Air 09/01/21 15:35 Room Air 09/01/21 15:35 36.3 20 129/61 (83) 94 Room Air 09/01/21 15:30 Room Air 09/01/21 15:20 20 129/64 (85) 94 Room Air 09/01/21 15:15 Room Air 09/01/21 15:10 20 129/61 (83) 94 Room Air 09/01/21 15:00 20 122/69 (86) 95 Room Air 09/01/21 15:00 Room Air 09/01/21 14:50 20 140/72 (94) 96 OxyMask 3 09/01/21 14:45 OxyMask 6 09/01/21 14:40 20 127/70 (89) 100 OxyMask 6 09/01/21 14:32 36.3 20 92/63 (73) 100 OxyMask 6 09/01/21 14:32 OxyMask 6 09/01/21 11:29 36.8 85 16 152/77 (102) 92 Room Air 09/01/21 08:32 35.9 89 18 187/86 (119) 92 Room Air 09/01/21 08:00 Room Air I & O 09/02/21 07:00 Intake Total 2200 ml Output Total 1270 ml Balance 930 ml Capillary Refill : Less Than 3 SecondsLess Than 3 Seconds General Appearance: No Apparent Distress, WD/WN, Chronically ill HEENT: PERRL/EOMI, Pharynx Normal Neck: Full Range of Motion, Non Tender, Supple Respiratory: Lungs Clear, Normal Breath Sounds Cardiovascular: Regular Rate, Rhythm, No Edema Peripheral Pulses: 2+ Radial Pulses (R), 2+ Radial Pulses (L) Gastrointestinal: soft, distended, tenderness (Generalized tenderness, more intense in the right lower quadrant) Extremity: Normal Capillary Refill, Non Tender, No Calf Tenderness, No Pedal Edema Neurologic/Psychiatric: Alert, Oriented x3, Depressed Affect Skin: Warm/Dry, Pallor Lymphatic: No Adenopathy (axillary and cervical) Results Lab Laboratory Tests 09/02/21 02:10: White Blood Count 32.6*H, Red Blood Count 4.73, Hemoglobin 13.0, Hematocrit 41, Mean Corpuscular Volume 87, Mean Corpuscular Hemoglobin 28, Mean Corpuscular Hemoglobin Concent 32, Red Cell Distribution Width 17.7H, Platelet Count 454H, Mean Platelet Volume 8.8L, Sodium Level 139, Potassium Level 5.1H, Chloride Level 104, Carbon Dioxide Level 22, Anion Gap 13, Blood Urea Nitrogen 9, Creatinine 1.12, Estimat Glomerular Filtration Rate 49, BUN/Creatinine Ratio 8, Glucose Level 157H, Glucometer 178H, Calcium Level 7.9L, Phosphorus Level 5.5H, Magnesium Level 1.3L Microbiology 09/01/21 MRSA Screen - Final, Complete MRSA not isolated Meds Item Value Date Time Metronidazole 100 ml @ 100 mls/hr 09/01/21 2200 Morphine Sulfate 4 mg 09/01/21 1615 (morphine Q2HR PRN/IV 09/01/212031 INJECTION) Cefazolin Sodium/ 50 ml @ 100 mls/hr 09/01/21 1530 Dextrose Q8H/IV 09/01/21 2255 Ondansetron HCl 4 mg 09/01/21 1445 (Zofran Q10M PRN/IVP 09/01/21 1500 Injection (Sdv)) Lactated Ringer's 1,000 ml @ 0 mls/hr 09/01/21 1230 Dextrose 50 ml 09/01/21 0600 (Dextrose 50% 50 PRN PRN/IV ml Emergency Syringe) Potassium 1,010 ml @ 100 mls/hr 09/01/21 0600 Chloride 20 meq/ Q10H6M/IV 09/01/21 2255 Dextrose/Lactated Ringer's Pantoprazole 40 mg 08/29/21 0900 (Protonix DAILY/IV 09/01/21 0810 Injection) Morphine Sulfate 6 mg 08/28/21 2330 (morphine Q4H PRN/IV 09/01/21 2312 INJECTION) Promethazine HCl 25 mg 08/28/21 2330 (Phenergan Q6H PRN/IVP Injection) Ondansetron HCl 8 mg 08/28/21 2330 (Zofran Q6H PRN/IV Injection (Sdv)) Assessment/Plan Assessment/Plan Assessment/Plan small bowel obstruction s/p ex lap with bowel resection Small bowel adenocarcinoma status post resection Nausea and vomiting Electrolyte abnormalities Current condition suggestive of leukemoid reaction; monitor closely. PT is recommended Remain NPO Maintain antibiotics and fluids Begin Tylenol PO on scheduled basis Encouraged incentive spirometer use AMELIA WINTERS DO 09/02/211927: Subjective Subjective/Events-last exam Patient lying in bed. Patient pain not quite controlled. No flatus or BM. Using incentive spirometer some. Patient denies any nausea vomiting fever sweats chills shortness of breath or chest pain. NG tube and Clemens in place WBC 32K. Objective Exam General Appearance: No Apparent Distress, WD/WN HEENT: PERRL/EOMI Neck: Full Range of Motion, Non Tender, Supple Respiratory: Chest Non Tender, No Accessory Muscle Use, No Respiratory Distress Cardiovascular: Regular Rate, Rhythm, No JVD Gastrointestinal: soft, tenderness (Lower abdominal pain incision no signs of infection) Extremity: Normal Capillary Refill, Non Tender Neurologic/Psychiatric: Alert, Oriented x3, No Motor/Sensory Deficits, Normal Mood/Affect Skin: Warm/Dry Lymphatic: No Adenopathy (axillary and cervical) Assessment/Plan Assessment/Plan Assessment/Plan small bowel obstruction s/p ex lap with bowel resection, appendectomy and biopsy of peritoneal mass the right fallopian tube Small bowel adenocarcinoma status post resection Nausea and vomiting Electrolyte abnormalities Current condition suggestive of leukemoid reaction; monitor closely. PT is recommended Remain NPO Maintain antibiotics and fluids Begin Tylenol PO on scheduled basis to help with pain control Encouraged incentive spirometer use Await bowel function and pull NG tube and start clears once bowel function returns. Clemens for accurate I&O If hemoglobin stable restart Lovenox tomorrow. Supervisory-Addendum Brief Verification & Attestation Participated in pt care: history, MDM, physical Personally performed: exam, history, MDM, supervision of care Care discussed with: Medical Student Procedures: n/a Results interpretation: Verified all documentation Verification and Attestation of Medical Student E/M Service A medical student performed and documented this service in my presence. I reviewed and verified all information documented by the medical student and made modifications to such information, when appropriate. I personally performed the physical exam and medical decision making. Amelia Winters, Sep 02, 2021,19:28 NANCY URIARTE Sep 02, 2021 07:12 AMELIA WINTERS DO Sep 02, 2021 19:28
[2021-09-02] MEDS: ceFAZolin 2 GM IV Premixed 50 ML IV SCH ×3 (07:46→23:18)
[2021-09-02 08:00] VITALS: BP 119/78
[2021-09-02] MEDS: PANTOPRAZOLE 40 MG (PROTONIX) VIAL IV SCH (08:47)
[2021-09-02] MEDS: POTASSIUM CHLORIDE INJ 20 MEQ in D5 LR IV SOLUTION 1,000 ML IV SCH ×2 (09:55→20:41)
[2021-09-02] MEDS: morphine INJ 4 MG/ML 1 ML (VIAL/SYRINGE) IV PRN ×2 (09:55→20:42)
--- NOTE | 2021-09-02 11:06 | Physical Therapy Evaluation ---
PT Evaluation-General Medical Diagnosis Admission Date Aug 28, 2021 at 21:39 Medical Diagnosis: colon resection Onset Date: Aug 28, 2021 Therapy Diagnosis Therapy Diagnosis: impaired mobility, strength, endurance Height/Weight Height (Feet): 5 Height (Inches): 6 Weight (Pounds): 118 Precautions Precautions/Isolations: Fall Prevention, Standard Precautions Weight Bear Status Right Lower Extremity: Right Weight Bearing/Tolerated Left Lower Extremity: Left Weight Bearing/Tolerated Referral Physician: Jules Reason for Referral: Evaluation/Treatment Medical History Additional Medical History Past Medical History Surgeries: Adenoidectomy, Bowel Surgery, Orthopedic, Tonsillectomy COPD Currently Using CPAP: No Currently Using BIPAP: No 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 6-Bxrpynbzyw-acnskci completes the activity by him/herself with no assistance from a helper. 5-Set-up or Clean-up Assistance-helper sets up or cleans up; patient completes activity. [place] assists only prior to or following the activity. 4-Supervision or Touching Assistance-helper provides verbal cues and/or touching/steadying and/or contact guard assistance as patient completes activity. Assistance may be provided throughout the activity or intermittently. 3-Partial/Moderate Assistance-helper does LESS THAN HALF the effort. [place] lifts, holds or supports trunk or limbs, but provides less than half the effort. 2-Substantial/Maximal Assistance-helper does MORE THAN HALF the effort. [place] lifts or holds trunk or limbs and provides more than half the effort. 0-Wqoleurtj-bigzsc does ALL the effort. Patient does none of the effort to complete the activity. Or, the assistance of 2 or more helpers is required for the patient to complete the activity. If activity was not attempted, code reason: 7-Patient Refused. 9-Not Applicable-not attempted and the patient did not perform the activity before the current illness, exacerbation or injury. 10-Not Attempted due to Environmental Limitations-(lack of equipment, weather restraints, etc.). 88-Not Attempted due to Medical Conditions or Safety Concerns. Bed Mobility: 6 Transfers (B,C,W/C): 6 Gait: 6 Stairs: 6 Indoor Mobility (Ambulation): Independent Stairs: Independent PT Evaluation-Current Subjective Patient in bed pre tx, agrees to PT in bed but states she can't get out of bed at this time due to her abdominal pain which is 10/10. Patient states she has already had pain meds but they are not helping. Patient states she has already ambulated in the hallway. Pt/Family Goals to be independent at home Objective Patient Orientation: Person, Place, Situation Attachments: NG Tube ROM/Strength ROM Lower Extremities WNL Strength Lower Extremities LLE (hip flexion 3+/5, knee flexion 4+/5, knee extension 4+/5, dorsiflexion 4+/5), RLE (hip flexion 3+/5, knee flexion 4+/5, knee extension 4+/5, dorsiflexion 4+/5) Sensory Hearing: Functional Sensation Right Lower Extremit: Intact Sensation Left Lower Extremity: Intact Treatment BLE supine exercises x20 (AP, QS, HS), patient had a lot of pain with the heel slides but was able to do them Assessment/Needs Patient in bed post tx with nurse call, phone, tray, all needs met. Patient has impaired mobility, strength, endurance. She has a lot of abdominal pain right now and refuses to get out of bed at this time but states she has been ambulating in the hallway. Rehab Potential: Fair PT Long-Term Goals Dial Equipment Engineer Goals PT Dial Equipment Engineer Goals Time Frame: Sep 09, 2021 Roll Left & Right (QC): 4 Sit to Lying (QC): 4 Lying-Sitting on Side/Bed(QC): 4 Sit to Stand (QC): 4 Chair/Obu-vo-Emxhs Xfer(QC): 4 Walk 10 feet (QC): 4 Walk 50ft with 2 Turns (QC): 4 PT Plan Problem List Problem List: Activity Tolerance, Functional Strength, Safety, Balance, Gait, Transfer, Bed Mobility, ROM Treatment/Plan Treatment Plan: Continue Plan of Care Treatment Plan: Bed Mobility, Education, Functional Activity Marily, Functional Strength, Gait, Safety, Therapeutic Exercise, Transfers Treatment Duration: Sep 09, 2021 Frequency: 6 times per week Estimated Hrs Per Day: .25 hour per day Patient and/or Family Agrees t: Yes Safety Risks/Education Patient Education: Correct Positioning, Safety Issues Teaching Recipient: Patient Teaching Methods: Demonstration, Discussion Response to Teaching: Reinforcement Needed Discharge Recommendations Plan Patient will perform bed mobility and transfer training, balance and endurance training, functional strengthening, stair training, gait training, and education, to improve functional mobility and independence at home. Therapy Discharge Recommendati: Scheduled Assistance, Home & Family, Post Acute PT Time/GCodes Time In: 1036 Time Out: 1046 Total Billed Treatment Time: 10 Total Billed Treatment 1 visit LULI SCHAEFER PT Sep 02, 2021 11:06
[2021-09-02] MEDS: HYDROmorphone 2 MG/ML VIAL (DILAUDID) IV PRN (11:12)
[2021-09-02 12:00] VITALS: BP 147/78
--- NOTE | 2021-09-02 12:03 | Progress Note - Hospitalist ---
CHARLASARAH 09/02/21 1203: Subjective HPI/CC On Admission Date Seen by Provider: Sep 02, 2021 Time Seen by Provider: 08:04 This is a 60-year-old white female presents with complaints of increased abdominal pain and distention. X-rays confirm dilation of the small bowel at the junction of the previous resection of a small bowel . She had had a previous hospitalization for similar complaints with a small bowel obstruction that resolved on its own a week ago. This is her second presentation with similar symptoms. Subjective/Events-last exam Today the pt is S/P 1 day small bowel resection and appendectomy. She is resting in bed but complaining of abdominal pain around the incision site. Pt reports using the ICS at bedside, but is difficult secondary to abdominal pain. Otherwise she is doing well and will continue to rest and receive IV abx. and begin PT soon. Review of Systems General: No Chills, No Night Sweats; Fatigue, Appetite HEENT: No Head Aches, No Visual Changes, No Eye Pain, No Dysphasia, No Sore Throat Pulmonary: No Dyspnea, No Cough, No Pleuritic Chest Pain Cardiovascular: No: Chest Pain, Palpitations, Edema, Lt Headedness Gastrointestinal: Abdominal Pain; No: Nausea, Vomiting, Diarrhea, Constipation, Melena, Hematochezia Genitourinary: No Dysuria, No Frequency, No Incontinence, No Hematuria Musculoskeletal: back pain; No: neck pain, shoulder pain, arm pain, leg pain Neurological: Weakness; No: Numbness, Change in speech, Confusion Objective Exam Vital Signs Vital Signs Date Time Temp Pulse Resp B/P (MAP) Pulse Ox O2 Delivery O2 Flow Rate FiO2 09/02/21 08:00 Room Air 09/02/21 08:00 36.6 103 18 119/78 (92) 92 09/02/21 02:56 3.00 3.00 Capillary Refill : Less Than 3 SecondsLess Than 3 Seconds General Appearance: Mild Distress, Thin HEENT: PERRL/EOMI, Pharynx Normal Neck: Full Range of Motion, Non Tender, Supple Respiratory: Chest Non Tender, Lungs Clear, Normal Breath Sounds, No Accessory Muscle Use, No Respiratory Distress Cardiovascular: Regular Rate, Rhythm, No Edema, No Gallop, No Murmur, Normal Peripheral Pulses Gastrointestinal: Normal Bowel Sounds, No Organomegaly, No Pulsatile Mass, Tenderness Rectal: Deferred Extremity: Normal Capillary Refill, Normal Range of Motion, Non Tender, No Calf Tenderness, No Pedal Edema Neurologic/Psychiatric: Alert, Oriented x3, No Motor/Sensory Deficits, Normal Mood/Affect, chart collector II-XII Norm as Tested Skin: Normal Color, Warm/Dry Lymphatic: No Adenopathy (cervicl and axillary) Results/Procedures Lab Laboratory Tests 09/02/21 02:10 Patient resulted labs reviewed. 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 Monitor and supportive care AMELIA WINTERS DO 09/02/211920: Subjective HPI/CC On Admission Patient lying in bed. Patient pain not quite under control she states. No flatus or bowel movement. Patient with NG tube. N.p.o. currently. Patient denies any nausea vomiting fever sweats chills shortness of breath or chest pain at this time. Using incentive spirometer some. Objective Exam General Appearance: No Apparent Distress, Thin HEENT: PERRL/EOMI (Laying in bed) Neck: Full Range of Motion, Non Tender, Supple Respiratory: Chest Non Tender, No Accessory Muscle Use, No Respiratory Distress Cardiovascular: Regular Rate, Rhythm, No JVD Gastrointestinal: No Organomegaly, No Pulsatile Mass, Tenderness (Lower portion of abdomen incision no signs of infection) Rectal: Deferred Extremity: Normal Capillary Refill, Normal Range of Motion, Non Tender, No Calf Tenderness Neurologic/Psychiatric: Alert, Oriented x3, Normal Mood/Affect, chart collector II-XII Norm as Tested Skin: Normal Color, Warm/Dry Lymphatic: No Adenopathy (cervicl and axillary) Assessment/Plan Assessment and Plan Assess & Plan/Chief Complaint SBO with abdominal pain and Ileus - S/P small bowel resection/revision and appy and peritoneal excisional biopsy of masses next to right fallopian tube 09/02/2021 Hypokalemia - resolved Metastatic adenocarcinoma - 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 Monitor and supportive care, PT, once bowel function returns remove NG tube and start on clears. Repeat labs in a.m. Supervisory-Addendum Brief Verification & Attestation Participated in pt care: history, MDM, physical Personally performed: exam, history, MDM, supervision of care Care discussed with: Medical Student Procedures: n/a Results interpretation: Verified all documentation Verification and Attestation of Medical Student E/M Service A medical student performed and documented this service in my presence. I reviewed and verified all information documented by the medical student and made modifications to such information, when appropriate. I personally performed the physical exam and medical decision making. Amelia Winters, Sep 02, 2021,19:20 SANDEE NAIK DO 09/03/21 0544: Subjective Subjective/Events-last exam Pt had exploratory laparotomy and adhesions were taken down, the small bowel was adhesed to the abdominal wall WBC is 32,000 Ancef and Flagyl maintained Review of Systems Gastrointestinal: Abdominal Pain Objective Exam General Appearance: Chronically ill, Moderate Distress, Thin Respiratory: Lungs Clear Cardiovascular: Regular Rate, Rhythm Assessment/Plan Assessment and Plan Assess & Plan/Chief Complaint Add Dilaudid Supervisory-Addendum Brief Verification & Attestation Participated in pt care: history, MDM, physical Personally performed: exam, history, MDM, supervision of care Care discussed with: Medical Student Procedures: n/a Results interpretation: Verified all documentation Verification and Attestation of Medical Student E/M Service A medical student performed and documented this service in my presence. I reviewed and verified all information documented by the medical student and made modifications to such information, when appropriate. I personally performed the physical exam and medical decision making. Sandee Naik, Sep 03, 2021,05:44 SARAH DUNHAM Sep 02, 2021 12:03 AMELIA WINTERS DO Sep 02, 2021 19:21 SANDEE NAIK DO Sep 03, 2021 05:44
[2021-09-02] MEDS: ACETAMINOPHEN 325 MG TABLET PO SCH ×3 (12:21→23:20)
[2021-09-02] MEDS ORDERED: diphenhydrAMINE 50 MG/ML INJ (BENADRYL) IVP PRN (15:00)
[2021-09-02 15:43] VITALS: BP 143/82
[2021-09-02 20:21] VITALS: BP 140/73
[2021-09-03 00:36] VITALS: BP 137/68
[2021-09-03] MEDS: HYDROmorphone 2 MG/ML VIAL (DILAUDID) IV PRN (03:36)
[2021-09-03] MEDS: ACETAMINOPHEN 325 MG TABLET PO SCH ×3 (03:36→17:05)
[2021-09-03 04:20] VITALS: BP 161/78
[2021-09-03] MEDS: metroNIDAZOLE 500MG/100ML IVPB 100 ML IV SCH ×3 (05:20→21:10)
[2021-09-03 05:39] LABS: BASOPHILS # (AUTO) 0.1 10^3/uL (0.0-0.1); BASOPHILS % (AUTO) 0 % (0-10); EOSINOPHILS % (AUTO) 0 % (0-10); HEMATOCRIT 33 % (35-52); HEMOGLOBIN 10.6 g/dL (11.5-16.0); LYMPHOCYTES # (AUTO) 1.3 10^3/uL (1.0-4.0); LYMPHOCYTES % (AUTO) 5 % (12-44); MEAN CORPUSCULAR HEMOGLOBIN 28 pg (25-34); MEAN CORPUSCULAR HGB CONC 32 g/dL (32-36); MEAN CORPUSCULAR VOLUME 87 fL (80-99); MEAN PLATELET VOLUME 8.8 fL (9.0-12.2); MONOCYTES # (AUTO) 0.7 10^3/uL (0.0-1.0); MONOCYTES % (AUTO) 3 % (0-12); NEUTROPHILS # (AUTO) 22.2 10^3/uL (1.8-7.8); NEUTROPHILS % (AUTO) 91 % (42-75); PLATELET COUNT 303 10^3/uL (130-400); WHITE BLOOD COUNT 24.4 10^3/uL (4.3-11.0)
[2021-09-03 05:54] LABS: ALBUMIN 2.4 GM/DL (3.2-4.5); CHLORIDE 103 MMOL/L (98-107); POTASSIUM 4.3 MMOL/L (3.6-5.0); SODIUM 138 MMOL/L (135-145)
[2021-09-03 05:56] LABS: CALCIUM 7.9 MG/DL (8.5-10.1)
[2021-09-03 05:57] LABS: GLUCOSE 109 MG/DL (70-105); TOTAL PROTEIN 5.1 GM/DL (6.4-8.2)
[2021-09-03 05:58] LABS: CARBON DIOXIDE 24 MMOL/L (21-32)
[2021-09-03 05:59] LABS: BILIRUBIN,TOTAL 0.2 MG/DL (0.1-1.0)
[2021-09-03 06:00] LABS: ALKALINE PHOSPHATASE 75 U/L (40-136); GFR ESTIMATED 85
[2021-09-03 06:02] LABS: BUN/CREATININE RATIO 13
[2021-09-03 06:03] LABS: ALANINE AMINOTRANSFERASE < 6 U/L (0-55)
[2021-09-03] MEDS: ceFAZolin 2 GM IV Premixed 50 ML IV SCH (06:37)
[2021-09-03 07:30] VITALS: BP 127/72
--- NOTE | 2021-09-03 07:36 | Progress Note - Surgery ---
NANCY URIARTE 09/03/21 0736: Subjective Date Seen by a Provider: Sep 03, 2021 Time Seen by a Provider: 07:24 Subjective/Events-last exam Elzbieta is laying supine in bed with NG tube and Kaur in place; she had a urine output of 400 ml overnight, and NGT produced 200 ml of gastric contents. Patient's abdomen remains significantly tender and non-distended, however she states it is not worse than yesterday. She denies any bowel movements, flatus, or N/V. Wound is clean and dry, no erythema or purulence noted. WBC has decreased to 24.4k, and platelets are 303, which is improved from yesterday. She spiked a a temperature of 38 Celsius at 4am, though her temperature has n ormalized to 36 C. this am. She denies any feelings of chills or SOA. Has leg compressors on, and states she is using her spirometer as recommended. Elzbieta also reports that she is having some achey pain in her left elbow from laying in bed. Has been hypertensive, and o2 sats have been in low 90s on room air. Hemoglobin has decreased to 10.6 from 13. Review of Systems General: No Chills, No Night Sweats; Fatigue, Malaise HEENT: No Head Aches, No Visual Changes Pulmonary: No Dyspnea, No Cough Cardiovascular: No: Chest Pain, Palpitations Gastrointestinal: Abdominal Pain; No: Nausea, Vomiting Genitourinary: No Dysuria, No Frequency Musculoskeletal: arm pain (L elbow); No: leg pain Neurological: Weakness; No: Numbness Focused Exam Respiratory: Chest Non Tender, Lungs Clear Cardiovascular: Regular Rate, Rhythm, No Edema Capillary Refill: Less Than 3 Seconds Peripheral Pulses: 2+ Radial Pulses (R), 2+ Radial Pulses (L) Skin: warm/dry, pallor Objective Exam Vital Signs Date Time Temp Pulse Resp B/P (MAP) Pulse Ox O2 Delivery O2 Flow Rate FiO2 09/03/21 05:20 36.5 09/03/21 05:20 36.5 09/03/21 04:20 38.0 93 20 161/78 (105) 90 Room Air 09/03/21 03:36 38.0 09/03/21 00:36 36.2 83 18 137/68 (91) 92 Room Air 09/02/21 20:40 Room Air 09/02/21 20:21 35.8 88 22 140/73 (95) 90 Room Air 09/02/21 15:43 36.0 84 18 143/82 (102) 92 Room Air 09/02/21 12:00 36.4 98 18 147/78 (101) 92 Room Air 09/02/21 08:00 Room Air 09/02/21 08:00 36.6 103 18 119/78 (92) 92 Room Air I & O 09/03/21 06:59 Intake Total 1160 ml Output Total 1325 ml Balance -165 ml Capillary Refill : Less Than 3 SecondsLess Than 3 Seconds General Appearance: No Apparent Distress, WD/WN, Chronically ill, Moderate Distress, Thin HEENT: PERRL/EOMI Neck: Full Range of Motion, Non Tender, Supple Respiratory: Lungs Clear, No Accessory Muscle Use Cardiovascular: Regular Rate, Rhythm, No Edema, No Murmur Peripheral Pulses: 2+ Radial Pulses (R), 2+ Radial Pulses (L) Gastrointestinal: soft, abnormal bowel sounds (Decreased), tenderness (Lower abdominal pain incision no signs of infection) Extremity: Normal Capillary Refill, Non Tender Neurologic/Psychiatric: Alert, Oriented x3, No Motor/Sensory Deficits, Normal Mood/Affect Skin: Warm/Dry, Pallor Lymphatic: No Adenopathy (axillary and cervical) Results Lab Laboratory Tests 09/03/21 05:28: White Blood Count 24.4H, Red Blood Count 3.81, Hemoglobin 10.6L, Hematocrit 33L, Mean Corpuscular Volume 87, Mean Corpuscular Hemoglobin 28, Mean Corpuscular Hemoglobin Concent 32, Red Cell Distribution Width 18.0H, Platelet Count 303, Mean Platelet Volume 8.8L, Immature Granulocyte % (Auto) 1, Neutrophils (%) (Auto) 91H, Lymphocytes (%) (Auto) 5L, Monocytes (%) (Auto) 3, Eosinophils (%) (Auto) 0, Basophils (%) (Auto) 0, Neutrophils # (Auto) 22.2H, Lymphocytes # (Auto) 1.3, Monocytes # (Auto) 0.7, Eosinophils # (Auto) 0.0, Basophils # (Auto) 0.1, Immature Granulocyte # (Auto) 0.2H, Sodium Level 138, Potassium Level 4.3, Chloride Level 103, Carbon Dioxide Level 24, Anion Gap 11, Blood Urea Nitrogen 9, Creatinine 0.70, Estimat Glomerular Filtration Rate 85, BUN/Creatinine Ratio 13, Glucose Level 109H, Calcium Level 7.9L, Corrected Calcium 9.2, Total Bilirubin 0.2, Aspartate Amino Transf (AST/SGOT) 21, Alanine Aminotransferase (A LT/SGPT) < 6, Alkaline Phosphatase 75, Total Protein 5.1L, Albumin 2.4L Microbiology 09/01/21 MRSA Screen - Final, Complete MRSA not isolated Meds Item Value Date Time Diphenhydramine 25 mg 09/02/21 1500 HCl Q4H PRN/IVP 09/02/21 1629 (Benadryl Injection) Acetaminophen 650 mg 09/02/21 1200 (Tylenol Tablet) Q6HR/PO 09/03/21 0336 Hydromorphone HCl 0.5 mg 09/02/21 1045 (Dilaudid Q2HR PRN/IV 09/03/21 0336 Injection) Metronidazole 100 ml @ 100 mls/hr 09/01/21 2200 Morphine Sulfate 4 mg 09/01/21 1615 (morphine Q2HR PRN/IV 09/02/21 2042 INJECTION) Cefazolin Sodium/ 50 ml @ 100 mls/hr 09/01/21 1530 Dextrose Q8H/IV 09/03/21 0637 Ondansetron HCl 4 mg 09/01/21 1445 (Zofran Q10M PRN/IVP 09/01/21 1500 Injection (Sdv)) Lactated Ringer's 1,000 ml @ 0 mls/hr 09/01/21 1230 Dextrose 50 ml 09/01/21 0600 (Dextrose 50% 50 PRN PRN/IV ml Emergency Syringe) Potassium 1,010 ml @ 100 mls/hr 09/01/21 0600 Chloride 20 meq/ Q10H6M/IV 09/02/21 2041 Dextrose/Lactated Ringer's Pantoprazole 40 mg 08/29/21 0900 (Protonix DAILY/IV 09/02/21 0847 Injection) Morphine Sulfate 6 mg 08/28/21 2330 (morphine Q4H PRN/IV 09/02/21 0955 INJECTION) Promethazine HCl 25 mg 08/28/21 2330 (Phenergan Q6H PRN/IVP Injection) Ondansetron HCl 8 mg 08/28/21 2330 (Zofran Q6H PRN/IV Injection (Sdv)) Assessment/Plan Assessment/Plan Admission Diagonsis SBO Assessment/Plan small bowel obstruction s/p ex lap with bowel resection, appendectomy and biopsy of peritoneal mass the right fallopian tube Small bowel adenocarcinoma status post resection Nausea and vomiting Electrolyte abnormalities Current condition suggestive of leukemoid reaction; monitor closely. PT is recommended Remain NPO Maintain antibiotics and fluids Begin Tylenol PO on scheduled basis to help with pain control Encouraged incentive spirometer use Await bowel function and pull NG tube and start clears once bowel function returns. Kaur for accurate I&O Once hemoglobin stable restart Lovenox. AMELIA VICENTE DO 09/03/21 1054: Subjective Subjective/Events-last exam Patient pain slightly better controlled. Feeling a little better than yesterday. WBC decreased some. Not using IS much. No bowel function yet. T max was 38. Denies n/v fever sweats chills shortness of breath or chest pain. Objective Exam General Appearance: No Apparent Distress, Chronically ill, Thin HEENT: PERRL/EOMI, Normal ENT Inspection Neck: Full Range of Motion, Non Tender Respiratory: Lungs Clear, No Accessory Muscle Use, No Respiratory Distress Cardiovascular: Regular Rate, Rhythm, No JVD Gastrointestinal: soft, tenderness (Lower abdominal pain incision no signs of infection) Extremity: Normal Capillary Refill, Non Tender Neurologic/Psychiatric: Alert, Oriented x3 Skin: Normal Color, Warm/Dry Lymphatic: No Adenopathy (axillary and cervical) Assessment/Plan Assessment/Plan Assessment/Plan small bowel obstruction s/p ex lap with bowel resection, appendectomy and biopsy of peritoneal mass the right fallopian tube Small bowel adenocarcinoma status post resection Nausea and vomiting Electrolyte abnormalities Leukocytosis decreasing down to 24. PT ordered, encouraged patient to increase ambulation. Remain NPO Maintain antibiotics zosyn/flagyl and fluids Begin Tylenol PO on scheduled basis to help with pain control Encouraged incentive spirometer use Await bowel function and pull NG tube and start clears once bowel function returns. Kaur dc Once hemoglobin stable restart Lovenox. Supervisory-Addendum Brief Verification & Attestation Participated in pt care: history, MDM, physical Personally performed: exam, history, MDM, supervision of care Care discussed with: Medical Student Procedures: n/a Results interpretation: Verified all documentation Verification and Attestation of Medical Student E/M Service A medical student performed and documented this service in my presence. I reviewed and verified all information documented by the medical student and made modifications to such information, when appropriate. I personally performed the physical exam and medical decision making. Amelia Vicente, Sep 03, 2021,10:54 NANCY URIARTE Sep 03, 2021 07:36 AMELIA VICENTE DO Sep 03, 2021 10:54
[2021-09-03] MEDS: PANTOPRAZOLE 40 MG (PROTONIX) VIAL IV SCH (08:39)
[2021-09-03] MEDS ORDERED: PIPERACILLIN/TAZO 4.5 GM/NS 100 ML IV NR ×2 (09:00)
[2021-09-03] MEDS: morphine INJ 4 MG/ML 1 ML (VIAL/SYRINGE) IV PRN ×2 (09:39→15:28)
--- NOTE | 2021-09-03 09:44 | Physical Therapy Daily Note ---
PT Daily Note-Current Subjective Patient agrees to PT. Pain Numeric Pain Scale: 10-Worst Possible Pain Location: Lower Location Body Site: Abdomen Pain Description: Pressure, Acute Mental Status Patient Orientation: Normal For Age Attachments: NG Tube, Oxygen, Kaur Catheter, IV Transfers SCALE: Activities may be completed with or without assistive devices. 4-Pgbkjmuxtz-rhdgege completes the activity by him/herself with no assistance from a helper. 5-Set-up or Clean-up Assistance-helper sets up or cleans up; patient completes activity. Frontier assists only prior to or following the activity. 4-Supervision or Touching Assistance-helper provides verbal cues and/or touching/steadying and/or contact guard assistance as patient completes activity. Assistance may be provided throughout the activity or intermittently. 3-Partial/Moderate Assistance-helper does LESS THAN HALF the effort. Frontier lifts, holds or supports trunk or limbs, but provides less than half the effort. 2-Substantial/Maximal Assistance-helper does MORE THAN HALF the effort. Frontier lifts or holds trunk or limbs and provides more than half the effort. 3-Azvplfpak-nxpcuq does ALL the effort. Patient does none of the effort to complete the activity. Or, the assistance of 2 or more helpers is required for the patient to complete the activity. If activity was not attempted, code reason: 7-Patient Refused. 9-Not Applicable-not attempted and the patient did not perform the activity before the current illness, exacerbation or injury. 10-Not Attempted due to Environmental Limitations-(lack of equipment, weather restraints, etc.). 88-Not Attempted due to Medical Conditions or Safety Concerns. Sit to Lying (QC): 6 Lying to Sitting/Side of Bed(Q: 6 Sit to Stand (QC): 4 Weight Bearing Right Lower Extremity: Right Weight Bearing/Tolerated Left Lower Extremity: Left Weight Bearing/Tolerated Gait Training Does the Patient Walk?: Yes Distance: 175' Walk 10 feet (QC): 4 Walk 50 ft with 2 Turns(QC): 4 Walk 150 ft (QC): 4 Gait Assistive Device: FWW extended UE's and trunk flexed posture due to abdominal pain Assessment Patient tolerated treatment well and returned to supine with needs met. Increase activity as tolerated by patient. PT Snf Goals Medical Services Manager Goals PT Snf Goals Time Frame: Sep 09, 2021 Roll Left & Right (QC): 4 Sit to Lying (QC): 4 Lying-Sitting on Side/Bed(QC): 4 Sit to Stand (QC): 4 Chair/Cwn-mj-Rynpn Xfer(QC): 4 Walk 10 feet (QC): 4 Walk 50ft with 2 Turns (QC): 4 PT Plan Treatment/Plan Treatment Plan: Continue Plan of Care Treatment Plan: Bed Mobility, Education, Functional Activity Marily, Functional Strength, Gait, Safety, Therapeutic Exercise, Transfers Treatment Duration: Sep 09, 2021 Frequency: 6 times per week Estimated Hrs Per Day: .25 hour per day Patient and/or Family Agrees t: Yes Time/GCodes Time In: 901 Time Out: 915 Total Billed Treatment Time: 14 Total Billed Treatment 1 visit GT 14 min CONOR SOLORZANO PT Sep 03, 2021 09:44
[2021-09-03] MEDS: POTASSIUM CHLORIDE INJ 20 MEQ in D5 LR IV SOLUTION 1,000 ML IV SCH ×2 (10:45→17:54)
[2021-09-03 11:33] VITALS: BP 136/76
--- NOTE | 2021-09-03 14:23 | Progress Note - Hospitalist ---
SARAH DUNHAM 09/03/21 1423: Subjective HPI/CC On Admission Date Seen by Provider: Sep 03, 2021 Time Seen by Provider: 08:51 Subjective/Events-last exam Today when I visited the pt she was actively using her ICS. She continues to complain of intense abdominal pain that waxes and wanes although she does confirm that the additional analgesic ordered yesterday has helped. She states the pain is felt deep to the incision site. She has not yet had a BM or flatus, NG tube remains in place. Her abdomen remains soft an non-distended. PT will assist with movement today. Review of Systems General: No Chills, No Night Sweats; Fatigue HEENT: No Head Aches, No Eye Pain, No Dysphasia, No Sore Throat Pulmonary: No Dyspnea, No Cough, No Pleuritic Chest Pain Cardiovascular: No: Chest Pain, Palpitations, Edema, Lt Headedness Gastrointestinal: Abdominal Pain; No: Nausea, Vomiting, Diarrhea, Constipation, Melena, Hematochezia Genitourinary: No Dysuria, No Frequency, No Incontinence, No Hematuria Musculoskeletal: No: neck pain, shoulder pain, arm pain, back pain Neurological: Weakness; No: Numbness, Change in speech, Confusion Objective Exam Vital Signs Vital Signs Date Time Temp Pulse Resp B/P (MAP) Pulse Ox O2 Delivery O2 Flow Rate FiO2 09/03/21 11:33 36.0 87 20 136/76 (96) 96 Nasal Cannula 2.00 Capillary Refill : Less Than 3 SecondsLess Than 3 Seconds General Appearance: Mild Distress, Thin HEENT: PERRL/EOMI, Pharynx Normal Neck: Full Range of Motion, Non Tender, Supple Respiratory: Chest Non Tender, Lungs Clear, Normal Breath Sounds, No Accessory Muscle Use, No Respiratory Distress Cardiovascular: Regular Rate, Rhythm, No Edema, No Gallop, No Murmur, Normal Peripheral Pulses Gastrointestinal: Normal Bowel Sounds, No Organomegaly, No Pulsatile Mass, Soft, Tenderness Rectal: Deferred Extremity: Normal Capillary Refill, Normal Range of Motion, Non Tender, No Calf Tenderness, No Pedal Edema Neurologic/Psychiatric: Alert, Oriented x3, No Motor/Sensory Deficits, Normal 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 Monitor and supportive care, PT, once bowel function returns remove NG tube and start on clears. Repeat labs in a.m. SANDEE NAIK DO 09/04/21 0544: Subjective Subjective/Events-last exam Patient doing well Abdominal pain continues Reviewed labs Review of Systems General: Fatigue Gastrointestinal: Nausea, Abdominal Pain Objective Exam General Appearance: No Apparent Distress, WD/WN, Chronically ill Respiratory: Lungs Clear, Normal Breath Sounds Cardiovascular: Regular Rate, Rhythm Neurologic/Psychiatric: Alert, Oriented x3, No Motor/Sensory Deficits, Normal Mood/Affect Assessment/Plan Assessment and Plan Assess & Plan/Chief Complaint NG tube Pain control Supervisory-Addendum Brief Verification & Attestation Participated in pt care: history, MDM, physical Personally performed: exam, history, MDM, supervision of care Care discussed with: Medical Student Procedures: n/a Results interpretation: Verified all documentation Verification and Attestation of Medical Student E/M Service A medical student performed and documented this service in my presence. I reviewed and verified all information documented by the medical student and made modifications to such information, when appropriate. I personally performed the physical exam and medical decision making. Sandee Naik Sep 04, 2021,05:43 SARAH DUNHAM Sep 03, 2021 14:23 SANDEE NAIK DO Sep 04, 2021 05:44
[2021-09-03] MEDS: PIPERACILLIN/TAZOBACTAM (BULK) 4.5 GM in NS (IVPB) 100 ML IV SCH ×2 (15:28→22:56)
[2021-09-03 15:56] VITALS: BP 145/69
[2021-09-03 20:00] VITALS: BP 122/71
[2021-09-04 00:09] VITALS: BP 127/71
[2021-09-04] MEDS: POTASSIUM CHLORIDE INJ 20 MEQ in D5 LR IV SOLUTION 1,000 ML IV SCH ×2 (03:04→15:08)
[2021-09-04] MEDS: morphine INJ 4 MG/ML 1 ML (VIAL/SYRINGE) IV PRN ×2 (03:08→13:09)
[2021-09-04 03:50] VITALS: BP 147/70
[2021-09-04] MEDS: metroNIDAZOLE 500MG/100ML IVPB 100 ML IV SCH (05:23)
[2021-09-04] MEDS: ACETAMINOPHEN 325 MG TABLET PO SCH ×4 (05:26→18:08)
[2021-09-04 05:51] LABS: BASOPHILS % (AUTO) 0 % (0-10); EOSINOPHILS # (AUTO) 0.1 10^3/uL (0.0-0.3); EOSINOPHILS % (AUTO) 0 % (0-10); HEMATOCRIT 31 % (35-52); HEMOGLOBIN 10.1 g/dL (11.5-16.0); LYMPHOCYTES # (AUTO) 1.5 10^3/uL (1.0-4.0); LYMPHOCYTES % (AUTO) 7 % (12-44); MEAN CORPUSCULAR HEMOGLOBIN 28 pg (25-34); MEAN CORPUSCULAR HGB CONC 33 g/dL (32-36); MEAN CORPUSCULAR VOLUME 86 fL (80-99); MEAN PLATELET VOLUME 9.3 fL (9.0-12.2); MONOCYTES # (AUTO) 0.6 10^3/uL (0.0-1.0); MONOCYTES % (AUTO) 3 % (0-12); NEUTROPHILS % (AUTO) 90 % (42-75); PLATELET COUNT 311 10^3/uL (130-400); WHITE BLOOD COUNT 22.3 10^3/uL (4.3-11.0)
[2021-09-04 06:12] LABS: ALBUMIN 2.4 GM/DL (3.2-4.5); CHLORIDE 99 MMOL/L (98-107); POTASSIUM 3.7 MMOL/L (3.6-5.0); SODIUM 134 MMOL/L (135-145)
[2021-09-04 06:14] LABS: CALCIUM 7.8 MG/DL (8.5-10.1)
[2021-09-04 06:15] LABS: GLUCOSE 95 MG/DL (70-105)
[2021-09-04 06:16] LABS: CARBON DIOXIDE 24 MMOL/L (21-32)
[2021-09-04 06:17] LABS: BILIRUBIN,TOTAL 0.3 MG/DL (0.1-1.0)
[2021-09-04 06:18] LABS: ALKALINE PHOSPHATASE 83 U/L (40-136); CREATININE SERUM 0.64 MG/DL (0.60-1.30); GFR ESTIMATED 94
[2021-09-04 06:19] LABS: BUN/CREATININE RATIO 11
[2021-09-04 06:21] LABS: ALANINE AMINOTRANSFERASE < 6 U/L (0-55)
[2021-09-04 06:24] LABS: LYMPHOCYTES % (MANUAL) 6 %; MONOCYTES % (MANUAL) 2 %; NEUTROPHILS % (MANUAL) 92 %; PLATELET CLUMPS OCCASIONAL
[2021-09-04] MEDS: PIPERACILLIN/TAZOBACTAM (BULK) 4.5 GM in NS (IVPB) 100 ML IV SCH ×2 (06:38→15:08)
--- NOTE | 2021-09-04 07:21 | Progress Note - Surgery ---
WOJCIECHNANCY PENALOZA 09/04/21 0721: Subjective Date Seen by a Provider: Sep 04, 2021 Time Seen by a Provider: 07:16 Subjective/Events-last exam Elzbieta is laying supine in bed, and states abdominal pain. She denies any N/V, BM, or flatus. She states that she walked down hallways yesterday with PT. Has been using IS 4-5x/day. During my visit, Elzbieta ambulated to commode and was able to urinate. Energy is improved, and she reports that she is starting to notice improvement. Review of Systems General: No Chills, No Night Sweats; Malaise HEENT: No Head Aches, No Visual Changes Pulmonary: No Dyspnea, No Cough Cardiovascular: No: Chest Pain, Palpitations Gastrointestinal: Abdominal Pain (Still severe, and difficult to control with pain medication); No: Nausea, Vomiting Genitourinary: No Dysuria, No Frequency Musculoskeletal: No: back pain, leg pain Neurological: Weakness; No: Numbness Focused Exam Respiratory: Chest Non Tender, Normal Breath Sounds, No Accessory Muscle Use, No Respiratory Distress Cardiovascular: Regular Rate, Rhythm, No Edema, No Murmur, Normal Peripheral Pulses Capillary Refill: Less Than 3 Seconds Peripheral Pulses: 2+ Radial Pulses (R), 2+ Radial Pulses (L) Skin: normal color, warm/dry, pallor Objective Exam Vital Signs Date Time Temp Pulse Resp B/P (MAP) Pulse Ox O2 Delivery O2 Flow Rate FiO2 09/04/21 03:50 36.6 85 20 147/70 (95) 93 Room Air 09/04/21 00:09 36.4 78 20 127/71 (89) 94 Room Air 09/03/21 20:50 Room Air 09/03/21 20:00 36.7 83 20 122/71 (88) 94 Room Air 09/03/21 15:56 36.8 82 18 145/69 (94) 90 Room Air 09/03/21 11:33 36.0 87 20 136/76 (96) 96 Nasal Cannula 2.00 09/03/21 08:00 Room Air 09/03/21 07:45 35.5 97 Nasal Cannula 2.00 09/03/21 07:30 90 18 127/72 (90) 88 Room Air I & O 09/04/21 07:00 Intake Total 1440 ml Output Total 2570 ml Balance -1130 ml Capillary Refill : Less Than 3 SecondsLess Than 3 Seconds General Appearance: No Apparent Distress, WD/WN, Chronically ill HEENT: PERRL/EOMI, Pharynx Normal Neck: Full Range of Motion, Non Tender, Supple Respiratory: Lungs Clear, Normal Breath Sounds Cardiovascular: Regular Rate, Rhythm, No Edema, No Gallop, No Murmur, Normal Peripheral Pulses Peripheral Pulses: 2+ Radial Pulses (R), 2+ Radial Pulses (L) Gastrointestinal: soft, abnormal bowel sounds (hypoactive), tenderness (Lower abdominal pain incision no signs of infection) Extremity: Normal Capillary Refill, Normal Range of Motion, Non Tender, No Calf Tenderness, No Pedal Edema Neurologic/Psychiatric: Alert, Oriented x3, No Motor/Sensory Deficits, Normal Mood/Affect Skin: Normal Color, Warm/Dry Lymphatic: No Adenopathy (cervical and axillary) Results Lab Laboratory Tests 09/04/21 05:23: White Blood Count 22.3H, Red Blood Count 3.59L, Hemoglobin 10.1L, Hematocrit 31L , Mean Corpuscular Volume 86, Mean Corpuscular Hemoglobin 28, Mean Corpuscular Hemoglobin Concent 33, Red Cell Distribution Width 17.7H, Platelet Count 311, Mean Platelet Volume 9.3, Immature Granulocyte % (Auto) 1, Neutrophils (%) (Auto) 90H, Lymphocytes (%) (Auto) 7L, Monocytes (%) (Auto) 3, Eosinophils (%) (Auto) 0, Basophils (%) (Auto) 0, Neutrophils # (Auto) 20.0H, Lymphocytes # (Auto) 1.5, Monocytes # (Auto) 0.6, Eosinophils # (Auto) 0.1, Basophils # (Auto) 0.0, Immature Granulocyte # (Auto) 0.2H, Neutrophils % (Manual) 92, Lymphocytes % (Manual) 6, Monocytes % (Manual) 2, Clumped Platelets OCCASIONAL, Sodium Level 134L, Potassium Level 3.7, Chloride Level 99, Carbon Dioxide Level 24, Anion Gap 11, Blood Urea Nitrogen 7, Creatinine 0.64, Estimat Glomerular Filtration Rate 94, BUN/Creatinine Ratio 11, Glucose Level 95, Calcium Level 7.8L, Corrected Calcium 9.1, Total Bilirubin 0.3, Aspartate Amino Transf (AST/SGOT) 26, Alanine Aminotransferase (ALT/SGPT) < 6, Alkaline Phosphatase 83, Total Protein 5.0L, Albumin 2.4L Microbiology 09/01/21 MRSA Screen - Final, Complete MRSA not isolated Meds Item Value Date Time Piperacillin Sod/ 120 ml @ 30 mls/hr 09/03/21 1500 Tazobactam Sod Q8H/IV 09/04/21 0638 4.5 gm/Sodium Chloride Diphenhydramine 25 mg 09/02/21 1500 HCl Q4H PRN/IVP 09/02/21 1629 (Benadryl Injection) Acetaminophen 650 mg 09/02/21 1200 (Tylenol Tablet) Q6HR/PO 09/04/21 0526 Hydromorphone HCl 0.5 mg 09/02/21 1045 (Dilaudid Q2HR PRN/IV 09/03/21 0336 Injection) Metronidazole 100 ml @ 100 mls/hr 09/01/21 2200 Morphine Sulfate 4 mg 09/01/21 1615 (morphine Q2HR PRN/IV 09/04/21 0308 INJECTION) Ondansetron HCl 4 mg 09/01/21 1445 (Zofran Q10M PRN/IVP 09/01/21 1500 Injection (Sdv)) Lactated Ringer's 1,000 ml @ 0 mls/hr 09/01/21 1230 Dextrose 50 ml 09/01/21 0600 (Dextrose 50% 50 PRN PRN/IV ml Emergency Syringe) Potassium 1,010 ml @ 100 mls/hr 09/01/21 0600 Chloride 20 meq/ Q10H6M/IV 09/04/21 0304 Dextrose/Lactated Ringer's Pantoprazole 40 mg 08/29/21 0900 (Protonix DAILY/IV 09/03/21 0839 Injection) Morphine Sulfate 6 mg 08/28/21 2330 (morphine Q4H PRN/IV 09/02/21 0955 INJECTION) Promethazine HCl 25 mg 08/28/21 2330 (Phenergan Q6H PRN/IVP Injection) Ondansetron HCl 8 mg 08/28/21 2330 (Zofran Q6H PRN/IV Injection (Sdv)) Assessment/Plan Assessment/Plan Assessment/Plan small bowel obstruction s/p ex lap with bowel resection, appendectomy and biopsy of peritoneal mass the right fallopian tube Small bowel adenocarcinoma status post resection Nausea and vomiting Electrolyte abnormalities Leukocytosis decreasing down to 22.3. PT ordered, encouraged patient to increase ambulation. Remain NPO Maintain antibiotics zosyn/flagyl and fluids Begin Tylenol PO on scheduled basis to help with pain control Encouraged incentive spirometer use Await bowel function and pull NG tube and start clears once bowel function returns. Kaur dc Once hemoglobin stable restart Lovenox. AMELIA WINTERS DO 09/04/211933: Subjective Subjective/Events-last exam Patient still has abdominal pain. States is getting better. She is ambulating more. She is using incentive spirometer. Patient no flatus or bowel movement. WBC continues to decrease. Denies any nausea vomiting fever sweats chills shortness of breath or chest pain. NG tube in place. Objective Exam General Appearance: No Apparent Distress, Chronically ill HEENT: PERRL/EOMI Neck: Full Range of Motion, Non Tender, Supple Respiratory: Chest Non Tender, No Accessory Muscle Use, No Respiratory Distress Cardiovascular: Regular Rate, Rhythm Gastrointestinal: soft, tenderness (Incisional clean dry intact no signs of infection) Extremity: Normal Capillary Refill, Normal Range of Motion, Non Tender, No Calf Tenderness Neurologic/Psychiatric: Alert, Oriented x3 Skin: Normal Color, Warm/Dry Lymphatic: No Adenopathy (cervical and axillary) Assessment/Plan Assessment/Plan Assessment/Plan small bowel obstruction s/p ex lap with bowel resection, appendectomy and biopsy of peritoneal mass the right fallopian tube Small bowel adenocarcinoma status post resection Nausea and vomiting Electrolyte abnormalities Leukocytosis decreasing down to 22.3. PT ordered, encouraged patient to increase ambulation. Remain NPO Maintain antibiotics zosyn and fluids start clinimix Tylenol PO on scheduled basis to help with pain control Encouraged incentive spirometer use Await bowel function and pull NG tube and start clears once bowel function returns. Lovenox. Repeat labs in am Supervisory-Addendum Brief Verification & Attestation Participated in pt care: history, MDM, physical Personally performed: exam, history, MDM, supervision of care Care discussed with: Medical Student Procedures: n/a Results interpretation: Verified all documentation Verification and Attestation of Medical Student E/M Service A medical student performed and documented this service in my presence. I reviewed and verified all information documented by the medical student and made modifications to such information, when appropriate. I personally performed the physical exam and medical decision making. Amelia Winters, Sep 04, 2021,19:35 NANCY URIARTE Sep 04, 2021 07:21 AMELIA WINTERS DO Sep 04, 2021 19:34
[2021-09-04] MEDS: PANTOPRAZOLE 40 MG (PROTONIX) VIAL IV SCH (07:56)
[2021-09-04] MEDS: HYDROmorphone 2 MG/ML VIAL (DILAUDID) IV PRN (07:56)
[2021-09-04 08:00] VITALS: BP 139/63
[2021-09-04 12:00] VITALS: BP 157/75
--- NOTE | 2021-09-04 12:03 | Physical Therapy Progress Note ---
Therapy Progress Note Patient is up independently, without AD, with family and nursing staff. PT observed patient ambulating >800'. PT to dismiss patient from services at this time. 1 visit CONOR SOLORZANO PT Sep 04, 2021 12:03
--- NOTE | 2021-09-04 13:25 | Progress Note - Hospitalist ---
SARAH DUNHAM 09/04/21 1325: Subjective HPI/CC On Admission Date Seen by Provider: Sep 04, 2021 Time Seen by Provider: 08:26 Subjective/Events-last exam Today when I visited the pt she was resting in bed. She states that she is feeling better overall and was walking some yesterday and plans to walk some more today. She is using the bedside ICS and states that her pain is more well controlled at the moment. She did complain of some back pain as well as indicating a lack of flatus or BM. She is able to ambulate to urinate. Review of Systems General: No Chills, No Night Sweats; Fatigue, Appetite HEENT: No Head Aches, No Visual Changes, No Dysphasia, No Sore Throat Pulmonary: No Dyspnea, No Cough, No Pleuritic Chest Pain Cardiovascular: No: Chest Pain, Palpitations, Edema, Lt Headedness Gastrointestinal: Abdominal Pain; No: Nausea, Vomiting, Diarrhea, Constipation, Melena, Hematochezia Genitourinary: No Dysuria, No Frequency, No Incontinence Musculoskeletal: back pain; No: neck pain, shoulder pain, leg pain Neurological: Weakness; No: Numbness, Confusion, Seizures Objective Exam Vital Signs Vital Signs Date Time Temp Pulse Resp B/P (MAP) Pulse Ox O2 Delivery O2 Flow Rate FiO2 09/04/21 12:00 36.8 93 20 157/75 (102) 91 Room Air 09/03/21 11:33 2.00 Capillary Refill : Less Than 3 SecondsLess Than 3 Seconds General Appearance: No Apparent Distress, Chronically ill, Thin HEENT: PERRL/EOMI, Pharynx Normal Neck: Full Range of Motion, Non Tender, Supple Respiratory: Chest Non Tender, Lungs Clear, Normal Breath Sounds, No Accessory Muscle Use, No Respiratory Distress Cardiovascular: Regular Rate, Rhythm, No Edema, No Gallop, No Murmur, Normal Peripheral Pulses Gastrointestinal: Normal Bowel Sounds, No Organomegaly, No Pulsatile Mass, Soft, Tenderness (incisional) Rectal: Deferred Back: No CVA Tenderness, Vertebral Tenderness (Midthoracic T8-T12) Extremity: Normal Capillary Refill, Non Tender, No Calf Tenderness, No Pedal Edema Neurologic/Psychiatric: Alert, Oriented x3, No Motor/Sensory Deficits, Normal Mood/Affect, director educational radio II-XII Norm as Tested Skin: Normal Color, Warm/Dry Lymphatic: No Adenopathy (cervical and axillary) Results/Procedures Lab Laboratory Tests 09/04/21 05:23 Patient resulted labs reviewed. 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 Monitor and supportive care, PT, once bowel function returns remove NG tube and start on clears. Repeat labs in a.m. Paraspinal inhibition w/rib raising and sub-occipital release performed - pt tolerated well. SANDEE NAIK DO 09/04/213: Subjective Subjective/Events-last exam Patient is improved Ready to walk Pain better Review of Systems General: Fatigue Gastrointestinal: Nausea, Abdominal Pain Objective Exam General Appearance: No Apparent Distress, WD/WN, Chronically ill, Thin Respiratory: Lungs Clear, Normal Breath Sounds Cardiovascular: Regular Rate, Rhythm, No Edema Neurologic/Psychiatric: Alert, Oriented x3, No Motor/Sensory Deficits, Normal Mood/Affect Assessment/Plan Assessment and Plan Assess & Plan/Chief Complaint Ambulate Lovenox Pain control Supervisory-Addendum Brief Verification & Attestation Participated in pt care: history, MDM, physical Personally performed: exam, history, MDM, supervision of care Care discussed with: Medical Student Procedures: n/a Results interpretation: Verified all documentation Verification and Attestation of Medical Student E/M Service A medical student performed and documented this service in my presence. I reviewed and verified all information documented by the medical student and made modifications to such information, when appropriate. I personally performed the physical exam and medical decision making. Sandee Naik, Sep 04, 2021,21:02 SARAH DUNHAM Sep 04, 2021 13:25 SANDEE NAIK DO Sep 04, 2021 21:03
[2021-09-04 16:00] VITALS: BP 127/69
[2021-09-04 20:00] VITALS: BP 129/72
[2021-09-04] MEDS: AA 4.25% W/LYTES IN D5W IV SOL 1,000 ML IV SCH (20:28)
[2021-09-05] MEDS: ACETAMINOPHEN 325 MG TABLET PO SCH ×4 (00:10→17:23)
[2021-09-05] MEDS: PIPERACILLIN/TAZOBACTAM (BULK) 4.5 GM in NS (IVPB) 100 ML IV SCH ×3 (00:10→15:56)
[2021-09-05 00:11] VITALS: BP 146/78
[2021-09-05] MEDS: POTASSIUM CHLORIDE INJ 20 MEQ in D5 LR IV SOLUTION 1,000 ML IV SCH (00:11)
[2021-09-05 03:48] VITALS: BP 141/78
[2021-09-05] MEDS: HYDROmorphone 2 MG/ML VIAL (DILAUDID) IV PRN ×3 (04:02→18:05)
[2021-09-05] MEDS: AA 4.25% W/LYTES IN D5W IV SOL 1,000 ML IV SCH ×3 (04:02→20:31)
[2021-09-05 04:27] LABS: BASOPHILS % (AUTO) 0 % (0-10); EOSINOPHILS # (AUTO) 0.1 10^3/uL (0.0-0.3); EOSINOPHILS % (AUTO) 0 % (0-10); HEMATOCRIT 30 % (35-52); HEMOGLOBIN 9.7 g/dL (11.5-16.0); LYMPHOCYTES # (AUTO) 1.8 10^3/uL (1.0-4.0); LYMPHOCYTES % (AUTO) 10 % (12-44); MEAN CORPUSCULAR HEMOGLOBIN 28 pg (25-34); MEAN CORPUSCULAR HGB CONC 32 g/dL (32-36); MEAN CORPUSCULAR VOLUME 85 fL (80-99); MEAN PLATELET VOLUME 9.1 fL (9.0-12.2); MONOCYTES # (AUTO) 0.7 10^3/uL (0.0-1.0); MONOCYTES % (AUTO) 4 % (0-12); NEUTROPHILS # (AUTO) 15.1 10^3/uL (1.8-7.8); NEUTROPHILS % (AUTO) 85 % (42-75); PLATELET COUNT 338 10^3/uL (130-400); WHITE BLOOD COUNT 17.8 10^3/uL (4.3-11.0)
[2021-09-05 04:56] LABS: ALBUMIN 2.4 GM/DL (3.2-4.5); CHLORIDE 98 MMOL/L (98-107); POTASSIUM 3.3 MMOL/L (3.6-5.0); SODIUM 135 MMOL/L (135-145)
[2021-09-05 04:58] LABS: GLUCOSE 113 MG/DL (70-105)
[2021-09-05 04:59] LABS: TOTAL PROTEIN 5.3 GM/DL (6.4-8.2)
[2021-09-05 05:00] LABS: BILIRUBIN,TOTAL 0.4 MG/DL (0.1-1.0); CARBON DIOXIDE 24 MMOL/L (21-32)
[2021-09-05 05:02] LABS: ALKALINE PHOSPHATASE 78 U/L (40-136); CREATININE SERUM 0.61 MG/DL (0.60-1.30); GFR ESTIMATED 99
[2021-09-05 05:03] LABS: BUN/CREATININE RATIO 11
[2021-09-05 05:05] LABS: ALANINE AMINOTRANSFERASE < 6 U/L (0-55)
[2021-09-05 07:13] VITALS: BP 139/70
--- NOTE | 2021-09-05 08:56 | Progress Note - Surgery ---
ZAIRA JULIAN 09/05/21 0856: Subjective Date Seen by a Provider: Sep 05, 2021 Time Seen by a Provider: 08:27 Subjective/Events-last exam Patient was laying in bed when I visited. Has almost no pain when lying down. 9/10 pain when trying to sit up or move around. She ambulated to the bathroom a nd urinated. No bowel movements yet. Pt wishes to drink water. Pt also does not have any fatigue POD 4 after small bowel resection on 09/01 Midline incision with terry is clean, dry, and intact. Further description in physical exam findings. Review of Systems General: No Chills, No Night Sweats HEENT: No Head Aches, No Visual Changes Pulmonary: No Dyspnea, No Cough Cardiovascular: No: Chest Pain, Palpitations Gastrointestinal: Abdominal Pain (mostly on ambulation), Other (Did not have a bowel movement yesterday); No: Nausea, Vomiting Genitourinary: No Dysuria, No Frequency Musculoskeletal: No: neck pain, back pain Neurological: No: Weakness, Numbness Objective Exam Vital Signs Date Time Temp Pulse Resp B/P (MAP) Pulse Ox O2 Delivery O2 Flow Rate FiO2 09/05/21 07:13 36.4 81 18 139/70 (93) 90 Room Air 09/05/21 03:48 36.4 82 18 141/78 (99) 91 Room Air 09/05/21 00:11 37.0 75 16 146/78 (100) 91 Room Air 09/04/21 20:25 Room Air 09/04/21 20:00 37.0 81 18 129/72 (91) 93 Room Air 09/04/21 16:00 36.6 84 22 127/69 (88) 93 Room Air 09/04/21 12:00 36.8 93 20 157/75 (102) 91 Room Air I & O 09/05/21 07:00 Intake Total 0 ml Output Total 1550 ml Balance -1550 ml Capillary Refill : Less Than 3 SecondsLess Than 3 Seconds General Appearance: No Apparent Distress, WD/WN, Chronically ill, Thin HEENT: PERRL/EOMI Neck: Full Range of Motion, Normal Inspection, Non Tender, Supple Respiratory: Chest Non Tender, Lungs Clear, Normal Breath Sounds, No Accessory Muscle Use, No Respiratory Distress Cardiovascular: Regular Rate, Rhythm, No Edema, No Murmur Peripheral Pulses: 2+ Radial Pulses (R), 2+ Radial Pulses (L) Gastrointestinal: normal bowel sounds, non tender, soft, tenderness (Pt has 9/10 tenderness on ambulation. No tenderness when laying down.), other (Incisional has some dried blood at places. Patient says that some blood somes out when she ambulates. Induration about 1cm surrounding margin of terry.) Extremity: Normal Capillary Refill, Normal Range of Motion, Non Tender, No Calf Tenderness Neurologic/Psychiatric: Alert, Oriented x3, Normal Mood/Affect Skin: Normal Color, Warm/Dry Lymphatic: No Adenopathy (cervical and axillary) Results Lab Laboratory Tests 09/05/21 04:00: White Blood Count 17.8H, Red Blood Count 3.53L, Hemoglobin 9.7L, Hematocrit 30L, Mean Corpuscular Volume 85, Mean Corpuscular Hemoglobin 28, Mean Corpuscular Hemoglobin Concent 32, Red Cell Distribution Width 17.4H, Platelet Count 338, Mean Platelet Volume 9.1, Immature Granulocyte % (Auto) 1, Neutrophils (%) (Auto) 85H, Lymphocytes (%) (Auto) 10L, Monocytes (%) (Auto) 4, Eosinophils (%) (Auto) 0, Basophils (%) (Auto) 0, Neutrophils # (Auto) 15.1H, Lymphocytes # (Auto) 1.8, Monocytes # (Auto) 0.7, Eosinophils # (Auto) 0.1, Basophils # (Auto) 0.0, Immature Granulocyte # (Auto) 0.1, Sodium Level 135, Potassium Level 3.3L, Chloride Level 98, Carbon Dioxide Level 24, Anion Gap 13, Blood Urea Nitrogen 7, Creatinine 0.61, Estimat Glomerular Filtration Rate 99, BUN/Creatinine Ratio 11, Glucose Level 113H, Calcium Level 8.0L, Corrected Calcium 9.3, Total Bilirubin 0.4, Aspartate Amino Transf (AST/SGOT) 26, Alanine Aminotransferase (ALT/SGPT) < 6, Alkaline Phosphatase 78, Total Protein 5.3L, Albumin 2.4L Microbiology 16 MRSA Screen - Final, Complete MRSA not isolated Assessment/Plan Assessment/Plan Assessment/Plan small bowel obstruction s/p ex lap with bowel resection, appendectomy and biopsy of peritoneal mass the right fallopian tube Small bowel adenocarcinoma status post resection. POD #4 Leukocytosis decreasing down to 17.8. Start clear liquids, then advance diet as patient tolerates. BELTRAN ANDERSON DO 09/05/21 1226: Subjective Time Seen by a Provider: 10:16 Subjective/Events-last exam Pt seen and examined, states pain is basically gone. She has now passed some flatus. Review of Systems General: No Chills, No Night Sweats Pulmonary: No Dyspnea, No Cough Cardiovascular: No: Chest Pain, Palpitations Gastrointestinal: Abdominal Pain (mostly on ambulation), Other (Did not have a bowel movement yesterday); No: Nausea, Vomiting Objective Exam General Appearance: No Apparent Distress, Chronically ill, Thin Respiratory: Lungs Clear, Normal Breath Sounds, No Accessory Muscle Use, No Respiratory Distress Cardiovascular: Regular Rate, Rhythm, No Murmur Gastrointestinal: soft, no organomegaly, tenderness (Pt has 9/10 tenderness on ambulation. No tenderness when laying down.), other (Incisional has some dried blood at places. Patient says that some blood somes out when she ambulates. Induration about 1cm surrounding margin of terry.) Assessment/Plan Assessment/Plan Assessment/Plan small bowel obstruction s/p ex lap with bowel resection, appendectomy and biopsy of peritoneal mass the right fallopian tube Small bowel adenocarcinoma status post resection. POD #4 Leukocytosis decreasing down to 17.8. Start clear liquids, then advance diet as patient tolerates. Supervisory-Addendum Brief Verification & Attestation Participated in pt care: history, MDM, physical Personally performed: exam, history, MDM, supervision of care Care discussed with: Medical Student Procedures: n/a Verification and Attestation of Medical Student E/M Service A medical student performed and documented this service. I then reviewed and verified all information documented by the medical student and made modifications to such information, when appropriate. I personally performed a physical exam, medical decision making and then discussed any differences between the notes and made revisions as necessary to create one note. Beltran Anderson , 09/05/21 , 12:26 ZAIRA JULIAN Sep 05, 2021 08:56 EBLTRAN ANDERSON DO Sep 05, 2021 12:26
[2021-09-05] MEDS: PANTOPRAZOLE 40 MG (PROTONIX) VIAL IV SCH (09:26)
--- NOTE | 2021-09-05 11:04 | Progress Note - Hospitalist ---
Subjective HPI/CC On Admission Date Seen by Provider: Sep 05, 2021 Time Seen by Provider: 11:00 Subjective/Events-last exam Patient doing much better NG tube still in place Pain is improved Able to walk a bit Review of Systems General: Fatigue, Malaise Gastrointestinal: Nausea, Abdominal Pain Objective Exam Vital Signs Vital Signs Date Time Temp Pulse Resp B/P (MAP) Pulse Ox O2 Delivery O2 Flow Rate FiO2 09/06/21 03:43 35.8 76 18 146/78 (100) 91 Room Air 09/03/21 11:33 2.00 Capillary Refill : Less Than 3 SecondsLess Than 3 Seconds General Appearance: No Apparent Distress, WD/WN, Chronically ill, Thin Respiratory: Lungs Clear, Normal Breath Sounds Cardiovascular: Regular Rate, Rhythm Neurologic/Psychiatric: Alert, Oriented x3, No Motor/Sensory Deficits, Normal Mood/Affect Results/Procedures Lab Patient resulted labs reviewed. Assessment/Plan Assessment and Plan Assess & Plan/Chief Complaint Assessment: Bowel obstruction status post surgery NG tube in place Adenocarcinoma Plan: Pain control ELIZABETH NAIK DO Sep 05, 2021 11:04
[2021-09-05 12:14] VITALS: BP 145/79
[2021-09-05 15:41] VITALS: BP 147/84
[2021-09-05] MEDS: morphine INJ 4 MG/ML 1 ML (VIAL/SYRINGE) IV PRN (16:04)
[2021-09-05 20:03] VITALS: BP 166/78
[2021-09-05] MEDS: ENOXAPARIN 40 MG/0.4 ML (LOVENOX) SYR SC SCH (20:31)
[2021-09-06] VITALS (8 sets, daily range): BP systolic 146–191; BP diastolic 68–93
[2021-09-06] MEDS: PIPERACILLIN/TAZOBACTAM (BULK) 4.5 GM in NS (IVPB) 100 ML IV SCH ×4 (00:13→23:08)
[2021-09-06] MEDS: ACETAMINOPHEN 325 MG TABLET PO SCH ×5 (00:14→23:08)
[2021-09-06] MEDS: HYDROmorphone 2 MG/ML VIAL (DILAUDID) IV PRN (00:20)
[2021-09-06] MEDS: AA 4.25% W/LYTES IN D5W IV SOL 1,000 ML IV SCH ×3 (04:36→20:32)
[2021-09-06 06:59] LABS: BASOPHILS % (AUTO) 0 % (0-10); EOSINOPHILS % (AUTO) 0 % (0-10); HEMATOCRIT 31 % (35-52); HEMOGLOBIN 9.6 g/dL (11.5-16.0); LYMPHOCYTES # (AUTO) 1.8 10^3/uL (1.0-4.0); LYMPHOCYTES % (AUTO) 12 % (12-44); MEAN CORPUSCULAR HEMOGLOBIN 27 pg (25-34); MEAN CORPUSCULAR HGB CONC 31 g/dL (32-36); MEAN CORPUSCULAR VOLUME 87 fL (80-99); MEAN PLATELET VOLUME 9.1 fL (9.0-12.2); MONOCYTES # (AUTO) 0.8 10^3/uL (0.0-1.0); MONOCYTES % (AUTO) 6 % (0-12); NEUTROPHILS # (AUTO) 12.4 10^3/uL (1.8-7.8); NEUTROPHILS % (AUTO) 81 % (42-75); PLATELET COUNT 343 10^3/uL (130-400); WHITE BLOOD COUNT 15.2 10^3/uL (4.3-11.0)
[2021-09-06 07:23] LABS: ALBUMIN 2.5 GM/DL (3.2-4.5); CHLORIDE 101 MMOL/L (98-107); POTASSIUM 3.4 MMOL/L (3.6-5.0); SODIUM 136 MMOL/L (135-145)
[2021-09-06 07:24] LABS: CALCIUM 7.9 MG/DL (8.5-10.1)
[2021-09-06 07:25] LABS: GLUCOSE 95 MG/DL (70-105); TOTAL PROTEIN 5.7 GM/DL (6.4-8.2)
[2021-09-06 07:26] LABS: CARBON DIOXIDE 23 MMOL/L (21-32)
[2021-09-06 07:27] LABS: BILIRUBIN,TOTAL 0.3 MG/DL (0.1-1.0)
[2021-09-06 07:29] LABS: ALKALINE PHOSPHATASE 74 U/L (40-136); CREATININE SERUM 0.52 MG/DL (0.60-1.30); GFR ESTIMATED 119
[2021-09-06 07:30] LABS: BUN/CREATININE RATIO 25
[2021-09-06 07:32] LABS: ALANINE AMINOTRANSFERASE < 6 U/L (0-55)
--- NOTE | 2021-09-06 07:37 | Progress Note - Surgery ---
IESHAZAIRA 09/06/21 0737: Subjective Date Seen by a Provider: Sep 06, 2021 Time Seen by a Provider: 07:47 Subjective/Events-last exam Patient was laying in bed when I visited. Still has mostly no pain when lying down. 9/10 abdominal pain when trying to sit up or move around. She is ambulati ng to the bathroom and urinating. Did not do physical therapy yesterday due to pain. No bowel movements yet and did not have flatulence yesterday. Pt drank sprite, chicken broth, apple juice, and water without any issues. Pt also does not have any fatigue POD #5 after small bowel resection on 09/01 Midline incision with terry is clean, dry, and intact. Further description in physical exam findings. Review of Systems General: No Chills, No Night Sweats HEENT: No Head Aches, No Visual Changes Pulmonary: No Dyspnea, No Cough Cardiovascular: No: Chest Pain, Palpitations Gastrointestinal: Abdominal Pain (9/10 upon ambulation. Almost no pain when laying down.), Other (Still has not had a bowel movement. Did not have any flatulence yesterday.) Genitourinary: No Dysuria, No Frequency Musculoskeletal: No: shoulder pain, back pain Neurological: No: Weakness, Numbness, Change in speech, Confusion Objective Exam Vital Signs Date Time Temp Pulse Resp B/P (MAP) Pulse Ox O2 Delivery O2 Flow Rate FiO2 09/06/21 03:43 35.8 76 18 146/78 (100) 91 Room Air 09/06/21 00:17 35.8 80 17 152/71 (98) 92 Room Air 09/05/21 20:30 Room Air 09/05/21 20:03 36.0 80 18 166/78 (107) 94 Room Air 09/05/21 15:41 36.2 89 20 147/84 (105) 93 Room Air 09/05/21 12:14 36.6 80 20 145/79 (101) 90 Room Air 09/05/21 09:00 Room Air I & O 09/06/21 07:00 Intake Total 1040 ml Output Total 4500 ml Balance -3460 ml Capillary Refill : Less Than 3 SecondsLess Than 3 Seconds General Appearance: No Apparent Distress, Chronically ill, Thin HEENT: PERRL/EOMI Neck: Full Range of Motion, Normal Inspection, Non Tender, Supple Respiratory: Chest Non Tender, Lungs Clear, Normal Breath Sounds, No Accessory Muscle Use, No Respiratory Distress Cardiovascular: Regular Rate, Rhythm, No Murmur Peripheral Pulses: 2+ Radial Pulses (R), 2+ Radial Pulses (L) Gastrointestinal: soft, no organomegaly, tenderness (Pt has 9/10 tenderness on ambulation. No tenderness when laying down.), other (Incision has some dried blood at places. Patient says that some blood comes out when she ambulates. Induration about 1cm surrounding margin of terry.) Extremity: Normal Capillary Refill, Normal Range of Motion, Non Tender, No Calf Tenderness Neurologic/Psychiatric: Alert, Oriented x3, Normal Mood/Affect Skin: Normal Color, Warm/Dry Lymphatic: No Adenopathy (cervical and axillary) Results Lab Laboratory Tests 09/06/21 06:47: White Blood Count 15.2H, Red Blood Count 3.54L, Hemoglobin 9.6L, Hematocrit 31L, Mean Corpuscular Volume 87, Mean Corpuscular Hemoglobin 27, Mean Corpuscular Hemoglobin Concent 31L, Red Cell Distribution Width 17.2H, Platelet Count 343, Mean Platelet Volume 9.1, Immature Granulocyte % (Auto) 1, Neutrophils (%) (Auto) 81H, Lymphocytes (%) (Auto) 12, Monocytes (%) (Auto) 6, Eosinophils (%) (Auto) 0, Basophils (%) (Auto) 0, Neutrophils # (Auto) 12.4H, Lymphocytes # (Auto) 1.8, Monocytes # (Auto) 0.8, Eosinophils # (Auto) 0.0, Basophils # (Auto) 0.0, Immature Granulocyte # (Auto) 0.1, Sodium Level 136, Potassium Level 3.4L, Chloride Level 101, Carbon Dioxide Level 23, Anion Gap 12, Blood Urea Nitrogen 13, Creatinine 0.52L, Estimat Glomerular Filtration Rate 119, BUN/Creatinine Ratio 25, Glucose Level 95, Calcium Level 7.9L, Corrected Calcium 9.1, Total Bilirubin 0.3, Aspartate Amino Transf (AST/SGOT) 23, Alanine Aminotransferase (ALT/SGPT) < 6, Alkaline Phosphatase 74, Total Protein 5.7L, Albumin 2.5L Microbiology 09/01/21 MRSA Screen - Final, Complete MRSA not isolated Assessment/Plan Assessment/Plan Assessment/Plan small bowel obstruction s/p ex lap with bowel resection, appendectomy and biopsy of peritoneal mass the right fallopian tube Small bowel adenocarcinoma status post resection. POD #5 Leukocytosis decreasing down to 15.2 Patient has been drinking clear liquids since yesterday with no issue. Start soft foods today and watch for bowel movement JOIE ANDERSON DO 11// 1146: Subjective Time Seen by a Provider: 10:25 Subjective/Events-last exam Pt seen and examined, she is crying today because she states she is just tired of the pain and wants to give up. Denies flatus and BM, states didn't walk at all yesterday "because it hurts too much to move". States when she gets pain meds it makes her stomach hurt even worse. Nurse reports this lasts 5-10 minutes and then she does get pain relief. Review of Systems General: No Chills; Fatigue, Malaise Pulmonary: No Dyspnea, No Cough Cardiovascular: No: Chest Pain, Palpitations Gastrointestinal: Abdominal Pain (9/10 upon ambulation. Almost no pain when laying down.), Other (Still has not had a bowel movement. Did not have any flatulence yesterday.) Objective Exam General Appearance: Chronically ill, Mild Distress, Thin Respiratory: Lungs Clear, Normal Breath Sounds, No Accessory Muscle Use, No Respiratory Distress Cardiovascular: Regular Rate, Rhythm, No Murmur Gastrointestinal: soft, no organomegaly, tenderness (Pt has 9/10 tenderness on ambulation. No tenderness when laying down.), other (Incision has some dried blood at places. Patient says that some blood comes out when she ambulates. Induration about 1cm surrounding margin of terry.) Assessment/Plan Assessment/Plan Assessment/Plan Constipation - will try Dulcolax suppository POD #5 small bowel obstruction s/p ex lap with bowel resection, appendectomy and biopsy of peritoneal mass the right fallopian tube Leukocytosis decreasing down to 15.2 Patient has been drinking clear liquids since yesterday with no issue. Start soft foods today and watch for bowel movement. D/C NGT Supervisory-Addendum Brief Verification & Attestation Participated in pt care: history, MDM, physical Personally performed: exam, history, MDM, supervision of care Care discussed with: Medical Student Procedures: n/a Verification and Attestation of Medical Student E/M Service A medical student performed and documented this service. I then reviewed and ve rified all information documented by the medical student and made modifications to such information, when appropriate. I personally performed a physical exam, medical decision making and then discussed any differences between the notes and made revisions as necessary to create one note. Joie Anderson , 09/06/21 , 11:46 ZAIRA JULIAN Sep 06, 2021 07:37 JOIE ANDERSON DO Sep 06, 2021 11:46
[2021-09-06] MEDS: PANTOPRAZOLE 40 MG (PROTONIX) VIAL IV SCH (09:10)
[2021-09-06] MEDS: morphine INJ 4 MG/ML 1 ML (VIAL/SYRINGE) IV PRN (09:10)
--- NOTE | 2021-09-06 11:25 | Progress Note - Hospitalist ---
Subjective HPI/CC On Admission Date Seen by Provider: Sep 06, 2021 Time Seen by Provider: 11:00 Subjective/Events-last exam Patient doing a lot better Pain is still an issue Check meds and labs Ambulating Review of Systems Gastrointestinal: Abdominal Pain Objective Exam Vital Signs Vital Signs Date Time Temp Pulse Resp B/P (MAP) Pulse Ox O2 Delivery O2 Flow Rate FiO2 09/06/21 19:45 36.2 74 18 159/80 (106) 97 Room Air 09/03/21 11:33 2.00 Capillary Refill : Less Than 3 SecondsLess Than 3 Seconds General Appearance: No Apparent Distress, WD/WN, Chronically ill Respiratory: Lungs Clear, Normal Breath Sounds Cardiovascular: Regular Rate, Rhythm Neurologic/Psychiatric: Alert, Oriented x3, No Motor/Sensory Deficits, Normal Mood/Affect Results/Procedures Lab Laboratory Tests 09/06/21 06:47 Patient resulted labs reviewed. Assessment/Plan Assessment and Plan Assess & Plan/Chief Complaint Assessment: Bowel obstruction status post surgery NG tube in place Adenocarcinoma Plan: Pain control 09/06/2021: Supportive care Monitor closely ELIZABETH NAIK DO Sep 06, 2021 11:25
[2021-09-06] MEDS: KETOROLAC 30 MG/ML VIAL IVP PRN ×2 (11:58→18:21)
[2021-09-06] MEDS: ENOXAPARIN 30 MG/0.3 ML (LOVENOX) SYR SC SCH (20:32)
[2021-09-07] MEDS: KETOROLAC 30 MG/ML VIAL IVP PRN ×3 (00:20→13:49)
[2021-09-07 04:12] VITALS: BP 166/78
[2021-09-07] MEDS: AA 4.25% W/LYTES IN D5W IV SOL 1,000 ML IV SCH ×3 (04:39→17:56)
[2021-09-07 04:55] LABS: BASOPHILS % (AUTO) 0 % (0-10); EOSINOPHILS # (AUTO) 0.1 10^3/uL (0.0-0.3); EOSINOPHILS % (AUTO) 0 % (0-10); HEMATOCRIT 32 % (35-52); HEMOGLOBIN 10.2 g/dL (11.5-16.0); LYMPHOCYTES # (AUTO) 1.7 10^3/uL (1.0-4.0); LYMPHOCYTES % (AUTO) 12 % (12-44); MEAN CORPUSCULAR HEMOGLOBIN 28 pg (25-34); MEAN CORPUSCULAR HGB CONC 32 g/dL (32-36); MEAN CORPUSCULAR VOLUME 86 fL (80-99); MEAN PLATELET VOLUME 9.1 fL (9.0-12.2); MONOCYTES # (AUTO) 1.1 10^3/uL (0.0-1.0); MONOCYTES % (AUTO) 8 % (0-12); NEUTROPHILS # (AUTO) 11.3 10^3/uL (1.8-7.8); NEUTROPHILS % (AUTO) 79 % (42-75); PLATELET COUNT 428 10^3/uL (130-400); WHITE BLOOD COUNT 14.4 10^3/uL (4.3-11.0)
[2021-09-07 05:06] LABS: ALBUMIN 2.7 GM/DL (3.2-4.5); CHLORIDE 101 MMOL/L (98-107); POTASSIUM 4.3 MMOL/L (3.6-5.0); SODIUM 137 MMOL/L (135-145)
[2021-09-07 05:07] LABS: CALCIUM 8.5 MG/DL (8.5-10.1)
[2021-09-07 05:08] LABS: GLUCOSE 90 MG/DL (70-105); TOTAL PROTEIN 6.3 GM/DL (6.4-8.2)
[2021-09-07 05:09] LABS: CARBON DIOXIDE 24 MMOL/L (21-32)
[2021-09-07 05:10] LABS: BILIRUBIN,TOTAL 0.3 MG/DL (0.1-1.0)
[2021-09-07 05:12] LABS: ALKALINE PHOSPHATASE 90 U/L (40-136); CREATININE SERUM 0.56 MG/DL (0.60-1.30); GFR ESTIMATED 110
[2021-09-07 05:13] LABS: BUN/CREATININE RATIO 38
[2021-09-07 05:15] LABS: ALANINE AMINOTRANSFERASE < 6 U/L (0-55)
[2021-09-07] MEDS: ACETAMINOPHEN 325 MG TABLET PO SCH ×4 (05:56→23:28)
[2021-09-07] MEDS: PIPERACILLIN/TAZOBACTAM (BULK) 4.5 GM in NS (IVPB) 100 ML IV SCH ×3 (06:15→21:55)
--- NOTE | 2021-09-07 07:09 | Progress Note - Surgery ---
Subjective Date Seen by a Provider: Sep 07, 2021 Time Seen by a Provider: 07:06 Subjective/Events-last exam Patient pain better controlled today. + flatus/bm. tolerating clears, wanting more. Denies n/v fever sweats chills shortness of breath or chest pain. Objective Exam Vital Signs Date Time Temp Pulse Resp B/P (MAP) Pulse Ox O2 Delivery O2 Flow Rate FiO2 09/07/21 04:12 36.6 57 18 166/78 (107) 97 Room Air 09/06/21 23:56 36.0 54 16 147/68 (94) 97 Room Air 09/06/21 20:40 Room Air 09/06/21 19:45 36.2 74 18 159/80 (106) 97 Room Air 09/06/21 17:07 80 170/80 (110) 09/06/21 16:34 36.4 78 18 191/93 (125) 96 Room Air 09/06/21 12:12 36.0 75 16 172/81 (111) 93 Room Air 09/06/21 08:10 36.0 75 18 156/75 (102) 91 Room Air 09/06/21 08:00 Room Air I & O 09/07/21 07:00 Intake Total 1600 ml Output Total 2600 ml Balance -1000 ml Capillary Refill : Less Than 3 SecondsLess Than 3 Seconds General Appearance: No Apparent Distress, WD/WN, Chronically ill HEENT: PERRL/EOMI Neck: Full Range of Motion, Normal Inspection, Non Tender, Supple Respiratory: Lungs Clear, Normal Breath Sounds Cardiovascular: Regular Rate, Rhythm, No JVD Peripheral Pulses: 2+ Radial Pulses (R), 2+ Radial Pulses (L) Gastrointestinal: soft, no organomegaly, tenderness (incisional), other (incision with minimal erythema that appears to be reactive from terry) Extremity: Normal Capillary Refill, Normal Range of Motion, Non Tender, No Calf Tenderness Neurologic/Psychiatric: Alert, Oriented x3, No Motor/Sensory Deficits, Normal Mood/Affect Skin: Normal Color, Warm/Dry Lymphatic: No Adenopathy (cervical and axillary) Results Lab Laboratory Tests 09/07/21 04:45: White Blood Count 14.4H, Red Blood Count 3.68L, Hemoglobin 10.2L, Hematocrit 32L , Mean Corpuscular Volume 86, Mean Corpuscular Hemoglobin 28, Mean Corpuscular Hemoglobin Concent 32, Red Cell Distribution Width 17.4H, Platelet Count 428H, Mean Platelet Volume 9.1, Immature Granulocyte % (Auto) 1, Neutrophils (%) (Auto) 79H, Lymphocytes (%) (Auto) 12, Monocytes (%) (Auto) 8, Eosinophils (%) (Auto) 0, Basophils (%) (Auto) 0, Neutrophils # (Auto) 11.3H, Lymphocytes # (Auto) 1.7, Monocytes # (Auto) 1.1H, Eosinophils # (Auto) 0.1, Basophils # (Auto) 0.0, Immature Granulocyte # (Auto) 0.2H, Sodium Level 137, Potassium Level 4.3, Chloride Level 101, Carbon Dioxide Level 24, Anion Gap 12, Blood Urea Nitrogen 21H, Creatinine 0.56L, Estimat Glomerular Filtration Rate 110, BUN/Creatinine Ratio 38, Glucose Level 90, Calcium Level 8.5, Corrected Calcium 9.5, Total Bilirubin 0.3, Aspartate Amino Transf (AST/SGOT) 27, Alanine Aminotransferase (ALT/SGPT) < 6, Alkaline Phosphatase 90, Total Protein 6.3L, Albumin 2.7L Microbiology 09/01/21 MRSA Screen - Final, Complete MRSA not isolated Assessment/Plan Assessment/Plan Assessment/Plan s/p exlap small bowel resection appendectomy tolerating liquids with bowel function advance diet as tolerates oral pain control encouraged ambulation and IS. Home possibly today/tomorrow AMELIA WINTERS DO Sep 07, 2021 07:09
[2021-09-07 08:00] VITALS: BP 155/79
[2021-09-07] MEDS: PANTOPRAZOLE 40 MG (PROTONIX) VIAL IV SCH (08:20)
--- NOTE | 2021-09-07 11:55 | Progress Note ---
IVONNE QUISPE MD 09/07/21 1155: Subjective Subjective/Events-last exam 60 y.o. F with history of colonic adenocarcinoma s/p bowel resection 07/07 on outpatient chemotherapy presenting for SBO at site of prior bowel anastamosis. Patient reports pain is persistent, but improving. Toradol relieves her pain. She tolerated a CLD diet yesterday and had multiple BMs. No acute events overnight. Tolerated pureed diet for breakfast, though reports this worsened her abdominal pain. No chest pain, significant dyspnea, or vomiting. Objective Exam Last Set of Vital Signs Vital Signs Date Time Temp Pulse Resp B/P (MAP) Pulse Ox O2 Delivery O2 Flow Rate FiO2 09/07/21 08:00 36.5 61 18 155/79 (104) 96 Room Air 09/03/21 11:33 2.00 Capillary Refill : Less Than 3 SecondsLess Than 3 Seconds I&O Intake and Output 09/07/21 00:00 Intake Total 1520 ml Output Total 3300 ml Balance -1780 ml Intake Oral 1400 ml IV Total 120 ml Output Urine Total 3300 ml # Bowel Movements 1 General: Alert, Mild Distress HEENT: Atraumatic Neck: Supple Lungs: Clear to Auscultation Heart: Regular Rate, Normal S1, Normal S2, No Murmurs Abdomen: Normal Bowel Sounds, Soft, Other (Midline stapled abdominal incision C/D/I without erythema) Extremities: No Edema Skin: No Rashes Psych/Mental Status: Mental Status NL Results/Procedures Lab Laboratory Tests 09/07/21 04:45: White Blood Count 14.4H, Red Blood Count 3.68L, Hemoglobin 10.2L, Hematocrit 32L , Mean Corpuscular Volume 86, Mean Corpuscular Hemoglobin 28, Mean Corpuscular Hemoglobin Concent 32, Red Cell Distribution Width 17.4H, Platelet Count 428H, Mean Platelet Volume 9.1, Immature Granulocyte % (Auto) 1, Neutrophils (%) (Auto) 79H, Lymphocytes (%) (Auto) 12, Monocytes (%) (Auto) 8, Eosinophils (%) (Auto) 0, Basophils (%) (Auto) 0, Neutrophils # (Auto) 11.3H, Lymphocytes # (Auto) 1.7, Monocytes # (Auto) 1.1H, Eosinophils # (Auto) 0.1, Basophils # (Auto) 0.0, Immature Granulocyte # (Auto) 0.2H, Sodium Level 137, Potassium Level 4.3, Chloride Level 101, Carbon Dioxide Level 24, Anion Gap 12, Blood Urea Nitrogen 21H, Creatinine 0.56L, Estimat Glomerular Filtration Rate 110, BUN/Creatinine Ratio 38, Glucose Level 90, Calcium Level 8.5, Corrected Calcium 9.5, Total Bilirubin 0.3, Aspartate Amino Transf (AST/SGOT) 27, Alanine Aminotransferase (ALT/SGPT) < 6, Alkaline Phosphatase 90, Total Protein 6.3L, Albumin 2.7L Microbiology 09/01/21 MRSA Screen - Final, Complete MRSA not isolated Radiology NAME: SHANTI MUELLER [facility] REC#: [id number] PT STATUS: ADM IN : 1960 PHYSICIAN: MO PENA MD ADMIT DATE: 08/28/21 Signed Date of Exam:08/29/21 ABDOMEN, FLAT & UPRIGHT/DECUB Indication: Small bowel obstruction. Compared with radiographs of one-day prior. Findings: Maximal small bowel caliber with an air-containing loop in the left lower quadrant is 5 cm today, previously about 5.5 cm. Differential air-fluid levels in the upright views are much less pronounced than they were on the previous. There is some advancement of contrast media from earlier CT, now within the rectal vault. No adverse development. Impression: Oral contrast has reached the rectum, small bowel dilatation and air-fluid levels have improved. No adverse development. Dictated by: Dictated on workstation # [id number] Dict: 08/29/2139 Trans: 08/29/21857 [facility] [id number] Interpreted by: ALTAF RODRIGUEZ Electronically signed by: ALTAF RODRIGUEZ 08/29/2158 CT ABDOMEN/PELVIS W TECHNIQUE: Multiple contiguous axial images were obtained through the abdomen and pelvis after administration of intravenous contrast. All CT scans use one or more of the following dose optimizing techniques: automated exposure control, MA and/or KvP adjustment based on patient size and exam type or iterative reconstruction. INDICATION: Abdominal pain. COMPARISON: CT abdomen and pelvis from 08/22/2021. FINDINGS: Lower chest: The lung bases are clear. No pericardial or pleural effusion. Peritoneum: No free intraperitoneal air or fluid. Liver and biliary system: The liver is normal. The gallbladder is normal. No biliary duct dilation. Spleen and Pancreas: Spleen is normal. The pancreas enhances normally without mass lesion or peripancreatic inflammatory changes. Adrenals: Normal. tract: The kidneys enhance normally without suspicious mass or obstruction. Bilateral extrarenal pelves are again noted. Urinary bladder is distended without wall thickening. Probable hysterectomy. GI tract: Stomach is moderately distended with contrast material. Marked dilated loops of small bowel measuring up to 4 cm. Similar to prior examination, there is a transition from dilated loops of bowel to decompressed bowel in the right lower quadrant adjacent to metallic foci which may be due to prior anastomotic staple line. No pericolonic inflammatory changes. The appendix is not seen. Vasculature and Lymph nodes: Normal caliber aorta with severe atherosclerotic plaquing. No abdominal or pelvic lymphadenopathy. Musculoskeletal: No concerning osseous lesion. IMPRESSION: 1. Residual or recurrent small bowel obstruction with transition point in the right lower quadrant which is at the site of potential prior anastomosis. 2. No perforation or abscess. Dictated by: Dictated on workstation # [id number] NAME: SHANTI MUELLER [facility] REC#: [id number] PT STATUS: REG ER : 1960 PHYSICIAN: MARLENY ANDREW MD ADMIT DATE: 08/28/21/ER Signed Date of Exam:08/28/21 ABDOMEN, FLAT & UPRIGHT/DECUB EXAMINATION: Abdomen 2 view. HISTORY: Abdominal pain. COMPARISON: 08/23/2021. FINDINGS: There are significantly dilated loops of small bowel with air-fluid levels on the upright film. Findings most consistent with an obstruction. No free air is seen. There appears to be soft tissue gas in the right aspect of the pelvis. It could represent mottled gas and stool as well. No free air. IMPRESSION: 1. Significantly dilated small bowel with air-fluid levels on the frontal view most consistent with an obstruction. 2. Mottled gas in the right pelvis may be soft tissue gas or gas intermixed with stool. Dictated by: Dictated on workstation # [id number] Dict: 08/28/21 1809 Trans: 08/28/21 1815 [facility] [id number] Interpreted by: CARLOS MCCORMICK MD Electronically signed by: CARLOS MCCORMICK MD 08/28/21 1815 Assessment/Plan Assessment/Plan (1) SBO (small bowel obstruction) Status: Chronic Assessment & Plan: History of colonic adenocarcinoma diagnosed 06/2021 s/p bowel resection admitted for SBO s/p repeat bowel resection 09/01 now clinically improving, tolerating diet. Pain controlled with toradol and morphine in prior 24 hours. -TPN ordered, likely able to DC soon -Advance diet per surgery -De-escalate pain regimen as tolerated -Zofran, phenergan for nausea -Zosyn post-operatively until 09/08 -Anticipate discharge in the next few days (2) Leukocytosis Status: Acute Assessment & Plan: Resolving leukocytosis after presenting with SBO s/p resection. -Zosyn day 02/19 (EOT 09/08) -Monitor for fevers (3) Metastatic adenocarcinoma Status: Acute Permanent Comment: distal small bowel Last Edited By: Tristen Odom on Jun 18, 2021 16:35 Assessment & Plan: History of colonic adenocarincoma s/p bowel resection 07/07 presenting for SBO. Will resume chemotherapy once discharged. (4) Hypertension Status: Chronic Assessment & Plan: Blood pressure elevated 160-190 SBP overnight, suspect partially related to pain. -Amlodipine 5 mg for persistent HTN SUSAN DANIEL MD 09/07/21 1500: Supervisory-Addendum Brief Supervisory Addendum I personally have seen and evaluated the patient and agree with PGY3 Ivnone Quispe MD documentation. I agree with the documented assessment and plan. IVONNE QUISPE MD Sep 07, 2021 11:55 SUSAN DANIEL MD Sep 07, 2021 15:00
[2021-09-07 11:59] VITALS: BP 120/63
[2021-09-07 16:00] VITALS: BP 148/68
[2021-09-07] MEDS: morphine INJ 4 MG/ML 1 ML (VIAL/SYRINGE) IV PRN (16:53)
[2021-09-07] MEDS: PROMETHAZINE INJ 25 MG/ML (PHENERGAN) AMP IVP PRN (16:53)
[2021-09-07 20:00] VITALS: BP 135/71
[2021-09-07] MEDS: ENOXAPARIN 30 MG/0.3 ML (LOVENOX) SYR SC SCH (21:49)
[2021-09-08] VITALS: BP 147/78
[2021-09-08] MEDS: AA 4.25% W/LYTES IN D5W IV SOL 1,000 ML IV SCH ×2 (02:04→10:18)
[2021-09-08 04:18] VITALS: BP 160/71
[2021-09-08] MEDS: ACETAMINOPHEN 325 MG TABLET PO SCH ×3 (05:17→18:43)
[2021-09-08 05:36] LABS: HEMATOCRIT 32 % (35-52); MEAN CORPUSCULAR HEMOGLOBIN 27 pg (25-34); MEAN CORPUSCULAR HGB CONC 31 g/dL (32-36); MEAN CORPUSCULAR VOLUME 87 fL (80-99); MEAN PLATELET VOLUME 8.9 fL (9.0-12.2); PLATELET COUNT 515 10^3/uL (130-400); WHITE BLOOD COUNT 13.1 10^3/uL (4.3-11.0)
[2021-09-08 05:45] LABS: ALBUMIN 2.7 GM/DL (3.2-4.5); CHLORIDE 104 MMOL/L (98-107); SODIUM 137 MMOL/L (135-145)
[2021-09-08 05:46] LABS: CALCIUM 8.4 MG/DL (8.5-10.1)
[2021-09-08 05:47] LABS: GLUCOSE 86 MG/DL (70-105); TOTAL PROTEIN 6.4 GM/DL (6.4-8.2)
[2021-09-08 05:48] LABS: CARBON DIOXIDE 21 MMOL/L (21-32)
[2021-09-08 05:49] LABS: BILIRUBIN,TOTAL 0.2 MG/DL (0.1-1.0)
[2021-09-08 05:51] LABS: ALKALINE PHOSPHATASE 99 U/L (40-136); CREATININE SERUM 0.58 MG/DL (0.60-1.30); GFR ESTIMATED 105
[2021-09-08 05:52] LABS: BUN/CREATININE RATIO 43
[2021-09-08 05:54] LABS: ALANINE AMINOTRANSFERASE < 6 U/L (0-55)
--- NOTE | 2021-09-08 07:16 | Progress Note - Surgery ---
KAVON LEON 09/08/21 0716: Subjective Time Seen by a Provider: 07:00 Subjective/Events-last exam Patient seen at bedside this morning. She states her pain is better controlled and has no pain this morning. She states yesterday with advancing diet she became nauseated and had diarrhea and had to slow down with eating. Following this she had some soup and mashed potatoes which made her feel better. Denies vomiting, chest pain, or shortness of breath. Review of Systems General: No Chills, No Fatigue HEENT: No Head Aches, No Visual Changes Pulmonary: No Dyspnea, No Pleuritic Chest Pain Cardiovascular: No: Chest Pain, Edema Gastrointestinal: Nausea (with food ), Diarrhea; No: Vomiting, Abdominal Pain Genitourinary: No Dysuria Musculoskeletal: No: arm pain, leg pain Neurological: No: Weakness, Numbness Objective Exam Vital Signs Date Time Temp Pulse Resp B/P (MAP) Pulse Ox O2 Delivery O2 Flow Rate FiO2 09/08/21 04:18 36.2 56 17 160/71 (100) 98 Room Air 09/08/21 00:00 36.2 63 17 147/78 (101) 97 Room Air 09/07/21 21:20 Room Air 09/07/21 20:00 36.2 63 20 135/71 (92) 96 Room Air 09/07/21 16:00 36.0 66 16 148/68 (94) 96 Room Air 09/07/21 11:59 36.6 81 18 120/63 (82) 96 Room Air 09/07/21 08:00 36.5 61 18 155/79 (104) 96 Room Air 09/07/21 08:00 96 Room Air I & O 09/08/21 07:00 Intake Total 1050 ml Output Total 1700 ml Balance -650 ml Capillary Refill : Less Than 3 SecondsLess Than 3 Seconds General Appearance: No Apparent Distress, WD/WN, Chronically ill HEENT: PERRL/EOMI, Normal ENT Inspection Neck: Full Range of Motion, Normal Inspection, Non Tender Respiratory: Lungs Clear, Normal Breath Sounds, No Accessory Muscle Use, No Respiratory Distress Cardiovascular: Regular Rate, Rhythm, No Edema Peripheral Pulses: 2+ Radial Pulses (R), 2+ Radial Pulses (L) Gastrointestinal: soft, no organomegaly, tenderness (incisional), other (incision with decreasing erythema that appears to be reactive from terry) Extremity: Normal Range of Motion, Non Tender, No Calf Tenderness, No Pedal Edema Neurologic/Psychiatric: Alert, Oriented x3, Normal Mood/Affect Skin: Normal Color, Warm/Dry Lymphatic: No Adenopathy (cervical and axillary ) Results Lab Laboratory Tests 09/08/21 05:25: White Blood Count 13.1H, Red Blood Count 3.68L, Hemoglobin 10.0L, Hematocrit 32L , Mean Corpuscular Volume 87, Mean Corpuscular Hemoglobin 27, Mean Corpuscular Hemoglobin Concent 31L, Red Cell Distribution Width 18.1H, Platelet Count 515H, Mean Platelet Volume 8.9L, Sodium Level 137, Potassium Level 5.0, Chloride Level 104, Carbon Dioxide Level 21, Anion Gap 12, Blood Urea Nitrogen 25H, Creatinine 0.58L, Estimat Glomerular Filtration Rate 105, BUN/Creatinine Ratio 43, Glucose Level 86, Calcium Level 8.4L, Corrected Calcium 9.4, Total Bilirubin 0.2, Aspartate Amino Transf (AST/SGOT) 33, Alanine Aminotransferase (ALT/SGPT) < 6, Alkaline Phosphatase 99, Total Protein 6.4, Albumin 2.7L Microbiology 09/01/21 MRSA Screen - Final, Complete MRSA not isolated Meds Item Value Date Time Acetaminophen/ 1 ea 09/07/21 0700 Hydrocodone Bitart Q4H PRN/PO (Lortab 5 Mg Tablet) Enoxaparin Sodium 30 mg 09/06/21 2100 (Lovenox DAILY@2100/SC 09/07/21 2149 Injection) Ketorolac 30 mg 09/06/21 1130 Tromethamine Q6H PRN/IVP 09/07/21 1349 (Toradol Injection) Amino Acids/ 1,000 ml @ 125 mls/hr 09/04/21 1930 Electrolytes/ Q8H/IV 09/08/21 0204 Dextrose Diphenhydramine 25 mg 09/02/21 1500 HCl Q4H PRN/IVP 09/02/21 1629 (Benadryl Injection) Acetaminophen 650 mg 09/02/21 1200 (Tylenol Tablet) Q6HR/PO 09/08/21 0517 Ondansetron HCl 4 mg 09/01/21 1445 (Zofran Q10M PRN/IVP 09/01/21 1500 Injection (Sdv)) Lactated Ringer's 1,000 ml @ 0 mls/hr 09/01/21 1230 Dextrose 50 ml 09/01/21 0600 (Dextrose 50% 50 PRN PRN/IV ml Emergency Syringe) Pantoprazole 40 mg 08/29/21 0900 (Protonix DAILY/IV 09/07/21 0820 Injection) Promethazine HCl 25 mg 08/28/21 2330 (Phenergan Q6H PRN/IVP 09/07/21 1653 Injection) Ondansetron HCl 8 mg 08/28/21 2330 (Zofran Q6H PRN/IV Injection (Sdv)) Assessment/Plan Assessment/Plan Assessment/Plan Patient post-exlap with small bowel resection and appendectomy Tolerating liquids with bowel function, advance diet as tolerates Oral pain control Encouraged ambulation and IS. Consider home possibly today KENNEDY VICENTE DO 09/08/21 1748: Subjective Subjective/Events-last exam Patient pain still fairly controlled. Not taking p.o. she is using IV primarily. States that tolerating clears. Multiple bouts of diarrhea. Has tried some soup and mashed potatoes which did better. Had some nausea earlier. Denies any currently denies any vomiting fever sweats chills shortness of breath or chest pain at this time Objective Exam General Appearance: No Apparent Distress, Chronically ill HEENT: PERRL/EOMI, Normal ENT Inspection Neck: Full Range of Motion, Normal Inspection, Non Tender Respiratory: Chest Non Tender, No Accessory Muscle Use Cardiovascular: Regular Rate, Rhythm, No JVD Gastrointestinal: soft, tenderness (incisional), other (incision with decreasing erythema that appears to be reactive from terry) Extremity: Non Tender, No Pedal Edema Neurologic/Psychiatric: Alert, Oriented x3 Skin: Normal Color, Warm/Dry Lymphatic: No Adenopathy (cervical and axillary ) Assessment/Plan Assessment/Plan Assessment/Plan Patient post-exlap with small bowel resection and appendectomy Tolerating liquids with bowel function, advance diet as tolerates Oral pain control, dc iv pain medications Encouraged ambulation and IS. Consider home possibly tomorrow. Supervisory-Addendum Brief Verification & Attestation Participated in pt care: history, MDM, physical Personally performed: exam, history, MDM, supervision of care Care discussed with: Medical Student Procedures: n/a Results interpretation: Verified all documentation Verification and Attestation of Medical Student E/M Service A medical student performed and documented this service in my presence. I reviewed and verified all information documented by the medical student and made modifications to such information, when appropriate. I personally performed the physical exam and medical decision making. Kennedy Vicente, Sep 08, 2021,17:48 KAVON LEON Sep 08, 2021 07:16 KENNEDY VICENTE DO Sep 08, 2021 17:48
[2021-09-08 08:00] VITALS: BP 153/77
[2021-09-08] MEDS: PANTOPRAZOLE 40 MG (PROTONIX) VIAL IV SCH (09:25)
[2021-09-08] MEDS: PROMETHAZINE INJ 25 MG/ML (PHENERGAN) AMP IVP PRN (10:18)
[2021-09-08] MEDS: KETOROLAC 30 MG/ML VIAL IVP PRN (10:18)
[2021-09-08 11:57] VITALS: BP 169/81
[2021-09-08 15:51] VITALS: BP 165/85
--- NOTE | 2021-09-08 15:53 | Progress Note ---
IVONNE HICKS MD 09/08/21 1552: Subjective Subjective/Events-last exam Patient received 3 x toradol and 1 x morphine in prior 24 hours. No acute events overnight. She continues to tolerate, though have pain after eating. No vomiting and 8 BMs in 24 hours. She has been out of bed, but not spent much time walking. She worries about her pain if she were to go home. Objective Exam Last Set of Vital Signs Vital Signs Date Time Temp Pulse Resp B/P (MAP) Pulse Ox O2 Delivery O2 Flow Rate FiO2 09/08/21 11:57 36.7 72 20 169/81 (110) 97 Room Air 09/03/21 11:33 2.00 Capillary Refill : Less Than 3 SecondsLess Than 3 Seconds I&O Intake and Output 09/08/21 00:00 Intake Total 950 ml Output Total 1700 ml Balance -750 ml Intake Oral 950 ml Output Urine Total 1700 ml # Voids 3 # Bowel Movements 8 General: Alert, Oriented X3, Mild Distress HEENT: Atraumatic Neck: Supple Lungs: Clear to Auscultation, Normal Air Movement Heart: Regular Rate, Normal S1, Normal S2, No Murmurs Abdomen: Normal Bowel Sounds, Soft, Other (Midline incision stapled, C/D/I) Extremities: No Clubbing Skin: No Rashes Psych/Mental Status: Mental Status NL Results/Procedures Lab Laboratory Tests 09/08/21 05:25: White Blood Count 13.1H, Red Blood Count 3.68L, Hemoglobin 10.0L, Hematocrit 32L , Mean Corpuscular Volume 87, Mean Corpuscular Hemoglobin 27, Mean Corpuscular Hemoglobin Concent 31L, Red Cell Distribution Width 18.1H, Platelet Count 515H, Mean Platelet Volume 8.9L, Sodium Level 137, Potassium Level 5.0, Chloride Level 104, Carbon Dioxide Level 21, Anion Gap 12, Blood Urea Nitrogen 25H, Creatinine 0.58L, Estimat Glomerular Filtration Rate 105, BUN/Creatinine Ratio 43, Glucose Level 86, Calcium Level 8.4L, Corrected Calcium 9.4, Total Bilirubin 0.2, Aspartate Amino Transf (AST/SGOT) 33, Alanine Aminotransferase (ALT/SGPT) < 6, Alkaline Phosphatase 99, Total Protein 6.4, Albumin 2.7L Microbiology 09/01/21 MRSA Screen - Final, Complete MRSA not isolated Radiology NAME: SHANTI MUELLER [facility] REC#: [id number] PT STATUS: ADM IN : 1960 PHYSICIAN: MO PENA MD ADMIT DATE: 08/28/21 Signed Date of Exam:08/29/21 ABDOMEN, FLAT & UPRIGHT/DECUB Indication: Small bowel obstruction. Compared with radiographs of one-day prior. Findings: Maximal small bowel caliber with an air-containing loop in the left lower quadrant is 5 cm today, previously about 5.5 cm. Differential air-fluid levels in the upright views are much less pronounced than they were on the previous. There is some advancement of contrast media from earlier CT, now within the rectal vault. No adverse development. Impression: Oral contrast has reached the rectum, small bowel dilatation and air-fluid levels have improved. No adverse development. Dictated by: Dictated on workstation # [id number] Dict: 08/29/2139 Trans: 08/29/21857 [facility] [id number] Interpreted by: ALTAF RODRIGUEZ Electronically signed by: ALTAF RODRIGUEZ 08/29/2158 CT ABDOMEN/PELVIS W TECHNIQUE: Multiple contiguous axial images were obtained through the abdomen and pelvis after administration of intravenous contrast. All CT scans use one or more of the following dose optimizing techniques: automated exposure control, MA and/or KvP adjustment based on patient size and exam type or iterative reconstruction. INDICATION: Abdominal pain. COMPARISON: CT abdomen and pelvis from 08/22/2021. FINDINGS: Lower chest: The lung bases are clear. No pericardial or pleural effusion. Peritoneum: No free intraperitoneal air or fluid. Liver and biliary system: The liver is normal. The gallbladder is normal. No biliary duct dilation. Spleen and Pancreas: Spleen is normal. The pancreas enhances normally without mass lesion or peripancreatic inflammatory changes. Adrenals: Normal. tract: The kidneys enhance normally without suspicious mass or obstruction. Bilateral extrarenal pelves are again noted. Urinary bladder is distended without wall thickening. Probable hysterectomy. GI tract: Stomach is moderately distended with contrast material. Marked dilated loops of small bowel measuring up to 4 cm. Similar to prior examination, there is a transition from dilated loops of bowel to decompressed bowel in the right lower quadrant adjacent to metallic foci which may be due to prior anastomotic staple line. No pericolonic inflammatory changes. The appendix is not seen. Vasculature and Lymph nodes: Normal caliber aorta with severe atherosclerotic plaquing. No abdominal or pelvic lymphadenopathy. Musculoskeletal: No concerning osseous lesion. IMPRESSION: 1. Residual or recurrent small bowel obstruction with transition point in the right lower quadrant which is at the site of potential prior anastomosis. 2. No perforation or abscess. Dictated by: Dictated on workstation # [id number] NAME: SHANTI MUELLER [facility] REC#: [id number] PT STATUS: REG ER : 1960 PHYSICIAN: MARLENY ANDREW MD ADMIT DATE: 08/28/21/ER Signed Date of Exam:08/28/21 ABDOMEN, FLAT & UPRIGHT/DECUB EXAMINATION: Abdomen 2 view. HISTORY: Abdominal pain. COMPARISON: 08/23/2021. FINDINGS: There are significantly dilated loops of small bowel with air-fluid levels on the upright film. Findings most consistent with an obstruction. No free air is seen. There appears to be soft tissue gas in the right aspect of the pelvis. It could represent mottled gas and stool as well. No free air. IMPRESSION: 1. Significantly dilated small bowel with air-fluid levels on the frontal view most consistent with an obstruction. 2. Mottled gas in the right pelvis may be soft tissue gas or gas intermixed with stool. Dictated by: Dictated on workstation # [id number] Dict: 08/28/21 1809 Trans: 08/28/211814 [facility] [id number] Interpreted by: CARLOS MCCORMICK MD Electronically signed by: CARLOS MCCORMICK MD 08/28/21 1815 Assessment/Plan Assessment/Plan Admission Dx Small bowel obstruction Admission Status: Inpatient Order (span 2 midnights) (1) SBO (small bowel obstruction) Status: Chronic Assessment & Plan: History of colonic adenocarcinoma diagnosed 06/2021 s/p bowel resection admitted for SBO s/p repeat bowel resection 09/01 now clinically improving, tolerating diet. Pain controlled with toradol and morphine in prior 24 hours. -Discontinue TPN -Discontinue morphine, will try to manage pain with norco overnight -Zofran, phenergan for nausea -Anticipate discharge tomorrow (2) Leukocytosis Status: Acute Assessment & Plan: Resolving leukocytosis after presenting with SBO s/p resection. -Zosyn complete today -Monitor for fevers (3) Metastatic adenocarcinoma Status: Acute Permanent Comment: distal small bowel Last Edited By: Tristen Odom on Jun 18, 2021 16:35 Assessment & Plan: History of colonic adenocarincoma s/p bowel resection 07/07 presenting for SBO. Will resume chemotherapy once discharged. (4) Hypertension Status: Chronic Assessment & Plan: Blood pressure elevated 160-190 SBP overnight, suspect partially related to pain. SUSAN DANIEL MD 09/08/21 1559: Supervisory-Addendum Brief Supervisory Addendum I personally have seen and evaluated the patient and agree with assessment and plan as documented by PGY3 MD KURT Tucker JONATHAN C MD Sep 08, 2021 15:52 SUSAN DANIEL MD Sep 08, 2021 15:59
[2021-09-08] MEDS ORDERED: DICYCLOMINE 10 MG (BENTYL) CAP PO PRN (16:00)
[2021-09-08] MEDS: HYDROcodone/APAP 5 MG/325 MG (LORTAB) TAB PO PRN (17:09)
[2021-09-08 20:00] VITALS: BP 129/70
[2021-09-08] MEDS ORDERED: HYDROcodone/APAP 5 MG/325 MG (LORTAB) TAB PO ONE (20:15)
[2021-09-08] MEDS: ENOXAPARIN 30 MG/0.3 ML (LOVENOX) SYR SC SCH (20:24)
[2021-09-09] MEDS: HYDROcodone/APAP 5 MG/325 MG (LORTAB) TAB PO PRN ×3 (00:29→11:02)
[2021-09-09] MEDS: ACETAMINOPHEN 325 MG TABLET PO SCH ×2 (00:29→06:01)
[2021-09-09 00:39] VITALS: BP 133/71
[2021-09-09 04:24] VITALS: BP 144/71
[2021-09-09 06:25] LABS: HEMATOCRIT 31 % (35-52); MEAN CORPUSCULAR HEMOGLOBIN 27 pg (25-34); MEAN CORPUSCULAR HGB CONC 32 g/dL (32-36); MEAN CORPUSCULAR VOLUME 86 fL (80-99); MEAN PLATELET VOLUME 8.8 fL (9.0-12.2); PLATELET COUNT 650 10^3/uL (130-400); WHITE BLOOD COUNT 12.8 10^3/uL (4.3-11.0)
[2021-09-09 06:38] LABS: POTASSIUM 4.8 MMOL/L (3.6-5.0)
[2021-09-09 06:39] LABS: CALCIUM 8.6 MG/DL (8.5-10.1)
[2021-09-09 06:44] LABS: CREATININE SERUM 0.55 MG/DL (0.60-1.30)
--- NOTE | 2021-09-09 06:59 | Progress Note - Surgery ---
MARTINMiguelNANCY PENALOZA 09/09/21 0659: Subjective Date Seen by a Provider: Sep 09, 2021 Time Seen by a Provider: 07:45 Subjective/Events-last exam Elzbieta is laying in bed, awake. She reports that she is feeling much better, and that PO Lortab is effective in managing her pain. Has been ambulating, and had a bowel movement last night. She states that she feels ready to go home today. Site of incision is intact, clean, and dry. No bruising, erythema, or purulence is noted. Review of Systems General: Fatigue; No Malaise HEENT: No Head Aches, No Visual Changes Pulmonary: No Dyspnea, No Cough Cardiovascular: No: Chest Pain, Palpitations Gastrointestinal: Nausea, Abdominal Pain (Feels tender, significantly improved); No: Vomiting Genitourinary: No Dysuria, No Frequency Musculoskeletal: No: arm pain, leg pain Neurological: No: Weakness, Numbness Focused Exam Respiratory: Chest Non Tender, Lungs Clear, Normal Breath Sounds, No Accessory Muscle Use, No Respiratory Distress Cardiovascular: Regular Rate, Rhythm, No Edema, No Murmur, Normal Peripheral Pulses Capillary Refill: Less Than 3 Seconds Peripheral Pulses: 2+ Radial Pulses (R), 2+ Radial Pulses (L) Skin: normal color, warm/dry Objective Exam Vital Signs Date Time Temp Pulse Resp B/P (MAP) Pulse Ox O2 Delivery O2 Flow Rate FiO2 09/09/21 04:24 36.4 61 20 144/71 (95) 99 Room Air 09/09/21 00:39 36.4 74 20 133/71 (91) 96 Room Air 09/08/21 20:25 Room Air 09/08/21 20:00 37.4 90 22 129/70 (89) 96 Room Air 09/08/21 15:51 37.0 72 22 165/85 (111) 97 Room Air 09/08/21 11:57 36.7 72 20 169/81 (110) 97 Room Air 09/08/21 08:00 97 Room Air 09/08/21 08:00 35.7 59 18 153/77 (102) 95 Room Air I & O 09/09/21 07:00 Intake Total 1630 ml Output Total 1750 ml Balance -120 ml Capillary Refill : Less Than 3 SecondsLess Than 3 Seconds General Appearance: No Apparent Distress, WD/WN, Chronically ill HEENT: PERRL/EOMI, Normal ENT Inspection Neck: Full Range of Motion, Normal Inspection, Non Tender Respiratory: Chest Non Tender, No Accessory Muscle Use Cardiovascular: Regular Rate, Rhythm, No JVD Peripheral Pulses: 2+ Radial Pulses (R), 2+ Radial Pulses (L) Gastrointestinal: soft, tenderness (incisional), other (incision with decreasing erythema that appears to be reactive from terry) Extremity: Normal Capillary Refill, Normal Inspection, Non Tender, No Pedal Edema Neurologic/Psychiatric: Alert, Oriented x3, No Motor/Sensory Deficits, Normal Mood/Affect Skin: Normal Color, Warm/Dry Lymphatic: No Adenopathy (cervical and axillary ) Results Lab Laboratory Tests 09/09/21 06:10: White Blood Count 12.8H, Red Blood Count 3.66L, Hemoglobin 10.0L, Hematocrit 31L , Mean Corpuscular Volume 86, Mean Corpuscular Hemoglobin 27, Mean Corpuscular Hemoglobin Concent 32, Red Cell Distribution Width 18.2H, Platelet Count 650H, Mean Platelet Volume 8.8L, Sodium Level 134L, Potassium Level 4.8, Chloride Level 103, Carbon Dioxide Level 22, Anion Gap 9, Blood Urea Nitrogen 17, Creatinine 0.55L, Estimat Glomerular Filtration Rate 112, BUN/Creatinine Ratio 31, Glucose Level 73, Calcium Level 8.6 Microbiology 09/01/21 MRSA Screen - Final, Complete MRSA not isolated Assessment/Plan Assessment/Plan Assessment/Plan Patient post-exlap with small bowel resection and appendectomy D/C home today with Antibiotics and Lortab. AMELIA WINTERS DO 09/09/21 180: Subjective Subjective/Events-last exam Patient pain controlled. She had bowel movement last night. She is tolerating diet. She has no complaints at this time denies any nausea vomiting fever sweats chills shortness of breath or chest pain. Wanting to go home Objective Exam General Appearance: No Apparent Distress, Chronically ill HEENT: PERRL/EOMI, Normal ENT Inspection Neck: Full Range of Motion, Non Tender Respiratory: Chest Non Tender, No Accessory Muscle Use, No Respiratory Distress Cardiovascular: Regular Rate, Rhythm, No JVD Gastrointestinal: soft, tenderness (incisional minimal), other (incision with decreasing erythema that appears to be reactive from terry) Extremity: Normal Capillary Refill, Normal Inspection, Non Tender Neurologic/Psychiatric: Alert, Oriented x3, No Motor/Sensory Deficits, Normal Mood/Affect Skin: Normal Color, Warm/Dry Lymphatic: No Adenopathy (cervical and axillary ) Assessment/Plan Assessment/Plan Assessment/Plan Patient post-exlap with small bowel resection and appendectomy D/C home today with Antibiotics and pain medication. Supervisory-Addendum Brief Verification & Attestation Participated in pt care: history, MDM, physical Personally performed: exam, history, MDM, supervision of care Care discussed with: Medical Student Procedures: n/a Results interpretation: Verified all documentation Verification and Attestation of Medical Student E/M Service A medical student performed and documented this service in my presence. I reviewed and verified all information documented by the medical student and made modifications to such information, when appropriate. I personally performed the physical exam and medical decision making. Amelia Winters, Sep 09, 2021,18:05 NANCY URIARTE Sep 09, 2021 06:59 AMELIA WINTERS DO Sep 09, 2021 18:06
[2021-09-09 08:15] VITALS: BP 157/81
[2021-09-09] MEDS ORDERED: AMOX-358 PO (08:51)
[2021-09-09] MEDS ORDERED: DOCU-143 PO (08:51)
[2021-09-09] MEDS ORDERED: ACHD5005 PO (08:51)
--- NOTE | 2021-09-09 08:53 | Discharge Inst-Simple/Standard ---
Discharge Inst-Standard Discharge Medications New, Converted or Re-Newed RX: Transmitted to Pharmacy Patient Instructions/Follow Up Plan of Care/Instructions/FU: 2 weeks Jules Activity as Tolerated: No Discharge Diet: Regular Diet Other Inst to Patient Follow up Appt: Make appointment for 2 week. Instructions: No lifting greater than 10 pounds. No strenuous activity. May shower in 24 hours, no tub bath or soaking. Use incentive spirometer at home as directed. No Smoking Skin/Wound Care: Keep wound clean and dry. Symptoms to Report: Appetite Changes, Extremity Discoloration, Numbness/Tingling, Swelling Increased, Bleeding Excessive, Eyesight Changes, Pain Increased, Urine Color Change, Constipation(Persistent), Fever over 101 degree F, Pain/Pressure in chest, Urinating Difficulty, Cough Up/Vomit Blood, Heart Beat Irreg/Pounding, Pain/Pressure in jaw, Vaginal Bleeding Increase, Cramps in feet or legs, Lightheadedness, Pain/Pressure in shoulder, Diarrhea(Persistent), Memory Changes Suddenly, Questions/Concerns, Weight gain consecutive days, Dizziness/Fainting, Nausea/Vomiting, Shortness of Breath, Weight gain over 2 pounds If questions or concerns contact your physician Or seek help at emergency department. AMELIA WINTERS DO Sep 09, 2021 08:53
[2021-09-09] MEDS: PANTOPRAZOLE 40 MG (PROTONIX) VIAL IV SCH (08:55)
--- NOTE | 2021-09-09 15:40 | Discharge Summary ---
IVONNE QUISPE MD 09/09/21 1527: Discharge Summary Hospital Course Problems/Diagnosis: (1) SBO (small bowel obstruction) Status: Chronic Assessment & Plan: History of colonic adenocarcinoma diagnosed 06/2021 s/p bowel resection admitted 08/28 for abdominal pain found to have SBO at site of prior anastamosis. She underwent ex-lap 09/01 for SBO and had repeat bowel resection. She was on TPN for multiple days before diet was advanced and patient demonstrated tolerance of a regular diet with regular bowel movements. At time of discharge, she was prescribed PRN lortab along with 5 days of augmentin per surgery recommendations to follow up with surgery in 2 weeks. (2) Leukocytosis Status: Acute Assessment & Plan: Leukocytosis to 32K noted after her bowel resection, placed on zosyn post-operatively with improvement in WBC to 12.8 at time of discharge. Patient prescribed 5 additional days of augmentin at DC per surgery recommendations. (3) Metastatic adenocarcinoma Status: Acute Assessment & Plan: History of colonic adenocarincoma s/p bowel resection 07/07 presenting for SBO. Will resume chemotherapy in outpatient setting. (4) Hypertension Status: Chronic Assessment & Plan: Hypertensive post-operatively in the setting of abdominal pain, improved at time of discharge without need for anti-hypertensives. Hospital Course Date of Admission: Aug 28, 2021 at 21:39 Admission Diagnosis : Family Physician/Provider: Arianna Jackson Date of Discharge: 09/09/21 Discharge Diagnosis: Small bowel obstruction Metastatic adenocarcinoma Leukocytosis Hypertension Hospital Course: See problem list Labs and Pending Lab Test: Laboratory Tests 09/09/21 06:10: White Blood Count 12.8H, Red Blood Count 3.66L, Hemoglobin 10.0L, Hematocrit 31L , Mean Corpuscular Volume 86, Mean Corpuscular Hemoglobin 27, Mean Corpuscular Hemoglobin Concent 32, Red Cell Distribution Width 18.2H, Platelet Count 650H, Mean Platelet Volume 8.8L, Sodium Level 134L, Potassium Level 4.8, Chloride Level 103, Carbon Dioxide Level 22, Anion Gap 9, Blood Urea Nitrogen 17, Creatinine 0.55L, Estimat Glomerular Filtration Rate 112, BUN/Creatinine Ratio 31, Glucose Level 73, Calcium Level 8.6 Microbiology 09/01/21 MRSA Screen - Final, Complete MRSA not isolated Home Meds Active Colace (Docusate Sodium) 100 Mg Capsule 100 Mg PO BID Hydrocodone-Acetamin 5-325 mg (Hydrocodone/Acetaminophen) 1 Each Tablet 1 Each PO Q4H PRN Augmentin 875-125 Tablet (Amoxicillin/Potassium Clav) 1 Each Tablet 1 Each PO BID Reported Omeprazole 20 Mg Capsule.dr 20 Mg PO DAILY Centrum Silver Women Tablet (Multivits-Min/Iron/FA/Lutein) 1 Each Tablet 1 Each PO DAILY Promethazine Tablet (Promethazine HCl) 25 Mg Tablet 25 Mg PO Q6H PRN Dicyclomine HCl 10 Mg Capsule 10 Mg PO TID Assessment/Pt DC Instructions Follow up with surgery and PCP within 2 weeks Discharge Diet: Regular Diet Activity as Tolerated: No (10 lb lifting restriction, can shower 24 hours after discharge) Consulations Consultations Surgery Discharge Physical Examination Allergies: Coded Allergies: No Known Drug Allergies (Unverified , 09/08/14) General Appearance: No Apparent Distress, WD/WN HEENT: Pharynx Normal, Moist Mucous Membranes Respiratory: Chest Non Tender, Lungs Clear, No Accessory Muscle Use, No Respiratory Distress Cardiovascular: Regular Rate, Rhythm, No Edema, No Murmur Gastrointestinal: Normal Bowel Sounds, Soft, Other (Large midline stapled inc ision C/D/I) Extremity: Normal Capillary Refill Skin: Normal Color, Warm/Dry Neurologic/Psychiatric: Alert, Oriented x3 SUSAN DANIEL MD 09/09/211923: Discharge Summary Discharge Physical Examination Allergies: Coded Allergies: No Known Drug Allergies (Unverified , 09/08/14) Supervisory-Addendum Brief Supervisory Addendum I personally have seen and evaluated the patient and I agree with the documented assessment and plan by PGY3 Francisco Quispe MD. IVONNE QUISPE MD Sep 09, 2021 15:27 SUSAN DANIEL MD Sep 09, 2021 19:24
== END 2021-09-09 11:45 | disposition home or self-care (01) | DRG 330 ==
LOC: EDUNIT# 16:48 → ER 16:50 → 4TH 21:39
PROVIDERS: ADMIT Internal Medicine; ATTEND Family Medicine
PROC: 0DTJ0ZZ Resection of Appendix, Open Approach (ICD-10-PCS; 2021-09-01)
PROC: 0WBH0ZX Excision of Retroperitoneum, Open Approach, Diagnostic (ICD-10-PCS; 2021-09-01)
PROC: 0DB80ZZ Excision of Small Intestine, Open Approach (ICD-10-PCS; principal; 2021-09-01 12:45)
DX: K56.609 Unspecified intestinal obstruction, unspecified as to partial versus complete obstruction (principal); C77.2 Secondary and unspecified malignant neoplasm of intra-abdominal lymph nodes; C79.9 Secondary malignant neoplasm of unspecified site; E87.6 Hypokalemia; E83.42 Hypomagnesemia; E83.51 Hypocalcemia; Z66 Do not resuscitate; B37.3 Candidiasis of vulva and vagina; I10 Essential (primary) hypertension; D72.829 Elevated white blood cell count, unspecified; K21.9 Gastro-esophageal reflux disease without esophagitis; M19.90 Unspecified osteoarthritis, unspecified site; G89.29 Other chronic pain; M54.9 Dorsalgia, unspecified; Z92.21 Personal history of antineoplastic chemotherapy; R32 Unspecified urinary incontinence; J44.9 Chronic obstructive pulmonary disease, unspecified; Z85.038 Personal history of other malignant neoplasm of large intestine
CPT/HCPCS: 36415; 74018; 74019; 74177; 74250; 80048; 80053; 82947; 83690; 83735; 84100; 85007; 85025; 85027; 86141; 87081; 88304; 88305; 88307; 94664; 96361; 96365; 96375; 96376

== ENCOUNTER → 2021-09-21 | Outpatient (RCR) | payer OTHER ==
[2021-06-30 13:24] LABS: BASOPHILS % (AUTO) 0 % (0-10); EOSINOPHILS % (AUTO) 0 % (0-10); HEMATOCRIT 35 % (35-52); HEMOGLOBIN 11.5 g/dL (11.5-16.0); LYMPHOCYTES % (AUTO) 20 % (12-44); MEAN CORPUSCULAR HEMOGLOBIN 29 pg (25-34); MEAN CORPUSCULAR HGB CONC 33 g/dL (32-36); MEAN CORPUSCULAR VOLUME 87 fL (80-99); MEAN PLATELET VOLUME 8.3 fL (9.0-12.2); MONOCYTES # (AUTO) 0.6 10^3/uL (0.0-1.0); MONOCYTES % (AUTO) 6 % (0-12); NEUTROPHILS # (AUTO) 7.2 10^3/uL (1.8-7.8); NEUTROPHILS % (AUTO) 72 % (42-75); PLATELET COUNT 434 10^3/uL (130-400); WHITE BLOOD COUNT 9.9 10^3/uL (4.3-11.0)
[2021-06-30 13:42] LABS: ALANINE AMINOTRANSFERASE 16 U/L (0-55); ALBUMIN 3.1 GM/DL (3.2-4.5); ALKALINE PHOSPHATASE 100 U/L (40-136); BILIRUBIN,TOTAL 0.4 MG/DL (0.1-1.0); BUN/CREATININE RATIO 14; CALCIUM 7.4 MG/DL (8.5-10.1); CARBON DIOXIDE 34 MMOL/L (21-32); CHLORIDE 95 MMOL/L (98-107); CREATININE SERUM 0.56 MG/DL (0.60-1.30); GFR ESTIMATED 110; GLUCOSE 98 MG/DL (70-105); POTASSIUM 2.6 MMOL/L (3.6-5.0); SODIUM 142 MMOL/L (135-145); TOTAL PROTEIN 6.7 GM/DL (6.4-8.2)
[2021-06-30 14:55] LABS: MAGNESIUM < 0.6 MG/DL (1.6-2.4)
[2021-07-15 13:29] LABS: BASOPHILS % (AUTO) 1 % (0-10); EOSINOPHILS % (AUTO) 1 % (0-10); HEMATOCRIT 36 % (35-52); HEMOGLOBIN 11.6 g/dL (11.5-16.0); LYMPHOCYTES % (AUTO) 38 % (12-44); MEAN CORPUSCULAR HEMOGLOBIN 28 pg (25-34); MEAN CORPUSCULAR HGB CONC 32 g/dL (32-36); MEAN CORPUSCULAR VOLUME 87 fL (80-99); MEAN PLATELET VOLUME 8.4 fL (9.0-12.2); MONOCYTES # (AUTO) 0.6 10^3/uL (0.0-1.0); MONOCYTES % (AUTO) 8 % (0-12); NEUTROPHILS # (AUTO) 4.2 10^3/uL (1.8-7.8); NEUTROPHILS % (AUTO) 53 % (42-75); PLATELET COUNT 472 10^3/uL (130-400); WHITE BLOOD COUNT 7.9 10^3/uL (4.3-11.0)
[2021-07-15 13:49] LABS: ALBUMIN 3.6 GM/DL (3.2-4.5); BILIRUBIN,TOTAL 0.3 MG/DL (0.1-1.0); CALCIUM 8.9 MG/DL (8.5-10.1); CREATININE SERUM 0.61 MG/DL (0.60-1.30); MAGNESIUM 1.7 MG/DL (1.6-2.4); POTASSIUM 3.4 MMOL/L (3.6-5.0); TOTAL PROTEIN 7.4 GM/DL (6.4-8.2)
[2021-07-28 13:59] LABS: BASOPHILS % (AUTO) 0 % (0-10); EOSINOPHILS % (AUTO) 1 % (0-10); HEMATOCRIT 35 % (35-52); HEMOGLOBIN 11.4 g/dL (11.5-16.0); LYMPHOCYTES # (AUTO) 2.4 10^3/uL (1.0-4.0); LYMPHOCYTES % (AUTO) 44 % (12-44); MEAN CORPUSCULAR HEMOGLOBIN 28 pg (25-34); MEAN CORPUSCULAR HGB CONC 32 g/dL (32-36); MEAN CORPUSCULAR VOLUME 87 fL (80-99); MEAN PLATELET VOLUME 8.5 fL (9.0-12.2); MONOCYTES # (AUTO) 0.5 10^3/uL (0.0-1.0); MONOCYTES % (AUTO) 10 % (0-12); NEUTROPHILS # (AUTO) 2.5 10^3/uL (1.8-7.8); NEUTROPHILS % (AUTO) 46 % (42-75); PLATELET COUNT 275 10^3/uL (130-400); WHITE BLOOD COUNT 5.5 10^3/uL (4.3-11.0)
[2021-07-28 14:20] LABS: ALBUMIN 3.5 GM/DL (3.2-4.5); BILIRUBIN,TOTAL 0.4 MG/DL (0.1-1.0); CALCIUM 9.1 MG/DL (8.5-10.1); CREATININE SERUM 0.65 MG/DL (0.60-1.30); POTASSIUM 3.9 MMOL/L (3.6-5.0); TOTAL PROTEIN 7.1 GM/DL (6.4-8.2)
[2021-08-11 13:31] LABS: BASOPHILS % (AUTO) 0 % (0-10); EOSINOPHILS % (AUTO) 1 % (0-10); HEMATOCRIT 37 % (35-52); LYMPHOCYTES # (AUTO) 2.2 10^3/uL (1.0-4.0); LYMPHOCYTES % (AUTO) 46 % (12-44); MEAN CORPUSCULAR HEMOGLOBIN 28 pg (25-34); MEAN CORPUSCULAR HGB CONC 33 g/dL (32-36); MEAN CORPUSCULAR VOLUME 86 fL (80-99); MEAN PLATELET VOLUME 9.1 fL (9.0-12.2); MONOCYTES # (AUTO) 0.6 10^3/uL (0.0-1.0); MONOCYTES % (AUTO) 12 % (0-12); NEUTROPHILS # (AUTO) 1.9 10^3/uL (1.8-7.8); NEUTROPHILS % (AUTO) 40 % (42-75); PLATELET COUNT 195 10^3/uL (130-400); WHITE BLOOD COUNT 4.7 10^3/uL (4.3-11.0)
[2021-08-11 14:08] LABS: ALBUMIN 3.6 GM/DL (3.2-4.5); BILIRUBIN,TOTAL 0.5 MG/DL (0.1-1.0); CALCIUM 8.6 MG/DL (8.5-10.1); CREATININE SERUM 0.66 MG/DL (0.60-1.30); POTASSIUM 2.7 MMOL/L (3.6-5.0); TOTAL PROTEIN 7.4 GM/DL (6.4-8.2)
[~2021-09-21] VITALS: Ht 165.1 cm; Wt 47.2 kg
[~2021-09-21] MED LIST changes: +ACHD5005 PO; +AMOX-358 PO; +D5W 500 ML IV (CANCER CTR) 500 ML IV SCH; +DOCU-143 PO; +FAMOTIDINE 20MG/2ML IV (CANCER CTR) IV SCH; +FOSAPREPITANT (CANCER CENTER) 150 MG in NS (IVPB) CANCER CENTER ONLY 150 ML IV SCH; +LEUCOVORIN CALCIUM 600 MG in D5W 250 ML IVPB (CANCER CTR) 250 ML IV SCH; +MAGNESIUM SULFATE (CANCER CTR) 3 GM in NS (IVPB) CANCER CENTER 100 ML IV ONE; +OCTREOTIDE (FOR BOLUS) 50 MCG/ML SYR (SandoSTATIN) SC ONE; +OMEP20CA18 PO; +OXALIPLATIN 100 MG, OXALIPLATIN (GENERIC) 20 MG in D5W 250 ML IVPB (CANCER CTR) 250 ML IV SCH; +[UNRECOGNIZED DRUG - REMARK] IM SCH; +diphenhydrAMINE 25 MG TAB (BENADRYL) CANCER CENTER PO SCH
== END | disposition home or self-care (01) ==
LOC: ONC 06-23 12:52
PROVIDERS: ATTEND Internal Medicine Hematology & Oncology
DX: Z51.11 Encounter for antineoplastic chemotherapy (principal); C17.9 Malignant neoplasm of small intestine, unspecified; D50.9 Iron deficiency anemia, unspecified
CPT/HCPCS: 96372; G0463; 36591; 80053; 82378; 83735; 85025; 96365; 96367; 96368; 96375; 96411; 96413; 96416; 99213

== ENCOUNTER 2021-10-05 18:11 | Emergency (ER) | payer OTHER ==
[~2021-10-05] VITALS: Ht 165 cm; Wt 48.0 kg
[~2021-10-05 18:11] MED LIST changes: -D5W 500 ML IV (CANCER CTR) 500 ML IV SCH; -FAMOTIDINE 20MG/2ML IV (CANCER CTR) IV SCH; -FOSAPREPITANT (CANCER CENTER) 150 MG in NS (IVPB) CANCER CENTER ONLY 150 ML IV SCH; -LEUCOVORIN CALCIUM 600 MG in D5W 250 ML IVPB (CANCER CTR) 250 ML IV SCH; -MAGNESIUM SULFATE (CANCER CTR) 3 GM in NS (IVPB) CANCER CENTER 100 ML IV ONE; -OCTREOTIDE (FOR BOLUS) 50 MCG/ML SYR (SandoSTATIN) SC ONE; -OXALIPLATIN 100 MG, OXALIPLATIN (GENERIC) 20 MG in D5W 250 ML IVPB (CANCER CTR) 250 ML IV SCH; -[UNRECOGNIZED DRUG - REMARK] IM SCH; -diphenhydrAMINE 25 MG TAB (BENADRYL) CANCER CENTER PO SCH
[2021-10-05] MEDS ORDERED: fentaNYL INJ 100 MCG/2 ML AMP ONE (18:23)
[2021-10-05] MEDS ORDERED: KETOROLAC 30 MG/ML VIAL ONE (18:24)
--- NOTE | 2021-10-05 18:39 | ED Abdominal Pain ---
General Chief Complaint: Abdominal/GI Problems Stated Complaint: R SIDE ABD PAIN Nursing Triage Note: PT AMB TO [facility] 7 PT CO OF SEVERE R SIDED ABD PAIN 10/10 STARTED LAST PM. PT HAS HAD COLON SURGERY AND APPY IN PAST MONTH. PT HAS DRESSING IN PLACE OVER INC THAT HAS SL AMT OF ORTIZ COLORED DRAINAGE. PT WAS SEEN BY DR WINTERS TODAY Source of Information: Patient Exam Limitations: No Limitations (BARRY HICKS APRN) History of Present Illness Date Seen by Provider: Oct 05, 2021 Time Seen by Provider: 18:36 Initial Comments to ER with severe right-sided abdominal pain that began last evening. History of Distal ileal obstructing mass found to be adenocarincoma s/p terminal ileal rese ction and anastomosis 05/31/21. not currently on chemotherapy as she had that stopped prior to being admitted to the hospital for appendicitis at the end of August. She had a bowel movement this morning which was normal. She has not passed any gas today however. She has a wound on the anterior abdominal wall postop and she actually saw Dr. Winters for today and reported that it was looking good. Timing/Duration: 1-2 Days Severity/Quality: Moderate Activities at Onset: None Associated Symptoms: Denies Symptoms (BARRY HICKS APRN) Allergies and Home Medications Allergies Coded Allergies: No Known Drug Allergies (Unverified , 09/08/14) Patient Home Medication List Home Medication List Reviewed: Yes (BARRY HICKS APRN) Amoxicillin/Potassium Clav (Augmentin 875-125 Tablet) 1 Each Tablet, 1 EACH PO BID Prescribed by: AMELIA WINTERS on 09/09/21 0851 Dicyclomine HCl (Dicyclomine HCl) 10 Mg Capsule, 10 MG PO TID, (Reported) Entered as Reported by: JUANPABLO DÍAZ on 08/24/21 1522 Docusate Sodium (Colace) 100 Mg Capsule, 100 MG PO BID Prescribed by: AMELIA WINTERS on 09/09/21 0851 Hydrocodone/Acetaminophen (Hydrocodone-Acetamin 5-325 mg) 1 Each Tablet, 1 EACH PO Q4H PRN for PAIN-MODERATE (5-7) Prescribed by: AMELIA WINTERS on 09/09/21 0852 Multivits-Min/Iron/FA/Lutein (Centrum Silver Women Tablet) 1 Each Tablet, 1 EACH PO DAILY, (Reported) Entered as Reported by: JUANPABLO DÍAZ on 08/24/21 1522 Omeprazole (Omeprazole) 20 Mg Capsule.dr, 20 MG PO DAILY, (Reported) Entered as Reported by: RONNIE FOURNIER on 08/31/21 0851 Polyethylene Glycol 3350 (Miralax) 17 Gm Powd.pack, 17 GM PO BID Prescribed by: BARRY HICKS on 10/05/21 193 Promethazine HCl (Promethazine Tablet) 25 Mg Tablet, 25 MG PO Q6H PRN for N AUSEA/VOMITING, (Reported) Entered as Reported by: JUANPABLO DÍAZ on 08/24/21 1522 Review of Systems Review of Systems Constitutional: see HPI EENTM: No Symptoms Reported Respiratory: No Symptoms Reported Cardiovascular: No Symptoms Reported Gastrointestinal: See HPI, Abdominal Pain Genitourinary: No Symptoms Reported Musculoskeletal: no symptoms reported Skin: no symptoms reported Psychiatric/Neurological: No Symptoms Reported Endocrine: No Symptoms Reported Hematologic/Lymphatic: No Symptoms Reported (BARRY HICKS APRN) Past Sxezbnd-Yhpoau-Wmcoet Hx Seasonal Allergies Seasonal Allergies: No (BARRY HICKS APRN) Past Medical History Surgeries: Yes (SMALL BOWEL RESECTION, LEFT ARM SCREW PLACED) Adenoidectomy, Bowel Surgery, Orthopedic, Tonsillectomy Respiratory: Yes COPD Currently Using CPAP: No Currently Using BIPAP: No Cardiac: No Neurological: No [employer] History: Menopausal Genitourinary: No Gastrointestinal: Yes Gastroesophageal Reflux, Obstructive Bowel Musculoskeletal: Yes Osteoporosis, Arthritis, Chronic Back Pain Endocrine: No HEENT: Yes (WEARS GLASSES, HAS UPPER DENTURES) Loss of Vision: Denies Hearing Impairment: Denies Cancer: Yes (Adenocarcinoma of the small bowel) Small Bowel, Colon Did You Recieve Any Treatments: Yes What Type of Treatment Did You: Chemotherapy, Surgical Intervention Psychosocial: No Integumentary: No Blood Disorders: No Adverse Reaction/Blood Tranf: No (N/A) (BARRY HICKS APRN) Family Medical History No Pertinent Family Hx (BARRY HICKS APRN) Physical Exam Vital Signs Vital Signs - First Documented 10/05/21 10/05/21 18:15 19:44 Temp 37.0 Pulse 93 Resp 18 B/P (MAP) 132/96 (108) Pulse Ox 94 O2 Delivery Room Air (TYLER,FERNANDO K DO) Vital Signs Capillary Refill : Less Than 3 Seconds (BARRY HICKS APRN) Height/Weight/BMI Height: 5'6" Weight: 118lbs. oz. 53.030507bq; 17.00 BMI Method: General Appearance: WD/WN, mild distress, thin Respiratory: lungs clear, normal breath sounds, no respiratory distress, no accessory muscle use Cardiovascular: regular rate, rhythm, no murmur Gastrointestinal: normal bowel sounds, soft, tenderness (The right abdominal wall is the location of pain but overlying skin is normal without erythema or vesicular rash. Bowel sounds are hypoactive.) Extremities: normal range of motion Neurologic/Psychiatric: alert, normal mood/affect, oriented x 3 Skin: normal color, warm/dry (BARRY HICKS APRN) Progress/Results/Core Measures Results/Orders Lab Results Laboratory Tests Test 10/05/21 18:25 10/05/21 19:16 Range/Units White Blood Count 12.6 H 4.3-11.0 10^3/uL Red Blood Count 4.37 3.80-5.11 10^6/uL Hemoglobin 12.0 11.5-16.0 g/dL Hematocrit 38 35-52 % Mean Corpuscular Volume 87 80-99 fL Mean Corpuscular Hemoglobin 28 25-34 pg Mean Corpuscular Hemoglobin Concent 32 32-36 g/dL Red Cell Distribution Width 16.0 H 10.0-14.5 % Platelet Count 344 130-400 10^3/uL Mean Platelet Volume 9.3 9.0-12.2 fL Immature Granulocyte % (Auto) 0 % Neutrophils (%) (Auto) 74 42-75 % Lymphocytes (%) (Auto) 19 12-44 % Monocytes (%) (Auto) 6 0-12 % Eosinophils (%) (Auto) 1 0-10 % Basophils (%) (Auto) 1 0-10 % Neutrophils # (Auto) 9.4 H 1.8-7.8 10^3/uL Lymphocytes # (Auto) 2.4 1.0-4.0 10^3/uL Monocytes # (Auto) 0.7 0.0-1.0 10^3/uL Eosinophils # (Auto) 0.1 0.0-0.3 10^3/uL Basophils # (Auto) 0.1 0.0-0.1 10^3/uL Immature Granulocyte # (Auto) 0.0 0.0-0.1 10^3/uL Sodium Level 137 135-145 MMOL/L Potassium Level 3.3 L 3.6-5.0 MMOL/L Chloride Level 100 98-107 MMOL/L Carbon Dioxide Level 21 21-32 MMOL/L Anion Gap 16 H 5-14 MMOL/L Blood Urea Nitrogen 11 7-18 MG/DL Creatinine 0.68 0.60-1.30 MG/DL Estimat Glomerular Filtration Rate 88 BUN/Creatinine Ratio 16 Glucose Level 141 H 70-105 MG/DL Calcium Level 9.0 8.5-10.1 MG/DL Corrected Calcium 8.9 8.5-10.1 MG/DL Total Bilirubin 0.3 0.1-1.0 MG/DL Aspartate Amino Transf (AST/SGOT) 25 5-34 U/L Alanine Aminotransferase (ALT/SGPT) 12 0-55 U/L Alkaline Phosphatase 97 40-136 U/L Total Protein 8.6 H 6.4-8.2 GM/DL Albumin 4.1 3.2-4.5 GM/DL Urine Color YELLOW Urine Clarity CLEAR Urine pH 6.5 5-9 Urine Specific [place] 1.010 L 1.016-1.022 Urine Protein 2+ H NEGATIVE Urine Glucose (UA) NEGATIVE NEGATIVE Urine Ketones NEGATIVE NEGATIVE Urine Nitrite NEGATIVE NEGATIVE Urine Bilirubin NEGATIVE NEGATIVE Urine Urobilinogen 0.2 < = 1.0 MG/DL Urine Leukocyte Esterase NEGATIVE NEGATIVE Urine RBC (Auto) TRACE-I H NEGATIVE Urine RBC 0-2 /HPF Urine WBC 5-10 H /HPF Urine Squamous Epithelial Cells 10-25 H /HPF Urine Renal Epithelial Cells NONE /HPF Urine Crystals NONE /LPF Urine Bacteria NEGATIVE /HPF Urine Casts NONE /LPF Urine Mucus NEGATIVE /LPF Urine Culture Indicated NO (TYLER,FERNANDO K DO) Medications Given in ED Current Medications Medications Dose Ordered Sig/Grady Route Start Time Stop Time Status Last Admin Dose Admin Acetaminophen/ Hydrocodone Bitart 1 ea Q4H PRN PO 10/05/21 19:45 10/05/21 19:45 DC 10/05/21 19:38 1 EA Fentanyl Citrate 100 mcg STK-MED ONCE .ROUTE 10/05/21 18:23 10/05/21 18:26 DC 10/05/21 18:29 50 MCG Iohexol 100 ml ONCE ONCE IV 10/05/21 19:00 10/05/21 19:01 DC 10/05/21 18:52 66 ML Ketorolac Tromethamine 30 mg STK-MED ONCE .ROUTE 10/05/21 18:24 10/05/21 18:26 DC 10/05/21 18:29 15 MG Magnesium Citrate 300 ml ONCE ONCE PO 10/05/21 19:45 10/05/21 19:45 DC 10/05/21 19:39 300 ML Sodium Chloride 100 ml ONCE ONCE IV 10/05/21 19:00 10/05/21 19:01 DC 10/05/21 18:53 77 ML (FERNANDO SCOTT DO) Vital Signs/I&O 10/05/21 10/05/21 18:15 19:44 Temp 37.0 37.0 Pulse 93 76 Resp 18 16 B/P (MAP) 132/96 (108) 160/78 Pulse Ox 94 96 O2 Delivery Room Air 10/06/21 00:00 Intake Total 1000 ml Balance 1000 ml (TYLERNAILAA Janny DO) Blood Pressure Mean: 108 Departure Communication (Admissions) 192 -spoke with Dr. Winters, CT does not show anything labs are unremarkable. She has not had any pain associated with meals liver enzymes are normal no reason to think gallbladder pathology. She got 15 mg of Toradol and 50 mcg of fentanyl and is now pain-free. She does have some constipation on CT. I will give her a prescription for some pain medication but if she can avoid that and use laxatives that would be ideal. She will follow up with Dr. Winters outpatient. (BARRY HICKS APRN) Impression Primary Impression: Right sided abdominal pain Additional Impression: Constipation Disposition: HOME, SELF-CARE Condition: Stable Departure-Patient Inst. Decision time for Depature: 19:29 (BARRY HICKS APRN) Referrals: [facility]/ (PCP) Primary Care Physician PIPO QUIGLEY (Family) Primary Care Physician Patient Instructions: Abdominal Pain, Adult ED, Constipation, Adult ED Add. Discharge Instructions: 1. The cause of your abdominal pain is not entirely clear though it is at least in part related to constipation as seen on CT. Your labs and CT are otherwise unremarkable this evening. Return to ER for any fevers worsening pain or other concerns. Call Dr. Winters tomorrow to make an appoint to be seen for follow-up. All discharge instructions reviewed with patient and/or family. Voiced understanding. Scripts Polyethylene Glycol 3350 (Miralax) 17 Gm Powd.pack 17 GM PO BID, #14 EACH Prov: BARRY HICKS APRN 10/05/21 ATTENDING PHYSICIAN NOTE: I WAS PHYSICALLY PRESENT EMERGENCY ROOM PHYSICIAN WHEN THIS PATIENT WAS IN ER, BUT I WAS NOT INVOLVED IN ANY DECISION MAKING OR ANY CARE OF THIS PATIENT. (FERNANDO SCOTT DO) BARRY HICKS APRN Oct 05, 2021 18:39 FERNANDO SCOTT DO Oct 06, 2021 01:57
[2021-10-05] MEDS ORDERED: LACTATED RINGERS 1,000 ML IV SCH (18:45)
[2021-10-05 18:46] LABS: BASOPHILS # (AUTO) 0.1 10^3/uL (0.0-0.1); BASOPHILS % (AUTO) 1 % (0-10); EOSINOPHILS # (AUTO) 0.1 10^3/uL (0.0-0.3); EOSINOPHILS % (AUTO) 1 % (0-10); HEMATOCRIT 38 % (35-52); LYMPHOCYTES # (AUTO) 2.4 10^3/uL (1.0-4.0); LYMPHOCYTES % (AUTO) 19 % (12-44); MEAN CORPUSCULAR HEMOGLOBIN 28 pg (25-34); MEAN CORPUSCULAR HGB CONC 32 g/dL (32-36); MEAN CORPUSCULAR VOLUME 87 fL (80-99); MEAN PLATELET VOLUME 9.3 fL (9.0-12.2); MONOCYTES # (AUTO) 0.7 10^3/uL (0.0-1.0); MONOCYTES % (AUTO) 6 % (0-12); NEUTROPHILS # (AUTO) 9.4 10^3/uL (1.8-7.8); NEUTROPHILS % (AUTO) 74 % (42-75); PLATELET COUNT 344 10^3/uL (130-400); WHITE BLOOD COUNT 12.6 10^3/uL (4.3-11.0)
[2021-10-05 18:51] LABS: ALBUMIN 4.1 GM/DL (3.2-4.5); POTASSIUM 3.3 MMOL/L (3.6-5.0)
[2021-10-05 18:54] LABS: TOTAL PROTEIN 8.6 GM/DL (6.4-8.2)
[2021-10-05 18:56] LABS: BILIRUBIN,TOTAL 0.3 MG/DL (0.1-1.0)
[2021-10-05 18:58] LABS: CREATININE SERUM 0.68 MG/DL (0.60-1.30)
[2021-10-05] MEDS ORDERED: IOHEXOL 350 MG/ML 100 ML (OMNIPAQUE 350) VIAL IV ONE (19:00)
[2021-10-05] MEDS ORDERED: NS 100 ML (IVPB) BAG IV ONE (19:00)
[2021-10-05] MEDS ORDERED: HOLD METFORMIN - RECEIVED CONTRAST 20 ML VIAL IV SCH (19:00)
--- NOTE | 2021-10-05 19:11 | Diagnostic Imaging Report ---
PROCEDURE: CT abdomen and pelvis with contrast. TECHNIQUE: Multiple contiguous axial images were obtained through the abdomen and pelvis after administration of intravenous contrast. Auto Exposure Controls were utilized during the CT exam to meet ALARA standards for radiation dose reduction. All CT scans use one or more of the following dose optimizing techniques: automated exposure control, MA and/or KvP adjustment based on patient size and exam type or iterative reconstruction. INDICATION: Abdominal pain. FINDINGS: There is some bibasilar scarring and/or atelectasis. The liver is normal in size and without focal lesions. Gallbladder is unremarkable. There is no biliary ductal dilatation. Spleen is normal. The pancreas and adrenal glands are unremarkable. The kidneys are normal in appearance. There is atherosclerotic calcification of the aorta which is nonaneurysmal. There is mild distention of the stomach. The bowel gas pattern is otherwise nonspecific. There is a moderate amount of retained fecal material likely reflecting some degree of constipation. There is no free air. There is no ascites. There are no focal inflammatory changes. There are mild degenerative changes in the spine. IMPRESSION: Moderate amount of retained fecal material, likely reflecting some degree of constipation. Additionally, there is mild gastric distention. Scarring or atelectasis in the lung bases. No other acute abnormality in the abdomen or pelvis. Dictated by: Dictated on workstation # [id number]
[2021-10-05 19:21] LABS: BILIRUBIN,URINE NEGATIVE (NEGATIVE); CLARITY,URINE CLEAR; COLOR,URINE YELLOW; GLUCOSE, URINE (UA) NEGATIVE (NEGATIVE); KETONES,URINE NEGATIVE (NEGATIVE); LEUKOCYTE ESTERASE ,URINE NEGATIVE (NEGATIVE); NITRITE,URINE NEGATIVE (NEGATIVE); PH,URINE 6.5 (5-9); PROTEIN,URINE 2+ (NEGATIVE)
[2021-10-05 19:29] LABS: BACTERIA,URINE NEGATIVE /HPF; RBC,URINE 0-2 /HPF
[2021-10-05] MEDS ORDERED: POLY17PO6 PO (19:32)
[2021-10-05 19:44] VITALS: BP 160/78
[2021-10-05] MEDS ORDERED: MAGNESIUM CITRATE 300 ML BTL PO ONE (19:45)
== END 2021-10-05 19:45 | disposition home or self-care (01) ==
LOC: EDUNIT# 18:11 → ER 18:12
DX: K59.00 Constipation, unspecified (principal); J44.9 Chronic obstructive pulmonary disease, unspecified; K21.9 Gastro-esophageal reflux disease without esophagitis; G89.29 Other chronic pain; M54.9 Dorsalgia, unspecified; Z79.899 Other long term (current) drug therapy; Z79.891 Long term (current) use of opiate analgesic
CPT/HCPCS: 36415; 74177; 80053; 81000; 85025

== ENCOUNTER → 2021-11-16 | Outpatient (RCR) | payer OTHER ==
[2021-10-19 11:00] LABS: BASOPHILS # (AUTO) 0.1 10^3/uL (0.0-0.1); BASOPHILS % (AUTO) 1 % (0-10); EOSINOPHILS # (AUTO) 0.1 10^3/uL (0.0-0.3); EOSINOPHILS % (AUTO) 1 % (0-10); HEMATOCRIT 37 % (35-52); HEMOGLOBIN 11.5 g/dL (11.5-16.0); LYMPHOCYTES # (AUTO) 2.3 10^3/uL (1.0-4.0); LYMPHOCYTES % (AUTO) 33 % (12-44); MEAN CORPUSCULAR HEMOGLOBIN 27 pg (25-34); MEAN CORPUSCULAR HGB CONC 31 g/dL (32-36); MEAN CORPUSCULAR VOLUME 87 fL (80-99); MEAN PLATELET VOLUME 9.2 fL (9.0-12.2); MONOCYTES # (AUTO) 0.4 10^3/uL (0.0-1.0); MONOCYTES % (AUTO) 6 % (0-12); NEUTROPHILS # (AUTO) 4.3 10^3/uL (1.8-7.8); NEUTROPHILS % (AUTO) 60 % (42-75); PLATELET COUNT 342 10^3/uL (130-400); WHITE BLOOD COUNT 7.1 10^3/uL (4.3-11.0)
[2021-10-19 11:25] LABS: BILIRUBIN,TOTAL 0.3 MG/DL (0.1-1.0); CALCIUM 9.4 MG/DL (8.5-10.1); CREATININE SERUM 0.69 MG/DL (0.60-1.30); TOTAL PROTEIN 7.9 GM/DL (6.4-8.2)
[2021-11-02 13:31] LABS: BASOPHILS # (AUTO) 0.1 10^3/uL (0.0-0.1); BASOPHILS % (AUTO) 1 % (0-10); EOSINOPHILS # (AUTO) 0.1 10^3/uL (0.0-0.3); EOSINOPHILS % (AUTO) 1 % (0-10); HEMATOCRIT 39 % (35-52); HEMOGLOBIN 12.1 g/dL (11.5-16.0); LYMPHOCYTES # (AUTO) 2.2 10^3/uL (1.0-4.0); LYMPHOCYTES % (AUTO) 30 % (12-44); MEAN CORPUSCULAR HEMOGLOBIN 27 pg (25-34); MEAN CORPUSCULAR HGB CONC 31 g/dL (32-36); MEAN CORPUSCULAR VOLUME 87 fL (80-99); MEAN PLATELET VOLUME 9.4 fL (9.0-12.2); MONOCYTES # (AUTO) 0.4 10^3/uL (0.0-1.0); MONOCYTES % (AUTO) 5 % (0-12); NEUTROPHILS # (AUTO) 4.6 10^3/uL (1.8-7.8); NEUTROPHILS % (AUTO) 63 % (42-75); PLATELET COUNT 242 10^3/uL (130-400); WHITE BLOOD COUNT 7.2 10^3/uL (4.3-11.0)
[2021-11-02 13:54] LABS: ALBUMIN 4.1 GM/DL (3.2-4.5); BILIRUBIN,TOTAL 0.3 MG/DL (0.1-1.0); CALCIUM 9.5 MG/DL (8.5-10.1); CREATININE SERUM 0.68 MG/DL (0.60-1.30); POTASSIUM 4.1 MMOL/L (3.6-5.0); TOTAL PROTEIN 7.9 GM/DL (6.4-8.2)
[~2021-11-16] MED LIST changes: +D5W 500 ML IV (CANCER CTR) 500 ML IV SCH; +FAMOTIDINE 20MG/2ML IV (CANCER CTR) IV SCH; +FOSAPREPITANT (CANCER CENTER) 150 MG in NS (IVPB) CANCER CENTER ONLY 150 ML IV SCH; +LEUCOVORIN CALCIUM 600 MG in D5W 250 ML IVPB (CANCER CTR) 250 ML IV SCH; +OXALIPLATIN 100 MG, OXALIPLATIN (GENERIC) 20 MG in D5W 250 ML IVPB (CANCER CTR) 250 ML IV SCH; +POLY17PO6 PO; +[UNRECOGNIZED DRUG - REMARK] IM SCH; +dexAMETHasone 6 MG TAB (DECADRON) PO ONE; +diphenhydrAMINE 25 MG TAB (BENADRYL) CANCER CENTER PO SCH
== END | disposition home or self-care (01) ==
LOC: ONC 10-19 10:41
PROVIDERS: ATTEND Internal Medicine Hematology & Oncology
DX: Z51.11 Encounter for antineoplastic chemotherapy (principal); C17.9 Malignant neoplasm of small intestine, unspecified; D50.9 Iron deficiency anemia, unspecified; Z45.2 Encounter for adjustment and management of vascular access device
CPT/HCPCS: 80053; 82378; 85025; 96372; G0463; 36591; 96367; 96375; 96413; 96415; 96417; 99213

== ENCOUNTER → 2021-11-23 | Outpatient (CLI) | payer OTHER ==
[~2021-11-23] MED LIST changes: -D5W 500 ML IV (CANCER CTR) 500 ML IV SCH; -FAMOTIDINE 20MG/2ML IV (CANCER CTR) IV SCH; -FOSAPREPITANT (CANCER CENTER) 150 MG in NS (IVPB) CANCER CENTER ONLY 150 ML IV SCH; -LEUCOVORIN CALCIUM 600 MG in D5W 250 ML IVPB (CANCER CTR) 250 ML IV SCH; -OXALIPLATIN 100 MG, OXALIPLATIN (GENERIC) 20 MG in D5W 250 ML IVPB (CANCER CTR) 250 ML IV SCH; -[UNRECOGNIZED DRUG - REMARK] IM SCH; -dexAMETHasone 6 MG TAB (DECADRON) PO ONE; -diphenhydrAMINE 25 MG TAB (BENADRYL) CANCER CENTER PO SCH
--- NOTE | 2021-11-23 12:34 | Diagnostic Imaging Report ---
INDICATION: Malignant neoplasm of the colon, restaging. TECHNIQUE: Serum blood glucose level at the time of injection was 99 mg/dL. Patient was administered 12.8 mCi F-18 FDG intravenously in the left antecubital location, and PET imaging was performed from the top of the skull to mid thighs. Noncontrast CT was also performed for attenuation correction and anatomic correlation. COMPARISON: No prior PET/CT study is available for comparison. Comparison is made with prior conventional CT from 10/05/2021. FINDINGS: There is symmetric activity throughout the brain. Soft tissues of the neck are unremarkable. No hypermetabolic adenopathy in the betsy or mediastinum is seen. Pulmonary parenchyma is unremarkable. Abdomen and pelvis demonstrate physiologic activity in the gastrointestinal and genitourinary tracts. No suspicious hypermetabolism is identified. IMPRESSION: Unremarkable PET/CT study. No suspicious region of hypermetabolism are identified. Dictated by: Dictated on workstation # [id number]
== END ==
LOC: RAD 09:00
PROVIDERS: ATTEND Internal Medicine Hematology & Oncology
DX: Z12.11 Encounter for screening for malignant neoplasm of colon (principal); Z85.038 Personal history of other malignant neoplasm of large intestine
CPT/HCPCS: 78815; A9552

== ENCOUNTER 2021-12-04 10:49 | Outpatient (RCR) | payer SELFPAY | END 2021-12-14 | disposition home or self-care (01) | LOC: ONC 10:49 | PROVIDERS: ATTEND Internal Medicine Hematology & Oncology | DX: C17.9 Malignant neoplasm of small intestine, unspecified (principal); D50.9 Iron deficiency anemia, unspecified ==

== ENCOUNTER 2022-01-07 09:29 | Outpatient (RCR) | payer OTHER ==
[2021-12-16 14:00] LABS: BASOPHILS % (AUTO) 1 % (0-10); EOSINOPHILS # (AUTO) 0.1 10^3/uL (0.0-0.3); EOSINOPHILS % (AUTO) 1 % (0-10); HEMATOCRIT 38 % (35-52); HEMOGLOBIN 12.3 g/dL (11.5-16.0); LYMPHOCYTES # (AUTO) 1.7 10^3/uL (1.0-4.0); LYMPHOCYTES % (AUTO) 26 % (12-44); MEAN CORPUSCULAR HEMOGLOBIN 27 pg (25-34); MEAN CORPUSCULAR HGB CONC 32 g/dL (32-36); MEAN CORPUSCULAR VOLUME 85 fL (80-99); MEAN PLATELET VOLUME 9.8 fL (9.0-12.2); MONOCYTES # (AUTO) 0.4 10^3/uL (0.0-1.0); MONOCYTES % (AUTO) 6 % (0-12); NEUTROPHILS # (AUTO) 4.4 10^3/uL (1.8-7.8); NEUTROPHILS % (AUTO) 67 % (42-75); PLATELET COUNT 251 10^3/uL (130-400); WHITE BLOOD COUNT 6.6 10^3/uL (4.3-11.0)
[2021-12-16 14:21] LABS: ALBUMIN 4.1 GM/DL (3.2-4.5); BILIRUBIN,TOTAL 0.2 MG/DL (0.1-1.0); CALCIUM 9.2 MG/DL (8.5-10.1); CREATININE SERUM 0.72 MG/DL (0.60-1.30); POTASSIUM 3.7 MMOL/L (3.6-5.0); TOTAL PROTEIN 7.8 GM/DL (6.4-8.2)
[~2022-01-07 09:29] MED LIST changes: +[UNRECOGNIZED DRUG - REMARK] IM SCH
[2022-01-07 09:56] LABS: BASOPHILS % (AUTO) 0 % (0-10); EOSINOPHILS # (AUTO) 0.1 10^3/uL (0.0-0.3); EOSINOPHILS % (AUTO) 1 % (0-10); HEMATOCRIT 39 % (35-52); HEMOGLOBIN 12.7 g/dL (11.5-16.0); LYMPHOCYTES # (AUTO) 1.9 10^3/uL (1.0-4.0); LYMPHOCYTES % (AUTO) 35 % (12-44); MEAN CORPUSCULAR HEMOGLOBIN 28 pg (25-34); MEAN CORPUSCULAR HGB CONC 33 g/dL (32-36); MEAN CORPUSCULAR VOLUME 86 fL (80-99); MEAN PLATELET VOLUME 9.5 fL (9.0-12.2); MONOCYTES # (AUTO) 0.4 10^3/uL (0.0-1.0); MONOCYTES % (AUTO) 8 % (0-12); NEUTROPHILS # (AUTO) 2.9 10^3/uL (1.8-7.8); NEUTROPHILS % (AUTO) 55 % (42-75); PLATELET COUNT 208 10^3/uL (130-400); WHITE BLOOD COUNT 5.3 10^3/uL (4.3-11.0)
[2022-01-07 10:18] LABS: ALBUMIN 4.1 GM/DL (3.2-4.5); BILIRUBIN,TOTAL 0.4 MG/DL (0.1-1.0); CALCIUM 9.2 MG/DL (8.5-10.1); CREATININE SERUM 0.76 MG/DL (0.60-1.30); POTASSIUM 3.9 MMOL/L (3.6-5.0); TOTAL PROTEIN 7.8 GM/DL (6.4-8.2)
== END 2022-01-14 | disposition home or self-care (01) ==
LOC: ONC 09:29
PROVIDERS: ATTEND Internal Medicine Hematology & Oncology
DX: Z45.2 Encounter for adjustment and management of vascular access device (principal); C17.9 Malignant neoplasm of small intestine, unspecified; D50.9 Iron deficiency anemia, unspecified; Z90.89 Acquired absence of other organs
CPT/HCPCS: 80053; 85025; 96372; G0463; 36415; 99213

== ENCOUNTER 2022-02-10 13:13 | Outpatient (RCR) | payer OTHER ==
[2022-01-21 09:33] LABS: BASOPHILS % (AUTO) 0 % (0-10); EOSINOPHILS % (AUTO) 1 % (0-10); HEMATOCRIT 36 % (35-52); HEMOGLOBIN 11.9 g/dL (11.5-16.0); LYMPHOCYTES # (AUTO) 1.8 10^3/uL (1.0-4.0); LYMPHOCYTES % (AUTO) 37 % (12-44); MEAN CORPUSCULAR HEMOGLOBIN 28 pg (25-34); MEAN CORPUSCULAR HGB CONC 33 g/dL (32-36); MEAN CORPUSCULAR VOLUME 85 fL (80-99); MEAN PLATELET VOLUME 8.6 fL (9.0-12.2); MONOCYTES # (AUTO) 0.3 10^3/uL (0.0-1.0); MONOCYTES % (AUTO) 5 % (0-12); NEUTROPHILS # (AUTO) 2.8 10^3/uL (1.8-7.8); NEUTROPHILS % (AUTO) 57 % (42-75); PLATELET COUNT 181 10^3/uL (130-400); WHITE BLOOD COUNT 4.9 10^3/uL (4.3-11.0)
[2022-01-21 09:51] LABS: CALCIUM 9.1 MG/DL (8.5-10.1); CREATININE SERUM 0.67 MG/DL (0.60-1.30); POTASSIUM 3.2 MMOL/L (3.6-5.0)
[2022-01-27 10:00] LABS: BASOPHILS % (AUTO) 0 % (0-10); EOSINOPHILS # (AUTO) 0.1 10^3/uL (0.0-0.3); EOSINOPHILS % (AUTO) 1 % (0-10); HEMATOCRIT 36 % (35-52); LYMPHOCYTES % (AUTO) 31 % (12-44); MEAN CORPUSCULAR HEMOGLOBIN 29 pg (25-34); MEAN CORPUSCULAR HGB CONC 34 g/dL (32-36); MEAN CORPUSCULAR VOLUME 86 fL (80-99); MEAN PLATELET VOLUME 8.7 fL (9.0-12.2); MONOCYTES # (AUTO) 0.5 10^3/uL (0.0-1.0); MONOCYTES % (AUTO) 7 % (0-12); NEUTROPHILS # (AUTO) 3.9 10^3/uL (1.8-7.8); NEUTROPHILS % (AUTO) 61 % (42-75); PLATELET COUNT 219 10^3/uL (130-400); WHITE BLOOD COUNT 6.5 10^3/uL (4.3-11.0)
[2022-01-27 10:27] LABS: ALBUMIN 4.1 GM/DL (3.2-4.5); BILIRUBIN,TOTAL 0.6 MG/DL (0.1-1.0); CALCIUM 9.1 MG/DL (8.5-10.1); CREATININE SERUM 0.72 MG/DL (0.60-1.30); POTASSIUM 3.9 MMOL/L (3.6-5.0); TOTAL PROTEIN 7.4 GM/DL (6.4-8.2)
[2022-02-10 13:22] LABS: BASOPHILS % (AUTO) 1 % (0-10); EOSINOPHILS % (AUTO) 1 % (0-10); HEMATOCRIT 35 % (35-52); HEMOGLOBIN 11.8 g/dL (11.5-16.0); LYMPHOCYTES # (AUTO) 2.3 10^3/uL (1.0-4.0); LYMPHOCYTES % (AUTO) 37 % (12-44); MEAN CORPUSCULAR HEMOGLOBIN 30 pg (25-34); MEAN CORPUSCULAR HGB CONC 34 g/dL (32-36); MEAN CORPUSCULAR VOLUME 88 fL (80-99); MEAN PLATELET VOLUME 8.9 fL (9.0-12.2); MONOCYTES # (AUTO) 0.5 10^3/uL (0.0-1.0); MONOCYTES % (AUTO) 9 % (0-12); NEUTROPHILS # (AUTO) 3.2 10^3/uL (1.8-7.8); NEUTROPHILS % (AUTO) 53 % (42-75); PLATELET COUNT 212 10^3/uL (130-400); WHITE BLOOD COUNT 6.1 10^3/uL (4.3-11.0)
[2022-02-10 13:46] LABS: ALBUMIN 4.1 GM/DL (3.2-4.5); BILIRUBIN,TOTAL 0.7 MG/DL (0.1-1.0); CALCIUM 8.9 MG/DL (8.5-10.1); CREATININE SERUM 0.8 MG/DL (0.60-1.30); TOTAL PROTEIN 7.3 GM/DL (6.4-8.2)
== END 2022-02-13 | disposition home or self-care (01) ==
LOC: ONC 13:13
PROVIDERS: ATTEND Internal Medicine Hematology & Oncology
DX: C17.9 Malignant neoplasm of small intestine, unspecified (principal); F41.9 Anxiety disorder, unspecified; D64.9 Anemia, unspecified; E34.0 Carcinoid syndrome; Z90.89 Acquired absence of other organs
CPT/HCPCS: 36415; 80048; 80053; 85025; 96372; 99213

== ENCOUNTER 2022-03-12 13:35 | Outpatient (RCR) | payer OTHER ==
[2022-02-18 10:39] LABS: BASOPHILS % (AUTO) 1 % (0-10); EOSINOPHILS # (AUTO) 0.1 10^3/uL (0.0-0.3); EOSINOPHILS % (AUTO) 1 % (0-10); HEMATOCRIT 39 % (35-52); HEMOGLOBIN 12.7 g/dL (11.5-16.0); LYMPHOCYTES # (AUTO) 1.8 10^3/uL (1.0-4.0); LYMPHOCYTES % (AUTO) 29 % (12-44); MEAN CORPUSCULAR HEMOGLOBIN 30 pg (25-34); MEAN CORPUSCULAR HGB CONC 33 g/dL (32-36); MEAN CORPUSCULAR VOLUME 90 fL (80-99); MEAN PLATELET VOLUME 9.9 fL (9.0-12.2); MONOCYTES # (AUTO) 0.4 10^3/uL (0.0-1.0); MONOCYTES % (AUTO) 7 % (0-12); NEUTROPHILS # (AUTO) 3.9 10^3/uL (1.8-7.8); NEUTROPHILS % (AUTO) 62 % (42-75); PLATELET COUNT 237 10^3/uL (130-400); WHITE BLOOD COUNT 6.2 10^3/uL (4.3-11.0)
[2022-02-18 10:59] LABS: ALBUMIN 4.2 GM/DL (3.2-4.5); CALCIUM 9.4 MG/DL (8.5-10.1); CREATININE SERUM 0.73 MG/DL (0.60-1.30); POTASSIUM 3.3 MMOL/L (3.6-5.0); TOTAL PROTEIN 7.7 GM/DL (6.4-8.2)
[2022-03-12 13:46] LABS: BASOPHILS % (AUTO) 0 % (0-10); EOSINOPHILS # (AUTO) 0.1 10^3/uL (0.0-0.3); EOSINOPHILS % (AUTO) 1 % (0-10); HEMATOCRIT 37 % (35-52); HEMOGLOBIN 12.4 g/dL (11.5-16.0); LYMPHOCYTES # (AUTO) 2.4 10^3/uL (1.0-4.0); LYMPHOCYTES % (AUTO) 36 % (12-44); MEAN CORPUSCULAR HEMOGLOBIN 31 pg (25-34); MEAN CORPUSCULAR HGB CONC 34 g/dL (32-36); MEAN CORPUSCULAR VOLUME 92 fL (80-99); MONOCYTES # (AUTO) 0.5 10^3/uL (0.0-1.0); MONOCYTES % (AUTO) 7 % (0-12); NEUTROPHILS # (AUTO) 3.7 10^3/uL (1.8-7.8); NEUTROPHILS % (AUTO) 55 % (42-75); PLATELET COUNT 236 10^3/uL (130-400); WHITE BLOOD COUNT 6.6 10^3/uL (4.3-11.0)
[2022-03-12 13:54] LABS: ALBUMIN 4.2 GM/DL (3.2-4.5)
[2022-03-12 13:55] LABS: POTASSIUM 3.7 MMOL/L (3.6-5.0)
[2022-03-12 13:56] LABS: CALCIUM 9.2 MG/DL (8.5-10.1)
[2022-03-12 13:57] LABS: TOTAL PROTEIN 7.8 GM/DL (6.4-8.2)
[2022-03-12 13:59] LABS: BILIRUBIN,TOTAL 0.5 MG/DL (0.1-1.0)
[2022-03-12 14:01] LABS: CREATININE SERUM 0.7 MG/DL (0.60-1.30)
== END 2022-03-16 | disposition home or self-care (01) ==
LOC: ONC 13:35
PROVIDERS: ATTEND Internal Medicine Hematology & Oncology
DX: C17.9 Malignant neoplasm of small intestine, unspecified (principal); E34.0 Carcinoid syndrome; D64.9 Anemia, unspecified; F41.9 Anxiety disorder, unspecified; M54.50 Low back pain, unspecified; Z90.89 Acquired absence of other organs
CPT/HCPCS: 80053; 85025; G0463; 36415; 96372; 99213

== ENCOUNTER 2022-03-29 09:55 | Outpatient (RCR) | payer OTHER | END 2022-04-15 | disposition home or self-care (01) | LOC: ONC 09:55 | PROVIDERS: ATTEND Internal Medicine Hematology & Oncology | DX: E34.0 Carcinoid syndrome (principal) | CPT/HCPCS: 96372 ==

== ENCOUNTER 2022-04-26 10:06 | Outpatient (RCR) | payer OTHER ==
[2022-04-16 12:14] LABS: BASOPHILS # (AUTO) 0.1 10^3/uL (0.0-0.1); BASOPHILS % (AUTO) 1 % (0-10); EOSINOPHILS # (AUTO) 0.1 10^3/uL (0.0-0.3); EOSINOPHILS % (AUTO) 1 % (0-10); HEMATOCRIT 41 % (35-52); HEMOGLOBIN 13.8 g/dL (11.5-16.0); LYMPHOCYTES # (AUTO) 2.6 10^3/uL (1.0-4.0); LYMPHOCYTES % (AUTO) 37 % (12-44); MEAN CORPUSCULAR HEMOGLOBIN 33 pg (25-34); MEAN CORPUSCULAR HGB CONC 34 g/dL (32-36); MEAN CORPUSCULAR VOLUME 97 fL (80-99); MEAN PLATELET VOLUME 9.7 fL (9.0-12.2); MONOCYTES # (AUTO) 0.6 10^3/uL (0.0-1.0); MONOCYTES % (AUTO) 8 % (0-12); NEUTROPHILS # (AUTO) 3.9 10^3/uL (1.8-7.8); NEUTROPHILS % (AUTO) 54 % (42-75); PLATELET COUNT 233 10^3/uL (130-400); WHITE BLOOD COUNT 7.2 10^3/uL (4.3-11.0)
[2022-04-16 12:29] LABS: ALANINE AMINOTRANSFERASE 17 U/L (0-55); ALBUMIN 4.6 GM/DL (3.2-4.5); ALKALINE PHOSPHATASE 91 U/L (40-136); BILIRUBIN,TOTAL 0.5 MG/DL (0.1-1.0); BUN/CREATININE RATIO 21; CALCIUM 9.8 MG/DL (8.5-10.1); CARBON DIOXIDE 23 MMOL/L (21-32); CHLORIDE 104 MMOL/L (98-107); CREATININE SERUM 0.81 MG/DL (0.60-1.30); GFR ESTIMATED 82; GLUCOSE 94 MG/DL (70-105); POTASSIUM 4.9 MMOL/L (3.6-5.0); SODIUM 139 MMOL/L (135-145); TOTAL PROTEIN 8.4 GM/DL (6.4-8.2)
== END 2022-05-16 | disposition home or self-care (01) ==
LOC: ONC 10:06
PROVIDERS: ATTEND Internal Medicine Hematology & Oncology
DX: C17.9 Malignant neoplasm of small intestine, unspecified (principal)
CPT/HCPCS: 36415; 80053; 85025; 96372

== ENCOUNTER 2022-06-01 12:28 | Outpatient (RCR) | payer OTHER | END 2022-06-16 | disposition home or self-care (01) | LOC: ONC 12:28 | PROVIDERS: ATTEND Internal Medicine Hematology & Oncology | DX: C17.9 Malignant neoplasm of small intestine, unspecified (principal); K21.9 Gastro-esophageal reflux disease without esophagitis; E34.0 Carcinoid syndrome; M54.50 Low back pain, unspecified | CPT/HCPCS: 96372 ==

== ENCOUNTER 2022-07-12 11:57 | Outpatient (RCR) | payer OTHER ==
[~2022-07-12 11:57] MED LIST changes: -CATHETER FLUSH 10 ML SYR IV PRN; -HOLD METFORMIN - RECEIVED CONTRAST 20 ML VIAL IV SCH; -IOHEXOL 350 MG/ML 100 ML (OMNIPAQUE 350) VIAL IV ONE; -NS 100 ML (IVPB) BAG IV ONE; +[UNRECOGNIZED DRUG - REMARK] IM ONE
[2022-07-12 12:30] LABS: BASOPHILS % (AUTO) 1 % (0-10); EOSINOPHILS # (AUTO) 0.1 10^3/uL (0.0-0.3); EOSINOPHILS % (AUTO) 1 % (0-10); HEMATOCRIT 36 % (35-52); HEMOGLOBIN 12.1 g/dL (11.5-16.0); LYMPHOCYTES # (AUTO) 2.5 10^3/uL (1.0-4.0); LYMPHOCYTES % (AUTO) 42 % (12-44); MEAN CORPUSCULAR HEMOGLOBIN 30 pg (25-34); MEAN CORPUSCULAR HGB CONC 34 g/dL (32-36); MEAN CORPUSCULAR VOLUME 89 fL (80-99); MEAN PLATELET VOLUME 9.2 fL (9.0-12.2); MONOCYTES # (AUTO) 0.3 10^3/uL (0.0-1.0); MONOCYTES % (AUTO) 5 % (0-12); NEUTROPHILS % (AUTO) 51 % (42-75); PLATELET COUNT 242 10^3/uL (130-400)
[2022-07-12 12:51] LABS: BILIRUBIN,TOTAL 0.5 MG/DL (0.1-1.0); CALCIUM 8.9 MG/DL (8.5-10.1); CREATININE SERUM 0.71 MG/DL (0.60-1.30); TOTAL PROTEIN 7.2 GM/DL (6.4-8.2)
== END 2022-07-16 | disposition home or self-care (01) ==
LOC: ONC 11:57
PROVIDERS: ATTEND Internal Medicine Hematology & Oncology
DX: C17.9 Malignant neoplasm of small intestine, unspecified (principal); K21.9 Gastro-esophageal reflux disease without esophagitis; E34.0 Carcinoid syndrome; M54.50 Low back pain, unspecified; F41.9 Anxiety disorder, unspecified; Z98.890 Other specified postprocedural states
CPT/HCPCS: 36591; 80053; 85025; 96372

== ENCOUNTER → 2022-07-12 | Outpatient (CLI) | payer OTHER ==
[~2022-07-12] MED LIST changes: +CATHETER FLUSH 10 ML SYR IV PRN; +HOLD METFORMIN - RECEIVED CONTRAST 20 ML VIAL IV SCH; +IOHEXOL 350 MG/ML 100 ML (OMNIPAQUE 350) VIAL IV ONE; +NS 100 ML (IVPB) BAG IV ONE; -[UNRECOGNIZED DRUG - REMARK] IM SCH
--- NOTE | 2022-07-12 16:36 | Diagnostic Imaging Report ---
PROCEDURE: CT of the chest and pelvis with contrast and CT of the abdomen with and without contrast. TECHNIQUE: Precontrast acquisitions were acquired through the abdomen. Multiple contiguous axial images were obtained through the chest, abdomen and pelvis after administration of intravenous contrast. Auto Exposure Controls were utilized during the CT exam to meet ALARA standards for radiation dose reduction. INDICATION: Colon carcinoma. Correlation is made with prior CT abdomen and pelvis study from 10/05/2021. CT CHEST: A left chest wall port has the tip at the SVC right atrial junction. No axillary lymphadenopathy is detected. No mediastinal or hilar lymphadenopathy is identified. No pericardial or pleural fluid is detected. Significant emphysematous changes throughout both lungs are noted. No pulmonary infiltrates, nodules or masses are identified. IMPRESSION: Emphysematous changes. No thoracic lymphadenopathy or evidence of pulmonary metastatic disease is identified. CT ABDOMEN AND PELVIS: No discrete liver mass is detected. Gallbladder is unremarkable. There is no biliary ductal dilatation. Pancreas and spleen are unremarkable. No adrenal mass is identified. Kidneys are unremarkable. Aorta is calcified but nonaneurysmal. No central retroperitoneal or mesenteric lymphadenopathy is identified. Small and large bowel loops are normal caliber. There is no obstruction. No free fluid or fluid collection is seen. No pelvic lymphadenopathy is identified. Bladder is unremarkable. Uterus is unremarkable. The bony structures are unremarkable. IMPRESSION: Unremarkable CT of the abdomen and pelvis. There is no evidence of lymphadenopathy or metastatic disease. Dictated by: Dictated on workstation # [id number]
== END ==
LOC: RAD 11:25
PROVIDERS: ATTEND Internal Medicine Hematology & Oncology
DX: C18.9 Malignant neoplasm of colon, unspecified (principal)
CPT/HCPCS: 71260; 74178

== ENCOUNTER 2022-07-28 11:09 | Outpatient (RCR) | payer OTHER ==
[~2022-07-28 11:09] MED LIST changes: -[UNRECOGNIZED DRUG - REMARK] IM ONE; +[UNRECOGNIZED DRUG - REMARK] IM SCH
== END 2022-08-16 | disposition home or self-care (01) ==
LOC: ONC 11:09
PROVIDERS: ATTEND Internal Medicine Hematology & Oncology
DX: Z45.2 Encounter for adjustment and management of vascular access device (principal); C17.9 Malignant neoplasm of small intestine, unspecified; K21.9 Gastro-esophageal reflux disease without esophagitis; E34.0 Carcinoid syndrome; M54.50 Low back pain, unspecified; F41.9 Anxiety disorder, unspecified; Z98.890 Other specified postprocedural states
CPT/HCPCS: 96372; 96523; 99213

== ENCOUNTER 2022-09-06 09:34 | Outpatient (RCR) | payer SELFPAY ==
[2022-09-06 09:51] LABS: BASOPHILS % (AUTO) 1 % (0-10); EOSINOPHILS # (AUTO) 0.1 10^3/uL (0.0-0.3); EOSINOPHILS % (AUTO) 1 % (0-10); HEMATOCRIT 40 % (35-52); LYMPHOCYTES # (AUTO) 2.1 10^3/uL (1.0-4.0); LYMPHOCYTES % (AUTO) 35 % (12-44); MEAN CORPUSCULAR HEMOGLOBIN 28 pg (25-34); MEAN CORPUSCULAR HGB CONC 33 g/dL (32-36); MEAN CORPUSCULAR VOLUME 86 fL (80-99); MEAN PLATELET VOLUME 9.4 fL (9.0-12.2); MONOCYTES # (AUTO) 0.4 10^3/uL (0.0-1.0); MONOCYTES % (AUTO) 7 % (0-12); NEUTROPHILS # (AUTO) 3.3 10^3/uL (1.8-7.8); NEUTROPHILS % (AUTO) 56 % (42-75); PLATELET COUNT 237 10^3/uL (130-400); WHITE BLOOD COUNT 5.9 10^3/uL (4.3-11.0)
[2022-09-06 10:13] LABS: ALBUMIN 4.2 GM/DL (3.2-4.5); BILIRUBIN,TOTAL 0.3 MG/DL (0.1-1.0); CALCIUM 9.2 MG/DL (8.5-10.1); CREATININE SERUM 0.74 MG/DL (0.60-1.30); POTASSIUM 4.5 MMOL/L (3.6-5.0); TOTAL PROTEIN 7.9 GM/DL (6.4-8.2)
== END 2022-09-15 | disposition home or self-care (01) ==
LOC: ONC 09:34
PROVIDERS: ATTEND Internal Medicine Hematology & Oncology
DX: C17.9 Malignant neoplasm of small intestine, unspecified (principal); K21.9 Gastro-esophageal reflux disease without esophagitis; E34.0 Carcinoid syndrome; M54.50 Low back pain, unspecified; F41.9 Anxiety disorder, unspecified; Z98.890 Other specified postprocedural states
CPT/HCPCS: 80053; 85025; 96372; G0463; 36415

== ENCOUNTER 2022-10-06 10:56 | Outpatient (RCR) | payer OTHER | END 2022-10-16 | disposition home or self-care (01) | LOC: ONC 10:56 | PROVIDERS: ATTEND Internal Medicine Hematology & Oncology | DX: C17.9 Malignant neoplasm of small intestine, unspecified (principal); K21.9 Gastro-esophageal reflux disease without esophagitis; E34.0 Carcinoid syndrome; M54.50 Low back pain, unspecified; F41.9 Anxiety disorder, unspecified; Z98.890 Other specified postprocedural states ==

== ENCOUNTER → 2022-10-26 | Outpatient (CLI) | payer OTHER ==
[~2022-10-26] MED LIST changes: +HOLD METFORMIN - RECEIVED CONTRAST 20 ML VIAL IV SCH; +IOHEXOL 350 MG/ML 100 ML (OMNIPAQUE 350) VIAL IV ONE; +NS 100 ML (IVPB) BAG IV ONE; -[UNRECOGNIZED DRUG - REMARK] IM SCH
[2022-10-26 12:03] LABS: CREATININE SERUM 0.74 MG/DL (0.60-1.30)
--- NOTE | 2022-10-26 15:01 | Diagnostic Imaging Report ---
PROCEDURE: CT chest, abdomen, and pelvis with contrast. TECHNIQUE: Multiple contiguous axial images were obtained through the chest, abdomen, and pelvis after the administration of intravenous contrast. Auto Exposure Controls were utilized during the CT exam to meet ALARA standards for radiation dose reduction. INDICATION: Colon carcinoma, followup. COMPARISON: Prior CT abdomen and pelvis study from 10/05/2021. FINDINGS: CT CHEST: The left chest wall port has its tip at the SVC/right atrial junction. No axillary lymphadenopathy is detected. No mediastinal or hilar lymphadenopathy is detected. There is no pericardial or pleural fluid identified. Emphysematous changes are identified throughout both lungs. No pulmonary mass, nodule, or infiltrate is detected. IMPRESSION: Emphysematous changes. No thoracic lymphadenopathy or evidence of pulmonary metastatic disease is detected. CT ABDOMEN AND PELVIS: No discrete liver mass is detected. The gallbladder is unremarkable. There is no biliary ductal dilatation. The pancreas and spleen are unremarkable. No adrenal mass is identified. The kidneys are unremarkable. The aorta is calcified but nonaneurysmal. No central retroperitoneal or mesenteric lymphadenopathy is identified. The bowel loops are of normal caliber. There is no obstruction. The bladder is decompressed. No pelvic lymphadenopathy is identified. The bony structures are nonacute. IMPRESSION: No evidence of abdominal or pelvic lymphadenopathy or metastatic disease. Dictated by: Dictated on workstation # [id number]
== END ==
LOC: RAD 11:15
PROVIDERS: ATTEND Internal Medicine Hematology & Oncology
DX: C17.9 Malignant neoplasm of small intestine, unspecified (principal); J43.9 Emphysema, unspecified
CPT/HCPCS: 36415; 71260; 74177; 82565; 84520

== ENCOUNTER 2022-11-08 11:00 | Outpatient (RCR) | payer OTHER ==
[~2022-11-08 11:00] MED LIST changes: -HOLD METFORMIN - RECEIVED CONTRAST 20 ML VIAL IV SCH; -IOHEXOL 350 MG/ML 100 ML (OMNIPAQUE 350) VIAL IV ONE; -NS 100 ML (IVPB) BAG IV ONE; +[UNRECOGNIZED DRUG - REMARK] IM SCH
[2022-11-08 11:10] LABS: BASOPHILS % (AUTO) 1 % (0-10); EOSINOPHILS # (AUTO) 0.1 10^3/uL (0.0-0.3); EOSINOPHILS % (AUTO) 1 % (0-10); HEMATOCRIT 40 % (35-52); HEMOGLOBIN 13.3 g/dL (11.5-16.0); LYMPHOCYTES # (AUTO) 2.1 10^3/uL (1.0-4.0); LYMPHOCYTES % (AUTO) 31 % (12-44); MEAN CORPUSCULAR HEMOGLOBIN 28 pg (25-34); MEAN CORPUSCULAR HGB CONC 33 g/dL (32-36); MEAN CORPUSCULAR VOLUME 86 fL (80-99); MEAN PLATELET VOLUME 9.4 fL (9.0-12.2); MONOCYTES # (AUTO) 0.4 10^3/uL (0.0-1.0); MONOCYTES % (AUTO) 6 % (0-12); NEUTROPHILS # (AUTO) 4.1 10^3/uL (1.8-7.8); NEUTROPHILS % (AUTO) 61 % (42-75); PLATELET COUNT 224 10^3/uL (130-400); WHITE BLOOD COUNT 6.7 10^3/uL (4.3-11.0)
[2022-11-08 11:30] LABS: ALBUMIN 4.2 GM/DL (3.2-4.5); BILIRUBIN,TOTAL 0.5 MG/DL (0.1-1.0); CALCIUM 9.4 MG/DL (8.5-10.1); CREATININE SERUM 0.67 MG/DL (0.60-1.30); POTASSIUM 3.9 MMOL/L (3.6-5.0); TOTAL PROTEIN 7.5 GM/DL (6.4-8.2)
== END 2022-11-16 | disposition home or self-care (01) ==
LOC: ONC 11:00
PROVIDERS: ATTEND Internal Medicine Hematology & Oncology
DX: C17.9 Malignant neoplasm of small intestine, unspecified (principal); K21.9 Gastro-esophageal reflux disease without esophagitis; E34.0 Carcinoid syndrome; M54.50 Low back pain, unspecified; F41.9 Anxiety disorder, unspecified; Z98.890 Other specified postprocedural states; Z90.89 Acquired absence of other organs
CPT/HCPCS: 80053; 85025; G0463; 36415

== ENCOUNTER 2022-12-06 11:02 | Outpatient (RCR) | payer OTHER ==
[~2022-12-06 11:02] MED LIST changes: -[UNRECOGNIZED DRUG - REMARK] IM SCH
[2022-12-06 11:17] LABS: BASOPHILS % (AUTO) 1 % (0-10); EOSINOPHILS # (AUTO) 0.1 10^3/uL (0.0-0.3); EOSINOPHILS % (AUTO) 1 % (0-10); HEMATOCRIT 43 % (35-52); HEMOGLOBIN 14.2 g/dL (11.5-16.0); LYMPHOCYTES # (AUTO) 2.5 10^3/uL (1.0-4.0); LYMPHOCYTES % (AUTO) 39 % (12-44); MEAN CORPUSCULAR HEMOGLOBIN 28 pg (25-34); MEAN CORPUSCULAR HGB CONC 33 g/dL (32-36); MEAN CORPUSCULAR VOLUME 85 fL (80-99); MEAN PLATELET VOLUME 9.8 fL (9.0-12.2); MONOCYTES # (AUTO) 0.5 10^3/uL (0.0-1.0); MONOCYTES % (AUTO) 7 % (0-12); NEUTROPHILS # (AUTO) 3.3 10^3/uL (1.8-7.8); NEUTROPHILS % (AUTO) 52 % (42-75); PLATELET COUNT 233 10^3/uL (130-400); WHITE BLOOD COUNT 6.4 10^3/uL (4.3-11.0)
[2022-12-06 11:50] LABS: ALBUMIN 4.2 GM/DL (3.2-4.5); BILIRUBIN,TOTAL 0.5 MG/DL (0.1-1.0); CALCIUM 9.2 MG/DL (8.5-10.1); CREATININE SERUM 0.71 MG/DL (0.60-1.30); TOTAL PROTEIN 7.5 GM/DL (6.4-8.2)
[2022-12-06] MEDS ORDERED: [UNRECOGNIZED DRUG - REMARK] IM SCH (13:15)
[2022-12-06] MEDS ORDERED: OCTREOTIDE LAR 20 MG DISP.SYRIN IM SCH (13:15)
== END 2022-12-14 | disposition home or self-care (01) ==
LOC: ONC 11:02
PROVIDERS: ATTEND Internal Medicine Hematology & Oncology
DX: C17.9 Malignant neoplasm of small intestine, unspecified (principal); C77.2 Secondary and unspecified malignant neoplasm of intra-abdominal lymph nodes; K21.9 Gastro-esophageal reflux disease without esophagitis; E34.0 Carcinoid syndrome; M54.50 Low back pain, unspecified; F41.9 Anxiety disorder, unspecified; Z98.890 Other specified postprocedural states; Z90.89 Acquired absence of other organs
CPT/HCPCS: 36415; 80053; 85025; 96372

== ENCOUNTER 2022-12-15 06:07 | Outpatient (CLI) | payer SELFPAY ==
[~2022-12-15] VITALS: Ht 167.6 cm; Wt 58.5 kg
[2022-12-16] MEDS ORDERED: OMEP40CA6 PO (12:05)
== END 2022-12-16 12:11 | disposition home or self-care (01) ==
LOC: PREOP 06:07
PROVIDERS: ATTEND Surgery
DX: Z01.818 Encounter for other preprocedural examination (principal)

== ENCOUNTER 2022-12-27 09:24 | Day surgery (SDC) | payer OTHER ==
[~2022-12-27] VITALS: Ht 167.6 cm; Wt 58.5 kg
[2022-12-27] MEDS ORDERED: LACTATED RINGERS 1,000 ML IV STA (09:27)
[2022-12-27] MEDS ORDERED: HURRICAINE EXT TUBE (BENZOCAINE) XX PRN (09:30)
[2022-12-27 09:46] VITALS: BP 166/81
--- NOTE | 2022-12-27 09:48 | Progress Note-Pre Operative ---
Pre-Operative Progress Note Date of Available H&P: Dec 14, 2022 Date H&P Reviewed: Dec 27, 2022 Time H&P Reviewed: 09:47 History & Physical: H&P Reviewed, Patient Examed, No changes noted Pre-Operative Diagnosis: Epigastric pain, hx of colon CA JOIE HART DO Dec 27, 2022 09:48
[2022-12-27] MEDS ORDERED: PROPOFOL INJECTION 50 ML IV ONE (09:59)
[2022-12-27] MEDS ORDERED: MIDAZOLAM 2 MG/2 ML (VERSED) VIAL ONE (09:59)
[2022-12-27 10:50] VITALS: BP 137/72
[2022-12-27 10:55] VITALS: BP 147/77
--- NOTE | 2022-12-27 10:57 | Progress Note-Post Operative ---
Post-Operative Progess Note Surgeon (s)/Professor Of Environmental Studies (s) Surgeon JOIE HART DO Professor Of Environmental Studies: Jordan Gallegos, ANGELAII Pre-Operative Diagnosis Epigastric pain, hx of colon CA Post-Operative Diagnosis Gastritis Hiatal hernia colon mass vs fold polyp int hemorrhoids Procedure & Operative Findings Date of Procedure 12/27/22 Procedure Performed/Findings PROCEDURE NOTE: After informed consent was obtained, the patient was brought to the endoscopy suite, placed in bed in left lateral decubitus position. She was administered IV sedation by the FRONT OFFICE JAVA DEVELOPER who then monitored vitals the entire time, heart rate, blood pressure and pulse ox and the scope was inserted down the mouth through the esophagus into the stomach. On the way down, noted some mild esophagitis, took a picture, pushed into the stomach, pushed past the antrum into the duodenum. Duodenum looked good. Pulled back and did a biopsy of antrum, then retroflexed the scope, saw small hiatal hernia, took a picture of this and then pulled the scope into the GE junction, took another picture of the hiatal hernia and then did a biopsy of the GE junction. Pushed the scope back into the stomach, suctioned all the air out of the stomach. At this point pulled the scope up the esophagus and out the mouth. Switched camera, switched gloves, went down below and started the colonoscopy. Pushed all the way to about 100 cm and pushed into the cecum, took a picture of appendiceal orifice and noted the ileocecal valve. Then slowly withdrew the scope insufflating to look circumferentially at the gomez starting in the cecum, up the ascending colon to the hepatic flexure, then down the transverse colon to the splenic flexure and into the descending colon. Saw what looked like possible mass or just fold of colon and elected to biopsy this. Continued down into the rectum and rectal vault. The colon from descending colon to rectum narrowed and this is most likely where the anastomosis is located. However, I did not get good visualization through this area because it was narrowed and would not insufflate. I also saw a polyp and did a hot biopsy. Finally, retroflexed the scope and took a picture of the internal hemorrhoids. The patient tolerated the procedure and she recovered in the endoscopy suite. Recommended for repeat colonoscopy in 5 years Anesthesia Type IV sedation by FRONT OFFICE JAVA DEVELOPER Estimated Blood Loss Estimated blood loss (mL): scant Specimens/Packing Specimens Removed antral bx body of stomach GE jxn bx desc colon mass rectal polyp JOIE HART DO Dec 27, 2022 10:57
--- NOTE | 2022-12-27 10:58 | Endoscopy Discharge Instruct ---
Endo Procedure/Findings Findings 1.: Gastritis 2.: Hiatal Hernia 3.: Polyp 4.: Internal Hemorrhoids Discharge Instructions - Activity: You might feel a little sleepy until tomorrow. This is due to the medicine you received to relax you. Until tomorrow, you should: NOT drive a car, operate machinery or power tools. NOT drink any alcoholic beverages. NOT make any important decisions or sign importortant papers. Do not return to work until tomorrow, unless otherwise instructed. Resume previous activities tomorrow. Diet: Start by taking liquids. If you tolerate liquids, advance to solid food. 1.: EGD in 1 year 2.: Colonscopy in 5 years Notify Physician - If you experience excessive bleeding, unusual abdominal pain, fever, or chest pain, contact your doctor immediately. JOIE HART DO Dec 27, 2022 10:58
[2022-12-27 11:00] VITALS: BP 152/86
[2022-12-27 11:20] VITALS: BP 143/68
--- NOTE | 2022-12-27 12:13 | Anesthesia-General Post-Op ---
MAC Patient Condition Mental Status/LOC: Same as Preop Cardiovascular: Satisfactory Nausea/Vomiting: Absent Respiratory: Satisfactory Pain: Controlled Complications: Absent Post Op Complications Complications None Follow Up Care/Instructions Patient Instructions None needed. Anesthesiology Discharge Order Discharge Order Patient is doing well, no complaints, stable vital signs, no apparent adverse anesthesia problems. No complications reported per nursing. TIARA MUNOZ CRNA Dec 27, 2022 12:13
== END 2022-12-27 11:20 | disposition home or self-care (01) ==
LOC: ENDO 09:24
PROVIDERS: ATTEND Surgery
DX: Z12.11 Encounter for screening for malignant neoplasm of colon (principal); K63.5 Polyp of colon; K62.1 Rectal polyp; K44.9 Diaphragmatic hernia without obstruction or gangrene; K29.70 Gastritis, unspecified, without bleeding; K64.8 Other hemorrhoids; Z87.891 Personal history of nicotine dependence

== ENCOUNTER 2023-01-02 18:36 | Observation (INO) | payer OTHER ==
[~2023-01-02] VITALS: Ht 165 cm; Wt 58.9 kg
[2023-01-02 18:53] LABS: BILIRUBIN,URINE NEGATIVE (NEGATIVE); CLARITY,URINE CLEAR; COLOR,URINE YELLOW; GLUCOSE, URINE (UA) NEGATIVE (NEGATIVE); KETONES,URINE NEGATIVE (NEGATIVE); LEUKOCYTE ESTERASE ,URINE NEGATIVE (NEGATIVE); NITRITE,URINE NEGATIVE (NEGATIVE); PROTEIN,URINE TRACE (NEGATIVE)
[2023-01-02] MEDS ORDERED: fentaNYL INJ 100 MCG/2 ML AMP IVP STA ×2 (18:53→21:16)
--- NOTE | 2023-01-02 18:56 | ED Abdominal Pain ---
General Chief Complaint: Abdominal/GI Problems Stated Complaint: ABD PAIN Source of Information: Patient Exam Limitations: No Limitations (SHIRA DOMINGO) History of Present Illness Date Seen by Provider: Jan 02, 2023 Time Seen by Provider: 18:55 Initial Comments Patient is a 62-year-old female with a history of colon cancer currently in remission who presents ED with acute onset of diffuse abdominal pain. She states she was laying down at home. Around 4 PM she felt a sharp stabbing pain throughout her abdomen. Pain intensifies and then releases. She states she has had similar pain in the past and was diagnosed with colon cancer. She had a EGD and colonoscopy performed by Dr. Anderson on 27 December. Had biopsies performed which she has not received results yet. She did take some Gas-X and Tums as she thought she was having gas or indigestion. She had no improvement. She does have a history of acid reflux currently on omeprazole. Denies of any urinary symptoms, fever, diarrhea, chest pain, shortness of breath, cough, headache, dizziness. (SHIRA DOMINGO) Allergies and Home Medications Allergies Coded Allergies: No Known Drug Allergies (Unverified , 09/08/14) Patient Home Medication List Home Medication List Reviewed: Yes (SHIRA DOMINGO) Omeprazole (Omeprazole) 40 Mg Capsule., 40 MG PO DAILY, (Reported) Entered as Reported by: NUNU BALDERRAMA on 12/16/22 [id number] Review of Systems Review of Systems Constitutional: No chills, No diaphoresis, No fever, No malaise, No weakness EENTM: No Blurred Vision, No Double Vision Respiratory: Denies Cough, Denies Orthopnea Cardiovascular: Denies Chest Pain Gastrointestinal: Abdominal Pain; Denies Diarrhea, Denies Nausea, Denies Vomiting Genitourinary: Denies Burning, Denies Discharge, Denies Drainage, Denies Freq uency Musculoskeletal: No back pain, No joint pain Skin: No change in color, No change in hair/nails (SHIRA DOMINGO) All Other Systems Reviewed Negative Unless Noted: Yes (SHIRA DOMINGO) Past Ktgpfgj-Qbqcbi-Mpasdd Hx Immunizations Up To Date First/Initial COVID19 Vaccinat: NO Second COVID19 Vaccination Juan M: NO Third COVID19 Vaccination Date: NO (SHIRA DOMINGO) Seasonal Allergies Seasonal Allergies: No (SHIRA DOMINGO) Past Medical History Surgeries: Yes (SMALL BOWEL RESECTION, LEFT ARM SCREW PLACED, BUNION SX) Adenoidectomy, Bowel Surgery, Orthopedic, Tonsillectomy Respiratory: Yes COPD, Emphysema Currently Using CPAP: No Currently Using BIPAP: No Cardiac: No Neurological: No BONSAI TENDER History: Menopausal Genitourinary: No Gastrointestinal: Yes (HX COLON CA, EPIGASTRIC PAIN) Gastroesophageal Reflux, Obstructive Bowel Musculoskeletal: Yes Osteoporosis, Arthritis, Chronic Back Pain Endocrine: No HEENT: Yes (WEARS GLASSES, HAS UPPER DENTURES) Loss of Vision: Denies Hearing Impairment: Denies 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 oz. 53.139084or; 20.82 BMI Method: General Appearance: WD/WN, no apparent distress HEENT: PERRL/EOMI, normal ENT inspection, TMs normal, pharynx normal Neck: non-tender, full range of motion, supple, normal inspection Respiratory: chest non-tender, lungs clear, normal breath sounds, no respir atory distress, no accessory muscle use Cardiovascular: regular rate, rhythm, no edema, no gallop, no JVD Gastrointestinal: normal bowel sounds, soft, no organomegaly, tenderness (Right-sided abdominal tenderness.) Extremities: normal range of motion, non-tender, normal inspection, no pedal edema Back: normal inspection, no CVA tenderness, no vertebral tenderness Pelvic: normal external exam Neurologic/Psychiatric: pan washer hand II-XII nml as tested, no motor/sensory deficits, alert, normal mood/affect, oriented x 3 Skin: normal color, warm/dry (SHIRA DOMINGO) Progress/Results/Core Measures Results/Orders Lab Results Laboratory Tests Test 01/02/23 18:47 01/02/23 18:58 Range/Units Urine Color YELLOW Urine Clarity CLEAR Urine pH 6.0 5-9 Urine Specific [place] >=1.030 1.016-1.022 Urine Protein TRACE H NEGATIVE Urine Glucose (UA) NEGATIVE NEGATIVE Urine Ketones NEGATIVE NEGATIVE Urine Nitrite NEGATIVE NEGATIVE Urine Bilirubin NEGATIVE NEGATIVE Urine Urobilinogen 0.2 < = 1.0 MG/DL Urine Leukocyte Esterase NEGATIVE NEGATIVE Urine RBC (Auto) NEGATIVE NEGATIVE Urine RBC NONE /HPF Urine WBC RARE /HPF Urine Squamous Epithelial Cells 10-25 H /HPF Urine Crystals NONE /LPF Urine Bacteria TRACE /HPF Urine Casts NONE /LPF Urine Mucus MODERATE H /LPF Urine Culture Indicated NO White Blood Count 7.2 4.3-11.0 10^3/uL Red Blood Count 4.76 3.80-5.11 10^6/uL Hemoglobin 13.5 11.5-16.0 g/dL Hematocrit 41 35-52 % Mean Corpuscular Volume 86 80-99 fL Mean Corpuscular Hemoglobin 28 25-34 pg Mean Corpuscular Hemoglobin Concent 33 32-36 g/dL Red Cell Distribution Width 14.1 10.0-14.5 % Platelet Count 230 130-400 10^3/uL Mean Platelet Volume 9.4 9.0-12.2 fL Immature Granulocyte % (Auto) 0 % Neutrophils (%) (Auto) 57 42-75 % Lymphocytes (%) (Auto) 34 12-44 % Monocytes (%) (Auto) 7 0-12 % Eosinophils (%) (Auto) 1 0-10 % Basophils (%) (Auto) 0 0-10 % Neutrophils # (Auto) 4.1 1.8-7.8 10^3/uL Lymphocytes # (Auto) 2.5 1.0-4.0 10^3/uL Monocytes # (Auto) 0.5 0.0-1.0 10^3/uL Eosinophils # (Auto) 0.1 0.0-0.3 10^3/uL Basophils # (Auto) 0.0 0.0-0.1 10^3/uL Immature Granulocyte # (Auto) 0.0 0.0-0.1 10^3/uL Sodium Level 142 135-145 MMOL/L Potassium Level 3.5 L 3.6-5.0 MMOL/L Chloride Level 105 98-107 MMOL/L Carbon Dioxide Level 23 21-32 MMOL/L Anion Gap 14 5-14 MMOL/L Blood Urea Nitrogen 11 7-18 MG/DL Creatinine 0.76 0.60-1.30 MG/DL Estimat Glomerular Filtration Rate 87 BUN/Creatinine Ratio 14 Glucose Level 129 H 70-105 MG/DL Calcium Level 9.6 8.5-10.1 MG/DL Corrected Calcium 8.5-10.1 MG/DL Total Bilirubin 0.3 0.1-1.0 MG/DL Aspartate Amino Transf (AST/SGOT) 19 5-34 U/L Alanine Aminotransferase (ALT/SGPT) 9 0-55 U/L Alkaline Phosphatase 79 40-136 U/L Total Protein 8.1 6.4-8.2 GM/DL Albumin 4.6 H 3.2-4.5 GM/DL Lipase 25 8-78 U/L (MARLENY ANDREW MD) Medications Given in ED Current Medications Medications Dose Ordered Sig/Grady Route Start Time Stop Time Status Last Admin Dose Admin Iohexol 100 ml ONCE ONCE IV 01/02/23 19:45 01/02/23 19:46 DC 01/02/23 19:42 67 ML Morphine Sulfate 4 mg ONCE ONCE IVP 01/02/23 20:45 01/02/23 20:46 DC 01/02/23 20:46 4 MG Sodium Chloride 100 ml ONCE ONCE IV 01/02/23 19:45 01/02/23 19:46 DC 01/02/23 19:42 80 ML (MARLENY ANDREW MD) Vital Signs/I&O 01/02/23 18:44 Pulse 70 B/P (MAP) 187/94 (125) Pulse Ox 98 O2 Delivery Room Air (MARLENY ANDREW MD) Departure Communication (Admissions) Time/Spoke to Admitting Phy: 21:[address] Garcia. Recommends admission, n.p.o. with ice chips, IV fluids, pain medication. Patient had a colonoscopy performed by Dr. Anderson on 27 December. Biopsies were taken. History of small bowel obstruction secondary to ileal mass in May [address] Garcia (SHIRA DOMINGO) Communication (PCP) Reviewed previous ER visits, H&P, lab testing. 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 History of ileum resection with Dr. Garcia in May 2021. Currently in remission. Not currently on chemotherapy. She had a colonoscopy performed by Dr. Anderson on the . Patient reports cute onset of pain around 4 PM. Has not had a bowel movement or any vomiting. She had general abdominal tenderness on palpation worse in the right lower quadrant. Due to her current presentation CBC, CMP, urinalysis and CT abdomen pelvis with contrast was ordered. CBC, CMP was otherwise unremarkable. Urinalysis was negative for infection. Was given 2 rounds of IV pain medication with some improvement. Currently NPO. CT abdomen and pelvis shows a distal small bowel obstruction with a transition point in the right lower quadrant. Patient was discussed with Dr. Garcia surgical consult on-call. Recommends n.p.o., ice chips, IV pain medication. Patient states she has not had a bowel movement since 4 but she states she typically has several bowel movements per day. No bowel movement here. Continued to provide IV pain medication. Patient will be admitted for further evaluation. (SHIRA DOMINGO) Impression Primary Impression: SBO (small bowel obstruction) Disposition: ADMITTED INPATIENT Condition: Stable Admissions Decision to Admit Reason: Admit from ER (General) Decision to Admit/Date: Jan 02, 2023 Time/Decision to Admit Time: 21:29 (SHIRA DOMINGO) Departure-Patient Inst. Referrals: [facility] [place] (PCP/Family) Primary Care Physician Patient Instructions: Small Bowel Obstruction ATTENDING PHYSICIAN NOTE: I was physically present as attending physician in the emergency department during the care of this patient, but I was not directly involved in the decision making or delivery of care for this patient. (MARLENY ANDREW MD) SHIRA DOMINGO Jan 02, 2023 18:56 MARLENY ANDREW MD Jan 03, 2023 06:00
[2023-01-02 19:02] LABS: BACTERIA,URINE TRACE /HPF; WBC,URINE RARE /HPF
[2023-01-02 19:04] LABS: BASOPHILS % (AUTO) 0 % (0-10); EOSINOPHILS # (AUTO) 0.1 10^3/uL (0.0-0.3); EOSINOPHILS % (AUTO) 1 % (0-10); HEMATOCRIT 41 % (35-52); HEMOGLOBIN 13.5 g/dL (11.5-16.0); LYMPHOCYTES # (AUTO) 2.5 10^3/uL (1.0-4.0); LYMPHOCYTES % (AUTO) 34 % (12-44); MEAN CORPUSCULAR HEMOGLOBIN 28 pg (25-34); MEAN CORPUSCULAR HGB CONC 33 g/dL (32-36); MEAN CORPUSCULAR VOLUME 86 fL (80-99); MEAN PLATELET VOLUME 9.4 fL (9.0-12.2); MONOCYTES # (AUTO) 0.5 10^3/uL (0.0-1.0); MONOCYTES % (AUTO) 7 % (0-12); NEUTROPHILS # (AUTO) 4.1 10^3/uL (1.8-7.8); NEUTROPHILS % (AUTO) 57 % (42-75); PLATELET COUNT 230 10^3/uL (130-400); WHITE BLOOD COUNT 7.2 10^3/uL (4.3-11.0)
[2023-01-02 19:31] LABS: ALANINE AMINOTRANSFERASE 9 U/L (0-55); ALBUMIN 4.6 GM/DL (3.2-4.5); ALKALINE PHOSPHATASE 79 U/L (40-136); BILIRUBIN,TOTAL 0.3 MG/DL (0.1-1.0); BUN/CREATININE RATIO 14; CALCIUM 9.6 MG/DL (8.5-10.1); CARBON DIOXIDE 23 MMOL/L (21-32); CHLORIDE 105 MMOL/L (98-107); CREATININE SERUM 0.76 MG/DL (0.60-1.30); GFR ESTIMATED 87; GLUCOSE 129 MG/DL (70-105); LIPASE 25 U/L (8-78); POTASSIUM 3.5 MMOL/L (3.6-5.0); SODIUM 142 MMOL/L (135-145); TOTAL PROTEIN 8.1 GM/DL (6.4-8.2)
[2023-01-02] MEDS ORDERED: IOHEXOL 350 MG/ML 100 ML (OMNIPAQUE 350) VIAL IV ONE (19:45)
[2023-01-02] MEDS ORDERED: NS 100 ML (IVPB) BAG IV ONE (19:45)
[2023-01-02] MEDS ORDERED: morphine INJ 10 MG/ML 1ML (SYR OR VIAL) IVP ONE (20:45)
--- NOTE | 2023-01-02 21:09 | Diagnostic Imaging Report ---
PROCEDURE: CT abdomen and pelvis with contrast. TECHNIQUE: Multiple contiguous axial images were obtained through the abdomen and pelvis after administration of intravenous contrast. Auto Exposure Controls were utilized during the CT exam to meet ALARA standards for radiation dose reduction. All CT scans use one or more of the following dose optimizing techniques: automated exposure control, MA and/or KvP adjustment based on patient size and exam type or iterative reconstruction. INDICATION: 62-year-old female presents with 2-3 month history of stomach issues. There is new onset pain which started 3 hours prior to study. Patient also has nausea. Patient had a colonoscopy approximately 7 days prior to this study. There is a previous history of colon cancer. COMPARISONS: 10/26/2022. FINDINGS: Lung bases are clear. Cardiac contour is normal. Liver shows uniform attenuation. Gallbladder is nondistended. Spleen and GE junction are normal. Stomach and duodenal sweep are grossly unremarkable. Pancreas shows sharp margins. Adrenals are normal. Kidneys appear normal in size, position and contour with symmetrical perfusion of contrast. There is no hydronephrosis or hydroureter. Both ureters are seen intermittently through there course and appear unremarkable. Partially filled bladder is normal. Uterus and adnexa are age-appropriate. There is pelvic venous congestion. There is a prominent hypertrophied left gonadal vein. The proximal small bowel is grossly normal. The mid to distal small bowel however shows a segment of dilated loops with air-fluid levels and segmental mucosal thickening. The transition zone is in the right lower quadrant. There is a previous enteric anastomosis in small bowel in the right lower quadrant. Large bowel is nondistended. There is no free air, free fluid or adenopathy. There is extensive nonaneurysmal aortic calcifications extending to the iliac and femoral arteries. There is essentially normal origin of the visceral arteries. A few calcifications are seen at the origin of the renal arteries. Bone windows show no lytic or blastic changes. IMPRESSION: 1. Distal small bowel obstruction. The transition point is in the right lower quadrant close to an area of previous enteric anastomosis. 2. The large bowel is mostly decompressed. There is some segmental mucosal thickening in the large bowel extending from the ascending to the distal transverse colon. An element of colitis may be present. An infiltrative process is not excluded. 3. There is pelvic venous congestion with a prominent draining left gonadal vein. 4. No evidence of cholecystitis or obstructive uropathy. Additional nonemergent findings as described above. Dictated by: Dictated on workstation # [id number]
[2023-01-02 22:01] VITALS: BP 187/84
[2023-01-02] MEDS ORDERED: LACTATED RINGERS 1,000 ML IV ONE (22:15)
[2023-01-02] MEDS: LACTATED RINGERS 1,000 ML IV SCH (22:23)
[2023-01-02] MEDS ORDERED: fentaNYL INJ 100 MCG/2 ML AMP IV PRN (22:30)
[2023-01-02] MEDS ORDERED: fentaNYL INJ 100 MCG/2 ML AMP ONE (23:44)
[2023-01-02] MEDS ORDERED: HYDROcodone/APAP 7.5 MG/325 MG (LORTAB, LORCET PLUS) TABLET PO ONE (23:44)
[2023-01-02] MEDS: fentaNYL INJ 100 MCG/2 ML AMP IV PRN (23:46)
[2023-01-02] MEDS: HYDROcodone/APAP 7.5 MG/325 MG (LORTAB, LORCET PLUS) TABLET PO PRN (23:46)
[2023-01-03] VITALS (8 sets, daily range): BP systolic 138–177; BP diastolic 73–91
[2023-01-03] MEDS: fentaNYL INJ 100 MCG/2 ML AMP IV PRN ×2 (02:05→09:37)
[2023-01-03] MEDS ORDERED: PROMETHAZINE INJ 25 MG/ML (PHENERGAN) AMP ONE (02:13)
[2023-01-03] MEDS ORDERED: ONDANSETRON 4 MG/2 ML (SDV) Z0FRAN IVP PRN (02:15)
[2023-01-03] MEDS: PROMETHAZINE INJ 25 MG/ML (PHENERGAN) AMP IVP PRN ×3 (02:16→15:51)
[2023-01-03 05:59] LABS: BASOPHILS % (AUTO) 0 % (0-10); EOSINOPHILS # (AUTO) 0.1 10^3/uL (0.0-0.3); EOSINOPHILS % (AUTO) 1 % (0-10); HEMATOCRIT 38 % (35-52); HEMOGLOBIN 12.5 g/dL (11.5-16.0); LYMPHOCYTES # (AUTO) 1.8 10^3/uL (1.0-4.0); LYMPHOCYTES % (AUTO) 20 % (12-44); MEAN CORPUSCULAR HEMOGLOBIN 29 pg (25-34); MEAN CORPUSCULAR HGB CONC 33 g/dL (32-36); MEAN CORPUSCULAR VOLUME 86 fL (80-99); MEAN PLATELET VOLUME 9.8 fL (9.0-12.2); MONOCYTES # (AUTO) 0.5 10^3/uL (0.0-1.0); MONOCYTES % (AUTO) 5 % (0-12); NEUTROPHILS # (AUTO) 6.5 10^3/uL (1.8-7.8); NEUTROPHILS % (AUTO) 73 % (42-75); PLATELET COUNT 226 10^3/uL (130-400); WHITE BLOOD COUNT 8.9 10^3/uL (4.3-11.0)
[2023-01-03 06:22] LABS: CALCIUM 9.3 MG/DL (8.5-10.1); CREATININE SERUM 0.65 MG/DL (0.60-1.30); POTASSIUM 3.7 MMOL/L (3.6-5.0)
[2023-01-03] MEDS ORDERED: CATHETER FLUSH 10 ML SYR IV PRN (07:00)
[2023-01-03] MEDS: LACTATED RINGERS 1,000 ML IV SCH ×2 (08:13→20:25)
--- NOTE | 2023-01-03 09:20 | Diagnostic Imaging Report ---
EXAMINATION: ABDOMEN, FLAT UPRIGHT/DECUB. INDICATION: Small bowel obstruction. COMPARISON: 01/02/2023. TECHNIQUE: Upright and supine AP view of the abdomen. FINDINGS: No free intraperitoneal air. There remain dilated loops of small bowel in the left upper quadrant measuring up to 5 cm. There is an air-fluid level on upright imaging within the dilated bowel; however, there is gas noted within the nondistended colon. Contrast material is present in the urinary bladder from the CT scan of yesterday. Lung bases are clear. IMPRESSION: Stable dilated loops of small bowel in the left hemiabdomen, likely due to partial small bowel obstruction versus ileus from colitis. If it will alter patient management, then consider a small bowel follow-through for further workup. Dictated by: Dictated on workstation # [id number]
[2023-01-03] MEDS ORDERED: HYDR-3820 PO (10:35)
--- NOTE | 2023-01-03 11:41 | History & Physical-Surgical ---
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 Pt states that she has been experiencing "stomach issues" for the last two months, describing pressure like suprapubic pain initially and intermittent, short, episodes of sharp pain in her abd. Pt states that she was worked up for kidney stones and UTI and they were both negative. Pt also notes that she feels like her appetite decreased and she lost "a few lbs".Pt states that she was laying in bed yesterday evening, when she abruptly started experiencing diffuse abd pain that gradually worsened overnight. Pt rated that pain a 10/10 at worst and stated that it "moved around". Pt took GasX and tums with no relief. Pt states that it felt similar to her last SBO, prompting her to go to the ED. CT abd/pelvis in ED was remarkable for distal SBO with a transition point in the RLQ close to the area of prervious enteric anastomosis. Large bowel was mostly decompressed and there was some segmental mucosal thickening in the large bowel extending from the ascending to the distal transverse colon, indicating possible colitis vs infiltrative process. Pelvic venous congestion with prominent draining into left gonadal vein also present. No evidence of cholecystitis or obstructive uropathy found. In room, pt is laying in bed, wincing occasionally from pain. Pt rates her pain a 8/10 and states that it is constant, sharp, and "moves around". Pt does not feel like her pain is being well controlled with the pain medications currently. Pt reports mild nausea and some belching today. Last BM was yesterday morning, and pt states that it was normal. Pt states that she had been having flatus last night but has not had any today. KUB on 01/03/23 was showed stable dilated loops of small bowel in the left hemicolon, likely d/t PSBO v Ileus from colitis. Pt had a colonoscopy and EGD with Dr. Anderson on 12/27/22 that was remarkable for gastritis, hiatal hernia, colon mass vs fold, hyperplastic colonic polyp, and internal hemorrhoids. Pt's last meal was yesterday prior to onset of symptoms. Pt denies any CP, worsening SOB, bloody BMs, melena, fever, chills, and change in BMs. Allergies and Home Medications Allergies Coded Allergies: No Known Drug Allergies (Unverified , 09/08/14) Patient Home Medication List Home Medication List Reviewed: Yes Hydrocodone/Acetaminophen (Hydrocodone-Acetamin 10-325 mg) 10 Mg-325 Mg Tablet, 1 EACH PO Q4H PRN for PAIN-MODERATE (5-7), (Reported) Entered as Reported by: YASMIN DEL ROSARIO on 01/03/23 1035 Last Action: Reviewed Omeprazole (Omeprazole) 40 Mg Capsule.dr, 40 MG PO DAILY, (Reported) Entered as Reported by: NUNU BALDERRAMA on 12/16/22 1205 Last Action: Reviewed Past Nhazslu-Dlhtqn-Qiueiz Hx Patient Social History Smoking Status: Former Smoker Former Smoker, Quit: May 30, 2021 Type Used: Cigarettes 2nd Hand Smoke Exposure: No Recent Hopitalizations: No Alcohol Use?: No Substance type: Marijuana Have you traveled recently?: No Seasonal Allergies Seasonal Allergies: No Surgeries History of Surgeries: Yes (SMALL BOWEL RESECTION, LEFT ARM SCREW PLACED, BUNION SX) Surgeries: Adenoidectomy, Bowel Surgery (small bowel resectionx2), Orthopedic, Tonsillectomy Respiratory History of Respiratory Disorde: Yes Respiratory Disorders: COPD, Emphysema Cardiovascular History of Cardiac Disorders: No Neurological History of Neurological Disord: No 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 Genitourinary History of Genitourinary Disor: No Gastrointestinal History of Gastrointestinal Di: Yes (HX COLON CA, EPIGASTRIC PAIN) Gastrointestinal Disorders: Gastroesophageal Reflux, Obstructive Bowel, Polyps Musculoskeletal History of Musculoskeletal Dis: Yes Musculoskeletal Disorders: Osteoporosis, Arthritis Endocrine History of Endocrine Disorders: No HEENT History of HEENT Disorders: Yes (WEARS GLASSES, HAS UPPER DENTURES) Loss of Vision: Denies Hearing Impairment: Denies Cancer History of Cancer: Yes (Adenocarcinoma of the small bowel) Cancer: Small Bowel (adenocarcinoma of small bowel-surgical resection and chemotherapy ) Psychosocial History of Psychiatric Problem: Yes Behavioral Health Disorders: Anxiety, Depression Integumentary History of Skin or Integumenta: No Blood Transfusions History of Blood Disorders: No Family Medical History Significant Family History: No Pertinent Family Hx, Heart Disease (Mother and sister), Cancer (father: pancreatic and liver), Diabetes (mother), Seizures (brother) Review of Systems Constitutional: No chills, No fever EENTM: No hearing loss, No blurred vision Respiratory: cough (chronic), short of breath (chronic) Cardiovascular: No chest pain, No edema Gastrointestinal: abdominal pain (diffuse); No diarrhea; loss of appetite (decreased); No melena; nausea; No vomiting Musculoskeletal: joint pain (chronic-arthritis); No muscle cramps Skin: No change in color, No change in hair/nails Psychiatric/Neurological: Denies Headache, Denies Numbness All Other Systems Reviewed Negative Unless Noted: Yes (Negative excepted noted.) Physical Exam Vital Signs Vital Signs - First Documented 01/02/23 01/02/23 18:44 22:01 Temp 36.0 Pulse 70 Resp 18 B/P (MAP) 187/94 (125) Pulse Ox 98 O2 Delivery Room Air Capillary Refill : Height, Weight, BMI Height: 5'6" Weight: 118lbs. oz. 53.037846jz; 21.63 BMI Method: General Appearance: No Apparent Distress (does wince when in pain but otherwise no distress), WD/WN HEENT: PERRL/EOMI, Moist Mucous Membranes Neck: Non Tender, Supple Respiratory: Lungs Clear, Normal Breath Sounds, No Accessory Muscle Use, No Respiratory Distress Cardiovascular: Regular Rate, Rhythm, No Gallop, No Murmur Gastrointestinal: Mass (Suprapubic, left and lateral to surgical scar, may be scar tissue; tenderness with palpation), Tenderness (RLQ and over mass ) Extremity: No Calf Tenderness, No Pedal Edema Neurologic/Psychiatric: Alert, Oriented x3, Normal Mood/Affect Skin: Normal Color, Warm/Dry, Other (Surgical scar midline running inferiorly through umbilicus and just slightly superior to it; Diastasis recti from surgical incision) Lymphatic: No Adenopathy Data Review Labs Laboratory Tests 01/02/23 18:47: Urine Color YELLOW, Urine Clarity CLEAR, Urine pH 6.0, Urine Specific Kenton >=1.030, Urine Protein TRACEH, Urine Glucose (UA) NEGATIVE, Urine Ketones NEGATIVE, Urine Nitrite NEGATIVE, Urine Bilirubin NEGATIVE, Urine Urobilinogen 0.2, Urine Leukocyte Esterase NEGATIVE, Urine RBC (Auto) NEGATIVE, Urine RBC NONE, Urine WBC RARE, Urine Squamous Epithelial Cells 10-25H, Urine Crystals NONE, Urine Bacteria TRACE, Urine Casts NONE, Urine Mucus MODERATEH, Urine Culture Indicated NO 01/02/23 18:58: White Blood Count 7.2, Red Blood Count 4.76, Hemoglobin 13.5, Hematocrit 41, Mean Corpuscular Volume 86, Mean Corpuscular Hemoglobin 28, Mean Corpuscular Hemoglobin Concent 33, Red Cell Distribution Width 14.1, Platelet Count 230, Mean Platelet Volume 9.4, Immature Granulocyte % (Auto) 0, Neutrophils (%) (Auto) 57, Lymphocytes (%) (Auto) 34, Monocytes (%) (Auto) 7, Eosinophils (%) (Auto) 1, Basophils (%) (Auto) 0, Neutrophils # (Auto) 4.1, Lymphocytes # (Auto) 2.5, Monocytes # (Auto) 0.5, Eosinophils # (Auto) 0.1, Basophils # (Auto) 0.0, Immature Granulocyte # (Auto) 0.0, Sodium Level 142, Potassium Level 3.5L, Chloride Level 105, Carbon Dioxide Level 23, Anion Gap 14, Blood Urea Nitrogen 11, Creatinine 0.76, Estimat Glomerular Filtration Rate 87, BUN/Creatinine Ratio 14, Glucose Level 129H, Calcium Level 9.6, Corrected Calcium , Total Bilirubin 0.3, Aspartate Amino Transf (AST/SGOT) 19, Alanine Aminotransferase (ALT/SGPT) 9, Alkaline Phosphatase 79, Total Protein 8.1, Albumin 4.6H, Lipase 25 01/03/23 05:25: White Blood Count 8.9, Red Blood Count 4.38, Hemoglobin 12.5, Hematocrit 38, Mean Corpuscular Volume 86, Mean Corpuscular Hemoglobin 29, Mean Corpuscular Hemoglobin Concent 33, Red Cell Distribution Width 14.1, Platelet Count 226, Mean Platelet Volume 9.8, Immature Granulocyte % (Auto) 0, Neutrophils (%) (Auto) 73, Lymphocytes (%) (Auto) 20, Monocytes (%) (Auto) 5, Eosinophils (%) (Auto) 1, Basophils (%) (Auto) 0, Neutrophils # (Auto) 6.5, Lymphocytes # (Auto) 1.8, Monocytes # (Auto) 0.5, Eosinophils # (Auto) 0.1, Basophils # (Auto) 0.0, Immature Granulocyte # (Auto) 0.0, Sodium Level 141, Potassium Level 3.7, Chloride Level 106, Carbon Dioxide Level 24, Anion Gap 11, Blood Urea Nitrogen 8, Creatinine 0.65, Estimat Glomerular Filtration Rate 98, BUN/Creatinine Ratio 12, Glucose Level 113H, Calcium Level 9.3 Radiology Date of Exam:01/02/23 CT ABDOMEN/PELVIS W PROCEDURE: CT abdomen and pelvis with contrast. TECHNIQUE: Multiple contiguous axial images were obtained through the abdomen and pelvis after administration of intravenous contrast. Auto Exposure Controls were utilized during the CT exam to meet ALARA standards for radiation dose reduction. All CT scans use one or more of the following dose optimizing techniques: automated exposure control, MA and/or KvP adjustment based on patient size and exam type or iterative reconstruction. INDICATION: 62-year-old female presents with 2-3 month history of stomach issues. There is new onset pain which started 3 hours prior to study. Patient also has nausea. Patient had a colonoscopy approximately 7 days prior to this study. There is a previous history of colon cancer. COMPARISONS: 10/26/2022. FINDINGS: Lung bases are clear. Cardiac contour is normal. Liver shows uniform attenuation. Gallbladder is nondistended. Spleen and GE junction are normal. Stomach and duodenal sweep are grossly unremarkable. Pancreas shows sharp margins. Adrenals are normal. Kidneys appear normal in size, position and contour with symmetrical perfusion of contrast. There is no hydronephrosis or hydroureter. Both ureters are seen intermittently through there course and appear unremarkable. Partially filled bladder is normal. Uterus and adnexa are age-appropriate. There is pelvic venous congestion. There is a prominent hypertrophied left gonadal vein. The proximal small bowel is grossly normal. The mid to distal small bowel however shows a segment of dilated loops with air-fluid levels and segmental mucosal thickening. The transition zone is in the right lower quadrant. There is a previous enteric anastomosis in small bowel in the right lower quadrant. Large bowel is nondistended. There is no free air, free fluid or adenopathy. There is extensive nonaneurysmal aortic calcifications extending to the iliac and femoral arteries. There is essentially normal origin of the visceral arteries. A few calcifications are seen at the origin of the renal arteries. Bone windows show no lytic or blastic changes. IMPRESSION: 1. Distal small bowel obstruction. The transition point is in the right lower quadrant close to an area of previous enteric anastomosis. 2. The large bowel is mostly decompressed. There is some segmental mucosal thickening in the large bowel extending from the ascending to the distal transverse colon. An element of colitis may be present. An infiltrative process is not excluded. 3. There is pelvic venous congestion with a prominent draining left gonadal vein. 4. No evidence of cholecystitis or obstructive uropathy. Additional nonemergent findings as described above. Dictated by: Dictated on workstation # [id number] Dict: 01/02/231957 Trans: 01/02/232131 [facility] [id number] Interpreted by: ALAYNA ENCINAS MD Electronically signed by: ALAYNA ENCINAS MD 01/02/232131 Date of Exam:01/03/23 ABDOMEN, FLAT & UPRIGHT/DECUB EXAMINATION: ABDOMEN, FLAT UPRIGHT/DECUB. INDICATION: Small bowel obstruction. COMPARISON: 01/02/2023. TECHNIQUE: Upright and supine AP view of the abdomen. FINDINGS: No free intraperitoneal air. There remain dilated loops of small bowel in the left upper quadrant measuring up to 5 cm. There is an air-fluid level on upright imaging within the dilated bowel; however, there is gas noted within the nondistended colon. Contrast material is present in the urinary bladder from the CT scan of yesterday. Lung bases are clear. IMPRESSION: Stable dilated loops of small bowel in the left hemiabdomen, likely due to partial small bowel obstruction versus ileus from colitis. If it will alter patient management, then consider a small bowel follow-through for further workup. Dictated by: Dictated on workstation # [id number] Dict: 01/03/23914 Trans: 01/03/23 100 [id number] Interpreted by: BENI GARCIA MD Electronically signed by: BENI GARCIA MD 01/03/23 1004 Assessment/Plan Assessment/Plan Admission Diagonsis PSBO vs Ileus Admission Status: Inpatient Order (span 2 midnights) Reason for Inpatient Admission: PSBO vs Ileus Assessment/Plan PBSO vs Ileus Diffuse abd pain Nausea H/o SBO H/o adenocarcinoma of small bowel Chemotherapy S/p Laparoscopic small bowel resection x2 Peritoneal mass IVF, pain medication prn, and anti-emetics prn NPO Encourage Ambulation Consider Small bowel follow through NG tube placement if new onset/worsening nausea, vomiting, and abd distention AMELIA WINTERS DO 01/03/231926: History of Present Illness History of Present Illness Reason for visit/HPI small bowel obstruction, diffuse abdominal pain. Consult Patient is a 62 year old female who has not been feeling well last couple months. She has abdominal pain that is sharp constant pain that she rates at 8/10. Just got to the point she had to go to ED for further evaluation. She has been belching. Passed a small amount of flatus yesterday and none today. Abdomen has been slightly more distended. She recently had egd/colonoscopy. She has history of small bowel resection with adenocarcinoma and positive nodes. Had Ct scan done: 1. Distal small bowel obstruction. The transition point is in the right lower quadrant close to an area of previous enteric anastomosis. 2. The large bowel is mostly decompressed. There is some segmental mucosal thickening in the large bowel extending from the ascending to the distal transverse colon. An element of colitis may be present. An infiltrative process is not excluded. 3. There is pelvic venous congestion with a prominent draining left gonadal vein. 4. No evidence of cholecystitis or obstructive uropathy. Additional nonemergent findings as described above. Allergies and Home Medications Allergies Coded Allergies: No Known Drug Allergies (Unverified , 09/08/14) Patient Home Medication List Home Medication List Reviewed: Yes Hydrocodone/Acetaminophen (Hydrocodone-Acetamin 10-325 mg) 10 Mg-325 Mg Tablet, 1 EACH PO Q4H PRN for PAIN-MODERATE (5-7), (Reported) Entered as Reported by: YASMIN DEL ROSARIO on 01/03/23 1035 Last Action: Reviewed Omeprazole (Omeprazole) 40 Mg Capsule., 40 MG PO DAILY, (Reported) Entered as Reported by: NUNU BALDERRAMA on 12/16/22 1205 Last Action: Reviewed Past Dkmgogv-Apuods-Caeqdt Hx Reviewed Nursing Assessment Reviewed/Agree w Nursing PMH: Yes Family Medical History Significant Family History: Heart Disease (Mother and sister), Cancer (father: pancreatic and liver), Diabetes, Seizures (brother) Review of Systems Constitutional: No chills, No diaphoresis EENTM: No blurred vision, No double vision Respiratory: No cough, No dyspnea on exertion Cardiovascular: No chest pain, No palpitations Gastrointestinal: abdominal pain, nausea; No vomiting Genitourinary: No decreased output, No discharge Musculoskeletal: No back pain, No joint pain Skin: No change in color, No change in hair/nails Psychiatric/Neurological: Denies Anxiety, Denies Depressed, Denies Emotional Problems All Other Systems Reviewed Negative Unless Noted: Yes (Negative excepted noted.) Physical Exam General Appearance: No Apparent Distress (slightly uncomfortable.) HEENT: PERRL/EOMI, Normal ENT Inspection Neck: Non Tender Respiratory: Chest Non Tender, No Accessory Muscle Use, No Respiratory Distress Cardiovascular: Regular Rate, Rhythm, No JVD Gastrointestinal: Distended (slighty), Tenderness (minimal diffusely) Rectal: Deferred Back: No CVA Tenderness, No Vertebral Tenderness Extremity: Non Tender, No Calf Tenderness Neurologic/Psychiatric: Alert, Oriented x3 Skin: Normal Color, Warm/Dry Lymphatic: No Adenopathy Assessment/Plan Assessment/Plan Admission Diagonsis SBO Diffuse abd pain Nausea H/o SBO H/o adenocarcinoma of small bowel Admission Status: Inpatient Order (span 2 midnights) Reason for Inpatient Admission: Needs further management and imaging studies which will require 2 midnight stay Assessment/Plan SBO Diffuse abd pain Nausea H/o SBO H/o adenocarcinoma of small bowel IVF, pain medication prn, and anti-emetics prn NPO Encourage Ambulation Small bowel follow through tomorrow NG tube to be placed Consult ANTONIO Green Jan 03, 2023 11:41 AMELIA WINTERS DO Jan 03, 2023 19:27
[2023-01-03] MEDS: HYDROmorphone 2 MG/ML VIAL (DILAUDID) IV PRN ×2 (12:02→15:48)
[2023-01-03] MEDS: CATHETER FLUSH 10 ML SYR IV SCH ×2 (12:32→21:59)
--- NOTE | 2023-01-03 15:03 | Consultation ---
DALL[facility] BIGGS 01/03/23 1502: HPI History of Present Illness: HPI/Chief Complaint This is a 62 y/o female who presents with a partial SBO. 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 Since then she has been taking sindostatin ocretotide injections monthly she says for diarrhea. Her next injection was scheduled for today.The patient says she has had on and off abdominal pain for the last two months that will come on suddenly, last several minute then leave, like bad cramping, but it rarely impacted her days. She notes a loss of appetite and weight loss during this time. She said yesterday she was going about her day as normal when around 4pm she had sudden onset severe, cramp-like abdominal pain come on which caused her to double over and did not resolve so she came into the ED. She tried taking "a lot" of Gas-X and Tums because she thought it might just be gas but this did not help. She said since coming to the hospital she has also had some nausea off and on but this was usually not present the past two months. She says her pain is diffuse across her abdomen but feels cramping specifically across her upper abdomen and down her left side. She says nothing she did at home made it better except for laying on her back. She did not take any medications. She does endorse smoking marijuana since her cancer diagnosis as it helps relax her and helps stimulate her appetite which she knows is not adequate at only having ~1 meal per day. She had a colonoscopy on 12/[address] Vicente which found mild gas tritis and hyperplastic polyps of the colon. She notes that she has had regular bowel movements with occasional diarrhea, her last BM was yesterday morning and she ate lunch prior to the onset of her pain. She smoked tobacco for 44 years but quit with her cancer diagnosis. She had emphysema/COPD when she smoked which required inhalers/breathing treatments but since quitting she has not required them or been taking them. She does not that recently with increased marijuana smoking she has had some slight cough and she had thought about taking her inhaler again. She reports last smoking marijuana yesterday morning before her pain started. At this time the patient is sitting up in bed resting comfortably. She says the morphine and phenergen have adequately controlled her discomfort and currently rates her pain at a 1/10. She says with the administration of phenergen she experienced a sudden cold diaphoresis, and feeling in her chest like she couldn't breath even though she could with extreme anxiety which overall lasted 1-2 minutes and went away. She believes this may have been a panic attack. She reports no episodes like this previously but does endorse depression/anxiety today over this change in health status. Source: patient, old records Exam Limitations: no limitations Date Seen 01/03/23 Attending Physician [place] PCP Admitting Physician: Sofy Garcia MD Attending Physician: Sofy Garcia MD Referring Physician Jules Date of Admission Jan 02, 2023 at 21:42 Home Medications & Allergies Home Medications Reviewed patient Home Medication Reconciliation performed by pharmacy medication reconciliations plant technician/control room operator and/or nursing. Patients Allergies have been reviewed. Allergies Allergies Coded Allergies No Known Drug Allergies (Oidjpsedjn82/23/14) Past [place]-Qlwwgx-Zdwxhe Hx Patient Social History Marrital Status: Tobacco Use?: No Smoking Status: Former Smoker (Quit two years ago after 44 years.) Substance use?: Yes Substance type: Marijuana (Frequent marijuana use - last used yesterday) Alcohol Use?: No Pt feels they are or have been: No Immunizations Up To Date First/Initial COVID19 Vaccinat: NO Second COVID19 Vaccination Juan M: NO Tetanus Booster (TDap): More Than 5 Years Hepatitis A: No Hepatitis B: No Seasonal Allergies Seasonal Allergies: No Current Status Communicates: Verbally Primary Language: Honduran Preferred Spoken Language: Honduran Is interpretation needed?: No Past Medical History Surgeries: Adenoidectomy, Bowel Surgery (small bowel resectionx2), Orthopedic, Tonsillectomy COPD, Emphysema Currently Using CPAP: No Currently Using BIPAP: No 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 Gastroesophageal Reflux, Obstructive Bowel, Polyps Osteoporosis, Arthritis Loss of Vision: Denies Hearing Impairment: Denies Small Bowel (adenocarcinoma of small bowel-surgical resection and chemotherapy ) Did You Recieve Any Treatments: Yes What Type of Treatment Did You: Chemotherapy, Surgical Intervention Anxiety, Depression Blood Disorders: No COPD GERD Adenocarcinoma of the Colon Family Medical History No Pertinent Family Hx, Heart Disease (Mother and sister), Cancer (father: pancreatic and liver), Diabetes (mother), Seizures (brother) Review of Systems Constitutional: see HPI; No chills, No fever; weight loss EENTM: no symptoms reported Respiratory: see HPI, cough Cardiovascular: no symptoms reported Gastrointestinal: see HPI Genitourinary: other (Endorsed some bladder "fullness/pressure" off and on over past two months.) Musculoskeletal: no symptoms reported Skin: no symptoms reported Psychiatric/Neurological: See HPI, Anxiety, Depressed Physical Exam Physical Exam Vital Signs Vital Signs - First Documented 01/02/23 01/02/23 18:44 22:01 Temp 36.0 Pulse 70 Resp 18 B/P (MAP) 187/94 (125) Pulse Ox 98 O2 Delivery Room Air Capillary Refill : Height, Weight, BMI Height: 5'6" Weight: 118lbs. oz. 53.458194fv; 21.63 BMI Method: General Appearance: No Apparent Distress (does wince when in pain but otherwise no distress), WD/WN HEENT: PERRL/EOMI, Moist Mucous Membranes Neck: Non Tender, Supple Respiratory: Crackles (Very faint and fine inspiratory crackles in lung bases. All other rhodes clear with good air movement.) Cardiovascular: Regular Rate, Rhythm, No Gallop, No Murmur Gastrointestinal: Normal Bowel Sounds (Very active bowel sounds.); No Soft; Distended, Mass (Suprapubic, left and lateral to surgical scar, feels well- defined and not consistent with scar tissue in the rest of the incision. Tender to palpation.); No Rebound; Tenderness (LLQ and over mass.) Back: Normal Inspection, No Vertebral Tenderness Extremity: No Calf Tenderness, No Pedal Edema Neurologic/Psychiatric: Alert, Oriented x3, Other (Mildly anxious appearing. Affect appropriate given circumstances.) Skin: Normal Color, Warm/Dry, Other (Surgical scar midline running inferiorly through umbilicus and just slightly superior to it; Diastasis recti from surgical incision) Lymphatic: No Adenopathy Results Results/Procedures Labs Laboratory Tests 01/02/23 18:58 01/03/23 05:25 Patient resulted labs reviewed. Imaging: Reviewed Imaging Films, Reviewed Imaging Report Imaging NAME: SHANTI MUELLER [facility] REC#: [id number] PT STATUS: REG ER : 1960 PHYSICIAN: SHIRA DOMINGO ADMIT DATE: 01/02/23/ER Signed Date of Exam:01/02/23 CT ABDOMEN/PELVIS W PROCEDURE: CT abdomen and pelvis with contrast. TECHNIQUE: Multiple contiguous axial images were obtained through the abdomen and pelvis after administration of intravenous contrast. Auto Exposure Controls were utilized during the CT exam to meet ALARA standards for radiation dose reduction. All CT scans use one or more of the following dose optimizing techniques: automated exposure control, MA and/or KvP adjustment based on patient size and exam type or iterative reconstruction. INDICATION: 62-year-old female presents with 2-3 month history of stomach issues. There is new onset pain which started 3 hours prior to study. Patient also has nausea. Patient had a colonoscopy approximately 7 days prior to this study. There is a previous history of colon cancer. COMPARISONS: 10/26/2022. FINDINGS: Lung bases are clear. Cardiac contour is normal. Liver shows uniform attenuation. Gallbladder is nondistended. Spleen and GE junction are normal. Stomach and duodenal sweep are grossly unremarkable. Pancreas shows sharp margins. Adrenals are normal. Kidneys appear normal in size, position and contour with symmetrical perfusion of contrast. There is no hydronephrosis or hydroureter. Both ureters are seen intermittently through there course and appear unremarkable. Partially filled bladder is normal. Uterus and adnexa are age-appropriate. There is pelvic venous congestion. There is a prominent hypertrophied left gonadal vein. The proximal small bowel is grossly normal. The mid to distal small bowel however shows a segment of dilated loops with air-fluid levels and segmental mucosal thickening. The transition zone is in the right lower quadrant. There is a previous enteric anastomosis in small bowel in the right lower quadrant. Large bowel is nondistended. There is no free air, free fluid or adenopathy. There is extensive nonaneurysmal aortic calcifications extending to the iliac and femoral arteries. There is essentially normal origin of the visceral arteries. A few calcifications are seen at the origin of the renal arteries. Bone windows show no lytic or blastic changes. IMPRESSION: 1. Distal small bowel obstruction. The transition point is in the right lower quadrant close to an area of previous enteric anastomosis. 2. The large bowel is mostly decompressed. There is some segmental mucosal thickening in the large bowel extending from the ascending to the distal transverse colon. An element of colitis may be present. An infiltrative process is not excluded. 3. There is pelvic venous congestion with a prominent draining left gonadal vein. 4. No evidence of cholecystitis or obstructive uropathy. Additional nonemergent findings as described above. Dictated by: Dictated on workstation # [id number] Dict: 01/02/231957 Trans: 01/02/232131 [facility] [id number] Interpreted by: ALAYNA ENCINAS MD Electronically signed by: ALAYNA ENCINAS MD 01/02/232131 NAME: SHANTI MUELLER [facility] REC#: [id number] PT STATUS: ADM [place] : 1960 PHYSICIAN: SOFY GARCIA MD ADMIT DATE: 01/02/23 Signed Date of Exam:01/03/23 ABDOMEN, FLAT & UPRIGHT/DECUB EXAMINATION: ABDOMEN, FLAT UPRIGHT/DECUB. INDICATION: Small bowel obstruction. COMPARISON: 01/02/2023. TECHNIQUE: Upright and supine AP view of the abdomen. FINDINGS: No free intraperitoneal air. There remain dilated loops of small bowel in the left upper quadrant measuring up to 5 cm. There is an air-fluid level on upright imaging within the dilated bowel; however, there is gas noted within the nondistended colon. Contrast material is present in the urinary bladder from the CT scan of yesterday. Lung bases are clear. IMPRESSION: Stable dilated loops of small bowel in the left hemiabdomen, likely due to partial small bowel obstruction versus ileus from colitis. If it will alter patient management, then consider a small bowel follow-through for further workup. Dictated by: Dictated on workstation # [id number] Dict: 01/03/23914 Trans: 01/03/23 1004 [id number] Interpreted by: BENI GARCIA MD Electronically signed by: BENI GARCIA MD 01/03/23 1004 Assessment/Plan Assessment and Plan Assess & Plan/Chief Complaint Assessment This is a 62 y/o female who presented with severe abdominal pain and found to have pSBO vs ileus now HD#1 Small Bowel Adenocarcinoma s/p resection x2 in 2020 s/p chemotherapy from [id number] On sandostatin injections qMonthly for diarrhea -General surgery following, managing -Planning to do G-tube and decompression -Recent colonscopy with hyperplastic polyps, no invasive malignancy noted -Subcutaneous mass near surgical scar is tender, new, concerning -Endorses passing gas today Hypertension - unspecified -Pt denies previous issues with BPs, currently 140s-170s/90s -Likely component of anxiety given inpatient and situation -Hydralazine for SBP >170 PRN GERD -Can continue omeprazole or protonix IV while NPO -Omeprazole PO once diet is resumed and taking PO COPD Emphysema -CT chest c/w emphysematous changes -Previously on inhalers when smoking, has not required -Can add PRN inhalers for any difficulty breathing -Consider outpatient FU and re-adding control inhaler; non-urgent at thist aliya Depression/Anxiety -consider SSRI therapy once PO -If patient is able to resume a diet could consider mirtazepine qNightly for appetite and sleep aid -Could add hydroxyzine PRN for anxiety -Consider sparing benzo use if IV needed FEN/GI -LR @ 100ml/hr, UOP yesterday was 0.14 ml/kg/hr -Replace electrolytes as needed, no derangements at this visit -NPO -IV PPI, bowel regimen per surgery DVT PPx -SCDs currently in place -Add lovenox given cancer history, possible recurrence Dispo: Stable. Primary plan per surgery, we appreciate this consult and will continue to follow for this patient's stay. SANDEE NAIK DO 01/04/23 0454: Supervisory-Addendum Brief Verification & Attestation Participated in pt care: history, MDM, physical Personally performed: exam, history, MDM, supervision of care Care discussed with: Medical Student Procedures: n/a Results interpretation: Verified all documentation Verification and Attestation of Medical Student E/M Service A medical student performed and documented this service in my presence. I reviewed and verified all information documented by the medical student and made modifications to such information, when appropriate. I personally performed the physical exam and medical decision making. Sandee Naik, Jan 04, 2023,04:54 [place] [facility] Jan 03, 2023 15:02 SANDEE NAIK DO Jan 04, 2023 04:54
--- NOTE | 2023-01-03 19:36 | Diagnostic Imaging Report ---
INDICATION: Nasogastric tube assessment. There is gaseous distention of small and large bowel as well as the stomach. Nasogastric tube reaches the level of the distal esophagus. IMPRESSION: Nasogastric tube reaches distal esophagus and could be further advanced below the diaphragm for gastric decompression. Dictated by: Dictated on workstation # [id number]
[2023-01-03] MEDS ORDERED: NITROGLYCERIN 2% OINT 1 GM UNIT DOSE PACKET TOP PRN (20:00)
[2023-01-03] MEDS: ENALAPRILAT 2.5 MG/2 ML (VASOTEC) VIAL IV SCH ×2 (20:13→23:43)
[2023-01-03] MEDS ORDERED: CHLORASEPTIC SPRAY 177 ML LIQUID MC PRN (20:45)
[2023-01-04 04:25] VITALS: BP 142/65
[2023-01-04 04:49] LABS: BASOPHILS % (AUTO) 0 % (0-10); EOSINOPHILS # (AUTO) 0.2 10^3/uL (0.0-0.3); EOSINOPHILS % (AUTO) 2 % (0-10); HEMATOCRIT 37 % (35-52); HEMOGLOBIN 12.3 g/dL (11.5-16.0); LYMPHOCYTES # (AUTO) 2.3 10^3/uL (1.0-4.0); LYMPHOCYTES % (AUTO) 29 % (12-44); MEAN CORPUSCULAR HEMOGLOBIN 28 pg (25-34); MEAN CORPUSCULAR HGB CONC 33 g/dL (32-36); MEAN CORPUSCULAR VOLUME 85 fL (80-99); MEAN PLATELET VOLUME 9.8 fL (9.0-12.2); MONOCYTES # (AUTO) 0.5 10^3/uL (0.0-1.0); MONOCYTES % (AUTO) 6 % (0-12); NEUTROPHILS % (AUTO) 63 % (42-75); PLATELET COUNT 220 10^3/uL (130-400); WHITE BLOOD COUNT 7.9 10^3/uL (4.3-11.0)
[2023-01-04] MEDS: ENALAPRILAT 2.5 MG/2 ML (VASOTEC) VIAL IV SCH ×4 (05:00→23:09)
[2023-01-04 05:05] LABS: ALBUMIN 3.7 GM/DL (3.2-4.5); POTASSIUM 3.7 MMOL/L (3.6-5.0)
[2023-01-04 05:06] LABS: CALCIUM 8.8 MG/DL (8.5-10.1)
[2023-01-04 05:07] LABS: TOTAL PROTEIN 6.5 GM/DL (6.4-8.2)
[2023-01-04 05:09] LABS: BILIRUBIN,TOTAL 0.8 MG/DL (0.1-1.0)
[2023-01-04 05:11] LABS: CREATININE SERUM 0.65 MG/DL (0.60-1.30)
[2023-01-04] MEDS: CATHETER FLUSH 10 ML SYR IV SCH ×3 (05:29→22:14)
[2023-01-04] MEDS: LACTATED RINGERS 1,000 ML IV SCH ×2 (06:41→16:24)
--- NOTE | 2023-01-04 07:14 | Progress Note - Surgery ---
LINSEYANTONIO 01/04/23 0714: Subjective Date Seen by a Provider: Jan 04, 2023 Time Seen by a Provider: 07:00 Subjective/Events-last exam Pt being followed for SBO Pt is sleeping in bed comfortably this morning. Pt states that she has no pain this morning. NG tube was placed yesterday afternoon and since then, pt states that she has not had any nausea. NG has minimal output. Pt did pass small amount of flatus in room but none throughout day yesterday but has not had BM. Pt does note that she has felt like she could have one yesterday and this morning. Pt reports that she is still belching. Pt notes mild VARGAS of her frontal and maxillary sinus area since NG tube placement. Pt otherwise has no complaints. Pt voiding without issue and urine output appropriate at 3.8cc/hr/kg over 7 hours. Pt denies CP, SOB, vomiting, chills, diaphoresis, lightheadedness, and worsening cough. Review of Systems General: No Chills, No Night Sweats Objective Exam Vital Signs Date Time Temp Pulse Resp B/P (MAP) Pulse Ox O2 Delivery O2 Flow Rate FiO2 01/04/23 04:25 36.3 79 18 142/65 (90) 91 Room Air 01/03/23 23:02 36.4 67 18 138/73 (94) 90 Room Air 01/03/23 21:28 68 167/79 (108) 01/03/23 20:15 Room Air 01/03/23 19:29 36.3 70 18 170/79 (109) 94 Room Air 01/03/23 15:16 37.0 69 20 151/85 (107) 96 Room Air 01/03/23 11:05 36.5 60 18 177/91 (119) 98 Room Air 01/03/23 08:00 Room Air 01/03/23 07:23 36.8 51 18 156/79 (104) 96 Room Air I & O 01/04/23 07:00 Intake Total 3000 ml Output Total 1350 ml Balance 1650 ml Capillary Refill : General Appearance: No Apparent Distress, Other (NG tube in place) HEENT: PERRL/EOMI, Moist Mucous Membranes Neck: Non Tender Respiratory: Normal Breath Sounds, No Accessory Muscle Use, No Respiratory Distress Cardiovascular: Regular Rate, Rhythm, No Gallop, No Murmur Peripheral Pulses: 2+ Dorsalis Pedis (R), 2+ Left Dors-Pedis (L) Gastrointestinal: soft, distended (mild), guarding (Lower quadrants), tenderness (Lower quadrants, L>R), hernia (midline periumbilical incisional), mass (to the left and lateral to surgical scar), other (Midline surgical scar ) Extremity: No Calf Tenderness, No Pedal Edema Neurologic/Psychiatric: Alert, Oriented x3, Normal Mood/Affect Skin: Normal Color, Warm/Dry Lymphatic: No Adenopathy Results Lab Laboratory Tests 01/04/23 04:35: White Blood Count 7.9, Red Blood Count 4.36, Hemoglobin 12.3, Hematocrit 37, Mean Corpuscular Volume 85, Mean Corpuscular Hemoglobin 28, Mean Corpuscular Hemoglobin Concent 33, Red Cell Distribution Width 14.1, Platelet Count 220, Mean Platelet Volume 9.8, Immature Granulocyte % (Auto) 0, Neutrophils (%) (Auto) 63, Lymphocytes (%) (Auto) 29, Monocytes (%) (Auto) 6, Eosinophils (%) (Auto) 2, Basophils (%) (Auto) 0, Neutrophils # (Auto) 5.0, Lymphocytes # (Auto) 2.3, Monocytes # (Auto) 0.5, Eosinophils # (Auto) 0.2, Basophils # (Auto) 0.0, Immature Granulocyte # (Auto) 0.0, Sodium Level 142, Potassium Level 3.7, Chloride Level 106, Carbon Dioxide Level 26, Anion Gap 10, Blood Urea Nitrogen 5L, Creatinine 0.65, Estimat Glomerular Filtration Rate 98, BUN/Creatinine Ratio 8, Glucose Level 101, Calcium Level 8.8, Corrected Calcium 9.0, Total Bilirubin 0.8, Aspartate Amino Transf (AST/SGOT) 15, Alanine Aminotransferase (ALT/SGPT) 9, Alkaline Phosphatase 74, Total Protein 6.5, Albumin 3.7 Assessment/Plan Assessment/Plan Assessment/Plan SBO Diffuse abd pain Nausea H/o SBO H/o adenocarcinoma of small bowel IVF, pain medication prn, and anti-emetics prn NPO Encourage Ambulation Small bowel follow through today NG tube with AMELIA ORTEGA DO 01/04/23 2684: Subjective Subjective/Events-last exam Feeling better today. Having bowel movements. Small bowel follow through no evidence of obstruction, minimally dilated loops of small bowel. Denies n/v fever sweats chills shortness of breath or chest pain. Objective Exam General Appearance: No Apparent Distress, WD/WN, Other (NG tube in place) HEENT: PERRL/EOMI, Normal ENT Inspection Neck: Normal Inspection, Non Tender Respiratory: Chest Non Tender, No Accessory Muscle Use, No Respiratory Distress Cardiovascular: Regular Rate, Rhythm, No JVD Gastrointestinal: non tender, soft; No distended (mild), No guarding (Lower quadrants); hernia (midline periumbilical incisional), other (Midline surgical scar ) Extremity: Non Tender, No Calf Tenderness Neurologic/Psychiatric: Alert, Oriented x3, Normal Mood/Affect Skin: Normal Color, Warm/Dry Lymphatic: No Adenopathy Assessment/Plan Assessment/Plan Assessment/Plan SBO Diffuse abd pain -improved Nausea-improved H/o SBO H/o adenocarcinoma of small bowel IVF, pain medication prn, and anti-emetics prn NPO currently Encourage Ambulation Small bowel follow through today without evidence of obstruction NG tube with LIWS-will pull and start on clears since having bowel function now. Supervisory-Addendum Brief Verification & Attestation Participated in pt care: history, MDM, physical Personally performed: exam, history, MDM, supervision of care Care discussed with: Medical Student Procedures: n/a Results interpretation: Verified all documentation Verification and Attestation of Medical Student E/M Service A medical student performed and documented this service in my presence. I reviewed and verified all information documented by the medical student and made modifications to such information, when appropriate. I personally performed the physical exam and medical decision making. Amelia Winters Jan 04, 2023,18:54 ANTONIO STILES Jan 04, 2023 07:14 AMELIA WINTERS DO Jan 04, 2023 18:54
[2023-01-04] MEDS: HYDROmorphone 2 MG/ML VIAL (DILAUDID) IV PRN ×2 (09:00→21:21)
[2023-01-04] MEDS ORDERED: DIATRIZOATE MEGLUM/SODIUM 37% 120 ML (GASTROGRAFIN) NG ONE (09:30)
--- NOTE | 2023-01-04 10:59 | Progress Note - Hospitalist ---
KALYANDALLAS D 01/04/23 1059: Subjective HPI/CC On Admission Date Seen by Provider: Jan 04, 2023 Time Seen by Provider: 09:40 This is a 62 y/o female who presents with a partial SBO. 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 Since then she has been taking sindostatin ocretotide injections monthly she says for diarrhea. Her next injection was scheduled for today.The patient says she has had on and off abdominal pain for the last two months that will come on suddenly, last several minute then leave, like bad cramping, but it rarely impacted her days. She notes a loss of appetite and weight loss during this time. She said yesterday she was going about her day as normal when around 4pm s he had sudden onset severe, cramp-like abdominal pain come on which caused her to double over and did not resolve so she came into the ED. She tried taking "a lot" of Gas-X and Tums because she thought it might just be gas but this did not help. She said since coming to the hospital she has also had some nausea off and on but this was usually not present the past two months. She says her pain is d iffuse across her abdomen but feels cramping specifically across her upper abdomen and down her left side. She says nothing she did at home made it better except for laying on her back. She did not take any medications. She does endorse smoking marijuana since her cancer diagnosis as it helps relax her and helps stimulate her appetite which she knows is not adequate at only having ~1 meal per day. She had a colonoscopy on 12/[address] Vicente which found mild gastritis and hyperplastic polyps of the colon. She notes that she has had regular bowel movements with occasional diarrhea, her last BM was yesterday morning and she ate lunch prior to the onset of her pain. She smoked tobacco for 44 years but quit with her cancer diagnosis. She had emphysema/COPD when she smoked which required inhalers/breathing treatments but since quitting she has not required them or been taking them. She does not that recently with increased marijuana smoking she has had some slight cough and she had thought about taking her inhaler again. She reports last smoking marijuana yesterday morning before her pain started. At this time the patient is sitting up in bed resting comfortably. She says the morphine and phenergen have adequately controlled her discomfort and currently rates her pain at a 1/10. She says with the administration of phenergen she experienced a sudden cold diaphoresis, and feeling in her chest like she couldn't breath even though she could with extreme anxiety which overall lasted 1-2 minutes and went away. She believes this may have been a panic attack. She reports no episodes like this previously but does endorse depression/anxiety today over this change in health status. Subjective/Events-last exam Pt is doing better this AM. She has just returned from small bowel follow- through. She says she had a BM this morning "finally." Has some nausea off and on still. Still NPO and has NG in. No pain or other complaints at this time but is anxious about possibility of cancer being back and talks more about her panic attack yesterday. Objective Exam Vital Signs Vital Signs Date Time Temp Pulse Resp B/P (MAP) Pulse Ox O2 Delivery O2 Flow Rate FiO2 01/04/23 08:55 Room Air 01/04/23 04:25 36.3 79 18 142/65 (90) 91 Capillary Refill : General Appearance: No Apparent Distress, WD/WN HEENT: PERRL/EOMI, Normal ENT Inspection Neck: Full Range of Motion, Normal Inspection, Supple Respiratory: Chest Non Tender, Lungs Clear, Normal Breath Sounds Cardiovascular: Regular Rate, Rhythm, No Edema, No Murmur Gastrointestinal: Normal Bowel Sounds, Soft, Other (Mild tenderness to palpation. Mass at inferior surgical scar still palpable, ~2cm in diabeter in subq or deep tissues. Diastasis present in superior portion of scar. ) Extremity: Non Tender, No Calf Tenderness, No Pedal Edema Neurologic/Psychiatric: Alert, Oriented x3 Skin: Normal Color, Warm/Dry Results/Procedures Lab Laboratory Tests 01/04/23 04:35 Patient resulted labs reviewed. Imaging: Reviewed Imaging Films, Reviewed Imaging Report Assessment/Plan Assessment and Plan Assess & Plan/Chief Complaint Assessment This is a 62 y/o female who presented with severe abdominal pain and found to have pSBO vs ileus now HD#2 Small Bowel Adenocarcinoma s/p resection x2 in 2020 s/p chemotherapy from 5993-5496 On sandostatin injections qMonthly for diarrhea pSBO vs ileus -General surgery following, managing -NG tube in place, small bowel follow through read pending -Recent colonscopy with hyperplastic polyps, no invasive malignancy noted -Subcutaneous mass near surgical scar is tender, new -Endorses passing gas and BM today -Clinically improving Hypertension - unspecified -Pt denies previous issues with BPs, currently 140s-170s/90s, improved today -Started Vasotec 2.5mg, NTG ointment for SBP>160 PRN -Likely component of anxiety given inpatient and situation GERD -Can continue omeprazole or protonix IV while NPO -Omeprazole PO once diet is resumed and taking PO COPD Emphysema -CT chest c/w emphysematous changes -Previously on inhalers when smoking, has not required -Can add PRN inhalers for any difficulty breathing -Consider outpatient FU and re-adding control inhaler; non-urgent at thist aliya Depression/Anxiety -consider SSRI therapy once PO -If patient is able to resume a diet could consider mirtazepine qNightly for appetite and sleep aid -Could add hydroxyzine PRN for anxiety -Consider sparing benzo use if IV needed FEN/GI -LR @ 100ml/hr, UOP yesterday was improved to 0.35 ml/kg/hr -Replace electrolytes as needed, no derangements currently -NPO -IV PPI, bowel regimen per surgery DVT PPx -SCDs currently in place -Add lovenox given cancer history, possible recurrence Dispo: Stable. Primary plan per surgery, we appreciate this consult and will continue to follow for this patient's stay. ELIZABETH NAIK DO 01/05/23 0517: Supervisory-Addendum Brief Verification & Attestation Participated in pt care: history, MDM, physical Personally performed: exam, history, MDM, supervision of care Care discussed with: Medical Student Procedures: n/a Results interpretation: Verified all documentation Verification and Attestation of Medical Student E/M Service A medical student performed and documented this service in my presence. I reviewed and verified all information documented by the medical student and made modifications to such information, when appropriate. I personally performed the physical exam and medical decision making. Elizabeth Naik Jan 05, 2023,05:17 DALLAS BIGGS Jan 04, 2023 10:59 ELIZABETH NAIK DO Jan 05, 2023 05:17
[2023-01-04 11:23] VITALS: BP 157/81
--- NOTE | 2023-01-04 12:16 | Diagnostic Imaging Report ---
EXAMINATION: Small bowel at 0828 hours. INDICATION: Abdominal pain. FINDINGS: The previous exam of 01/03/2023 noted gas in both the large and small bowel in a nonspecific fashion. There was also an NG line in place. In the interval since the prior study, the NG line has been advanced. Contrast was introduced to the stomach via the NG line. The transit time through the small bowel was approximately 45 minutes (normal transit time 30 minutes to 3 hours). There are still a few slightly dilated segments of small bowel present. These could be related to a mild ileus or less likely a partial or intermittent obstruction. IMPRESSION: 1. There is no evidence for obstruction of the small bowel. 2. These results were conveyed to Dr. Vicente. Dictated by: Dictated on workstation # [id number]
[2023-01-04 15:41] VITALS: BP 140/68
[2023-01-04] MEDS: HYDROcodone/APAP 7.5 MG/325 MG (LORTAB, LORCET PLUS) TABLET PO PRN (16:27)
[2023-01-04 17:36] VITALS: BP 133/60
[2023-01-04] MEDS: PROMETHAZINE INJ 25 MG/ML (PHENERGAN) AMP IVP PRN (17:57)
[2023-01-04 19:43] VITALS: BP 132/63
[2023-01-04 23:10] VITALS: BP 114/59
[2023-01-05] MEDS: LACTATED RINGERS 1,000 ML IV SCH (02:50)
[2023-01-05 04:50] VITALS: BP 163/88
[2023-01-05] MEDS: ENALAPRILAT 2.5 MG/2 ML (VASOTEC) VIAL IV SCH (05:01)
[2023-01-05] MEDS: CATHETER FLUSH 10 ML SYR IV SCH (05:03)
[2023-01-05 05:35] LABS: BASOPHILS % (AUTO) 0 % (0-10); EOSINOPHILS # (AUTO) 0.2 10^3/uL (0.0-0.3); EOSINOPHILS % (AUTO) 2 % (0-10); HEMATOCRIT 37 % (35-52); HEMOGLOBIN 12.2 g/dL (11.5-16.0); LYMPHOCYTES # (AUTO) 2.6 10^3/uL (1.0-4.0); LYMPHOCYTES % (AUTO) 33 % (12-44); MEAN CORPUSCULAR HEMOGLOBIN 28 pg (25-34); MEAN CORPUSCULAR HGB CONC 33 g/dL (32-36); MEAN CORPUSCULAR VOLUME 86 fL (80-99); MEAN PLATELET VOLUME 10.1 fL (9.0-12.2); MONOCYTES # (AUTO) 0.5 10^3/uL (0.0-1.0); MONOCYTES % (AUTO) 7 % (0-12); NEUTROPHILS # (AUTO) 4.6 10^3/uL (1.8-7.8); NEUTROPHILS % (AUTO) 58 % (42-75); PLATELET COUNT 213 10^3/uL (130-400)
[2023-01-05 06:11] LABS: ALBUMIN 3.7 GM/DL (3.2-4.5); BILIRUBIN,TOTAL 0.8 MG/DL (0.1-1.0); CALCIUM 8.9 MG/DL (8.5-10.1); CREATININE SERUM 0.65 MG/DL (0.60-1.30); POTASSIUM 3.3 MMOL/L (3.6-5.0); TOTAL PROTEIN 6.6 GM/DL (6.4-8.2)
--- NOTE | 2023-01-05 08:28 | Progress Note - Surgery ---
PAULMIKIEANTONIO Walker 01/05/23 0828: Subjective Date Seen by a Provider: Jan 05, 2023 Time Seen by a Provider: 07:35 Subjective/Events-last exam Pt is sleeping comfortably in bed. Pt reports improvement of abd pain today, rating it a 3/10. Small bowel follow through yesterday showed no obstruction. Pt had 2 loose BMs yesterday and 1 this morning. NG tube was removed yesterday. Pt still experiencing some mild nausea but states that it's much improved from last exam. Pt has been tolerating clears without issue but does note decreased appetite. Pt reports no change in frontal VARGAS today, rating it a 4/10, and stating that it feels like its "pounding" behind her eyes. Pt does note some relief after Enalaprilat. Pt has been intermittently hypertensive since admission, current BP was 163/88 during exam. Pt asks if she can restart her omeprazole today as she feels like she is experiencing GERD symptoms today. Pt has no other complaints at this time. Pt denies vomiting, CP, SOB, chills, hematuria, and cough. Review of Systems General: No Chills, No Night Sweats HEENT: Head Aches (4/10 pounding behind eyes) Pulmonary: No Dyspnea, No Cough Cardiovascular: No: Chest Pain, Edema Gastrointestinal: Nausea (improved), Abdominal Pain (improved), Diarrhea; No: Vomiting Musculoskeletal: No: neck pain, shoulder pain Neurological: No: Weakness, Numbness Objective Exam Vital Signs Date Time Temp Pulse Resp B/P (MAP) Pulse Ox O2 Delivery O2 Flow Rate FiO2 01/05/23 04:50 36.0 62 18 163/88 (113) 95 Room Air 01/04/23 23:10 36.2 55 16 114/59 (77) 95 Room Air 01/04/23 21:20 Room Air 01/04/23 19:43 35.7 59 16 132/63 (86) 94 Room Air 01/04/23 17:36 67 133/60 (84) 01/04/23 15:41 35.7 63 16 140/68 (92) 95 Room Air 01/04/23 11:23 36.6 80 20 157/81 (106) 96 Room Air 01/04/23 08:55 Room Air I & O 01/05/23 07:00 Intake Total 1740 ml Output Total 1750 ml Balance -10 ml Capillary Refill : General Appearance: No Apparent Distress, WD/WN HEENT: PERRL/EOMI, Moist Mucous Membranes Neck: Non Tender, Supple Respiratory: Lungs Clear, Normal Breath Sounds, No Accessory Muscle Use, No Respiratory Distress Cardiovascular: Regular Rate, Rhythm, No Gallop, No Murmur Peripheral Pulses: 2+ Dorsalis Pedis (R), 2+ Left Dors-Pedis (L) Gastrointestinal: soft, tenderness (LLQ), hernia (midline periumbilical incisional), other (Midline surgical scar ) Extremity: Non Tender, No Calf Tenderness Neurologic/Psychiatric: Alert, Oriented x3, Normal Mood/Affect Skin: Normal Color, Warm/Dry Lymphatic: No Adenopathy Results Lab Laboratory Tests 01/05/23 04:59: White Blood Count 8.0, Red Blood Count 4.33, Hemoglobin 12.2, Hematocrit 37, Mean Corpuscular Volume 86, Mean Corpuscular Hemoglobin 28, Mean Corpuscular Hemoglobin Concent 33, Red Cell Distribution Width 13.9, Platelet Count 213, Mean Platelet Volume 10.1, Immature Granulocyte % (Auto) 0, Neutrophils (%) (Auto) 58, Lymphocytes (%) (Auto) 33, Monocytes (%) (Auto) 7, Eosinophils (%) (Auto) 2, Basophils (%) (Auto) 0, Neutrophils # (Auto) 4.6, Lymphocytes # (Auto) 2.6, Monocytes # (Auto) 0.5, Eosinophils # (Auto) 0.2, Basophils # (Auto) 0.0, Immature Granulocyte # (Auto) 0.0, Sodium Level 143, Potassium Level 3.3L, Chloride Level 105, Carbon Dioxide Level 27, Anion Gap 11, Blood Urea Nitrogen 5L, Creatinine 0.65, Estimat Glomerular Filtration Rate 98, BUN/Creatinine Ratio 8, Glucose Level 84, Calcium Level 8.9, Corrected Calcium 9.1, Total Bilirubin 0.8, Aspartate Amino Transf (AST/SGOT) 22, Alanine Aminotransferase (ALT/SGPT) 9, Alkaline Phosphatase 72, Total Protein 6.6, Albumin 3.7 Radiology Date of Exam:01/04/23 SMALL BOWEL STUDY ONLY EXAMINATION: Small bowel at 0828 hours. INDICATION: Abdominal pain. FINDINGS: The previous exam of 01/03/2023 noted gas in both the large and small bowel in a nonspecific fashion. There was also an NG line in place. In the interval since the prior study, the NG line has been advanced. Contrast was introduced to the stomach via the NG line. The transit time through the small bowel was approximately 45 minutes (normal transit time 30 minutes to 3 hours). There are still a few slightly dilated segments of small bowel present. These could be related to a mild ileus or less likely a partial or intermittent obstruction. IMPRESSION: 1. There is no evidence for obstruction of the small bowel. 2. These results were conveyed to Dr. Winters. Dictated by: Dictated on workstation # [id number] Dict: 01/04/23 0853 Trans: 01/04/23 1215 [id number] Interpreted by: WEI URIBE MD Electronically signed by: WEI URIBE MD 01/04/23 1215 Assessment/Plan Assessment/Plan Assessment/Plan SBO Diffuse abd pain -improved Nausea-improved H/o SBO H/o adenocarcinoma of small bowel IVF pain medication prn anti-emetics prn Clear liquids Encourage Ambulation Pt still having abd pain so will continue to monitor Restart home omeprazole AMELIA WINTERS DO 01/05/23 2007: Subjective Subjective/Events-last exam Patient feeling better today. Still with some abdominal pain around umbilicus. Having bowel movements and passing gas. Tolerating liquids. No significant nausea. No emesis. Slight heartburn. Denies fever sweats chills shortness of breath or chest pain. Objective Exam General Appearance: No Apparent Distress, Thin HEENT: PERRL/EOMI, Normal ENT Inspection Neck: Non Tender, Supple Respiratory: Chest Non Tender, No Accessory Muscle Use, No Respiratory Distress Cardiovascular: Regular Rate, Rhythm, No JVD Gastrointestinal: soft, tenderness (around umbilicus, minimal), hernia (midline periumbilical incisional), other (Midline surgical scar ) Extremity: Non Tender, No Calf Tenderness Neurologic/Psychiatric: Alert, Oriented x3, Normal Mood/Affect Skin: Normal Color, Warm/Dry Lymphatic: No Adenopathy Assessment/Plan Assessment/Plan Assessment/Plan SBO Diffuse abd pain -improved Nausea-improved H/o SBO H/o adenocarcinoma of small bowel IVF pain medication prn anti-emetics prn Clear liquids Encourage Ambulation Pt still having abd pain so will continue to monitor, if improves later will advance diet Likely home tomorrow. Supervisory-Addendum Brief Verification & Attestation Participated in pt care: history, MDM, physical Personally performed: exam, history, MDM, supervision of care Care discussed with: Medical Student Procedures: n/a Results interpretation: Verified all documentation Verification and Attestation of Medical Student E/M Service A medical student performed and documented this service in my presence. I reviewed and verified all information documented by the medical student and made modifications to such information, when appropriate. I personally performed the physical exam and medical decision making. Amelia Winters, Jan 05, 2023,20:07 ANTONIO STILES Jan 05, 2023 08:28 AMELIA WINTERS DO Jan 05, 2023 20:07
[2023-01-05 08:43] VITALS: BP 161/72
[2023-01-05] MEDS: HYDROcodone/APAP 7.5 MG/325 MG (LORTAB, LORCET PLUS) TABLET PO PRN (09:09)
[2023-01-05] MEDS ORDERED: amLODIPine 5 MG (NORVASC) TAB PO NR (10:00)
--- NOTE | 2023-01-05 11:15 | Progress Note - Hospitalist ---
KALYANDALLAS D 01/05/23 1115: Subjective HPI/CC On Admission Date Seen by Provider: Jan 05, 2023 Time Seen by Provider: 08:18 This is a 62 y/o female who presents with a partial SBO. 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 Since then she has been taking sindostatin ocretotide injections monthly she says for diarrhea. Her next injection was scheduled for today.The patient says she has had on and off abdominal pain for the last two months that will come on suddenly, last several minute then leave, like bad cramping, but it rarely impacted her days. She notes a loss of appetite and weight loss during this time. She said yesterday she was going about her day as normal when around 4pm s he had sudden onset severe, cramp-like abdominal pain come on which caused her to double over and did not resolve so she came into the ED. She tried taking "a lot" of Gas-X and Tums because she thought it might just be gas but this did not help. She said since coming to the hospital she has also had some nausea off and on but this was usually not present the past two months. She says her pain is d iffuse across her abdomen but feels cramping specifically across her upper abdomen and down her left side. She says nothing she did at home made it better except for laying on her back. She did not take any medications. She does endorse smoking marijuana since her cancer diagnosis as it helps relax her and helps stimulate her appetite which she knows is not adequate at only having ~1 meal per day. She had a colonoscopy on 12/[address] Winters which found mild gastritis and hyperplastic polyps of the colon. She notes that she has had regular bowel movements with occasional diarrhea, her last BM was yesterday morning and she ate lunch prior to the onset of her pain. She smoked tobacco for 44 years but quit with her cancer diagnosis. She had emphysema/COPD when she smoked which required inhalers/breathing treatments but since quitting she has not required them or been taking them. She does not that recently with increased marijuana smoking she has had some slight cough and she had thought about taking her inhaler again. She reports last smoking marijuana yesterday morning before her pain started. At this time the patient is sitting up in bed resting comfortably. She says the morphine and phenergen have adequately controlled her discomfort and currently rates her pain at a 1/10. She says with the administration of phenergen she experienced a sudden cold diaphoresis, and feeling in her chest like she couldn't breath even though she could with extreme anxiety which overall lasted 1-2 minutes and went away. She believes this may have been a panic attack. She reports no episodes like this previously but does endorse depression/anxiety today over this change in health status. Subjective/Events-last exam Pt is seen this AM laying in bed resting. She said she started a clear liquid diet last night and she did have some slight nausea but overall doing better. No vomiting. Has been having frequent bowel movements through yesterday. She is still endorsing some lower left-sided abdominal pain though it is improved. She says when palpated it is as high as a 7/10. She otherwise has no complaints today. Objective Exam Vital Signs Vital Signs Date Time Temp Pulse Resp B/P (MAP) Pulse Ox O2 Delivery O2 Flow Rate FiO2 01/05/23 08:43 36.7 76 18 161/72 (101) 96 Room Air Capillary Refill : General Appearance: No Apparent Distress HEENT: PERRL/EOMI, Pharynx Normal Neck: Full Range of Motion, Non Tender, Supple Respiratory: Lungs Clear, Normal Breath Sounds Cardiovascular: Regular Rate, Rhythm, No Edema Gastrointestinal: Normal Bowel Sounds, Soft, Tenderness (TTP in LLQ. Patient guards somewhat during palpation and jumps with touch.) Back: Normal Inspection Extremity: Non Tender, No Calf Tenderness, No Pedal Edema Neurologic/Psychiatric: Oriented x3 Skin: Normal Color, Warm/Dry Results/Procedures Lab Laboratory Tests 01/05/23 04:59 Patient resulted labs reviewed. Imaging: Reviewed Imaging Films, Reviewed Imaging Report Radiology NAME: SHANTI MUELLER [facility] REC#: [id number] PT STATUS: ADM Harrison : 1960 PHYSICIAN: AMELIA WINTERS DO ADMIT DATE: 01/02/23 Signed Date of Exam:01/04/23 SMALL BOWEL STUDY ONLY EXAMINATION: Small bowel at 0828 hours. INDICATION: Abdominal pain. FINDINGS: The previous exam of 01/03/2023 noted gas in both the large and small bowel in a nonspecific fashion. There was also an NG line in place. In the interval since the prior study, the NG line has been advanced. Contrast was introduced to the stomach via the NG line. The transit time through the small bowel was approximately 45 minutes (normal transit time 30 minutes to 3 hours). There are still a few slightly dilated segments of small bowel present. These could be related to a mild ileus or less likely a partial or intermittent obstruction. IMPRESSION: 1. There is no evidence for obstruction of the small bowel. 2. These results were conveyed to Dr. Winters. Dictated by: Dictated on workstation # [id number] Dict: 01/04/23 0853 Trans: 01/04/23 1215 [id number] Interpreted by: WEI URIBE MD Electronically signed by: WEI URIBE MD 01/04/23 1215 Assessment/Plan Assessment and Plan Assess & Plan/Chief Complaint Assessment This is a 62 y/o female who presented with severe abdominal pain and found to have pSBO vs ileus now HD#3 Small Bowel Adenocarcinoma s/p resection x2 in 2020 s/p chemotherapy from 6570-4440 On sandostatin injections qMonthly for diarrhea pSBO vs ileus -General surgery following, managing -NG tube in place, small bowel follow without obstruction; intermittent pSBO vs ilesus as working ddx. -Clear liquid diet allowed at this time; tolerating thus far since yesterday -Recent colonscopy with hyperplastic polyps, no invasive malignancy noted -Subcutaneous mass near surgical scar is tender, new -Endorses passing gas and BM today -Clinically improving Hypertension - unspecified -Pt denies previous issues with BPs, currently 140s-170s/90s, improved today -Started Vasotec 2.5mg, NTG ointment for SBP>160 PRN; will transition to norvasc PO now that pt is on clears. -Likely component of anxiety given inpatient and situation GERD -Can continue omeprazole or protonix IV while NPO -Omeprazole PO once diet is resumed and taking PO COPD Emphysema -CT chest c/w emphysematous changes -Previously on inhalers when smoking, has not required -Can add PRN inhalers for any difficulty breathing -Consider outpatient FU and re-adding control inhaler; non-urgent at thist aliya Depression/Anxiety -consider SSRI therapy once PO -If patient is able to resume a diet could consider mirtazepine qNightly for appetite and sleep aid -Could add hydroxyzine PRN for anxiety -Consider sparing benzo use if IV needed FEN/GI -LR @ 100ml/hr, UOP yesterday was improved to 1.2 ml/kg/hr; can DC when patient tolerating more liquid intake. -Replace electrolytes as needed, no derangements currently -Clear liquid diet; advance per surgery -IV PPI, bowel regimen per surgery DVT PPx -SCDs currently in place -Add lovenox given cancer history, possible recurrence Dispo: Stable. Primary plan per surgery, we appreciate this consult and will continue to follow for this patient's stay. ELIZABETH NAIK DO 01/06/23 0449: Assessment/Plan Assessment and Plan Assess & Plan/Chief Complaint Left AMA Supervisory-Addendum Brief Verification & Attestation Participated in pt care: history, MDM, physical Personally performed: exam, history, MDM, supervision of care Care discussed with: Medical Student Procedures: n/a Results interpretation: Verified all documentation Verification and Attestation of Medical Student E/M Service A medical student performed and documented this service in my presence. I reviewed and verified all information documented by the medical student and made modifications to such information, when appropriate. I personally performed the physical exam and medical decision making. Elizabeth Naik, Jan 06, 2023,04:49 [place] BIGGS Jan 05, 2023 11:15 ELIZABETH NAIK DO Jan 06, 2023 04:49
[2023-01-06] MEDS ORDERED: amLODIPine 5 MG (NORVASC) TAB PO SCH (09:00)
== END 2023-01-05 10:15 | disposition left against medical advice (07) ==
LOC: EDUNIT# 18:36 → ER 18:37 → 4TH 21:42
PROVIDERS: ADMIT Surgery; ATTEND Surgery
DX: K56.609 Unspecified intestinal obstruction, unspecified as to partial versus complete obstruction (principal); K21.9 Gastro-esophageal reflux disease without esophagitis; I10 Essential (primary) hypertension; J43.9 Emphysema, unspecified; F41.9 Anxiety disorder, unspecified; F32.A Depression, unspecified; Z79.899 Other long term (current) drug therapy; Z87.891 Personal history of nicotine dependence; Z92.21 Personal history of antineoplastic chemotherapy; Z85.038 Personal history of other malignant neoplasm of large intestine
CPT/HCPCS: 74018; 74019; 74177; 74250; 80048; 80053 ×3; 81000; 83690; 85025 ×4; 96361 ×3; 96375; 96376 ×4; 99284; G0378; 36415

== ENCOUNTER 2023-01-11 14:07 | Outpatient (RCR) | payer OTHER ==
[~2023-01-11 14:07] MED LIST changes: +HYDR-3820 PO; +[UNRECOGNIZED DRUG - REMARK] IM SCH
[2023-01-15] MEDS ORDERED: AMLO5TAB4 PO (12:07)
[2023-01-15] MEDS ORDERED: ONDA4TAB11 SL (16:28)
== END 2023-01-14 | disposition home or self-care (01) ==
LOC: ONC 14:07
PROVIDERS: ATTEND Internal Medicine Hematology & Oncology
DX: C17.9 Malignant neoplasm of small intestine, unspecified (principal); C77.2 Secondary and unspecified malignant neoplasm of intra-abdominal lymph nodes; K21.9 Gastro-esophageal reflux disease without esophagitis; E34.0 Carcinoid syndrome; M54.50 Low back pain, unspecified; F41.9 Anxiety disorder, unspecified; Z98.890 Other specified postprocedural states; Z90.89 Acquired absence of other organs

== ENCOUNTER 2023-01-14 12:19 | Observation (INO) | payer OTHER ==
[~2023-01-14] VITALS: Ht 167.6 cm; Wt 57.0 kg
[~2023-01-14 12:19] MED LIST changes: -[UNRECOGNIZED DRUG - REMARK] IM SCH
[2023-01-14] MEDS ORDERED: NS IV 1000 ML 1,000 ML IV STA (12:53)
[2023-01-14] MEDS ORDERED: morphine INJ 10 MG/ML 1ML (SYR OR VIAL) IVP ONE (13:00)
[2023-01-14] MEDS ORDERED: ONDANSETRON 4 MG/2 ML (SDV) Z0FRAN IVP ONE (13:00)
[2023-01-14 13:01] LABS: BILIRUBIN,URINE NEGATIVE (NEGATIVE); CLARITY,URINE CLEAR; COLOR,URINE YELLOW; GLUCOSE, URINE (UA) NEGATIVE (NEGATIVE); KETONES,URINE 2+ (NEGATIVE); LEUKOCYTE ESTERASE ,URINE NEGATIVE (NEGATIVE); NITRITE,URINE NEGATIVE (NEGATIVE); PH,URINE 6.5 (5-9); PROTEIN,URINE TRACE (NEGATIVE)
--- NOTE | 2023-01-14 13:01 | ED Abdominal Pain ---
General Chief Complaint: Abdominal/GI Problems Stated Complaint: ABD PAIN | LOW POTASSIUM Nursing Triage Note: PT AMBULATORY TO ER. PT REPORTS LOWER ABD PAIN ONSET TUE, . PT REPORTS WAS SEEN IN ER LAST TUE, 01/02, ADMITTED FOR BLOCKAGE, NO SURGICAL INTERVENTION NECESSARY. STATES PAIN RETURNED THIS PAST TUESDAY, CONSTANT. PT REPORTS TAKING A SUPPOSITORY EARLIER TODAY AND HAD A BOWEL MOVEMENT, REPORTS ABD REMAINS DISTENDED. PT ALSO THINK HER POTASSIUM LEVEL MIGHT BE LOW, C/O BILATERAL HAND/ARM CRAMPING. History of Present Illness Date Seen by Provider: Jan 14, 2023 Time Seen by Provider: 12:38 Initial Comments 62-year-old female presents with abdominal pain for least 2 days. She reports that she has recurrent on and off abdominal pain and gets recurrent "blockages" patient reports that on 01/02/2023 she was admitted for a blockage that resolved on its own. She reports that she has had some very small bowel movements following suppositories. She also is concerned that her potassium might be low because she is having some hand cramping. She has some mild nausea but no vomiting. Allergies and Home Medications Allergies Coded Allergies: No Known Drug Allergies (Unverified , 01/14/23) Patient Home Medication List Home Medication List Reviewed: Yes Hydrocodone/Acetaminophen (Hydrocodone-Acetamin 10-325 mg) 10 Mg-325 Mg Tablet, 1 EACH PO Q4H PRN for PAIN-MODERATE (5-7), (Reported) Entered as Reported by: YASMIN DEL ROSARIO on 01/03/23 1035 Omeprazole (Omeprazole) 40 Mg Capsule.dr, 40 MG PO DAILY, (Reported) Entered as Reported by: NUNU BALDERRAMA on 12/16/22 1205 Review of Systems Review of Systems Constitutional: No chills, No fever EENTM: No Symptoms Reported Respiratory: No Symptoms Reported Cardiovascular: No Symptoms Reported Gastrointestinal: See HPI, Abdominal Pain, Nausea; Denies Vomiting Genitourinary: No Symptoms Reported Musculoskeletal: no symptoms reported Skin: no symptoms reported Psychiatric/Neurological: No Symptoms Reported Endocrine: No Symptoms Reported Hematologic/Lymphatic: No Symptoms Reported Past Ubxvyka-Pvmpsy-Vamfbz Hx Patient Social History Tobacco Use?: No Substance use?: No Alcohol Use?: No Pt feels they are or have been: No Immunizations Up To Date First/Initial COVID19 Vaccinat: DENIES Second COVID19 Vaccination Juan M: NO Third COVID19 Vaccination Date: NO Seasonal Allergies Seasonal Allergies: No Past Medical History Surgeries: Yes (SMALL BOWEL RESECTION, LEFT ARM SCREW PLACED, BUNION SX) Adenoidectomy, Bowel Surgery, Orthopedic, Tonsillectomy Respiratory: Yes COPD, Emphysema Currently Using CPAP: No Currently Using BIPAP: No Cardiac: No Neurological: No 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 Genitourinary: No Gastrointestinal: Yes (HX COLON CA, EPIGASTRIC PAIN) Gastroesophageal Reflux, Obstructive Bowel, Polyps Musculoskeletal: Yes Osteoporosis, Arthritis Endocrine: No HEENT: Yes (WEARS GLASSES, HAS UPPER DENTURES) Loss of Vision: Denies Hearing Impairment: Denies 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 oz. [id number]; 20.00 BMI Method: General Appearance: WD/WN, no apparent distress HEENT: PERRL/EOMI, normal ENT inspection Neck: full range of motion, supple Respiratory: lungs clear, normal breath sounds, no respiratory distress Cardiovascular: normal peripheral pulses, regular rate, rhythm Gastrointestinal: soft, tenderness (Diffuse) Neurologic/Psychiatric: alert, normal mood/affect, oriented x 3 Skin: normal color, warm/dry Progress/Results/Core Measures Results/Orders Lab Results Laboratory Tests Test 01/14/23 12:38 01/14/23 13:10 Range/Units Urine Color YELLOW Urine Clarity CLEAR Urine pH 6.5 5-9 Urine Specific [place] <=1.005 1.016-1.022 Urine Protein TRACE H NEGATIVE Urine Glucose (UA) NEGATIVE NEGATIVE Urine Ketones 2+ H NEGATIVE Urine Nitrite NEGATIVE NEGATIVE Urine Bilirubin NEGATIVE NEGATIVE Urine Urobilinogen 0.2 < = 1.0 MG/DL Urine Leukocyte Esterase NEGATIVE NEGATIVE Urine RBC (Auto) NEGATIVE NEGATIVE Urine RBC NONE /HPF Urine WBC 0-2 /HPF Urine Squamous Epithelial Cells 10-25 H /HPF Urine Crystals NONE /LPF Urine Bacteria TRACE /HPF Urine Casts NONE /LPF Urine Mucus SMALL H /LPF Urine Culture Indicated NO White Blood Count 8.9 4.3-11.0 10^3/uL Red Blood Count 4.51 3.80-5.11 10^6/uL Hemoglobin 12.9 11.5-16.0 g/dL Hematocrit 38 35-52 % Mean Corpuscular Volume 84 80-99 fL Mean Corpuscular Hemoglobin 29 25-34 pg Mean Corpuscular Hemoglobin Concent 34 32-36 g/dL Red Cell Distribution Width 14.0 10.0-14.5 % Platelet Count 293 130-400 10^3/uL Mean Platelet Volume 9.5 9.0-12.2 fL Immature Granulocyte % (Auto) 0 % Neutrophils (%) (Auto) 71 42-75 % Lymphocytes (%) (Auto) 21 12-44 % Monocytes (%) (Auto) 7 0-12 % Eosinophils (%) (Auto) 1 0-10 % Basophils (%) (Auto) 0 0-10 % Neutrophils # (Auto) 6.3 1.8-7.8 10^3/uL Lymphocytes # (Auto) 1.9 1.0-4.0 10^3/uL Monocytes # (Auto) 0.6 0.0-1.0 10^3/uL Eosinophils # (Auto) 0.1 0.0-0.3 10^3/uL Basophils # (Auto) 0.0 0.0-0.1 10^3/uL Immature Granulocyte # (Auto) 0.0 0.0-0.1 10^3/uL Sodium Level 142 135-145 MMOL/L Potassium Level 3.5 L 3.6-5.0 MMOL/L Chloride Level 106 98-107 MMOL/L Carbon Dioxide Level 24 21-32 MMOL/L Anion Gap 12 5-14 MMOL/L Blood Urea Nitrogen 9 7-18 MG/DL Creatinine 0.64 0.60-1.30 MG/DL Estimat Glomerular Filtration Rate 99 BUN/Creatinine Ratio 14 Glucose Level 95 70-105 MG/DL Calcium Level 9.0 8.5-10.1 MG/DL Corrected Calcium 8.8 8.5-10.1 MG/DL Total Bilirubin 0.7 0.1-1.0 MG/DL Aspartate Amino Transf (AST/SGOT) 22 5-34 U/L Alanine Aminotransferase (ALT/SGPT) 14 0-55 U/L Alkaline Phosphatase 74 40-136 U/L Total Protein 7.1 6.4-8.2 GM/DL Albumin 4.2 3.2-4.5 GM/DL My Orders Orders - NINFA BURDICKR L DO Cbc No Diff (01/14/23 12:46) Cbc With Automated Diff (01/14/23 12:46) Ua Culture If Indicated (01/14/23 12:46) Abdomen, Flat & Upright/Decub (01/14/23 12:46) Ondansetron Injection (Zofran Injectio (01/14/23 13:00) Ns Iv 1000 Ml (Sodium Chloride 0.9%) (01/14/23 12:53) Morphine Injection (Morphine Injection (01/14/23 13:00) Comprehensive Metabolic Panel (01/14/23 13:26) Medications Given in ED Vital Signs/I&O 01/14/23 01/14/23 12:28 14:43 Temp 36.9 Pulse 94 73 Resp 18 16 B/P (MAP) 168/100 (122) 161/84 Pulse Ox 96 98 O2 Delivery Room Air Room Air 01/15/23 00:00 Intake Total 1000 ml Balance 1000 ml Blood Pressure Mean: 122 Progress Progress Note : Progress Note Patient's diagnostic studies were ordered reviewed and interpreted by me. Patient's x-ray was ordered reviewed by me with initial interpretation by me with final report per radiology. Patient with x-ray is consistent with likely ileus versus small bowel obstruction. This is similar to patient's previous diagnosis in which she was admitted on 319. Patient care was discussed with Dr. Garcia. We will admit patient for observation for ileus versus small bowel obstruction. Her previous admission her symptoms resolved on their own. She will start on IV fluids, clear liquid diet and pain and/nausea control. She was stable upon transfer to the floor. Diagnostic Imaging Diagonstic Imaging: Xray Plain Films/CT/US/NM/MRI: abdomen Comments Date of Exam:01/14/23 ABDOMEN, FLAT & UPRIGHT/DECUB CLINICAL INDICATION: Patient with abdominal pain and history of colon cancer. EXAM: X-ray of the abdomen with multiple supine and upright views. COMPARISON: Small bowel follow-through study dated 01/04/2023. FINDINGS: Air-distended loops of colon are seen. There is a small amount of stool throughout the colon. There are multiple dilated loops of small bowel overlying the abdomen with air-fluid levels. Largest loop overlies the left side and measures roughly 4.0 cm in width. Patient was noted to have dilated small bowel on the prior small bowel follow-through. There is no intra-abdominal free air. There are degenerative spurs involving the spine. There is mild right curvature of the lumbar spine. IMPRESSION: There are persistent dilated loops of small bowel with air-fluid levels. There is air also seen in the colon. Considerations may include ileus versus partial small bowel obstruction. Reviewed: Reviewed by Me, Reviewed/Discussed Departure Impression Primary Impression: SBO (small bowel obstruction) Disposition: ADMITTED INPATIENT Condition: Stable Admissions Decision to Admit Reason: Admit from ER (General) Decision to Admit/Date: Jan 14, 2023 Time/Decision to Admit Time: 14:20 Departure-Patient Inst. Referrals: EVER LAINEZ APRN (PCP/Family) Primary Care Physician FATOU BURDICK DO Jan 14, 2023 13:01
[2023-01-14 13:15] LABS: BACTERIA,URINE TRACE /HPF; WBC,URINE 0-2 /HPF
[2023-01-14 13:16] LABS: BASOPHILS % (AUTO) 0 % (0-10); EOSINOPHILS # (AUTO) 0.1 10^3/uL (0.0-0.3); EOSINOPHILS % (AUTO) 1 % (0-10); HEMATOCRIT 38 % (35-52); HEMOGLOBIN 12.9 g/dL (11.5-16.0); LYMPHOCYTES # (AUTO) 1.9 10^3/uL (1.0-4.0); LYMPHOCYTES % (AUTO) 21 % (12-44); MEAN CORPUSCULAR HEMOGLOBIN 29 pg (25-34); MEAN CORPUSCULAR HGB CONC 34 g/dL (32-36); MEAN CORPUSCULAR VOLUME 84 fL (80-99); MEAN PLATELET VOLUME 9.5 fL (9.0-12.2); MONOCYTES # (AUTO) 0.6 10^3/uL (0.0-1.0); MONOCYTES % (AUTO) 7 % (0-12); NEUTROPHILS # (AUTO) 6.3 10^3/uL (1.8-7.8); NEUTROPHILS % (AUTO) 71 % (42-75); PLATELET COUNT 293 10^3/uL (130-400); WHITE BLOOD COUNT 8.9 10^3/uL (4.3-11.0)
[2023-01-14 13:35] LABS: ALBUMIN 4.2 GM/DL (3.2-4.5)
[2023-01-14 13:36] LABS: POTASSIUM 3.5 MMOL/L (3.6-5.0)
[2023-01-14 13:38] LABS: TOTAL PROTEIN 7.1 GM/DL (6.4-8.2)
[2023-01-14 13:40] LABS: BILIRUBIN,TOTAL 0.7 MG/DL (0.1-1.0)
[2023-01-14 13:41] LABS: CREATININE SERUM 0.64 MG/DL (0.60-1.30)
--- NOTE | 2023-01-14 14:01 | Diagnostic Imaging Report ---
CLINICAL INDICATION: Patient with abdominal pain and history of colon cancer. EXAM: X-ray of the abdomen with multiple supine and upright views. COMPARISON: Small bowel follow-through study dated 01/04/2023. FINDINGS: Air-distended loops of colon are seen. There is a small amount of stool throughout the colon. There are multiple dilated loops of small bowel overlying the abdomen with air-fluid levels. Largest loop overlies the left side and measures roughly 4.0 cm in width. Patient was noted to have dilated small bowel on the prior small bowel follow-through. There is no intra-abdominal free air. There are degenerative spurs involving the spine. There is mild right curvature of the lumbar spine. IMPRESSION: There are persistent dilated loops of small bowel with air-fluid levels. There is air also seen in the colon. Considerations may include ileus versus partial small bowel obstruction. Dictated by: Dictated on workstation # [id number]
[2023-01-14 15:15] VITALS: BP 182/83
[2023-01-14] MEDS ORDERED: morphine INJ 4 MG/ML 1 ML (VIAL/SYRINGE) IV PRN (15:15)
[2023-01-14] MEDS ORDERED: ONDANSETRON 4 MG/2 ML (SDV) Z0FRAN IV PRN (15:15)
[2023-01-14] MEDS: NS IV 1000 ML 1,000 ML IV SCH (15:50)
[2023-01-14] MEDS ORDERED: LORazepam 1 MG (ATIVAN) TAB PO PRN (19:30)
[2023-01-14] MEDS ORDERED: PROMETHAZINE INJ 25 MG/ML (PHENERGAN) AMP IVP PRN (19:30)
--- NOTE | 2023-01-14 19:37 | HISTORY AND PHYSICAL ---
ATTENDING ROOM CLEANER: Gilma Hansen APRN HISTORY OF PRESENT ILLNESS: We had initially seen the patient quite some time ago. The patient was seen in the office after an emergency room visit for crampy abdominal pain and distention. At that time, a CT scan of the abdomen was performed, which did show a transition point in the right lower abdominal quadrant as well as proximal small bowel dilatation. There was also some lymphadenopathy at the time. On 05/31/2021, she underwent a diagnostic laparoscopy as well as resection of the distal ileum with primary anastomosis. The pathology came back as a moderately differentiated adenocarcinoma extending through the muscle wall and serosal surface and considered to be a T4 tumor. There were also 2 of 10 lymph nodes that were positive. Since that initial visit and surgery, we had not seen the patient and she has been seen by other surgeons. The patient has had multiple admissions for abdominal distention, crampy pain, mild nausea, sometimes vomiting. She was admitted just 2 weeks ago for the similar type of symptoms and was admitted and treated conservatively with IV fluids, time and bowel rest and her symptoms did resolve on their own. Again, she presented with similar type of symptoms with abdominal distention, crampy abdominal pain and states that she has not had a bowel movement in approximately 2 days. Her laboratory work is normal. Abdominal x-ray was performed, which did show some dilated loops of small bowel with a few air fluid levels, indicating an ileus versus a partial small-bowel obstruction. Plan again is to proceed with conservative management with bowel rest, IV fluids, antinausea, pain medication and time as well as her early and frequent ambulation. At some point, she would likely need further evaluation including a small bowel follow through to see if there is any potential areas of stenosis or stricture that may benefit her long-term symptomatology at some point. 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 PAST SURGICAL HISTORY: Terminal ileal resection and anastomosis. Tonsillectomy and adenoidectomy, left upper extremity open reduction and internal fixation, bunionectomy. ALLERGIES: No known drug allergies. MEDICATIONS: Omeprazole 40 mg daily, hydrocodone 10/325 every 4 hours p.r.n. SOCIAL HISTORY: Negative smoke, negative alcohol. FAMILY HISTORY: Noncontributory. VITAL SIGNS: Temperature 36.9, blood pressure 168/100, pulse 94, respirations 18, pulse ox 96% on room air. REVIEW OF SYSTEMS: This information was accrued through the emergency room physician as well as the patient's electronic medical records. At this time, the patient is comfortable and in no acute distress. She states that she initially had some nausea; however, no vomiting. She states that she has not had a bowel movement in approximately 2 days; however, has a longstanding history of constipation. No red blood per rectum, no dark tarry stools. No cough or sputum production. No chest pain, palpitations, diaphoresis. No fever, chills. No recent inadvertent weight loss. All other review of systems negative. PHYSICAL EXAMINATION: Will be ascertained upon seeing the patient in the a.m. LABORATORY DATA: WBC 8.9, hemoglobin 12.9, hematocrit 38, platelets 293. BUN 9, creatinine 0.64. Liver function enzymes normal. ASSESSMENT AND PLAN: A 62-year-old female with ileus versus a partial small-bowel obstruction. She has had multiple episodes of similar type of symptoms, which have resolved with conservative medical therapy. We will once again proceed with this modality with IV fluids, early ambulation as well as antinausea and pain medications as necessary. Job ID: [id number] DocumentID: [id number] Dictated Date: 01/14/2023 19:19:34 Campus Monitor Date: 01/14/2023 19:34:00 Dictated By: SOFY OSWALD MD
[2023-01-14] MEDS: polyethylene glycoL POWDER 17 GM (MIRALAX) PACK PO SCH (19:53)
[2023-01-14 20:32] VITALS: BP 150/67
[2023-01-14] MEDS: METOCLOPRAMIDE INJ 10 MG/2 ML (REGLAN) IVP SCH (23:46)
[2023-01-14 23:56] VITALS: BP 173/69
[2023-01-15 03:43] VITALS: BP 158/78
[2023-01-15] MEDS: NS IV 1000 ML 1,000 ML IV SCH ×2 (05:12→11:33)
[2023-01-15] MEDS: METOCLOPRAMIDE INJ 10 MG/2 ML (REGLAN) IVP SCH ×2 (05:12→11:10)
[2023-01-15 07:34] VITALS: BP 153/72
[2023-01-15] MEDS: polyethylene glycoL POWDER 17 GM (MIRALAX) PACK PO SCH (08:48)
--- NOTE | 2023-01-15 10:19 | Diagnostic Imaging Report ---
INDICATION: Abdominal distention, pain with history of colon cancer. TECHNIQUE: Supine and upright radiographs of the abdomen at 9:01 AM. CORRELATION STUDY: 01/14/2023. FINDINGS: Lung bases are with prominent interstitial markings but otherwise clear. A few gas-filled loops of bowel are present, most pronounced involving the colon. The severity of distention overall appears improved and air-fluid levels have diminished. There is suggestion of asymmetric wall thickening of the descending colon. Gas to the level of the rectum. IMPRESSION: Non-obstructed appearing bowel gas pattern. Question edema of the descending colon wall. Dictated by: Dictated on workstation # [id number]
[2023-01-15 11:13] VITALS: BP 163/79
--- NOTE | 2023-01-15 11:17 | Progress Note ---
Subjective Date Seen by a Provider: Jan 15, 2023 Time Seen by a Provider: 10:50 Subjective/Events-last exam Patient seen with Dr. Garcia. Patient reports minimal abdominal pain, no nausea or vomiting. Reports belching and passing flatus. No BM yet. Tolerating clear liquids. Objective Exam Vital Signs Date Time Temp Pulse Resp B/P (MAP) Pulse Ox O2 Delivery O2 Flow Rate FiO2 01/15/23 07:34 37.5 71 18 153/72 (99) 96 Room Air 01/15/23 03:43 37.0 63 18 158/78 (104) 95 Room Air 01/14/23 23:56 36.3 77 18 173/69 (103) 92 Room Air 01/14/23 20:32 36.5 65 18 150/67 (94) 96 Room Air 01/14/23 19:15 Room Air 01/14/23 15:15 36.6 80 18 182/83 (116) 98 Room Air 01/14/23 14:43 73 16 161/84 98 Room Air 01/14/23 12:28 36.9 94 18 168/100 (122) 96 Room Air I & O 01/15/23 07:00 Intake Total 2400 ml Output Total 600 ml Balance 1800 ml Capillary Refill : General Appearance: No Apparent Distress, WD/WN Neck: Normal Inspection, Supple Respiratory: No Accessory Muscle Use, No Respiratory Distress Gastrointestinal: soft, tenderness (mild lower abdomen) Extremity: Normal Inspection, Normal Range of Motion Neurologic/Psychiatric: Alert, Oriented x3 Skin: Normal Color, Warm/Dry Results Lab Laboratory Tests 01/14/23 12:38: Urine Color YELLOW, Urine Clarity CLEAR, Urine pH 6.5, Urine Specific [place] <=1.005, Urine Protein TRACEH, Urine Glucose (UA) NEGATIVE, Urine Ketones 2+H, Urine Nitrite NEGATIVE, Urine Bilirubin NEGATIVE, Urine Urobilinogen 0.2, Urine Leukocyte Esterase NEGATIVE, Urine RBC (Auto) NEGATIVE, Urine RBC NONE, Urine WBC 0-2, Urine Squamous Epithelial Cells 10-25H, Urine Crystals NONE, Urine Bacteria TRACE, Urine Casts NONE, Urine Mucus SMALLH, Urine Culture Indicated NO 01/14/23 13:10: White Blood Count 8.9, Red Blood Count 4.51, Hemoglobin 12.9, Hematocrit 38, Mean Corpuscular Volume 84, Mean Corpuscular Hemoglobin 29, Mean Corpuscular Hemoglobin Concent 34, Red Cell Distribution Width 14.0, Platelet Count 293, Mean Platelet Volume 9.5, Immature Granulocyte % (Auto) 0, Neutrophils (%) (Auto) 71, Lymphocytes (%) (Auto) 21, Monocytes (%) (Auto) 7, Eosinophils (%) (Auto) 1, Basophils (%) (Auto) 0, Neutrophils # (Auto) 6.3, Lymphocytes # (Auto) 1.9, Monocytes # (Auto) 0.6, Eosinophils # (Auto) 0.1, Basophils # (Auto) 0.0, Immature Granulocyte # (Auto) 0.0, Sodium Level 142, Potassium Level 3.5L, Chloride Level 106, Carbon Dioxide Level 24, Anion Gap 12, Blood Urea Nitrogen 9, Creatinine 0.64, Estimat Glomerular Filtration Rate 99, BUN/Creatinine Ratio 14, Glucose Level 95, Calcium Level 9.0, Corrected Calcium 8.8, Total Bilirubin 0.7, Aspartate Amino Transf (AST/SGOT) 22, Alanine Aminotransferase (ALT/SGPT) 14, Alkaline Phosphatase 74, Total Protein 7.1, Albumin 4.2 Assessment/Plan Assessment/Plan Assess & Plan/Chief Complaint A 62-year-old female with ileus versus a partial small-bowel obstruction. VSS Will advance diet to regular Continue pain and nausea medications prn Encourage ambulation HTN - Hospitalist consulted OK to DC from surgical standpoint PEGGY UMANA APRN Jan 15, 2023 11:17
--- NOTE | 2023-01-15 11:51 | Discharge Inst-Surgical ---
D/C Lap Instructions-KIDO Reconcile Patient Problems Problems Reviewed?: Yes Follow Up Appt as needed Activity as tolerated No driving while on pain medications High Fiber Diet 25g or more per day Avoid Alcohol, Caffeine, Spicy Kreamer and Acid foods. Drink 64 fluid oz or more of fluids per day. Symptoms to Report: Fever over 101 degree F, Nausea/Vomiting If any problems/questions: Contact your physician or go to Emergency Room PEGGY UMANA APRN Jan 15, 2023 11:51
[2023-01-15] MEDS ORDERED: AMLO5TAB4 PO (12:07)
--- NOTE | 2023-01-15 12:07 | Consultation - Hospitalist ---
HPI History of Present Illness: HPI/Chief Complaint Reason for consultation: HTN OOC HPI: This is a 62yoWF clinic patient of [facility] who had presented to the hospital for abdominal pain and found to have a recurrent SBO which is currently resolved but she was experiencing HTN OOC of which she was agreeable to start a BP medicine. She will DC today. Her eyes are burning and thinks her BP is causing this but no other signs of concern. Source: patient Exam Limitations: no limitations Date Seen 01/15/23 Attending Physician Gilma Hansen Aprn PCP Admitting Physician: Tim Garcia MD Attending Physician: Tim Garcia MD Referring Physician Date of Admission Jan 14, 2023 at 14:57 Home Medications & Allergies Home Medications Reviewed patient Home Medication Reconciliation performed by pharmacy medication reconciliations process control technician and/or nursing. Patients Allergies have been reviewed. Allergies Allergies Coded Allergies No Known Drug Allergies (Unverified01/14/23) Past Cqungfh-Xoxthw-Ylgxyn Hx Patient Social History Marrital Status: single Employed/Student: retired Tobacco Use?: No Smoking Status: Former Smoker Substance use?: Yes Substance type: Marijuana Substance frequency: Daily Alcohol Use?: No Pt feels they are or have been: No Immunizations Up To Date First/Initial COVID19 Vaccinat: DENIES Second COVID19 Vaccination Juan M: NO Tetanus Booster (TDap): More Than 5 Years Hepatitis A: No Hepatitis B: No Seasonal Allergies Seasonal Allergies: No Current Status Advance Directives: No Communicates: Verbally Primary Language: Yakut Preferred Spoken Language: Yakut Is interpretation needed?: No Sensory deficits: Vision impairment Implanted or Applied Medical D: Orthopedic hardware, Port-a-cath Past Medical History Surgeries: Adenoidectomy, Bowel Surgery, Orthopedic, Tonsillectomy COPD, Emphysema Currently Using CPAP: No Currently Using BIPAP: No Hypertension [employer] History: Menopausal Gastroesophageal Reflux, Obstructive Bowel, Polyps Osteoporosis, Arthritis Loss of Vision: Denies Hearing Impairment: Denies Small Bowel Did You Recieve Any Treatments: Yes What Type of Treatment Did You: Chemotherapy, Surgical Intervention Anxiety, Depression Blood Disorders: No COPD GERD Adenocarcinoma of the Colon Family Medical History Heart Disease, Cancer, Diabetes, Seizures Review of Systems Constitutional: see HPI EENTM: ear pain Respiratory: no symptoms reported Cardiovascular: no symptoms reported Gastrointestinal: abdominal pain, loss of appetite Genitourinary: no symptoms reported Musculoskeletal: no symptoms reported Skin: no symptoms reported Psychiatric/Neurological: No Symptoms Reported All Other Systems Reviewed Negative Unless Noted: Yes Physical Exam Physical Exam Vital Signs Vital Signs - First Documented 01/14/23 12:28 Temp 36.9 Pulse 94 Resp 18 B/P (MAP) 168/100 (122) Pulse Ox 96 O2 Delivery Room Air Capillary Refill : Height, Weight, BMI Height: 5'6" Weight: 118lbs. oz. 53.474617ww; 20.29 BMI Method: General Appearance: No Apparent Distress, WD/WN, Chronically ill Neck: Normal Inspection, Supple Respiratory: Lungs Clear, Normal Breath Sounds, No Accessory Muscle Use, No Respiratory Distress Cardiovascular: Regular Rate, Rhythm Extremity: Normal Inspection, Normal Range of Motion Neurologic/Psychiatric: Alert, Oriented x3 Skin: Normal Color, Warm/Dry Results Results/Procedures Labs Patient resulted labs reviewed. Assessment/Plan Assessment and Plan Assess & Plan/Chief Complaint Assessment: SBO now resolved HTN Plan: Norvasc Sent into pharmacy ELIZABETH NAIK DO Jan 15, 2023 12:07
[2023-01-15] MEDS ORDERED: amLODIPine 5 MG (NORVASC) TAB PO ONE (12:15)
--- NOTE | 2023-01-15 12:18 | Progress Note ---
Standard Progress Note Progress Notes/Assess & Plan Date Seen by a Provider: Jan 15, 2023 Time Seen by a Provider: 11:00 Progress/Assessment & Plan PE: chest-few scattered wheezes heart-reg extr-no LE edema, neg homans HEENT-no scleral icterus, no adenopathy abd-soft, NT/ND SOFY OSWALD MD Jan 15, 2023 12:18
[2023-01-15] MEDS ORDERED: ONDA4TAB11 SL (16:28)
[2023-01-16] MEDS ORDERED: amLODIPine 5 MG (NORVASC) TAB PO SCH (09:00)
== END 2023-01-15 11:50 | disposition home or self-care (01) ==
LOC: EDUNIT# 12:19 → ER 12:21 → 4TH 14:57 → INTOOBSV 14:57 → UNDOADMOB 14:57 → 4TH 15:15 → UNDODISOB 01-15 11:50
PROVIDERS: ADMIT Surgery; ATTEND Surgery
DX: K56.600 Partial intestinal obstruction, unspecified as to cause (principal); I10 Essential (primary) hypertension; Z28.310 Unvaccinated for COVID-19; Z85.038 Personal history of other malignant neoplasm of large intestine; Z87.891 Personal history of nicotine dependence
CPT/HCPCS: 74019 ×2; 80053; 81000; 85025; 85027; 96375; 96376 ×2; 99284; G0378; 36415

== ENCOUNTER 2023-01-31 09:08 | Outpatient (RCR) | payer OTHER ==
[~2023-01-31 09:08] MED LIST changes: +AMLO5TAB4 PO; +ONDA4TAB11 SL; +[UNRECOGNIZED DRUG - REMARK] IM SCH
[2023-01-31 09:29] LABS: BASOPHILS % (AUTO) 1 % (0-10); EOSINOPHILS # (AUTO) 0.2 10^3/uL (0.0-0.3); EOSINOPHILS % (AUTO) 2 % (0-10); HEMATOCRIT 41 % (35-52); HEMOGLOBIN 13.8 g/dL (11.5-16.0); LYMPHOCYTES # (AUTO) 2.3 10^3/uL (1.0-4.0); LYMPHOCYTES % (AUTO) 31 % (12-44); MEAN CORPUSCULAR HEMOGLOBIN 29 pg (25-34); MEAN CORPUSCULAR HGB CONC 34 g/dL (32-36); MEAN CORPUSCULAR VOLUME 86 fL (80-99); MEAN PLATELET VOLUME 9.6 fL (9.0-12.2); MONOCYTES # (AUTO) 0.4 10^3/uL (0.0-1.0); MONOCYTES % (AUTO) 6 % (0-12); NEUTROPHILS # (AUTO) 4.4 10^3/uL (1.8-7.8); NEUTROPHILS % (AUTO) 60 % (42-75); PLATELET COUNT 278 10^3/uL (130-400); WHITE BLOOD COUNT 7.4 10^3/uL (4.3-11.0)
[2023-01-31 09:50] LABS: ALBUMIN 4.5 GM/DL (3.2-4.5); BILIRUBIN,TOTAL 0.6 MG/DL (0.1-1.0); CALCIUM 9.5 MG/DL (8.5-10.1); CREATININE SERUM 0.68 MG/DL (0.60-1.30); POTASSIUM 4.1 MMOL/L (3.6-5.0); TOTAL PROTEIN 7.9 GM/DL (6.4-8.2)
== END 2023-02-13 | disposition home or self-care (01) ==
LOC: ONC 09:08
PROVIDERS: ATTEND Internal Medicine Hematology & Oncology
DX: C17.9 Malignant neoplasm of small intestine, unspecified (principal); C77.2 Secondary and unspecified malignant neoplasm of intra-abdominal lymph nodes; K21.9 Gastro-esophageal reflux disease without esophagitis; E34.0 Carcinoid syndrome; M54.50 Low back pain, unspecified; F41.9 Anxiety disorder, unspecified; Z98.890 Other specified postprocedural states; Z90.89 Acquired absence of other organs
CPT/HCPCS: 36415; 80053; 85025; 96372

== ENCOUNTER 2023-02-28 10:11 | Outpatient (RCR) | payer OTHER ==
[2023-02-28 10:32] LABS: BASOPHILS % (AUTO) 1 % (0-10); EOSINOPHILS # (AUTO) 0.1 10^3/uL (0.0-0.3); EOSINOPHILS % (AUTO) 2 % (0-10); HEMATOCRIT 40 % (35-52); HEMOGLOBIN 13.3 g/dL (11.5-16.0); LYMPHOCYTES # (AUTO) 2.1 10^3/uL (1.0-4.0); LYMPHOCYTES % (AUTO) 33 % (12-44); MEAN CORPUSCULAR HEMOGLOBIN 29 pg (25-34); MEAN CORPUSCULAR HGB CONC 33 g/dL (32-36); MEAN CORPUSCULAR VOLUME 87 fL (80-99); MEAN PLATELET VOLUME 9.6 fL (9.0-12.2); MONOCYTES # (AUTO) 0.3 10^3/uL (0.0-1.0); MONOCYTES % (AUTO) 6 % (0-12); NEUTROPHILS # (AUTO) 3.6 10^3/uL (1.8-7.8); NEUTROPHILS % (AUTO) 59 % (42-75); PLATELET COUNT 262 10^3/uL (130-400); WHITE BLOOD COUNT 6.2 10^3/uL (4.3-11.0)
[2023-02-28 10:50] LABS: ALBUMIN 4.5 GM/DL (3.2-4.5); BILIRUBIN,TOTAL 0.4 MG/DL (0.1-1.0); CALCIUM 9.3 MG/DL (8.5-10.1); CREATININE SERUM 0.68 MG/DL (0.60-1.30); POTASSIUM 3.2 MMOL/L (3.6-5.0); TOTAL PROTEIN 7.6 GM/DL (6.4-8.2)
== END 2023-03-16 | disposition home or self-care (01) ==
LOC: ONC 10:11
PROVIDERS: ATTEND Internal Medicine Hematology & Oncology
DX: C17.9 Malignant neoplasm of small intestine, unspecified (principal); C77.2 Secondary and unspecified malignant neoplasm of intra-abdominal lymph nodes; K21.9 Gastro-esophageal reflux disease without esophagitis; E34.0 Carcinoid syndrome; M54.50 Low back pain, unspecified; F41.9 Anxiety disorder, unspecified; Z98.890 Other specified postprocedural states; Z90.89 Acquired absence of other organs
CPT/HCPCS: 80053; 85025; 96372

== ENCOUNTER 2023-04-01 10:00 | Outpatient (RCR) | payer MEDICARE, OTHER ==
[2023-03-28 09:49] LABS: BASOPHILS % (AUTO) 0 % (0-10); EOSINOPHILS # (AUTO) 0.1 10^3/uL (0.0-0.3); EOSINOPHILS % (AUTO) 1 % (0-10); HEMATOCRIT 38 % (35-52); HEMOGLOBIN 12.8 g/dL (11.5-16.0); LYMPHOCYTES # (AUTO) 2.1 10^3/uL (1.0-4.0); LYMPHOCYTES % (AUTO) 29 % (12-44); MEAN CORPUSCULAR HEMOGLOBIN 29 pg (25-34); MEAN CORPUSCULAR HGB CONC 34 g/dL (32-36); MEAN CORPUSCULAR VOLUME 85 fL (80-99); MEAN PLATELET VOLUME 9.5 fL (9.0-12.2); MONOCYTES # (AUTO) 0.4 10^3/uL (0.0-1.0); MONOCYTES % (AUTO) 5 % (0-12); NEUTROPHILS # (AUTO) 4.6 10^3/uL (1.8-7.8); NEUTROPHILS % (AUTO) 64 % (42-75); PLATELET COUNT 251 10^3/uL (130-400); WHITE BLOOD COUNT 7.3 10^3/uL (4.3-11.0)
[2023-03-28 10:08] LABS: ALBUMIN 4.4 GM/DL (3.2-4.5); BILIRUBIN,TOTAL 0.4 MG/DL (0.1-1.0); CALCIUM 9.2 MG/DL (8.5-10.1); CREATININE SERUM 0.7 MG/DL (0.60-1.30); POTASSIUM 3.5 MMOL/L (3.6-5.0); TOTAL PROTEIN 7.3 GM/DL (6.4-8.2)
== END 2023-04-15 | disposition home or self-care (01) ==
LOC: ONC 10:00
PROVIDERS: ATTEND Internal Medicine Hematology & Oncology
DX: C17.9 Malignant neoplasm of small intestine, unspecified (principal); C77.2 Secondary and unspecified malignant neoplasm of intra-abdominal lymph nodes; K21.9 Gastro-esophageal reflux disease without esophagitis; E34.0 Carcinoid syndrome; M54.50 Low back pain, unspecified; F41.9 Anxiety disorder, unspecified; Z98.890 Other specified postprocedural states; Z90.89 Acquired absence of other organs
CPT/HCPCS: 36415; 80053; 85025; 96372

== ENCOUNTER → 2023-04-04 | Outpatient (CLI) | payer MEDICARE ==
[~2023-04-04] MED LIST changes: -[UNRECOGNIZED DRUG - REMARK] IM SCH
--- NOTE | 2023-04-04 15:31 | Diagnostic Imaging Report ---
PROCEDURE: US Abdomen, limited. TECHNIQUE: Multiple real-time grayscale images were obtained over the abdomen in various projections. INDICATION: Right upper quadrant pain. FINDINGS: Liver parenchyma is homogeneous with normal echotexture. The portal vein is patent with hepatopetal flow. There is some sludge in the gallbladder. There are no stones or wall thickening. Patient had a negative sonographic Solorzano's sign. The common duct is not dilated. The pancreas is normal. Aorta and IVC are normal. Right kidney measures 12 cm in length. IMPRESSION: Cholestasis with sludge visible in the gallbladder. Dictated by: Dictated on workstation # [id number]
== END ==
LOC: RAD 14:16
PROVIDERS: ATTEND Surgery
DX: K80.20 Calculus of gallbladder without cholecystitis without obstruction (principal); K82.8 Other specified diseases of gallbladder
CPT/HCPCS: 76705

== ENCOUNTER → 2023-04-07 | Outpatient (CLI) | payer MEDICARE ==
[~2023-04-07] MED LIST changes: +CATHETER FLUSH 10 ML SYR IV PRN; +HOLD METFORMIN - RECEIVED CONTRAST 20 ML VIAL IV SCH; +IOHEXOL 350 MG/ML 100 ML (OMNIPAQUE 350) VIAL IV ONE; +NS 100 ML (IVPB) BAG IV ONE
--- NOTE | 2023-04-07 10:58 | Diagnostic Imaging Report ---
EXAMINATION: CT abdomen and pelvis with intravenous contrast. TECHNIQUE: Multiple contiguous axial images were obtained through the abdomen and pelvis after the uneventful administration of intravenous contrast. All CT scans use one or more of the following dose optimizing techniques: automated exposure control, MA and/or KvP adjustment based on patient size and exam type or iterative reconstruction. HISTORY: Abdominal pain, prior colon cancer. COMPARISON: 01/02/2023 FINDINGS: Limited views of the lower thorax are unremarkable. The liver is normal without focal lesion. There is no biliary ductal dilation. Gallbladder is normal. Pancreas is normal. Spleen is normal. Adrenal glands are normal. The kidneys are normal. There is no hydronephrosis. Urinary bladder is normal. There has been a prior bowel resection. There is a new soft tissue mass in the left rectus abdominis muscle measuring 3.1 x 1.8 cm. There is new stranding and nodularity throughout the omentum. No evidence for bowel obstruction. No free fluid or air. No abdominal or pelvic lymphadenopathy. Aorta is atherosclerotic without aneurysm. There are no suspicious osseous lesions. IMPRESSION: 1. There is a new 3.1 x 1.8 cm soft tissue mass in the left rectus abdominis and stranding and nodularity throughout the omentum. Findings concerning for metastatic disease. Dictated by: Dictated on workstation # [id number]
== END ==
LOC: RAD 10:05
PROVIDERS: ATTEND Surgery
DX: M79.89 Other specified soft tissue disorders (principal); K66.8 Other specified disorders of peritoneum; Z98.890 Other specified postprocedural states; Z85.038 Personal history of other malignant neoplasm of large intestine
CPT/HCPCS: 74177

== ENCOUNTER 2023-04-15 07:06 | Outpatient (CLI) | payer MEDICARE ==
[2023-04-15] VITALS (11 sets, daily range): BP systolic 104–149; BP diastolic 61–86
[~2023-04-15 07:06] MED LIST changes: -CATHETER FLUSH 10 ML SYR IV PRN; -HOLD METFORMIN - RECEIVED CONTRAST 20 ML VIAL IV SCH; -IOHEXOL 350 MG/ML 100 ML (OMNIPAQUE 350) VIAL IV ONE; -NS 100 ML (IVPB) BAG IV ONE
[2023-04-15] MEDS ORDERED: NS IV 1000 ML 1,000 ML IV STA (08:14)
[2023-04-15] MEDS ORDERED: LIDOCAINE 1% INJ 10 ML VIAL INJ ONE (08:15)
[2023-04-15] MEDS ORDERED: fentaNYL INJ 100 MCG/2 ML AMP IVP ONE ×2 (08:15→09:50)
[2023-04-15] MEDS ORDERED: MIDAZOLAM 2 MG/2 ML (VERSED) VIAL IVP ONE (08:15)
[2023-04-15 08:50] LABS: HEMATOCRIT 37 % (35-52); HEMOGLOBIN 12.3 g/dL (11.5-16.0); MEAN CORPUSCULAR HEMOGLOBIN 29 pg (25-34); MEAN CORPUSCULAR HGB CONC 33 g/dL (32-36); MEAN CORPUSCULAR VOLUME 86 fL (80-99); MEAN PLATELET VOLUME 9.8 fL (9.0-12.2); PLATELET COUNT 241 10^3/uL (130-400); WHITE BLOOD COUNT 6.6 10^3/uL (4.3-11.0)
[2023-04-15] MEDS ORDERED: HYDROcodone/APAP 5 MG/325 MG (LORTAB) TAB PO PRN (10:30)
--- NOTE | 2023-04-15 11:59 | Diagnostic Imaging Report ---
INDICATION: Abdominal wall mass. Patient presents for CT-guided biopsy. TECHNIQUE: All CT scans use one or more of the following dose optimizing techniques: automated exposure control, MA and/or KvP adjustment based on patient size and exam type or iterative reconstruction. The patient was brought to the CT suite, placed on the table in the supine position. Axial imaging through the abdomen was performed to evaluate appropriate entry site. The procedure was performed utilizing conscious sedation with radiology nursing and constant patient monitoring. Patient was administered 100 mcg of fentanyl intravenously and 1 mg of Versed intravenously. Total procedure times was approximately 5 minutes. The lower anterior abdomen was prepped and draped in the usual sterile fashion. A small amount of 1% lidocaine was utilized for local anesthesia. An 18-gauge coaxial Temno needle was advanced into the left rectus muscle mass. Four core biopsies were obtained. Needle was removed and hemostasis was obtained. Patient tolerated the procedure well and left the department in stable condition. IMPRESSION: Successful left rectus abdominis muscle mass biopsy utilizing CT guidance and conscious sedation. Pathology results are currently pending. Dictated by: Dictated on workstation # [id number]
--- NOTE | 2023-04-15 12:41 | Pre-Op Note & Conscious Sedat ---
Pre-Operative Progress Note Date of Available H&P: Apr 15, 2023 Date H&P Reviewed: Apr 15, 2023 Time H&P Reviewed: 08:00 Pre-Op Diagnosis: abdominal wall mass Moderate Sedation PreProcedure Time 08:00 ASA Score 2 Airway Lungs Heart ASA score ASA 1: a normal healthy patient ASA 2: a patient with a mild systemic disease (mid diabetes, controlled hypertension, obesity ASA 3: a patient with a severe systemic disease that limits activity (angina, COPD, prior Myocardial infarction) ASA 4: a patient with an incapacitating disease that is a constant threat to life (CHF, renal failure) ASA 5: a moribund patient not expected to survive 24 hrs. (ruptured aneurysm) ASA 6: a declared brain- patient whose organs are being harvested. For emergent operations, add the letter E after the classification Mallampati Classification Grade 2 Sedation Plan Analgesia, Amnesia, Plan communicated to team members, Discussed options with patient/fam, Discussed risks with patient/fam The patient is an appropriate candidate to undergo the planned procedure, sedation, and anesthesia. The patient immediately re-assessed prior to indication. JANE ROMANO MD Apr 15, 2023 12:41
== END 2023-04-15 12:05 | disposition home or self-care (01) ==
LOC: SDC 07:06
PROVIDERS: ATTEND Surgery
DX: C79.89 Secondary malignant neoplasm of other specified sites (principal); C80.1 Malignant (primary) neoplasm, unspecified; Z87.891 Personal history of nicotine dependence; Z28.310 Unvaccinated for COVID-19
CPT/HCPCS: 36415; 77012; 85027; 85610; 85730; 87081; 88305; 88341; 88342; 99156

== ENCOUNTER → 2023-05-16 | Outpatient (RCR) | payer MEDICARE ==
[2023-04-27 11:18] LABS: BASOPHILS % (AUTO) 0 % (0-10); EOSINOPHILS # (AUTO) 0.1 10^3/uL (0.0-0.3); EOSINOPHILS % (AUTO) 1 % (0-10); HEMATOCRIT 38 % (35-52); HEMOGLOBIN 12.6 g/dL (11.5-16.0); LYMPHOCYTES # (AUTO) 2.5 10^3/uL (1.0-4.0); LYMPHOCYTES % (AUTO) 33 % (12-44); MEAN CORPUSCULAR HEMOGLOBIN 29 pg (25-34); MEAN CORPUSCULAR HGB CONC 33 g/dL (32-36); MEAN CORPUSCULAR VOLUME 87 fL (80-99); MEAN PLATELET VOLUME 9.9 fL (9.0-12.2); MONOCYTES # (AUTO) 0.4 10^3/uL (0.0-1.0); MONOCYTES % (AUTO) 5 % (0-12); NEUTROPHILS # (AUTO) 4.5 10^3/uL (1.8-7.8); NEUTROPHILS % (AUTO) 60 % (42-75); PLATELET COUNT 275 10^3/uL (130-400); WHITE BLOOD COUNT 7.5 10^3/uL (4.3-11.0)
[2023-04-27 11:37] LABS: ALBUMIN 4.5 GM/DL (3.2-4.5); BILIRUBIN,TOTAL 0.6 MG/DL (0.1-1.0); CALCIUM 9.5 MG/DL (8.5-10.1); CREATININE SERUM 0.74 MG/DL (0.60-1.30); POTASSIUM 3.7 MMOL/L (3.6-5.0); TOTAL PROTEIN 7.5 GM/DL (6.4-8.2)
[2023-05-03 11:18] LABS: BASOPHILS % (AUTO) 1 % (0-10); EOSINOPHILS # (AUTO) 0.1 10^3/uL (0.0-0.3); EOSINOPHILS % (AUTO) 1 % (0-10); HEMATOCRIT 36 % (35-52); HEMOGLOBIN 11.9 g/dL (11.5-16.0); LYMPHOCYTES # (AUTO) 1.8 10^3/uL (1.0-4.0); LYMPHOCYTES % (AUTO) 27 % (12-44); MEAN CORPUSCULAR HEMOGLOBIN 29 pg (25-34); MEAN CORPUSCULAR HGB CONC 33 g/dL (32-36); MEAN CORPUSCULAR VOLUME 87 fL (80-99); MEAN PLATELET VOLUME 9.9 fL (9.0-12.2); MONOCYTES # (AUTO) 0.4 10^3/uL (0.0-1.0); MONOCYTES % (AUTO) 5 % (0-12); NEUTROPHILS # (AUTO) 4.4 10^3/uL (1.8-7.8); NEUTROPHILS % (AUTO) 67 % (42-75); PLATELET COUNT 226 10^3/uL (130-400); WHITE BLOOD COUNT 6.6 10^3/uL (4.3-11.0)
[2023-05-03 11:21] VITALS: BP 94/55
[2023-05-03 11:38] LABS: ALBUMIN 4.3 GM/DL (3.2-4.5); BILIRUBIN,TOTAL 0.5 MG/DL (0.1-1.0); CALCIUM 9.1 MG/DL (8.5-10.1); CREATININE SERUM 0.7 MG/DL (0.60-1.30); POTASSIUM 3.4 MMOL/L (3.6-5.0); TOTAL PROTEIN 7.2 GM/DL (6.4-8.2)
[~2023-05-16] VITALS: Ht 167.6 cm; Wt 51.7 kg
[~2023-05-16] MED LIST changes: +D5W 500 ML IV SOLUTION 500 ML IV SCH; +D5W IV SCH; +FAMOTIDINE INJ 20MG/2ML VIAL IV SCH; +FLUOROURACIL IV SCH; +HEParin (CENTRAL IV FLUSH) 500 UNIT/5 ML SYR IV PRN; +LEUCOVORIN CALCIUM IV SCH; +NS IV SCH; +OXALIPLATIN IV SCH; +PALONOSETRON HCL 0.25 MG, dexAMETHasone sodium phosphate 10 MG in NS (IVPB) 50 ML 50 ML IV SCH; +[UNRECOGNIZED DRUG - REMARK] IM SCH; +diphenhydrAMINE 25 MG TABLET PO SCH; +diphenhydrAMINE INJ 50 MG/ML VIAL IV ONE; +diphenhydrAMINE INJ 50 MG/ML VIAL ONE
[2023-05-16 11:04] LABS: BASOPHILS % (AUTO) 0 % (0-10); EOSINOPHILS % (AUTO) 2 % (0-10); HEMATOCRIT 39 % (35-52); HEMOGLOBIN 13.5 g/dL (11.5-16.0); LYMPHOCYTES # (AUTO) 1.5 10^3/uL (1.0-4.0); LYMPHOCYTES % (AUTO) 58 % (12-44); MEAN CORPUSCULAR HEMOGLOBIN 29 pg (25-34); MEAN CORPUSCULAR HGB CONC 34 g/dL (32-36); MEAN CORPUSCULAR VOLUME 84 fL (80-99); MEAN PLATELET VOLUME 9.1 fL (9.0-12.2); MONOCYTES # (AUTO) 0.2 10^3/uL (0.0-1.0); MONOCYTES % (AUTO) 9 % (0-12); NEUTROPHILS # (AUTO) 0.8 10^3/uL (1.8-7.8); NEUTROPHILS % (AUTO) 31 % (42-75); PLATELET COUNT 240 10^3/uL (130-400); WHITE BLOOD COUNT 2.5 10^3/uL (4.3-11.0)
[2023-05-16 11:26] LABS: ALBUMIN 4.4 GM/DL (3.2-4.5); BILIRUBIN,TOTAL 0.4 MG/DL (0.1-1.0); CALCIUM 8.4 MG/DL (8.5-10.1); CREATININE SERUM 0.76 MG/DL (0.60-1.30); POTASSIUM 3.4 MMOL/L (3.6-5.0); TOTAL PROTEIN 7.6 GM/DL (6.4-8.2)
== END | disposition home or self-care (01) ==
LOC: ONC 04-27 10:46
PROVIDERS: ATTEND Internal Medicine Hematology & Oncology
DX: Z51.11 Encounter for antineoplastic chemotherapy (principal); Z45.2 Encounter for adjustment and management of vascular access device; C17.9 Malignant neoplasm of small intestine, unspecified; C77.2 Secondary and unspecified malignant neoplasm of intra-abdominal lymph nodes; K21.9 Gastro-esophageal reflux disease without esophagitis; E34.0 Carcinoid syndrome; M54.50 Low back pain, unspecified; F41.9 Anxiety disorder, unspecified; Z98.890 Other specified postprocedural states; Z90.89 Acquired absence of other organs
CPT/HCPCS: 36415; 36591; 80053; 82378; 85025; 96368; 96372; 96375; 96411; 96413; 96416; 96417

== ENCOUNTER 2023-05-30 10:27 | Outpatient (RCR) | payer MEDICARE ==
[2023-05-03 11:21] VITALS: BP 94/55
[~2023-05-30 10:27] MED LIST changes: -diphenhydrAMINE INJ 50 MG/ML VIAL IV ONE; -diphenhydrAMINE INJ 50 MG/ML VIAL ONE
[2023-05-30 10:40] LABS: BASOPHILS % (AUTO) 0 % (0-10); EOSINOPHILS % (AUTO) 0 % (0-10); HEMATOCRIT 35 % (35-52); HEMOGLOBIN 11.6 g/dL (11.5-16.0); LYMPHOCYTES # (AUTO) 1.4 10^3/uL (1.0-4.0); LYMPHOCYTES % (AUTO) 13 % (12-44); MEAN CORPUSCULAR HEMOGLOBIN 28 pg (25-34); MEAN CORPUSCULAR HGB CONC 33 g/dL (32-36); MEAN CORPUSCULAR VOLUME 87 fL (80-99); MEAN PLATELET VOLUME 9.4 fL (9.0-12.2); MONOCYTES # (AUTO) 0.7 10^3/uL (0.0-1.0); MONOCYTES % (AUTO) 7 % (0-12); NEUTROPHILS # (AUTO) 8.3 10^3/uL (1.8-7.8); NEUTROPHILS % (AUTO) 79 % (42-75); PLATELET COUNT 263 10^3/uL (130-400); WHITE BLOOD COUNT 10.6 10^3/uL (4.3-11.0)
[2023-05-30 11:01] LABS: ALBUMIN 3.3 GM/DL (3.2-4.5); BILIRUBIN,TOTAL 0.4 MG/DL (0.1-1.0); CALCIUM 6.2 MG/DL (8.5-10.1); CREATININE SERUM 0.65 MG/DL (0.60-1.30); POTASSIUM 2.7 MMOL/L (3.6-5.0); TOTAL PROTEIN 6.4 GM/DL (6.4-8.2)
== END 2023-06-16 | disposition still patient (30) ==
LOC: ONC 10:27
PROVIDERS: ATTEND Internal Medicine Hematology & Oncology
DX: C17.9 Malignant neoplasm of small intestine, unspecified (principal); C77.2 Secondary and unspecified malignant neoplasm of intra-abdominal lymph nodes; K21.9 Gastro-esophageal reflux disease without esophagitis; E34.0 Carcinoid syndrome; M54.50 Low back pain, unspecified; F41.9 Anxiety disorder, unspecified; Z98.890 Other specified postprocedural states; Z90.89 Acquired absence of other organs
CPT/HCPCS: 80053; 82378; 85025; 96372; G0463; 36415; 99214

== ENCOUNTER 2023-06-25 13:39 | Emergency (ER) | payer MEDICARE ==
[~2023-06-25] VITALS: Ht 165 cm; Wt 49.8 kg
[~2023-06-25 13:39] MED LIST changes: -D5W 500 ML IV SOLUTION 500 ML IV SCH; -D5W IV SCH; +DICY-11 PO; -DICY10CA12 PO; -FAMOTIDINE INJ 20MG/2ML VIAL IV SCH; -FLUOROURACIL IV SCH; -HEParin (CENTRAL IV FLUSH) 500 UNIT/5 ML SYR IV PRN; -LEUCOVORIN CALCIUM IV SCH; -NS IV SCH; -OXALIPLATIN IV SCH; -PALONOSETRON HCL 0.25 MG, dexAMETHasone sodium phosphate 10 MG in NS (IVPB) 50 ML 50 ML IV SCH; -[UNRECOGNIZED DRUG - REMARK] IM SCH; -diphenhydrAMINE 25 MG TABLET PO SCH
[2023-06-25] MEDS ORDERED: NS IV 1000 ML 1,000 ML IV STA (15:15)
[2023-06-25] MEDS ORDERED: HYDROmorphone INJECTION 2 MG/ML VIAL IV ONE (15:15)
[2023-06-25] MEDS ORDERED: dexAMETHasone INJ 10 MG/ML 1 ML VIAL IV ONE (15:15)
[2023-06-25 15:36] LABS: BASOPHILS % (AUTO) 0 % (0-10); EOSINOPHILS # (AUTO) 0.1 10^3/uL (0.0-0.3); EOSINOPHILS % (AUTO) 1 % (0-10); HEMATOCRIT 34 % (35-52); HEMOGLOBIN 11.2 g/dL (11.5-16.0); LYMPHOCYTES # (AUTO) 1.9 10^3/uL (1.0-4.0); LYMPHOCYTES % (AUTO) 21 % (12-44); MEAN CORPUSCULAR HEMOGLOBIN 28 pg (25-34); MEAN CORPUSCULAR HGB CONC 33 g/dL (32-36); MEAN CORPUSCULAR VOLUME 84 fL (80-99); MEAN PLATELET VOLUME 9.5 fL (9.0-12.2); MONOCYTES # (AUTO) 0.6 10^3/uL (0.0-1.0); MONOCYTES % (AUTO) 7 % (0-12); NEUTROPHILS # (AUTO) 6.2 10^3/uL (1.8-7.8); NEUTROPHILS % (AUTO) 70 % (42-75); PLATELET COUNT 338 10^3/uL (130-400); WHITE BLOOD COUNT 8.9 10^3/uL (4.3-11.0)
--- NOTE | 2023-06-25 15:52 | ED General ---
General Chief Complaint: General Problems/Pain Stated Complaint: IN SEVERE PAIN, HAS CANCER Nursing Triage Note: pt presents to ed via pov from home with complaints of generalized body cramps and increased abdominal pain starting this am. pt has hx of colon ca and has home morphine for pain control but reports no relief. Source of Information: Patient Exam Limitations: No Limitations History of Present Illness Date Seen by Provider: Jun 25, 2023 Time Seen by Provider: 15:10 Initial Comments Report of uncontrolled pain and body cramps. Patient has metastatic colon cancer and currently is on hospice. She had an episode a few days ago of the same and again this morning. She did increase her morphine and got a little control this morning but it got worse. She has been out of her potassium for couple days so she is wondering if that may be part of the problem. She does also have history of arthritis. She has not missed any doses of her medicine. The episode that she had last Tuesday took several hours to resolve. She presented here due to increased uncontrolled pain. No reported fever, vomiting or diarrhea. Timing/Duration: 4-6 Hours Severity: Moderate Associated Systoms: No Fever/Chills, No Nausea/Vomiting Allergies and Home Medications Allergies Coded Allergies: citalopram (Verified Allergy, Unknown, 04/28/23) fluoxetine (Verified Allergy, Unknown, 04/28/23) terbinafine (Verified Allergy, Unknown, 04/28/23) Patient Home Medication List Home Medication List Reviewed: Yes Amlodipine Besylate (Norvasc) 5 Mg Tablet, 5 MG PO DAILY Prescribed by: ELIZABETH NAIK on 01/15/23 1207 Hydrocodone/Acetaminophen (Hydrocodone-Acetamin 10-325 mg) 10 Mg-325 Mg Tablet, 1 EACH PO Q4H PRN for PAIN-MODERATE (5-7), (Reported) Entered as Reported by: YASMIN DEL ROSARIO on 01/03/23 1035 Omeprazole (Omeprazole) 40 Mg Capsule.dr, 40 MG PO DAILY, (Reported) Entered as Reported by: NUNU BALDERRAMA on 12/16/22 1205 Ondansetron (Ondansetron Odt) 4 Mg Tab.rapdis, 4 MG SL Q4H PRN for NAUSEA/VOMITING Prescribed by: CHRISTIANE PINA on 01/15/23 1628 Potassium Chloride (Potassium Chloride) 10 Meq Tab.er.prt, 10 MEQ PO DAILY Prescribed by: EDDIE MCLAUGHLIN on 06/25/23 2089 Review of Systems Review of Systems Constitutional: see HPI; No chills, No fever EENTM: nose congestion Respiratory: No cough, No short of breath Gastrointestinal: abdominal pain; No vomiting Musculoskeletal: joint pain, muscle pain Skin: change in color (Redness to the hands) Psychiatric/Neurological: No Symptoms Reported Past Jfpdwvm-Xexagi-Cetnab Hx Patient Social History Tobacco Use?: No Smoking Status: Unknown if Ever Smoked Substance use?: No Alcohol Use?: No Pt feels they are or have been: No Immunizations Up To Date First/Initial COVID19 Vaccinat: DENIES Second COVID19 Vaccination Juan M: DENIES Third COVID19 Vaccination Date: DENIES Seasonal Allergies Seasonal Allergies: No Past Medical History Surgery/Hospitalization HX: SMALL BOWEL RESECTION 06/06; appy, colon ca, htn, arthritis, copd Surgeries: Yes (SMALL BOWEL RESECTION, LEFT ARM SCREW PLACED, BUNION SX) Adenoidectomy, Bowel Surgery, Orthopedic, Tonsillectomy Respiratory: Yes COPD, Emphysema Currently Using CPAP: No Currently Using BIPAP: No Cardiac: No Neurological: No [employer] History: Menopausal Genitourinary: No Gastrointestinal: Yes (HX COLON CA, EPIGASTRIC PAIN) Gastroesophageal Reflux, Obstructive Bowel, Polyps Musculoskeletal: Yes Osteoporosis, Arthritis Endocrine: No HEENT: Yes (WEARS GLASSES, HAS UPPER DENTURES) Loss of Vision: Denies Hearing Impairment: Denies 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 oz. [id number]; 18.00 BMI Method: General Appearance: Moderate Distress, Thin Respiratory: Lungs Clear, Normal Breath Sounds Cardiovascular: Regular Rate, Rhythm, No Murmur Gastrointestinal: Non Tender, Soft Back: Normal Inspection, No Vertebral Tenderness Extremity: Normal Range of Motion, Non Tender, Other (Hands cramping with fingers clasped and she is unable to open them due to pain.) Neurologic/Psychiatric: Alert, Oriented x3 Skin: Normal Color, Warm/Dry Progress/Results/Core Measures Suspected Sepsis SIRS Temperature: Pulse: 80 Respiratory Rate: 20 Laboratory Tests 06/25/23 15:26: White Blood Count 8.9 Blood Pressure / Mean: Laboratory Tests 06/25/23 15:26: Creatinine 0.64, Platelet Count 338, Total Bilirubin 0.4 Results/Orders Lab Results Laboratory Tests Test 06/25/23 15:26 Range/Units White Blood Count 8.9 4.3-11.0 10^3/uL Red Blood Count 4.04 3.80-5.11 10^6/uL Hemoglobin 11.2 L 11.5-16.0 g/dL Hematocrit 34 L 35-52 % Mean Corpuscular Volume 84 80-99 fL Mean Corpuscular Hemoglobin 28 25-34 pg Mean Corpuscular Hemoglobin Concent 33 32-36 g/dL Red Cell Distribution Width 14.0 10.0-14.5 % Platelet Count 338 130-400 10^3/uL Mean Platelet Volume 9.5 9.0-12.2 fL Immature Granulocyte % (Auto) 0 % Neutrophils (%) (Auto) 70 42-75 % Lymphocytes (%) (Auto) 21 12-44 % Monocytes (%) (Auto) 7 0-12 % Eosinophils (%) (Auto) 1 0-10 % Basophils (%) (Auto) 0 0-10 % Neutrophils # (Auto) 6.2 1.8-7.8 10^3/uL Lymphocytes # (Auto) 1.9 1.0-4.0 10^3/uL Monocytes # (Auto) 0.6 0.0-1.0 10^3/uL Eosinophils # (Auto) 0.1 0.0-0.3 10^3/uL Basophils # (Auto) 0.0 0.0-0.1 10^3/uL Immature Granulocyte # (Auto) 0.0 0.0-0.1 10^3/uL Sodium Level 141 135-145 MMOL/L Potassium Level 2.8 L 3.6-5.0 MMOL/L Chloride Level 98 98-107 MMOL/L Carbon Dioxide Level 26 21-32 MMOL/L Anion Gap 17 H 5-14 MMOL/L Blood Urea Nitrogen 8 7-18 MG/DL Creatinine 0.64 0.60-1.30 MG/DL Estimat Glomerular Filtration Rate 99 BUN/Creatinine Ratio 13 Glucose Level 86 70-105 MG/DL Calcium Level 5.8 *L 8.5-10.1 MG/DL Corrected Calcium 6.0 L 8.5-10.1 MG/DL Total Bilirubin 0.4 0.1-1.0 MG/DL Aspartate Amino Transf (AST/SGOT) 40 H 5-34 U/L Alanine Aminotransferase (ALT/SGPT) 15 0-55 U/L Alkaline Phosphatase 136 40-136 U/L Total Protein 7.6 6.4-8.2 GM/DL Albumin 3.8 3.2-4.5 GM/DL My Orders Orders - EDDIE MCLAUGHLIN MD Hydromorphone Injection (Hydromorphone (06/25/23 15:15) Cbc With Automated Diff (06/25/23 15:15) Comprehensive Metabolic Panel (06/25/23 15:15) Ns Iv 1000 Ml (Ns Iv 1000 Ml) (06/25/23 15:15) Ed Iv/Invasive Line Start (06/25/23 15:15) Dexamethasone Injection (Dexamethasone (06/25/23 15:15) Potassium Cl 10meq/50ml Ivpb (Kcl 10 Meq (06/25/23 16:15) Potassium Chloride (Tablet) (Potassium C (06/25/23 16:15) Calcium Gluconate 1gm Ivpb (Calcium Gluc (06/25/23 16:30) Calcium Gluconate 1gm Ivpb (Calcium Gluc (06/25/23 16:30) Medications Given in ED Current Medications Medications Dose Ordered Sig/Grady Route Start Time Stop Time Status Last Admin Dose Admin Calcium Gluconate/ Sodium Chloride 100 ml @ 120 mls/hr ONCE ONCE IV 06/25/23 16:30 06/25/23 17:19 DC 06/25/23 16:31 120 MLS/HR Calcium Gluconate/ Sodium Chloride 100 ml @ 120 mls/hr ONCE ONCE IV 06/25/23 16:30 06/25/23 17:19 DC 06/25/23 17:21 120 MLS/HR Dexamethasone Sodium Phosphate 10 mg ONCE ONCE IV 06/25/23 15:15 06/25/23 15:18 DC 06/25/23 15:47 10 MG Hydromorphone HCl 2 mg ONCE ONCE IV 06/25/23 15:15 06/25/23 15:18 DC 06/25/23 15:54 2 MG Potassium Chloride 20 meq ONCE ONCE PO 06/25/23 16:15 06/25/23 16:16 DC 06/25/23 16:14 20 MEQ Potassium Chloride 50 ml @ 50 mls/hr ONCE ONCE IV 06/25/23 16:15 06/25/23 17:14 DC 06/25/23 16:15 50 MLS/HR Vital Signs/I&O 06/25/23 14:00 Temp 35.7 Pulse 80 Resp 20 B/P (MAP) Pulse Ox 95 Capillary Refill : Less Than 3 Seconds Progress Note : Progress Note Seen and evaluated. We will access her port and give normal saline 1 L bolus and check basic labs including CBC and CMP. Decadron 10 mg IV ordered. We will give Dilaudid 2 mg IV and see if we can get pain control. Monitor patient. Differential diagnosis includes tumor lysis syndrome, electrolyte abnormality, dehydration, cancer pain, arthritis. 617: Patient doing much better and is able to straighten her hands and her pain is relieved. She was found to have hypokalemia with potassium of 2.8. I have ordered 10 mEq of potassium IV and 20 mEq of potassium p.o. monitor patient. CBC is otherwise grossly normal. 1640: I have ordered 2 A of calcium gluconate due to low calcium. Patient admits to facial spasms as well and I think this is all related to the low calcium. I did speak with the on-call hospitalist for [facility] for guidance for calcium replacement. We will continue outpatient calcium replacement with calcium via Tums 1 tablet 4 times a day and then she will follow-up with her oncologist earlier this week for recheck and further evaluation. Patient again is feeling so much better now and is very happy about that and she is tolerating the p.o. potassium and IV potassium and calcium well. Monitor patient. 1730: Patient is doing much better. Pleated infusions of calcium gluconate and then patient to be discharged home. Discharged home with return precautions. Patient verbalized understanding instructions and agreement with plan. Departure Impression Primary Impression: Hypokalemia Additional Impressions: Hypocalcemia Cancer associated pain Disposition: HOME, SELF-CARE Condition: Improved Departure-Patient Inst. Decision time for Depature: 17:31 Referrals: EVER LAINEZ APRN (PCP/Family) Primary Care Physician Patient Instructions: Hypocalcemia, Hypokalemia (DC), Cancer Pain Syndromes (DC) Add. Discharge Instructions: All discharge instructions reviewed with patient and/or family. Voiced understanding. Call your your oncologist for recheck and further evaluation. Call her office on Tuesday and let her know that you were seen in the emergency department and had low calcium and potassium that were replaced. You may take Tums 500 mg tablet 1 every 6 hours for your low calcium and eat calcium rich foods such as ice cream or similar. Take potassium supplement as directed. Return for worse pain, fever, vomiting, weakness, breathing problems or other concerns as needed. Continue other home medications as previously prescribed. Scripts Potassium Chloride (Potassium Chloride) 10 Meq Tab.er.prt 10 MEQ PO DAILY for 30 Days, #30 TAB Prov: EDDIE MCLAUGHLIN MD 06/25/23 Copy Copies To 1: CORBY NASSAR MD, TIMOTHY D MD Jun 25, 2023 15:52
[2023-06-25 16:00] LABS: ALBUMIN 3.8 GM/DL (3.2-4.5)
[2023-06-25 16:01] LABS: POTASSIUM 2.8 MMOL/L (3.6-5.0)
[2023-06-25 16:03] LABS: TOTAL PROTEIN 7.6 GM/DL (6.4-8.2)
[2023-06-25 16:07] LABS: CREATININE SERUM 0.64 MG/DL (0.60-1.30)
[2023-06-25] MEDS ORDERED: POTASSIUM CHLORIDE 20 MEQ TABLET PO ONE (16:15)
[2023-06-25] MEDS ORDERED: POTASSIUM CL 10MEQ/50ML IVPB 50 ML IV ONE (16:15)
[2023-06-25 16:24] LABS: CALCIUM 5.8 MG/DL (8.5-10.1)
[2023-06-25 16:25] LABS: BILIRUBIN,TOTAL 0.4 MG/DL (0.1-1.0)
[2023-06-25] MEDS ORDERED: CALCIUM GLUCONATE 1GM IVPB 100 ML IV ONE ×2 (16:30)
[2023-06-25] MEDS ORDERED: POTA-177 PO (16:49)
== END 2023-06-25 18:15 | disposition home or self-care (01) ==
LOC: EDUNIT# 13:39 → ER 13:41
DX: E83.51 Hypocalcemia (principal); G89.3 Neoplasm related pain (acute) (chronic); C78.5 Secondary malignant neoplasm of large intestine and rectum
CPT/HCPCS: 36415; 80053; 85025